=== PATIENT | female | born 1935 | race African-American/Black ===

== ENCOUNTER → 2017-04-20 | Day surgery (SDC) | payer MEDICARE, BC, SELFPAY | PROVIDERS: Family Provider Family Medicine; Visit Provider Internal Medicine | DX: I25.119 Atherosclerotic heart disease of native coronary artery with unspecified angina pectoris (principal); R94.31 Abnormal electrocardiogram [ECG] [EKG]; E11.8 Type 2 diabetes mellitus with unspecified complications | CPT/HCPCS: 80048; 85025; 93458; 99152; C1725; C1769; J1644; Q9967 ==

== ENCOUNTER 2017-06-15 09:09 | Emergency (ER) | payer MEDICARE, BC, SELFPAY ==
[2017-06-15 09:12] VITALS: BP 150/78; PULSE 78; RESP 16; TEMP 36.7; O2SAT 98; BMI 29.8
--- NOTE | 2017-06-15 09:24 | CT_ITS ---
CT abdomen pelvis wo/w con CLINICAL INDICATION: Left lower quadrant pain ITS.REASON: pain in llq ORDERING PHYSICIAN: Ferdinand Amezquita MD PATIENT AGE: 81 years COMPARISON: 07/28/2015 TECHNIQUE: Axial images obtained without and with contrast with sagittal and coronal reformats. PROCEDURE: Oral Contrast: None IV Contrast: 75 mL is Isovue-370. FINDINGS: Lung bases are clear. There are postsurgical changes of the right breast. 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 No focal liver lesion evident. There is pneumobilia as before. There has been prior cholecystectomy. Spleen and adrenal glands are unremarkable. Present at the GE junction with a small hiatal hernia noted. There are nonobstructing bilateral renal calculi with bilateral renal cortical scarring more extensive on the right. No hydronephrosis. There are bilateral renal cysts the largest on the left anteriorly at 2.5 cm. There are surgical clips in the right upper quadrant in the periportal region and region of the pancreatic head. 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 Visualization of the structures is limited due to lack of oral contrast. The findings are similar when compared to 07/28/2015. Status post Whipple procedure. Postsurgical changes of the right colon. Extensive diverticulosis of the descending and sigmoid colon without evidence of diverticulitis. There has been prior hysterectomy. Gas is present in the urinary bladder and could be due to recent catheterization. No intestinal obstruction or free air. No acute inflammatory process evident. No acute bony anomalies. IMPRESSION: 1. No acute findings. 2. Pneumobilia, prior pancreatic surgery. No significant change from the previous study. 3. Extensive diverticulosis without diverticulitis. 4. There is gas present in the urinary bladder could be due to recent catheterization or gas-forming infection or fistula. 5. nonacute findings as described above.
--- NOTE | 2017-06-15 09:33 | [facility].EDGENADL ---
ED Disposition Clinical Impression: UTI (urinary tract infection) Disposition: Home, Self-Care Condition on Discharge: Good Instructions: DI for Urinary Tract Infection (UTI), DI for Abdominal Pain-Adult Additional Instructions: Additional instructions for URINARY TRACT INFECTION: See your physician as soon as possible for further evaluation. Return immediately if you have an uncontrollable fever greater than 102 degrees, severe back or abdominal pain, inability to urinate, or repetetive vomiting. Additional instructions for ABDOMINAL PAIN: See your physician as soon as possible for further evaluation. Return immediately if worsening abdominal pain, vomiting, shortness of breath, fever, vomiting of blood or abdominal distention. Prescriptions: cephALEXin [Keflex 500mg Cap] 500 mg PO QID #40 cap Referrals: Rosalind Cruz APRN [Primary Care Provider] - - Critical Care Critical Care Time: No Attestation: On 06/15/17, the high probability of a clinically significant, sudden or life threatening deterioration of the following system(s) required my full and direct attention, intervention and personal management. The time I documented below is in addition to time spent performing reported procedures but includes the following listed in this critical care notation. Medical Decision Making Vital Signs: 06/15/17 09:12 06/15/17 11:10 Temperature 98.1 F Temperature Source Oral Pulse Rate [Right Brachial] 78 Respiratory Rate 16 Blood Pressure [Right Arm] 150/78 138/75 Blood Pressure Mean [Right Arm] 102 96 Blood Pressure Source [Right Arm] Automatic Cuff Blood Pressure Position [Right Arm] Sitting Sitting 02 Sat by Pulse Oximetry 98 Oxygen Delivery Method Room Air - Lab Data Lab results reviewed: Yes: I reviewed the patient's lab results. Lab Results 06/15/17 09:25: WBC 8.5, RBC 4.06 L, Hgb 11.4 L, Hct 35.7 L, MCV 87.9, MCH 28.1, MCHC 32.0, RDW 13.9, Plt Count 215, MPV 9.1, Neut % (Auto) 59.1, Lymph % (Auto) 28.1, [place] % (Auto) 6.8, Eos % (Auto) 5.3, Baso % (Auto) 0.6, Neut # (Auto) 5.0, Lymph # (Auto) 2.4, [place] # (Auto) 0.6, Eos # (Auto) 0.5 H, Baso # (Auto) 0.1 06/15/17 09:25: Sodium 142, Potassium 4.1, Chloride 110 H, Carbon Dioxide 26, Anion Gap 10.1, BUN 17, Creatinine 1.22 H, Estimated Creat Clear 50, Estimated GFR 43 L, Est GFR ( Amer) 51 L, Glucose 108 H, Calcium 9.7, Total Bilirubin 0.5, AST 16, ALT 15, Alkaline Phosphatase 133 H, Total Protein 6.4, Albumin 3.2 L, Globulin 3.2, Albumin/Globulin Ratio 1.0 L, Amylase 46, Lipase 79 06/15/17 13:10: Urine Color Yellow, Urine Appearance Turbid, Urine pH 6.0, Ur Specific [place] 1.010, Urine Protein Negative, Urine Glucose (UA) Negative, Urine Ketones Negative, Urine Blood Negative, Urine Nitrate Negative, Urine Bilirubin Negative, Urine Urobilinogen 0.2, Ur Leukocyte Esterase 2+ A, Urine RBC None, Urine WBC 20-50, Ur Squamous Epith Cells 10-20, Urine Bacteria 4+, WBC Casts Occasional Result diagrams: 06/15/17 09:25 06/15/17 09:25 Orders (Tests/Meds): ED MEDICATIONS Generic Name Dose Route Start Last Admin Trade Name Freq PRN Reason Stop Dose Admin Ceftriaxone Sodium 1 gm/ 50 mls @ 100 mls/hr 06/15/17 13:42 Sodium Chloride IV 06/15/17 14:11 ONCE ONE Discontinued Medications Generic Name Dose Route Start Last Admin Trade Name Freq PRN Reason Stop Dose Admin Iopamidol 75 ml 06/15/17 12:24 06/15/17 12:27 [id number]; 75ml Vial IV 06/15/17 12:25 75 ml ONCE ONE Administration Ketorolac Tromethamine 15 mg 06/15/17 10:41 06/15/17 10:50 Toradol 30mg/Ml Vial IV 06/15/17 10:42 15 mg ONCE ONE Administration Sodium Chloride 10 ml 06/15/17 12:24 06/15/17 12:26 Rad-Saline Flush 10ml Syringe IV 06/15/17 12:25 10 ml ONCE ONE Administration Sodium Chloride 1,000 ml 06/15/17 12:49 06/15/17 13:31 Sod Chloride 0.9% 1000ml Bag IV 06/15/17 12:50 Not Given BOLUS ONE ORDERS Category
[2017-06-15 10:02] LABS: Basophils # 0.1 K/mm3 (0-0.2); Basophils % 0.6 % (0.1-2.0); Eosinophils # 0.5 K/mm3 (0.0-0.4); Eosinophils % 5.3 % (0.1-12.0); Hematocrit 35.7 % (37.0-47.0); Hemoglobin 11.4 g/dL (12.2-16.2); Lymphocytes # 2.4 K/mm3 (0.7-4.5); Lymphocytes % 28.1 K/mm3 (10-50); Mean Corpuscular Hemoglobin 28.1 pg (27.0-31.2); Mean Corpuscular Volume 87.9 fl (81-99); Mean Platelet Volume 9.1 fl (7.4-10.4); Monocytes # 0.6 K/mm3 (0.1-1.0); Monocytes % 6.8 % (1.7-9.3); Neutrophils % 59.1 % (37.0-80.0); Platelet Count 215 K/mm3 (142-424); Red Blood Count 4.06 M/mm3 (4.20-5.40); Red Cell Distribution Width 13.9 % (11.5-17.5); White Blood Count 8.5 K/mm3 (4.8-10.8)
[2017-06-15 10:19] LABS: Alanine Aminotransferase 15 U/L (12-78); Albumin Level 3.2 gm/dL (3.4-5.0); Alkaline Phosphatase 133 U/L (46-116); Amylase 46 U/L (25-125); Anion Gap 10.1 mEq/L (5-15); Aspartate Amino Transferase 16 U/L (15-37); Bilirubin,Total 0.5 mg/dL (0.2-1.0); Blood Urea Nitrogen 17 mg/dL (7-18); Calcium 9.7 mg/dL (8.5-10.1); Carbon Dioxide 26 mmol/L (21.0-32.0); Chloride 110 mmol/L (98-107); Creatinine Clearance Estimated 50 mL/min (0-300); Creatinine,Serum 1.22 mg/dL (0.55-1.02); Estimated Glomerular Filt Rate 43 ml/min (>60); GFR (African American) 51 ML/MIN (>60); Globulin 3.2 gm/dl (1.3-3.2); Glucose 108 mg/dL (74-106); Lipase 79 u/L (73-393); Potassium 4.1 mmoL/L (3.5-5.1); Sodium 142 mmol/L (136-145); Total Protein,Serum 6.4 gm/dL (6.4-8.2)
[2017-06-15 11:10] VITALS: BP 138/75
[2017-06-15 13:15] LABS: Microscopic, Urine URINE MICROSCOPIC (MICROSCOPIC)
[2017-06-15 13:21] LABS: Appearance,Urine TURBID (Clear); Bilirubin,Urine Negative (Negative); Blood, Urine Negative (Negative); Color,Urine YELLOW (Yellow); Glucose,Urine (UA) Negative (Negative); Ketones,Urine Negative (Negative); Leukocyte Esterase,Urine 2+ (Negative); Nitrate,Urine Negative (Negative); Protein,Urine Negative (Negative); Urobilinogen,Urine 0.2 EU/dl (0.2)
[2017-06-15 13:38] LABS: WBC,Urine 20-50 #/hpf (0-3)
[2017-06-15 13:39] LABS: Bacteria,Urine 4+ /lpf; White Blood Cell Casts,Urine Occasional #/lpf (0)
[2017-06-15 13:53] VITALS: BP 129/75; PULSE 68; RESP 16; TEMP 36.7; O2SAT 99
== END 2017-06-15 13:52 | disposition home or self-care (01) ==
PROVIDERS: Emergency Provider Emergency Medicine; PCP Nurse Practitioner Family
DX: N39.0 Urinary tract infection, site not specified (principal); Z85.3 Personal history of malignant neoplasm of breast; E11.9 Type 2 diabetes mellitus without complications
CPT/HCPCS: 74170; 74178; 80053; 81001; 82150; 83690; 85025; 87086; 87088; 87186; 96372; 99284; Q9967

== ENCOUNTER 2017-08-28 08:49 | Day surgery (SDC) | payer MEDICARE, BC, SELFPAY ==
[2017-08-24 16:18] VITALS: BMI 21.1
[2017-08-28 09:54] VITALS: BP 125/64; PULSE 73; RESP 20; TEMP 36.7; O2SAT 99
== END 2017-08-28 11:30 | disposition home or self-care (01) ==
LOC: OUTP 08:50
PROVIDERS: PCP Nurse Practitioner Family; Visit Provider Ophthalmology
PROC: (CPT 66821; principal; 2017-08-28 09:30)
DX: H26.492 Other secondary cataract, left eye (principal); Z96.1 Presence of intraocular lens; H53.8 Other visual disturbances
CPT/HCPCS: 66821

== ENCOUNTER 2018-07-11 21:03 | Observation (INO) ==
--- NOTE | 2018-07-11 21:37 | Emergency Department Note ---
ED Disposition Clinical Impression: RBBB, Bifascicular block, Renal insufficiency Chest pain Qualifiers: Chest pain type: precordial pain Qualified Code(s): R07.2 - Precordial pain Hypertensive heart disease Qualifiers: Heart failure presence: unspecified whether heart failure present Qualified Code(s): I11.9 - Hypertensive heart disease without heart failure Diabetes Qualifiers: Diabetes mellitus type: type 2 Diabetes mellitus intermediate insulin use: unspecified intermediate insulin use status Diabetes mellitus complication status: with unspecified complications Qualified Code(s): E11.8 - Type 2 diabetes mellitus with unspecified complications Disposition: Admitted as Observation Condition on Discharge: Good Referrals: Provider,Referral, MD [Primary Care Provider] - - Critical Care Critical Care Time: No Attestation: On 07/11/18, the high probability of a clinically significant, sudden or life threatening deterioration of the following system(s) required my full and direct attention, intervention and personal management. The time I documented below is in addition to time spent performing reported procedures but includes the following listed in this critical care notation. Medical Decision Making - Medical Records Medical records reviewed: Yes: I reviewed the patient's medical records. - Griffin Inquiry Pt receiving controlled substance: No Vital Signs: 07/11/18 21:03 07/11/18 22:01 07/11/18 22:23 Temperature 98.0 F Temperature Source Oral Pulse Rate [Right Brachial] 69 65 63 Respiratory Rate 16 16 15 Blood Pressure [Right Arm] 152/102 H 132/67 140/70 Blood Pressure Mean [Right Arm] 118 88 93 Blood Pressure Source [Right Arm] Automatic Cuff Automatic Cuff Automatic Cuff Blood Pressure Position [Right Arm] Sitting Sitting Sitting 02 Sat by Pulse Oximetry 100 99 100 Oxygen Delivery Method Room Air Room Air Room Air 07/11/18 23:00 Temperature Temperature Source Pulse Rate [Right Brachial] 72 Respiratory Rate 16 Blood Pressure [Right Arm] 141/72 H Blood Pressure Mean [Right Arm] 95 Blood Pressure Source [Right Arm] Automatic Cuff Blood Pressure Position [Right Arm] Sitting 02 Sat by Pulse Oximetry 100 Oxygen Delivery Method Room Air - Lab Data Lab results reviewed: Yes: I reviewed the patient's lab results. Lab Results 07/11/18 21:40: WBC 6.9, RBC 4.36, Hgb 12.2, Hct 38.8, MCV 89.1, MCH 28.0, MCHC 31.4 L, RDW 14.3, Plt Count 265, MPV 6.6 L, Neut % (Auto) 61.3, Lymph % (Auto) 29.3, [place] % (Auto) 4.8, Eos % (Auto) 3.9, Baso % (Auto) 0.7, Neut # (Auto) 4.2, Lymph # (Auto) 2.0, [place] # (Auto) 0.3, Eos # (Auto) 0.3, Baso # (Auto) 0.1 07/11/18 21:59: Sodium 143, Potassium 4.0, Chloride 109 H, Carbon Dioxide 26, Anion Gap 12.0, BUN 24 H, Creatinine 1.33 H, Estimated Creat Clear 42, Estimated GFR 38 L, Est GFR ( Amer) 46 L, Glucose 169 H, Calcium 9.7, Troponin I < 0.02 Result diagrams: 07/11/18 21:40 07/11/18 21:59 Orders (Tests/Meds): ED MEDICATIONS Generic Name Dose Route Start Last Admin Trade Name Freq PRN Reason Stop Dose Admin Sodium Chloride 10 ml 07/11/18 21:13 Saline Flush 10ml Syringe IV 08/10/18 21:12 NEEDED PRN Maintain IV Site Discontinued Medications Generic Name Dose Route Start Last Admin Trade Name Freq PRN Reason Stop Dose Admin Aspirin 243 mg 07/11/18 22:28 07/11/18 22:29 Aspirin 81mg Chewable Tablet PO 07/11/18 22:29 243 mg ONCE ONE Administration Nitroglycerin 1 gm 07/11/18 23:01 Nitroglycerin 1 Inch Oint Udp TD 07/11/18 23:02 ONCE ONE ORDERS Category Date Time Status XR chest 2V Stat Exams 07/11/18 21:13 Taken Urinalysis and Microscopic Stat Lab 07/11/18 21:13 Ordered ECG Request by /Nse Stat Y 07/11/18 21:13 Ordered - Radiology Data #1 Image(s): Chest Image Reviewed: Yes I reviewed the patient's radiology image Preliminary Findings: Normal/NAD - ECG Data Tracing #1 Normal Sinus Rhythm: Yes Conduction abnormalities present: LAFB, RBBB ECG compared to prior tracings: there are no significant changes - Physician Consults Physician Consulted: finn Reason -: Admission Chest Pain HPI - General Chief Complaint: Chest Pain Stated Complaint: CP Time Seen by Provider: 07/11/18 21:10 Mode of Arrival: Ambulatory Source of Information: Patient, Medical Record Limitations: No Limitations Description of Symptoms (Recalled from ER Triage Doc. by RN): Pt states she is having cp x 2 days, she states is a little worse today. - History of Present Illness HPI narrative: new onset of ant chest pain with rad to lt upper ext described as sharp - pt with diabetes and hx of heart disease complaint: chest pain indicative of cardiac Onset (ago): day(s) Duration: intermittent Activity at onset: during rest Pain location: left chest Severity: moderate Quality: sharp Pain radiation: LUE Relieving factors: nothing Risk Factors for CAD: Hypertension, Family Hx of CAD, Diabetes Treatments prior to or on arrival for Cardiac Chest Pain: none - ELA Score for Non-Stemi Age of Patient: 80-89 years old Heart Rate: 50-69 bpm Systolic Blood Pressure: 140-159 mmHg Serum Creatinine: 1.60-1.99 mg/dl CHF [place] Class: I-No CHF Other Risk Factors: None Non-Stemi Risk Score: 131 - Related Data Prior Cardiac Testing/Procedures: Cardiac Angiogram On Oral Contraceptives: No Home Medications Medication Instructions Recorded Confirmed amlodipine 5 mg tablet 5 mg PO DAILY tab 07/30/17 07/11/18 aspirin 81 mg tablet,delayed 81 mg PO DAILY tab 07/30/17 07/11/18 release atenolol 25 mg tablet 25 mg PO DAILY tab 07/30/17 07/11/18 diclofenac sodium 75 mg 75 mg PO BID 07/30/17 07/11/18 tablet,delayed release ferrous sulfate 325 mg (65 mg 325 mg PO BID tab 07/30/17 07/11/18 iron) tablet glipizide ER 5 mg tablet, extended 5 mg PO DAILY tab 07/30/17 07/11/18 release 24 hr meclizine 25 mg chewable tablet 25 mg PO TID PRN 07/30/17 07/11/18 polyethylene glycol 3350 17 17 g PO DAILY g 07/30/17 07/11/18 gram/dose oral powder Lisinopril [Prinivil 10mg Tablet] 10 mg PO ONCE 07/11/18 07/11/18 Allergies Allergy/AdvReac Type Severity Reaction Status Date / Time butorphanol [From STADOL] Allergy Mild I-HIVES Verified 08/28/17 09:24 codeine [CODEINE] Allergy Mild I-HIVES Verified 08/28/17 09:24 morphine [MORPHINE] Allergy Mild I-HIVES Verified 08/28/17 09:24 promethazine [From PHENERGAN] Allergy Mild I-HIVES Verified 08/28/17 09:24 [facility] History - Hepatitis A Screen Drug use history?: No High risk sexual behaviors?: No History of sexually transmitted infection?: No Currently employed?: No Childcare worker?: No Do you have indoor plumbing?: Yes Do you have electricity?: Yes Attestation statement:: This patient has been screened for Hepatitis A risk factors. I have reviewed the patient's past medical history: Yes Medical History: Reports:: Cancer, Diabetes Mellitus Type 2, Hyperlipidemia, Hypertension Denies:: Diabetes Mellitus Type 1, Internal Pacemaker, Lung Disease, Seizures Other Surgeries: Yes: Cardiac Catheterization. No: Pacemaker - Social History Smoking Status: Unknown if ever smoked Alcohol Intake: never Alcohol Intake Frequency:: other Occupational Status: disabled - Psychiatric History Expresses thoughts of harming self/others: None Suicide Plan Description: No Plan ROS Obtained: Yes All systems reviewed & no additional complaints - Constitutional Constitutional: Denies fever(s) - Eyes Eyes: Denies change in vision - ENT Ears, Nose, Mouth, and Throat: Denies headache(s), Denies sore throat - Cardiovascular Cardiovascular: Reports chest pain, Denies dyspnea - Respiratory Respiratory: No cough - Gastrointestinal Gastrointestingal: Denies: abdominal pain - Genitourinary Female Genitourinary: Denies dysuria, Denies hematuria - Musculoskeletal Musculoskeletal: Denies joint pain, Denies joint swelling - Integumentary/Breasts Skin/Breast: Denies rash - Neurologic Neurologic: Denies seizure-like activity Physical Exam - General General appearance: alert - Head Head exam: normocephalic - Eye Eye exam: Present: PERRL, EOMI. Absent: scleral icterus - ENT ENT exam: Present: mucous membranes dry - Neck Neck exam: Present: trachea midline - Respiratory Respiratory exam: Present: normal lung sounds bilaterally. Absent: respiratory distress - Cardiovascular Cardiovascular exam: Present: regular rate, systolic murmur, +S4 - Abdominal Exam Abdominal exam: Present: soft - Extremities Exam Extremities exam: Absent: calf tenderness - Neurological Exam Neurological exam: Present: alert, oriented X3, CN II-XII intact - Psychiatric Psychiatric exam: Present: normal affect - Skin Skin exam: Absent: rash
[2018-07-11 21:56] LABS: Basophils # 0.1 K/mm3 (0-0.2); Basophils % 0.7 % (0.1-2.0); Eosinophils # 0.3 K/mm3 (0.0-0.4); Eosinophils % 3.9 % (0.1-12.0); Hematocrit 38.8 % (37.0-47.0); Hemoglobin 12.2 g/dL (12.2-16.2); Lymphocytes % 29.3 % (10-50); Mean Corpuscular HGB Conc 31.4 g/dL (31.8-35.4); Mean Corpuscular Volume 89.1 fl (81-99); Mean Platelet Volume 6.6 fl (7.4-10.4); Monocytes # 0.3 K/mm3 (0.1-1.0); Monocytes % 4.8 % (1.7-9.3); Neutrophils # 4.2 K/mm3 (1.8-7.8); Neutrophils % 61.3 % (37.0-80.0); Platelet Count 265 K/mm3 (142-424); Red Blood Count 4.36 M/mm3 (4.20-5.40); Red Cell Distribution Width 14.3 % (11.5-17.5); White Blood Count 6.9 K/mm3 (4.8-10.8)
[2018-07-11 22:27] LABS: Blood Urea Nitrogen 24 mg/dL (7-18); Calcium 9.7 mg/dL (8.5-10.1); Carbon Dioxide 26 mmol/L (21.0-32.0); Chloride 109 mmol/L (98-107); Glucose 169 mg/dL (74-106); Sodium 143 mmol/L (136-145)
[2018-07-12 05:43] LABS: Basophils % 0.5 % (0.1-2.0); Eosinophils # 0.3 K/mm3 (0.0-0.4); Eosinophils % 4.2 % (0.1-12.0); Hematocrit 34.6 % (37.0-47.0); Lymphocytes # 2.1 K/mm3 (0.7-4.5); Lymphocytes % 34.4 % (10-50); Mean Corpuscular HGB Conc 31.3 g/dL (31.8-35.4); Mean Corpuscular Hemoglobin 27.5 pg (27.0-31.2); Mean Corpuscular Volume 87.9 fl (81-99); Mean Platelet Volume 6.6 fl (7.4-10.4); Monocytes # 0.4 K/mm3 (0.1-1.0); Monocytes % 5.7 % (1.7-9.3); Neutrophils # 3.3 K/mm3 (1.8-7.8); Neutrophils % 55.2 % (37.0-80.0); Platelet Count 255 K/mm3 (142-424); Red Blood Count 3.93 M/mm3 (4.20-5.40); Red Cell Distribution Width 14.4 % (11.5-17.5); White Blood Count 6.1 K/mm3 (4.8-10.8)
[2018-07-12 05:51] LABS: Hemoglobin 10.9 g/dL (12.2-16.2)
[2018-07-12 05:56] LABS: Anion Gap 10.5 mEq/L (5-15); Calcium 9.8 mg/dL (8.5-10.1); Chol/HDL Ratio 3.6 (1-3.5); Potassium 3.5 mmoL/L (3.5-5.1)
--- NOTE | 2018-07-12 07:16 | History & Physical Report ---
*Admission Date: 07/11/18 *Chief complaint: chest pain *History of present illness: 82 year old female presents to ER with chest pain that began on Sunday. When this first occurred patient was seating watching TV and reports it felt like stabbing to left upper chest, accompanied with tightness and lightheadedness. Denies nausea, diaphoresis. Symptoms worsened and that's what ultimately brought her in. She experienced similar episodes back in 2017 and had a heart catheterization performed by Dr Griffin, no stents were placed and he told the patient her heart looked great. She is being treated for hypertension, reports good compliance to medications, regularly checks blood pressure, typically runs 110s/60s, unrestricted diet, no regular physical activity, no recently added stressors. 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 Pain gets better with nitroglycerin. She did have an episode of blood glucose dropping to 53 overnight, this was successfully treated with an amp of D50, she did take glipizide 5 mg yesterday. Echocardiogram has already been performed this morning. [facility] History Medical History: Reports:: Cancer, Diabetes Mellitus Type 2, Hyperlipidemia, Hypertension Denies:: Diabetes Mellitus Type 1, Internal Pacemaker, Lung Disease, MRSA, Seizures Have you ever received a pneumonia vaccine?: No Have you received a flu vaccine this season?: No Other Surgeries: Yes: Cardiac Catheterization, Other (pancreas, left mascetomy.). No: Pacemaker Amputation: No Fractures: No - *Social History Educational Level: Attended High School Smoking Status: Former smoker Alcohol Intake: never Alcohol Intake Frequency:: other Occupational Status: disabled Travel in the last 8 weeks: None - Psychiatric History Expresses thoughts of harming self/others: None Suicide Plan Description: No Plan Family Hx:: Cancer, Diabetes, Hyperlipidemia, Hypertension Review of Systems - Constitutional Denies weight gain - *Cardiovascular Reports chest pain, Reports chest pain at rest, Reports chest pain with activity, Reports leg swelling, Denies irregular heart rhythm, Denies fast heart rate - *Respiratory Reports shortness of breath - *Gastrointestinal Denies nausea - *Neurologic Denies headache(s), Denies seizure-like activity Meds Home Medications Medication Instructions Recorded Confirmed Type amlodipine 5 mg tablet 5 mg PO DAILY tab 07/30/17 07/12/18 History aspirin 81 mg tablet,delayed 81 mg PO DAILY tab 07/30/17 07/12/18 History release atenolol 25 mg tablet 25 mg PO DAILY tab 07/30/17 07/12/18 History diclofenac sodium 75 mg 75 mg PO BID 07/30/17 07/12/18 History tablet,delayed release ferrous sulfate 325 mg (65 mg 325 mg PO BID tab 07/30/17 07/12/18 History iron) tablet glipizide ER 5 mg tablet, extended 5 mg PO DAILY tab 07/30/17 07/12/18 History release 24 hr meclizine 25 mg chewable tablet 25 mg PO TID PRN 07/30/17 07/12/18 History polyethylene glycol 3350 17 17 g PO DAILY g 07/30/17 07/12/18 History gram/dose oral powder Lisinopril [Prinivil 10mg Tablet] 10 mg PO ONCE 07/11/18 07/12/18 History Allergies Allergy/AdvReac Type Severity Reaction Status Date / Time butorphanol [From STADOL] Allergy Mild I-HIVES Verified 07/12/18 00:31 codeine [CODEINE] Allergy Mild I-HIVES Verified 07/12/18 00:31 morphine [MORPHINE] Allergy Mild I-HIVES Verified 07/12/18 00:31 promethazine [From PHENERGAN] Allergy Mild I-HIVES Verified 07/12/18 00:31 Exam Vital signs and Labs for Last 24 Hours: Temp Pulse Resp BP Pulse Ox 98.3 F 59 L 16 120/63 93 L 07/12/18 04:00 07/12/18 04:00 07/12/18 04:00 07/12/18 04:00 07/12/18 04:00 Laboratory Results - last 24 hr 07/11/18 21:40: WBC 6.9, RBC 4.36, Hgb 12.2, Hct 38.8, MCV 89.1, MCH 28.0, MCHC 31.4 L, RDW 14.3, Plt Count 265, MPV 6.6 L, Neut % (Auto) 61.3, Lymph % (Auto) 29.3, [place] % (Auto) 4.8, Eos % (Auto) 3.9, Baso % (Auto) 0.7, Neut # (Auto) 4.2, Lymph # (Auto) 2.0, [place] # (Auto) 0.3, Eos # (Auto) 0.3, Baso # (Auto) 0.1 07/11/18 21:59: Sodium 143, Potassium 4.0, Chloride 109 H, Carbon Dioxide 26, Anion Gap 12.0, BUN 24 H, Creatinine 1.33 H, Estimated Creat Clear 42, Estimated GFR 38 L, Est GFR ( Amer) 46 L, Glucose 169 H, Calcium 9.7, Troponin I < 0.02 07/12/18 03:15: Troponin I < 0.02 07/12/18 05:24: Troponin I < 0.02 07/12/18 05:24: WBC 6.1, RBC 3.93 L, Hgb 10.9 L D, Hct 34.6 L, MCV 87.9, MCH 27.5, MCHC 31.3 L, RDW 14.4, Plt Count 255, MPV 6.6 L, Neut % (Auto) 55.2, Lymph % (Auto) 34.4, [place] % (Auto) 5.7, Eos % (Auto) 4.2, Baso % (Auto) 0.5, Neut # (Auto) 3.3, Lymph # (Auto) 2.1, [place] # (Auto) 0.4, Eos # (Auto) 0.3, Baso # (Auto) 0.0 07/12/18 05:24: Sodium 143, Potassium 3.5, Chloride 111 H, Carbon Dioxide 25, Anion Gap 10.5, BUN 20 H, Creatinine 1.10 H, Estimated Creat Clear 56, Estimated GFR 48 L, Est GFR ( Amer) 58 L D, Glucose 60 L D, Calcium 9.8, Magnesium 1.8, Triglycerides 96, Cholesterol 177, LDL Cholesterol 109, VLDL Cholesterol 19, HDL Cholesterol 49, Cholesterol/HDL Ratio 3.6 H I & O for Last 24 hours: Intake & Output 07/09/18 07/10/18 07/11/18 07/12/18 23:59 23:59 23:59 23:59 Weight 190 lb 7 oz - Constitutional no acute distress, average body habitus - *Routine HEENT Exam Head: Present: normocephalic ENT: Present: mucous membranes moist - *Routine Neck Exam Present: supple - *Routine Respiratory Exam Present: CTA bilaterally. Absent: accessory muscle use - *Routine Cardiovascular Exam Present: RRR, Normal S1, Normal S2. Absent: murmur, bradycardia, tachycardia - *Routine Abdominal Exam Present: soft, normoactive bowel sounds. Absent: tenderness, distended - *Routine Extremities Exam Present: edema, pulses intact. Absent: cyanosis Comments: 1+ pedal edema left LE, 1-2+ right LE - *Routine Skin Exam Present: intact. Absent: cyanosis, pallor - *Routine Neurological Exam Present: alert, oriented X3 - Routine Psychiatric Exam Present: normal affect Assessment and Plan - Assessment and plan all Dx Assessment and Plan for all problems:: Will review results of echocardiogram, continue to treat chest pain with nitroglycerin, remain NPO until cardiology team sees patient. Will follow up with this afternoon.
--- NOTE | 2018-07-12 09:03 | Consult Report ---
History of Present Illness Consult date: 07/12/18 Requesting physician: Gucci Story Consult reason: chest pain Chief complaint: chest pain Additional Medical History:: 1. Diabetes mellitus, treated for many years 2. Arthritis, taking diclofenac daily 3. Hypertension 4. Hyperlipidemia, on zetia 5. Mild to moderate coronary artery disease by cardiac catheterization 2016 A. [facility], 04/20/17, ANGIOGRAPHIC RESULTS: 1. The left main artery normal 2. The left anterior descending artery rocks smooth 30% stenosis with mid vessel 20% stenoses 3. The circumflex artery has mild 20% stenoses 4. The right coronary artery is dominant and has proximal and mid vessel and distal long 30% stenoses 5. The CRAEY ventriculogram reveals normal 65% 6. The left ventricular end-diastolic pressure 10 mmHg IMPRESSION: 1. Mild to moderate nonflow limiting coronary artery disease 2. Normal ejection fraction 3. Normal left ventricular end-diastolic pressure History of present illness: 82 year old female presents to ER with chest pain that began on Sunday. When this first occurred patient was seating watching TV and reports it felt like stabbing to left upper chest, accompanied with tightness and lightheadedness. Denies nausea, diaphoresis. Symptoms worsened and that's what ultimately brought her in. She experienced similar episodes back in 2017 and had a heart catheterization performed by Dr Griffin, no stents were placed and he told the patient her heart looked great. She is being treated for hypertension, reports good compliance to medications, regularly checks blood pressure, typically runs 110s/60s, unrestricted diet, no regular physical activity, no recently added stressors. 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 Pain gets better with nitroglycerin. She did have an episode of blood glucose dropping to 53 overnight, this was successfully treated with an amp of D50, she did take glipizide 5 mg yesterday. Echocardiogram has already been performed this morning The above per Mirella Keita APRN for Dr. Story. Cardiology consulted for evaluation recommendations. Patient relates chest pain mentioned above last for just a seconds and occurs both at rest and with activity without worsening during activity. Preliminary echocardiogram shows normal left ventricular size and function with no significant valvular heart disease. Troponins have returned normal. EKG shows sinus rhythm with right bundle branch block and left anterior fascicular block which is not new. [facility] History Medical History: Reports:: Cancer, Diabetes Mellitus Type 2, Hyperlipidemia, Hypertension Denies:: Diabetes Mellitus Type 1, Internal Pacemaker, Lung Disease, MRSA, Seizures Have you ever received a pneumonia vaccine?: No Have you received a flu vaccine this season?: No Other Surgeries: Yes: Cardiac Catheterization, Other (pancreas, left mascetomy.). No: Pacemaker Amputation: No Fractures: No - *Social History Educational Level: Attended High School Smoking Status: Former smoker Alcohol Intake: never Alcohol Intake Frequency:: other Occupational Status: disabled Travel in the last 8 weeks: None - Psychiatric History Expresses thoughts of harming self/others: None Suicide Plan Description: No Plan Family Hx:: Cancer, Diabetes, Hyperlipidemia, Hypertension Meds Home Medications Medication Instructions Recorded Confirmed Type amlodipine 5 mg tablet 5 mg PO DAILY tab 07/30/17 07/12/18 History aspirin 81 mg tablet,delayed 81 mg PO DAILY tab 07/30/17 07/12/18 History release atenolol 25 mg tablet 25 mg PO DAILY tab 07/30/17 07/12/18 History diclofenac sodium 75 mg 75 mg PO BID 07/30/17 07/12/18 History tablet,delayed release ferrous sulfate 325 mg (65 mg 325 mg PO BID tab 07/30/17 07/12/18 History iron) tablet glipizide ER 5 mg tablet, extended 5 mg PO DAILY tab 07/30/17 07/12/18 History release 24 hr meclizine 25 mg chewable tablet 25 mg PO TID PRN 07/30/17 07/12/18 History polyethylene glycol 3350 17 17 g PO DAILY g 07/30/17 07/12/18 History gram/dose oral powder Lisinopril [Prinivil 10mg Tablet] 10 mg PO ONCE 07/11/18 07/12/18 History Allergies Allergy/AdvReac Type Severity Reaction Status Date / Time butorphanol [From STADOL] Allergy Mild I-HIVES Verified 07/12/18 00:31 codeine [CODEINE] Allergy Mild I-HIVES Verified 07/12/18 00:31 morphine [MORPHINE] Allergy Mild I-HIVES Verified 07/12/18 00:31 promethazine [From PHENERGAN] Allergy Mild I-HIVES Verified 07/12/18 00:31 Review of Systems - *Cardiovascular Reports chest pain, Denies shortness of breath with activity - *Respiratory Denies shortness of breath with activity - *Gastrointestinal Denies abdominal pain, Denies loose stools - *Genitourinary Denies blood in urine - *Musculoskeletal Reports joint pain - *Neurologic Denies headache(s), Denies seizure-like activity Exam Vital signs and Labs for Last 24 Hours: Temp Pulse Resp BP Pulse Ox 97.4 F L 62 18 135/68 100 07/12/18 08:00 07/12/18 08:00 07/12/18 08:00 07/12/18 08:00 07/12/18 08:00 Laboratory Results - last 24 hr 07/11/18 21:40: WBC 6.9, RBC 4.36, Hgb 12.2, Hct 38.8, MCV 89.1, MCH 28.0, MCHC 31.4 L, RDW 14.3, Plt Count 265, MPV 6.6 L, Neut % (Auto) 61.3, Lymph % (Auto) 29.3, Rowan % (Auto) 4.8, Eos % (Auto) 3.9, Baso % (Auto) 0.7, Neut # (Auto) 4.2, Lymph # (Auto) 2.0, Rowan # (Auto) 0.3, Eos # (Auto) 0.3, Baso # (Auto) 0.1 07/11/18 21:59: Sodium 143, Potassium 4.0, Chloride 109 H, Carbon Dioxide 26, Anion Gap 12.0, BUN 24 H, Creatinine 1.33 H, Estimated Creat Clear 42, Estimated GFR 38 L, Est GFR ( Amer) 46 L, Glucose 169 H, Calcium 9.7, Troponin I < 0.02 07/12/18 03:15: Troponin I < 0.02 07/12/18 05:24: Troponin I < 0.02 07/12/18 05:24: WBC 6.1, RBC 3.93 L, Hgb 10.9 L D, Hct 34.6 L, MCV 87.9, MCH 27.5, MCHC 31.3 L, RDW 14.4, Plt Count 255, MPV 6.6 L, Neut % (Auto) 55.2, Lymph % (Auto) 34.4, Rowan % (Auto) 5.7, Eos % (Auto) 4.2, Baso % (Auto) 0.5, Neut # (Auto) 3.3, Lymph # (Auto) 2.1, Rowan # (Auto) 0.4, Eos # (Auto) 0.3, Baso # (Auto) 0.0 07/12/18 05:24: Sodium 143, Potassium 3.5, Chloride 111 H, Carbon Dioxide 25, Anion Gap 10.5, BUN 20 H, Creatinine 1.10 H, Estimated Creat Clear 56, Estimated GFR 48 L, Est GFR ( Amer) 58 L D, Glucose 60 L D, Calcium 9.8, Magnesium 1.8, Triglycerides 96, Cholesterol 177, LDL Cholesterol 109, VLDL Cholesterol 19, HDL Cholesterol 49, Cholesterol/HDL Ratio 3.6 H 07/12/18 05:27: POC Glucose 53 L 07/12/18 05:33: POC Glucose 55 L 07/12/18 06:57: POC Glucose 139 H I & O for Last 24 hours: Intake & Output 07/09/18 07/10/18 07/11/18 07/12/18 11:59 11:59 11:59 11:59 Intake Total 0 / 0 Balance 0 / 0 Weight 190 lb 7 oz - *Routine HEENT Exam Head: Present: normocephalic Eye: Present: EOMI, PERRL ENT: Present: mucous membranes moist - *Routine Neck Exam Present: supple. Absent: JVD, carotid bruit - *Routine Respiratory Exam Present: CTA bilaterally. Absent: accessory muscle use, rales, rhonchi, wheezes - *Routine Cardiovascular Exam Present: RRR. Absent: murmur, gallop, rubs - *Routine Abdominal Exam Present: soft. Absent: tenderness, distended, guarding - *Routine Extremities Exam Absent: edema, calf tenderness - *Routine Neurological Exam Present: alert, oriented X3, moving all extremities Assessment and Plan (1) Chest pain Current visit: Yes Status: Acute Qualifiers: Chest pain type: precordial pain Qualified Code(s): R07.2 - Precordial pain Category: Medical Code(s): R07.9 - Chest pain, unspecified (2) Hyperlipidemia associated with type 2 diabetes mellitus Current visit: Yes Status: Acute Category: Medical Code(s): E11.69 - Type 2 diabetes mellitus with other specified complication; E78.5 - Hyperlipidemia, unspecified (3) Coronary artery disease Current visit: Yes Status: Acute Category: Medical Code(s): I25.10 - Atherosclerotic heart disease of [place] coronary artery without angina pectoris (4) Bifascicular block Current visit: Yes Status: Acute Category: Medical Code(s): I45.2 - Bifascicular block (5) Hypertensive heart disease Current visit: Yes Status: Acute Qualifiers: Heart failure presence: unspecified whether heart failure present Qualified Code(s): I11.9 - Hypertensive heart disease without heart failure Category: Medical Code(s): I11.9 - Hypertensive heart disease without heart failure (6) Renal insufficiency Current visit: Yes Status: Acute Category: Medical Code(s): N28.9 - Disorder of kidney and ureter, unspecified - Assessment and plan all Dx Assessment and Plan for all problems:: 1. Patient with atypical chest pain symptoms with normal troponins, mild to mod erate coronary artery disease by cardiac catheterization in April 2017 and normal echocardiogram this a.m. Would not recommend any further evaluation at this time. Continue current medical therapy as noted on her home medications. One recommendation would be to add pantoprazole 40 mg daily for possible GERD/esophageal spasm symptoms. 2. Okay for discharge from cardiology standpoint. 3. Would like to see patient back in 1-2 weeks for follow-up.
--- NOTE | 2018-07-12 10:02 | Pharmacy Consult Notes ---
[facility] Pharmacy VTE Monitoring - Patient Demographics Admission date: 07/11/18 Report Date: 07/12/18 Time: 10:02 Allergies/Adverse Reactions: Patient Allergies butorphanol [From STADOL] Allergy (Mild, Verified 07/12/18 00:31) I-HIVES codeine [CODEINE] Allergy (Mild, Verified 07/12/18 00:31) I-HIVES morphine [MORPHINE] Allergy (Mild, Verified 07/12/18 00:31) I-HIVES promethazine [From PHENERGAN] Allergy (Mild, Verified 07/12/18 00:31) I-HIVES Height: 1.85 m Weight: 86.381 kg Patient Problems: Current Active Problems Chest pain (Acute) Diabetes (Acute) Renal insufficiency (Acute) Hyperlipidemia associated with type 2 diabetes mellitus (Acute) Coronary artery disease (Acute) RBBB (Chronic) Bifascicular block (Acute) Hypertensive heart disease (Acute) - VTE Risk Labs: VTE Related Lab Results Hgb 10.9 g/dL (12.2-16.2) L D 07/12/18 05:24 Hct 34.6 % (37.0-47.0) L 07/12/18 05:24 Plt Count 255 K/mm3 (142-424) 07/12/18 05:24 BUN 20 mg/dL (7-18) H 07/12/18 05:24 Creatinine 1.10 mg/dL (0.55-1.02) H 07/12/18 05:24 Estimated Creat Clear 56 mL/min (50-200) 07/12/18 05:24 Was VTE Risk Assessment Performed: Yes VTE Score: 3 VTE Risk Level: Low Risk - Prophylaxis VTE Prophylaxis Ordered?: Yes Types of VTE Prophylaxis: TEDS Knee High Location of Applied Device: Bilateral Lower Extremeties
--- NOTE | 2018-07-12 11:42 | Discharge Summary ---
General - General Admission date:: 07/11/18 Discharge date: 07/12/18 HPI HPI: 82 year old female presents to ER with chest pain that began on Sunday. When this first occurred patient was seating watching TV and reports it felt like stabbing to left upper chest, accompanied with tightness and lightheadedness. Denies nausea, diaphoresis. Symptoms worsened and that's what ultimately brought her in. She experienced similar episodes back in 2017 and had a heart catheterization performed by Dr Griffin, no stents were placed and he told the patient her heart looked great. She is being treated for hypertension, reports good compliance to medications, regularly checks blood pressure, typically runs 110s/60s, unrestricted diet, no regular physical activity, no recently added stressors. 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 Pain gets better with nitroglycerin. She did have an episode of blood glucose dropping to 53 overnight, this was successfully treated with an amp of D50, she did take glipizide 5 mg yesterday. Echocardiogram has already been performed this morning. Hospital Course Hospital Course: Patient was evaluated by cardiology and no intervention or additional testing is needed at this time, she will follow up with them in 1-2 weeks, they have recommended the start of pantaprazole for possible GI symptoms. Will send p rescription into pharmacy for this medication. She has been instructed to seek treatment for chest pain, pressure, numbness/tingling in left arm, diaphoresis that does not go away within ten minutes. OK to resume normal activities and diet. Objective Vital signs: Temp Pulse Resp BP Pulse Ox 97.4 F L 62 18 135/68 100 07/12/18 08:00 07/12/18 08:00 07/12/18 08:00 07/12/18 08:00 07/12/18 08:00 no acute distress, average body habitus - *Routine Respiratory Exam Present: CTA bilaterally. Absent: accessory muscle use - *Routine Cardiovascular Exam Present: RRR, Normal S1, Normal S2. Absent: murmur - *Routine Abdominal Exam Present: soft, normoactive bowel sounds. Absent: tenderness, distended - *Routine Skin Exam Present: intact. Absent: pallor - *Routine Neurological Exam Present: alert, oriented X3 - Routine Psychiatric Exam Present: normal affect Results Labs on day of discharge: Labs from last 24 hours 07/12/18 07/12/18 07/12/18 11:08 06:57 05:33 WBC RBC Hgb Hct MCV MCH MCHC RDW Plt Count MPV Neut % (Auto) Lymph % (Auto) Carroll % (Auto) Eos % (Auto) Baso % (Auto) Neut # (Auto) Lymph # (Auto) [place] # (Auto) Eos # (Auto) Baso # (Auto) Sodium Potassium Chloride Carbon Dioxide Anion Gap BUN Creatinine Estimated Creat Clear Estimated GFR Est GFR ( Amer) Glucose POC Glucose 94 139 H 55 L Calcium Magnesium Troponin I Triglycerides Cholesterol LDL Cholesterol VLDL Cholesterol HDL Cholesterol Cholesterol/HDL Ratio 07/12/18 07/12/18 07/12/18 05:27 05:24 05:24 WBC 6.1 RBC 3.93 L Hgb 10.9 L D Hct 34.6 L MCV 87.9 MCH 27.5 MCHC 31.3 L RDW 14.4 Plt Count 255 MPV 6.6 L Neut % (Auto) 55.2 Lymph % (Auto) 34.4 Carroll % (Auto) 5.7 Eos % (Auto) 4.2 Baso % (Auto) 0.5 Neut # (Auto) 3.3 Lymph # (Auto) 2.1 Carroll # (Auto) 0.4 Eos # (Auto) 0.3 Baso # (Auto) 0.0 Sodium 143 Potassium 3.5 Chloride 111 H Carbon Dioxide 25 Anion Gap 10.5 BUN 20 H Creatinine 1.10 H Estimated Creat Clear 56 Estimated GFR 48 L Est GFR ( Amer) 58 L D Glucose 60 L D POC Glucose 53 L Calcium 9.8 Magnesium 1.8 Troponin I Triglycerides 96 Cholesterol 177 LDL Cholesterol 109 VLDL Cholesterol 19 HDL Cholesterol 49 Cholesterol/HDL Ratio 3.6 H 07/12/18 07/12/18 07/11/18 05:24 03:15 21:59 WBC RBC Hgb Hct MCV MCH MCHC RDW Plt Count MPV Neut % (Auto) Lymph % (Auto) Carroll % (Auto) Eos % (Auto) Baso % (Auto) Neut # (Auto) Lymph # (Auto) [place] # (Auto) Eos # (Auto) Baso # (Auto) Sodium 143 Potassium 4.0 Chloride 109 H Carbon Dioxide 26 Anion Gap 12.0 BUN 24 H Creatinine 1.33 H Estimated Creat Clear 42 Estimated GFR 38 L Est GFR ( Amer) 46 L Glucose 169 H POC Glucose Calcium 9.7 Magnesium Troponin I < 0.02 < 0.02 < 0.02 Triglycerides Cholesterol LDL Cholesterol VLDL Cholesterol HDL Cholesterol Cholesterol/HDL Ratio 07/11/18 21:40 WBC 6.9 RBC 4.36 Hgb 12.2 Hct 38.8 MCV 89.1 MCH 28.0 MCHC 31.4 L RDW 14.3 Plt Count 265 MPV 6.6 L Neut % (Auto) 61.3 Lymph % (Auto) 29.3 Carroll % (Auto) 4.8 Eos % (Auto) 3.9 Baso % (Auto) 0.7 Neut # (Auto) 4.2 Lymph # (Auto) 2.0 Carroll # (Auto) 0.3 Eos # (Auto) 0.3 Baso # (Auto) 0.1 Sodium Potassium Chloride Carbon Dioxide Anion Gap BUN Creatinine Estimated Creat Clear Estimated GFR Est GFR ( Amer) Glucose POC Glucose Calcium Magnesium Troponin I Triglycerides Cholesterol LDL Cholesterol VLDL Cholesterol HDL Cholesterol Cholesterol/HDL Ratio DS: Diagnosis - Discharge Diagnosis (1) Chest pain Status: Acute (2) Hyperlipidemia associated with type 2 diabetes mellitus Status: Acute (3) Coronary artery disease Status: Acute (4) Bifascicular block Status: Acute (5) Hypertensive heart disease Status: Acute (6) Renal insufficiency Status: Acute Discharge Plan - Patient Discharge Instructions ACTIVITY: Continue current activity DIET: low salt diet, cardiac - Follow up Plan Follow up with: Rene Griffin MD [Staff Physician] - (1-2 weeks) Disposition: Home, Self-Jail Medications: Home Medications Medication Instructions Recorded Confirmed Type amlodipine 5 mg tablet 5 mg PO DAILY tab 07/30/17 07/12/18 History aspirin 81 mg tablet,delayed 81 mg PO DAILY tab 07/30/17 07/12/18 History release atenolol 25 mg tablet 25 mg PO DAILY tab 07/30/17 07/12/18 History diclofenac sodium 75 mg 75 mg PO BID 07/30/17 07/12/18 History tablet,delayed release ferrous sulfate 325 mg (65 mg 325 mg PO BID tab 07/30/17 07/12/18 History iron) tablet glipizide ER 5 mg tablet, extended 5 mg PO DAILY tab 07/30/17 07/12/18 History release 24 hr meclizine 25 mg chewable tablet 25 mg PO TID PRN 07/30/17 07/12/18 History polyethylene glycol 3350 17 17 g PO DAILY g 07/30/17 07/12/18 History gram/dose oral powder Lisinopril [Prinivil 10mg Tablet] 10 mg PO ONCE 07/11/18 07/12/18 History Nitroglycerin 0.4 mg SL DIRECTED PRN #30 07/12/18 Rx tab.subl Pantoprazole Sodium [Protonix 40mg 40 mg PO HS 30 Days #30 tab 07/12/18 Rx tablet] Prescriptions/Medication Reconciliation: Continue aspirin 81 mg tablet,delayed release 81 mg PO DAILY tab atenolol 25 mg tablet 25 mg PO DAILY tab diclofenac sodium 75 mg tablet,delayed release 75 mg PO BID ferrous sulfate 325 mg (65 mg iron) tablet 325 mg PO BID tab glipizide ER 5 mg tablet, extended release 24 hr 5 mg PO DAILY tab polyethylene glycol 3350 17 gram/dose oral powder 17 g PO DAILY g amlodipine 5 mg tablet 5 mg PO DAILY tab meclizine 25 mg chewable tablet 25 mg PO TID PRN PRN Reason: Dizziness Lisinopril [Prinivil 10mg Tablet] 10 mg PO ONCE
--- NOTE | 2018-07-12 13:12 | Cardiology Report ---
PROCEDURE: 2-D M-mode and color Doppler study INDICATIONS FOR THE TEST: Chest pain X COPD Heart Murmur Tobacco SmokingEX Palpitations Fatigue Syncope Edema HypertensionXDiabetes MellitusX Rheumatic Fever SOB CASTANEDA Obesity HyperlipidemiaX Family History HD Additional History PATIENT INFORMATION HEIGHT:73 WEIGHT:175 GENDER: Female B/P:120/63 2-D/M-MODE INTERPRETATION: 2-D MEASUREMENTS OBSERVED VALUES IN CMS Right Ventricular Dimension (RVDd) 2.5 Interventricular Septum (Thickness)(IVsd) 1.0 Left Ventricular Internal Dimensions(LVIDd) 5.5 Left Ventricular Posterior Wall (Thickness)(LVPWd) .9 Aortic Root 3.2 Aortic Cusp Separation 1.6 Left Atrial Dimensions (LAD) 2.9 2D 1. Left atrium is mildly enlarged, mild concentric left ventricular hypertrophy, visually estimated ejection fraction 55% with no regional wall motion abnormality. 2. The right atrium and right ventricle are mildly enlarged with normal contractility. 3. The aortic valve is minimally thickened and fibrosed. 4. The mitral and tricuspid valve leaflets are minimally thickened. 5. The pulmonic valve is poorly visualized. 6. No significant pericardial effusion noted. DOPPLER INTERROGATION: Doppler interrogation of the aortic, mitral and tricuspid valve reveals presence of mild aortic, mild mitral and tricuspid regurgitation, tricuspid regurgitation jet velocity is inadequate for calculation of the right ventricular systolic pressure, grade 1 diastolic dysfunction seen without tissue Doppler evidence of raised left atrial pressure. CONCLUSION: 1. Mildly left atrium, normal left ventricular size, mild concentric left ventricular hypertrophy, visually estimated ejection fraction 55% with no regional wall motion abnormality, grade 1 diastolic dysfunction seen without tissue Doppler evidence of raised left atrial pressure. 2. Mildly enlarged right ventricle normal contractility. 3. Mild aortic, mild mitral and tricuspid regurgitation 4. No significant pericardial effusion noted.
== END 2018-07-12 12:20 | disposition home or self-care (01) ==
LOC: 2ND 21:03 → ER 21:03 → 2ND 23:47
PROVIDERS: ADMIT Family Medicine; ATTEND Family Medicine
CPT/HCPCS: 36415; 71020; 71046; 80048; 80061; 82962; 83735; 84484; 85025; 93005; 93306; 99285; G0378

== ENCOUNTER → 2019-08-04 06:53 | Outpatient (CLI) | payer MEDICARE, BC, SELFPAY ==
--- NOTE | 2019-08-04 06:55 | CA_ITS ---
APPROVED REPORT Exam: Pharmacologic Technologist: gabriela nur, Ht: 6 ft 1 in Wt: 170 lbs BSA: 2.01 m2 HR: 62 bpm BP: 154/71 mmHg Indications: CP, SOB Medical History Medications: Amlodipine,,,,, Lisinopril,,,,, Atenolol,,,,, Asa,,,,, Ferrous sulfate,,,,, Meclazine,,,,, Diclofenac,,,,, Magnesium,,,,, BiOTIN,,,,, Ezetimbe,,,,, Nitro,,,,, PolyethYLENE,,,,, Allergies: butorphanol, codiene, morphine, promethazine Cardiac Risk Factors: HTN, Hyperlipidemia, Diabetes (non-insulin), FHX of CAD, Smoking Stress Test Details Test: LEXISCAN HR Resting HR: 63 bpm Max Heart Rate (APMHR): 139 bpm Max HR Achieved: 91 bpm Target HR (85% APMHR): 118 bpm % of APMHR: 65 Recovery HR: 85 bpm BP Resting BP: 154/71 mmHg Max BP: 154/71 mmHg Recovery BP: 132.0/59.0 mmHg ECG Resting ECG: Sinus Rhythm Clinical Exercise duration: 04:01 min Highest Stage Achieved: Exercise capacity: 1.0 METs Stress ECG Conclusion Lexiscan portion completed. C/O SOB at peak infusion which resolved in recovery. No chest pain. Less than 1.5mm ST Depression. Occ PVC. Images to follow. Test Summary REST 00:40 . . 63 . 154/ 71 . . Stage 1 01:00 . . 81 . . . . Stage 2 01:00 . . 86 . 138/ 60 . . Stage 3 01:00 . . 89 . 133/ 61 . . Stage 4 01:00 . . 84 . 131/ 58 . . Stage 4 01:01 . . 85 . 131/ 58 . Stop exercise at 04:01 RECOVERY 01:00 . . 87 . 132/ 59 . . RECOVERY 02:00 . . 82 . 135/ 57 . . RECOVERY 03:00 . . 82 . 137/ 59 . . RECOVERY 04:00 . . 79 . 134/ 60 . . RECOVERY 04:10 . . 81 . 134/ 60 . . Electronically signed by : Casey Hunt, 08/04/2019 21:46:27
--- NOTE | 2019-08-04 06:55 | NM_ITS ---
APPROVED REPORT Exam: Nuclear Stress Test Indication: Chest pain, SOB, HTN, DM, High cholesterol, Former tobacco use, Family History Patient Location: Outpatient Stress Tech: Kay Irizarry DE Tech:Inna Warren, YENIT, RT (R)(N) Ht: 6 ft 1 in Wt: 170 lbs Bra Size: 42B HR: 62 bpm BP: 154/71 mmHg BSA: 2.01 m2 BMI: 22.4 History: Chest pain, SOB, HTN, DM, High cholesterol, Former tobacco use, Family History Procedure: Patient received a 0.4 mg of intravenous Lexiscan, resting heart rate 62 bpm, resting blood pressure 154/71 mmHg, with Lexiscan maximum heart rate achived was 89 bpm which is Less than 85 % of the maximum predicted heart rate and blood pressure was 138/60 mmHg. With Lexiscan, patient denied any complaint of chest pain. Electrocardiogram Resting electrocardiogram showed sinus rhythm right ventricular conduction delay, left axis deviation left anterior hemiblock, with Lexiscan there is less than 1.[address] segment depression noted from the baseline EKG. The EKG portion of the Lexiscan Myoview is nondiagnostic. Cardiac Stress and Resting SPECT Images: Cardiac Stress and Resting SPECT images were obtained using technetium 99m Myoview 31.0 mCi stress and 9.98 mCi at rest. Gated SPECT with analysis of segmental wall motion and calculation of the ejection fraction also done. Cardiac stress and rest SPECT images show a fixed defect involving the inferior wall is likely secondary to nontransmural myocardial scarring, no significant reversible ischemia seen, computer derived ejection fraction 58% with moderate inferior wall hypokinesis, right ventricle moderately enlarged with normal contractility. Conclusion: 1. The EKG portion of the Lexiscan Myoview is nondiagnostic. 2. Scintigraphic evidence of nontransmural myocardial scarring involving the inferior wall without significant marleni-infarct ischemia, computer derived ejection fraction 58% with segmental wall motion abnormality described above, right ventricle is moderately enlarged with normal contractility. 3. Abnormal Lexiscan Myoview study. Electronically signed by : Casey Hunt, 08/04/2019 21:49:37
--- NOTE | 2019-08-04 06:55 | CA_ITS ---
APPROVED REPORT EXAM: Comprehensive 2D, Doppler, and color-flow Echocardiogram Agricultural Education Instructor: Ranajna Gastelum RDCS Ht: 6 ft 1 in Wt: 190lbs BSA: 2.11 BP: 146/78 mmHg Indications: Abnormal ECG, Chest Pain, Shortness of Breath, Hyperlipidemia, Hypertension/HDD 2D Dimensions LVOT 1.95 cm (M/F) 1.5-2.5 M-Mode Dimensions RVDd 2.55 cm (0.9-2.6) LVDd 6.04 cm (3.5-5.7) LVDs 4.52 cm (3.5-5.7) IVSd 0.68 cm (0.6-1.1) PWd 0.80 cm (0.6-1.1) EF (Teich) 48.90% FS 25.20% EDV (Teich) 182.80 mL ESV (Teich) 93.40 mL LV Diastology E/A Ratio 3.54 Mitral Valve MV A Velocity 70.00 (40-130 cm/s) Left Ventricle Left atrium is mildly enlarged, left ventricle is normal size, mild concentric left ventricular hypertrophy, visually estimated ejection fraction 55% with no regional wall motion abnormality, grade 1 diastolic dysfunction seen without tissue Doppler evidence of raise left atrial pressure. Right Ventricle Right atrium right ventricular normal size and contractility. Aortic Valve Aortic valve is minimally thickened and fibrosed, there is no aortic stenosis, there is mild aortic insufficiency. Mitral Valve Mitral valve is grossly normal, there is mild mitral regurgitation. Tricuspid Valve Tricuspid valve is grossly normal, there is mild tricuspid regurgitation, tricuspid regurgitation jet velocity is inadequate for calculation of the right ventricular systolic pressure. Pulmonic Valve Pulmonic valve is poorly visualized. Great Vessels Aortic root is normal size. Pericardium No significant pericardial effusion noted. Conclusion 1. Mildly enlarged left atrium, normal left ventricular size, mild concentric left ventricular hypertrophy, visually estimated ejection fraction 55% with no regional wall motion abnormality, grade 1 diastolic dysfunction seen without tissue Doppler evidence of raise left atrial pressure. 2. Mild mitral, mild aortic and tricuspid regurgitation. 3. No significant pericardial effusion noted. Electronically signed by : Casey Hunt, 08/05/2019 05:34:12
--- NOTE | 2019-08-04 07:19 | HMH.ITSHM ---
Current Home Medications as stated by this patient Cherelle Carrasco or market survey representative. []POLYETHYLENE NITRO MECLIZINE MAGNESIUM LISINOPRIL GLIPIZIDE FERROUS SULFATE EZETIMIBE DICLOFENAC BIOTIN ATENOLOL ASA AMLODIPINE
== END ==
PROVIDERS: PCP Family Medicine; Visit Provider Nurse Practitioner Family
DX: I20.9 Angina pectoris, unspecified; E11.69 Type 2 diabetes mellitus with other specified complication; E78.5 Hyperlipidemia, unspecified; I10 Essential (primary) hypertension; R94.31 Abnormal electrocardiogram [ECG] [EKG]
CPT/HCPCS: 78452; 93017; 93306; A9502; J2785

== ENCOUNTER 2020-09-15 15:55 | Emergency (ER) | payer MEDICARE, BC, SELFPAY ==
[2020-09-15 15:56] VITALS: BP 149/79; PULSE 78; RESP 18; TEMP 37.2; O2SAT 100; BMI 29.0
--- NOTE | 2020-09-15 16:04 | HMH.EDGENADL ---
ED Disposition Clinical Impression: UGIB (upper gastrointestinal bleed) Disposition: Home, Self-Care Condition on Discharge: Good Referrals: Rosalind Cruz APRN [Primary Care Provider] - 09/16/20 (Call in the morning for an appointment spot tomorrow.) Time of Disposition: 18:08 - Critical Care Critical Care Time: No Attestation: On , the high probability of a clinically significant, sudden or life threatening deterioration of the following system(s) required my full and direct attention, intervention and personal management. The time I documented below is in addition to time spent performing reported procedures but includes the following listed in this critical care notation. Medical Decision Making - Medical Records Medical records reviewed: Yes: I reviewed the patient's medical records. - Griffin Inquiry Pt receiving controlled substance: No Vital Signs: 09/15/20 15:56 09/15/20 16:30 09/15/20 17:00 Temperature 98.9 F Temperature Source Oral Pulse Rate 67 73 Pulse Rate [Left Radial] 78 Respiratory Rate 18 Blood Pressure 139/75 138/82 Blood Pressure [Right Arm] 149/79 H Blood Pressure Mean [Right Arm] 102 Blood Pressure Source [Right Arm] Automatic Cuff Blood Pressure Position [Right Arm] Sitting 02 Sat by Pulse Oximetry 100 98 100 Oxygen Delivery Method Room Air - Lab Data Lab results reviewed: Yes: I reviewed the patient's lab results. Lab Results 09/15/20 16:10: WBC 11.1 H, RBC 3.92 L, Hgb 10.9 L, Hct 34.7 L, MCV 88.6, MCH 27.8, MCHC 31.4 L, RDW 14.9, Plt Count 362, MPV 7.4, Neut % (Auto) 67.3, Lymph % (Auto) 25.9, Broome % (Auto) 3.8, Eos % (Auto) 2.6, Baso % (Auto) 0.5, Neut # (Auto) 7.5, Lymph # (Auto) 2.9, Broome # (Auto) 0.4, Eos # (Auto) 0.3, Baso # (Auto) 0.1 09/15/20 16:10: Sodium 138, Potassium 4.5, Chloride 108 H, Carbon Dioxide 25, Anion Gap 9.5, BUN 22 H, Creatinine 1.30 H, Estimated Creat Clear 53, Estimated GFR 39 L, Est GFR ( Amer) 47 L, Glucose 198 H, Calcium 10.0 09/15/20 16:20: Stool Occult Blood Positive A Result diagrams: 09/15/20 16:10 09/15/20 16:10 Orders (Tests/Meds): ORDERS Category Date Time Status Type and Screen Stat BBK 09/15/20 16:10 Received - ECG Data Tracing #1 73 bpm, normal sinus rhythm, right bundle branch block, LAFB, no ST elevation or depression. ECG initial impression date: 09/15/20 ECG initial impression time: 16:20 Medical Decision Narrative: 84yo F evaluated for bright red blood per rectum. Patient is in no acute distress on initial evaluation. Her vital signs are unremarkable. Hemoccult is completed and positive. Patient's H/H are reasonable at 34. Case discussed with Dr. Story who advises the patient sounds stable to go home. He request she call her nurse practitioner in the morning for close follow-up appointment. This discussed with the patient and her son at bedside. They agree with the plan and have no further questions at this time. General Adult HPI - General Stated complaint: Lot of blood in Bowels Time Seen by Provider: 09/15/20 16:05 Mode of Arrival: Ambulatory - History of Present Illness HPI narrative: 84yo F presents the emergency department secondary to one episode of bright red bleeding per rectum. She denies any abdominal pain. Denies any shortness of breath, lightheadedness, weakness. She denies previous episode similar to this. Reports she had a colonoscopy but it was several years ago. Reports she is had a history of diverticulitis but denies any fever, abdominal pain. Patient reports she had some constipation recently but denies any pain. She took some [id number] medication to have her bowels move and when she did had a large bowel movement with blood. - Related Data Home Medications Medication Instructions Recorded Confirmed amlodipine 5 mg tablet 5 mg PO DAILY tab 07/30/17 06/21/20 aspirin 81 mg tablet,delayed 81 mg PO DAILY tab 07/30/17 06/21/20 release
[2020-09-15 16:30] VITALS: BP 139/75; PULSE 67; O2SAT 98
[2020-09-15 16:30] LABS: Basophils # 0.1 K/mm3 (0-0.2); Basophils % 0.5 % (0.1-2.0); Eosinophils # 0.3 K/mm3 (0.0-0.4); Eosinophils % 2.6 % (0.1-12.0); Hematocrit 34.7 % (37.0-47.0); Hemoglobin 10.9 g/dL (12.2-16.2); Lymphocytes # 2.9 K/mm3 (0.7-4.5); Lymphocytes % 25.9 % (10-50); Mean Corpuscular HGB Conc 31.4 g/dL (31.8-35.4); Mean Corpuscular Hemoglobin 27.8 pg (27.0-31.2); Mean Corpuscular Volume 88.6 fl (81-99); Mean Platelet Volume 7.4 fl (7.4-10.4); Monocytes # 0.4 K/mm3 (0.1-1.0); Monocytes % 3.8 % (1.7-9.3); Neutrophils # 7.5 K/mm3 (1.8-7.8); Neutrophils % 67.3 % (37.0-80.0); Platelet Count 362 K/mm3 (142-424); Red Blood Count 3.92 M/mm3 (4.20-5.40); Red Cell Distribution Width 14.9 % (11.5-17.5); White Blood Count 11.1 K/mm3 (4.8-10.8)
[2020-09-15 16:45] LABS: Anion Gap 9.5 mEq/L (5-15); Blood Urea Nitrogen 22 mg/dl (7-17); Carbon Dioxide 25 mmol/L (22.0-30.0); Chloride 108 mmol/L (98-107); Creatinine Clearance Estimated 53 mL/min (50-200); Estimated Glomerular Filt Rate 39 ml/min (>60); GFR (African American) 47 ML/MIN (>60); Glucose 198 mg/dl (74-100); Potassium 4.5 mmoL/L (3.5-5.1); Sodium 138 mmol/L (136-145)
[2020-09-15 16:47] LABS: Occult Blood,Stool Positive (Negative)
[2020-09-15 17:00] VITALS: BP 138/82; PULSE 73; O2SAT 100
[2020-09-15 18:15] VITALS: BP 149/76; PULSE 67; RESP 20; TEMP 37.2; O2SAT 100
== END 2020-09-15 18:16 | disposition home or self-care (01) ==
PROVIDERS: Emergency Provider Family Medicine; PCP Nurse Practitioner Family
DX: K92.2 Gastrointestinal hemorrhage, unspecified (principal); K21.9 Gastro-esophageal reflux disease without esophagitis; I10 Essential (primary) hypertension; E78.5 Hyperlipidemia, unspecified; Z88.5 Allergy status to narcotic agent
CPT/HCPCS: 80048; 82272; 85025; 86850; 99282; G0328

== ENCOUNTER 2020-09-15 19:09 | Inpatient (IN) | payer MEDICARE, BC, SELFPAY ==
[2020-09-15] VITALS (8 sets, daily range): BP systolic 105–130; BP diastolic 54–82; PULSE 68–90; RESP 16–17; TEMP 36.7–37.1; O2SAT 96–100; BMI 29.0; BMI 24.9; BMI 24.7
--- NOTE | 2020-09-15 16:16 | ECG_ITS ---
APPROVED REPORT Exam: Resting ECG HR:73 bpm ECG Measurements Heart Rate 73 AXES DE 164 P 66 QRSd 136 QRS -56 QT 408 T 40 QTc 449 Conclusion Normal sinus rhythm Right bundle branch block Left anterior fascicular block Bifascicular block Minimal voltage criteria for LVH, may be normal variant Septal infarct, age undetermined Abnormal ECG Electronically signed by : Gucci Benavidez, 09/16/2020 13:56:03
--- NOTE | 2020-09-15 19:50 | PC.NURSE ---
Dr Kitchen spoke with Dr Story for admission
--- NOTE | 2020-09-15 19:57 | PC.NURSE ---
Dr Kitchen speaking with Dr Coley
--- NOTE | 2020-09-15 20:01 | HMH.EDGENADL ---
ED Disposition Clinical Impression: UGIB (upper gastrointestinal bleed) Disposition: Admitted as Observation Condition on Discharge: Good Time of Disposition: 20:06 - Critical Care Critical Care Time: No Attestation: On 09/15/20, the high probability of a clinically significant, sudden or life threatening deterioration of the following system(s) required my full and direct attention, intervention and personal management. The time I documented below is in addition to time spent performing reported procedures but includes the following listed in this critical care notation. Medical Decision Making - Medical Records Medical records reviewed: Yes: I reviewed the patient's medical records. - Griffin Inquiry Pt receiving controlled substance: No Vital Signs: 09/15/20 19:10 Temperature 98.8 F Temperature Source Oral Pulse Rate [Right] 78 Respiratory Rate 16 Blood Pressure [Right Arm] 130/57 L Blood Pressure Mean [Right Arm] 81 02 Sat by Pulse Oximetry 100 Oxygen Delivery Method Room Air Orders (Tests/Meds): ORDERS Category Date Time Status Covid-19 Nasal PCR ([facility]) Routine Lab 09/15/20 19:52 Ordered Medical Decision Narrative: 84yo F recently admitted and discharged with her department returns. Patient has no acute change in her exam or status. Vital signs are stable. Case discussed with Dr. Story who agrees to admit her. Case discussed with Dr. Sagastume who plans to do her as an add on upper endoscopy study tomorrow. General Adult HPI - General Chief complaint: GI Bleed Stated complaint: BLEEDING Time Seen by Provider: 09/15/20 19:10 Mode of Arrival: Wheelchair Limitations: No Limitations Description of Symptoms (Recalled from ER Triage Doc. by RN): pt states was seen in er earlier today for same problem. pt c/o rectal bleeding that has gotten worse since being discharged eariler - History of Present Illness HPI narrative: 84yo F recently evaluated and discharged for GI bleed. Patient returned after having another bowel movement at home followed by 1 in the emergency department. She states her bowel movements are dark and thick. Denies any shortness of breath, chest pain, lightheadedness. - Related Data Home Medications Medication Instructions Recorded Confirmed amlodipine 5 mg tablet 5 mg PO DAILY tab 07/30/17 06/21/20 aspirin 81 mg tablet,delayed 81 mg PO DAILY tab 07/30/17 06/21/20 release ferrous sulfate 325 mg (65 mg 325 mg PO BID tab 07/30/17 06/21/20 iron) tablet meclizine 25 mg chewable tablet 25 mg PO TID PRN 07/30/17 06/21/20 polyethylene glycol 3350 17 17 g PO DAILY g 07/30/17 06/21/20 gram/dose oral powder biotin 1 mg capsule 1 mg PO DAILY 01/21/19 06/21/20 diclofenac sodium 75 mg 50 mg PO BID tab 01/21/19 06/21/20 tablet,delayed release ezetimibe 10 mg tablet 10 mg PO DAILY 01/21/19 06/21/20 glipizide 5 mg tablet, extended 5 mg PO DIRECTED tab 01/21/19 06/21/20 release 24 hr magnesium 30 mg tablet 30 mg PO DAILY 01/21/19 06/21/20 Previous Rx's Medication Instructions Recorded nitroglycerin 0.4 mg sublingual 0.4 mg SUBLINGUAL DIRECTED PRN 01/21/19 tablet #30 tab.subl atenolol 25 mg tablet 25 mg PO DAILY #30 tab 11/03/19 lisinopril 10 mg tablet 10 mg PO DAILY #90 tab 11/21/19 Allergies Allergy/AdvReac Type Severity Reaction Status Date / Time butorphanol [From STADOL] Allergy Mild I-HIVES Verified 06/21/20 10:11 codeine [CODEINE] Allergy Mild I-HIVES Verified 06/21/20 10:11 morphine [MORPHINE] Allergy Mild I-HIVES Verified 06/21/20 10:11 promethazine [From PHENERGAN] Allergy Mild I-HIVES Verified 06/21/20 10:11 [facility] History - Hepatitis A Screen Drug use history?: No High risk sexual behaviors?: No History of sexually transmitted infection?: No Currently employed?: No Childcare worker?: No Do you have indoor plumbing?: Yes Do you have electricity?: Yes Attestation statement:: This patient has been screened for Hepatitis A r
--- NOTE | 2020-09-15 21:40 | PC.NURSE ---
Pt admission COVID test still pending, 1 hour still to result
--- NOTE | 2020-09-15 23:24 | PC.NURSE ---
PT ARRIVED TO FLOOR VIA W/C FROM EDW/STAFF AT 2323.
--- NOTE | 2020-09-15 23:30 | PC.NURSE ---
patient arrived on floor at 2330
[2020-09-16] VITALS (16 sets, daily range): BP systolic 109–145; BP diastolic 50–80; PULSE 61–81; RESP 15–20; TEMP 36.4–36.9; O2SAT 95–100; BMI 24.9
--- NOTE | 2020-09-16 05:42 | PC.NURSE ---
Patient arrived to floor during this shift and voices no concerns at this time. Her VS remain stable, has a consult with GI this AM and has been NPO since midnight. Call light within reach, bed at lowest level for safety, will continue to monitor.
--- NOTE | 2020-09-16 05:54 | PC.NURSE ---
patient brought to floor with DNR on chart but no DNR paperwork signed in the chart. This advertising copywriter went to patient to sign paper; Patient answered each question with a NO and would like to be a Full Code and have all measures necessary to attempt to keep her alive. Chart has been changed to reflect patients decision.
--- NOTE | 2020-09-16 06:34 | HMH.GSCON ---
*Admission Date: 09/15/20 *Reason for consult:: Upper gastrointestinal hemorrhage *History of present illness: This is an 84-year-old female who presented to the emergency department yesterday evening with complaints of dark blood per rectum. HPI from admission department evaluation is forwarded below. Forwarded from emergency department evaluation: General Adult HPI - General Chief complaint: GI Bleed Stated complaint: BLEEDING Time Seen by Provider: 09/15/20 19:10 Mode of Arrival: Wheelchair Limitations: No Limitations Description of Symptoms (Recalled from ER Triage Doc. by RN): pt states was seen in er earlier today for same problem. pt c/o rectal bleeding that has gotten worse since being discharged eariler - History of Present Illness HPI narrative: 84yo F recently evaluated and discharged for GI bleed. Patient returned after having another bowel movement at home followed by 1 in the emergency department. She states her bowel movements are dark and thick. Denies any shortness of breath, chest pain, lightheadedness. Review of Systems - Constitutional Denies chills - Eyes Denies change in vision - ENT Denies difficulty swallowing - *Cardiovascular Reports lightheadedness - *Respiratory Denies cough - *Gastrointestinal Reports black, tarry stools, Denies vomiting blood - *Musculoskeletal Denies deformity - Integumentary/Breasts Denies new lesions - *Neurologic Denies confusion - Psychiatric Denies anxiety - Endocrine Denies rapid, pounding, or irregular heartbeat - Hematologic/Lymphatic Reports easy bruising - Allergic/Immunologic Denies wheezing [facility] History Medical History: Reports:: Cancer (left breast mastectomy approximately 25 years ago), Gastroesophageal Reflux Disease(GERD), Hyperlipidemia, Hypertension Denies:: Diabetes Mellitus Type 1, Diabetes Mellitus Type 2, Internal Pacemaker, Lung Disease, MRSA, Seizures *Have you ever received a pneumonia vaccine?: No *Have you received a flu vaccine this season?: Yes Other Medical History: Reports: Arthritis, Fibromyalgia Laterality Cases: Left: Mastectomy Other Surgeries: Yes: Cardiac Catheterization, Other (pancreas, left mascetomy.). No: Pacemaker Amputation: No Fractures: No - *Social History Last grade of school completed: 9th or 10th Smoking Status: Never smoker Alcohol Intake: never Alcohol Intake Frequency:: other Substance Use Type: denies use *Occupational Status:: retired Housing: assisted living facility Household Members: none *Travel in the last 8 weeks: None Family Hx:: Cancer, Diabetes, Hyperlipidemia, Hypertension Meds Home Medications Medication Instructions Recorded Confirmed Type amlodipine 5 mg tablet 5 mg PO DAILY tab 07/30/17 09/15/20 History aspirin 81 mg tablet,delayed 81 mg PO DAILY tab 07/30/17 09/15/20 History release ferrous sulfate 325 mg (65 mg 325 mg PO BID tab 07/30/17 09/15/20 History iron) tablet meclizine 25 mg chewable tablet 25 mg PO TID PRN 07/30/17 09/15/20 History polyethylene glycol 3350 17 17 g PO DAILY g 07/30/17 09/15/20 History gram/dose oral powder diclofenac sodium 75 mg 50 mg PO BID tab 01/21/19 09/15/20 History tablet,delayed release glipizide 5 mg tablet, extended 5 mg PO DIRECTED tab 01/21/19 09/15/20 History release 24 hr magnesium 30 mg tablet 30 mg PO DAILY 01/21/19 09/15/20 History nitroglycerin 0.4 mg sublingual 0.4 mg SUBLINGUAL DIRECTED PRN 01/21/19 09/15/20 Rx tablet #30 tab.subl atenolol 25 mg tablet 25 mg PO DAILY #30 tab 11/03/19 09/15/20 Rx lisinopril 10 mg tablet 10 mg PO DAILY #90 tab 11/21/19 09/15/20 Rx Allergies Allergy/AdvReac Type Severity Reaction Status Date / Time butorphanol [From STADOL] Allergy Mild I-HIVES Verified 06/21/20 10:11 codeine [CODEINE] Allergy Mild I-HIVES Verified 06/21/20 10:11 morphine [MORPHINE] Allergy Mild I-HIVES Verified 06/21/20 10:11 promethazine [From PHENERGAN] Allergy Mild I-HIVES Ve
--- NOTE | 2020-09-16 06:49 | PC.NURSE ---
PT OFF FLOOR W/ OR STAFF AT 0638
--- NOTE | 2020-09-16 06:49 | PC.NURSE ---
Patient has left the floor for EGD procedure
[2020-09-16 06:57] LABS: Basophils # 0.1 K/mm3 (0-0.2); Basophils % 0.5 % (0.1-2.0); Eosinophils # 0.2 K/mm3 (0.0-0.4); Eosinophils % 2.4 % (0.1-12.0); Hematocrit 27.9 % (37.0-47.0); Lymphocytes # 2.8 K/mm3 (0.7-4.5); Lymphocytes % 29.9 % (10-50); Mean Corpuscular HGB Conc 32.2 g/dL (31.8-35.4); Mean Corpuscular Hemoglobin 28.1 pg (27.0-31.2); Mean Corpuscular Volume 87.2 fl (81-99); Mean Platelet Volume 7.2 fl (7.4-10.4); Monocytes # 0.4 K/mm3 (0.1-1.0); Monocytes % 4.6 % (1.7-9.3); Neutrophils # 5.9 K/mm3 (1.8-7.8); Neutrophils % 62.5 % (37.0-80.0); Platelet Count 313 K/mm3 (142-424); Red Cell Distribution Width 14.9 % (11.5-17.5); White Blood Count 9.5 K/mm3 (4.8-10.8)
--- NOTE | 2020-09-16 07:29 | HMH.PHAVTE ---
[facility] Pharmacy VTE Monitoring - Patient Demographics Admission date: 09/15/20 Report Date: 09/16/20 Time: 07:29 Allergies/Adverse Reactions: Patient Allergies butorphanol [From STADOL] Allergy (Mild, Verified 06/21/20 10:11) I-HIVES codeine [CODEINE] Allergy (Mild, Verified 06/21/20 10:11) I-HIVES morphine [MORPHINE] Allergy (Mild, Verified 06/21/20 10:11) I-HIVES promethazine [From PHENERGAN] Allergy (Mild, Verified 06/21/20 10:11) I-HIVES Height: 1.85 m Weight: 85.304 kg Patient Problems: Current Active Problems (Last Updated 01/21/19 @ 13:33 by Enid King RN) UGIB (upper gastrointestinal bleed) (Acute) - Prophylaxis VTE Prophylaxis Ordered?: Yes Types of VTE Prophylaxis: TEDS Knee High Location of Applied Device: Bilateral Lower Extremeties
--- NOTE | 2020-09-16 07:31 | PC.NURSE ---
Received report on pt, she is still currently in surgery and was when this RN took report on her.
--- NOTE | 2020-09-16 07:32 | HMH.SCOPE ---
- Procedure: Date: 09/16/20 Patient Date of :: 1935 Procedure Performed:: Esophagogastroduodenoscopy with polypectomy and biopsy Indications:: Upper gastrointestinal hemorrhage Performing Provider:: Alcides Sagastume MD Referring Provider:: Dr. Story Sedation:: Monitored anesthesia care Procedure:: After informed consent was obtained the patient was taken to the endoscopy suite. Sedation ensued after the patient was transferred to the left lateral decubitus position. Pulse, blood pressure, and oxygen saturation were monitored throughout the procedure. The endoscope was advanced beyond the duodenal bulb. Retroflexion within the gastric lumen was accomplished. The gastroscope was carefully removed and the patient was transferred to recovery in stable condition. Please see findings and specimens below for detail. Findings:: Large amount of food particles within the stomach limiting visualization Large lobulated polypoid lesion in the distal antrum/pyloric margin Smaller satellite polypoid lesions in the antrum No active hemorrhage or sign of old/new blood within stomach or small bowel; however, the large lobulated polypoid lesion in the distal antrum/pyloric margin did have significant inflammatory response at the margin (possible site of prior bleed) Specimens:: Lobulated polypoid prepyloric lesion Biopsies of multiple satellite antral polypoid lesions Recommendations:: Follow-up pathology Complications:: No immediate Estimated blood obtained (mL): 1
--- NOTE | 2020-09-16 07:40 | HMH.ANESCL ---
[facility] Anesthesia Checklist - Structural Data Admitted From: Home Planned Operative Procedure/s: egd Consent for Planned Operative Procedure(s) Verified: Yes - Additional verifications Anesthesia Reactions: No - Airway Assessment C-Spine Mobility Assessed: Yes TMJ Mobility Assessed: Yes Dentition: Poor Dentition - Neurological Assessment Level of Consciousness: Awake, Alert, Appropriate - Anesthesia Plan Anesthesia Risk discussed: Yes Anesthesia Plan: Verified ASA Class: III Anesthesia Type: MAC [facility] History I have reviewed the patient's past medical history: Yes Medical History: Reports:: Cancer (left breast mastectomy approximately 25 years ago), Gastroesophageal Reflux Disease(GERD), Hyperlipidemia, Hypertension Denies:: Diabetes Mellitus Type 1, Diabetes Mellitus Type 2, Internal Pacemaker, Lung Disease, MRSA, Seizures *Have you ever received a pneumonia vaccine?: No *Have you received a flu vaccine this season?: Yes Other Medical History: Reports: Arthritis, Fibromyalgia Anesthesia experience/problems:: none Laterality Cases: Left: Mastectomy Other Surgeries: Yes: Cardiac Catheterization, Other (pancreas, left mascetomy.). No: Pacemaker Amputation: No Fractures: No - *Social History Last grade of school completed: 9th or 10th Smoking Status: Never smoker Alcohol Intake: never Alcohol Intake Frequency:: other Substance Use Type: denies use *Occupational Status:: retired Housing: assisted living facility Household Members: none *Travel in the last 8 weeks: None Family Hx:: Cancer, Diabetes, Hyperlipidemia, Hypertension
--- NOTE | 2020-09-16 07:42 | HMH.HP ---
*Admission Date: 09/15/20 *Chief complaint: Black stools *History of present illness: 84-year-old female presented to the emergency department yesterday evening with complaint of perceived blood in her stools. Initial story I was given was patient complained of bright red blood in the stool and was thought to have a lower GI bleed. Patient has a personal history of iron deficiency anemia for which she takes iron supplementation with last hemoglobin in the office being 11.7. Patient was hemodynamically stable and was discharged home for outpatient follow-up. She returned to the emergency department within a few hours after having additional blood in her stool. This morning the patient clarifies that the blood was black and sticky. She has no personal history of ulcer disease or GI bleeding. Her last colonoscopy was many years ago and she does not remember the exact date. Decision was made to admit the patient for monitoring of her H&H with evaluation of the GI tract. At this time patient is being prepared to undergo EGD. Patient denies abdominal pain. She does take diclofenac 75 mg twice daily for osteoarthritis [facility] History I have reviewed the patient's past medical history: Yes Medical History: Reports:: Cancer (left breast mastectomy approximately 25 years ago), Diabetes Mellitus Type 2, Gastroesophageal Reflux Disease(GERD), Hyperlipidemia, Hypertension Denies:: Diabetes Mellitus Type 1, Internal Pacemaker, Lung Disease, MRSA, Seizures *Have you ever received a pneumonia vaccine?: No *Have you received a flu vaccine this season?: Yes Other Medical History: Reports: Arthritis, Fibromyalgia Anesthesia experience/problems:: none Laterality Cases: Left: Mastectomy Other Surgeries: Yes: Cardiac Catheterization, Other (pancreas, left mascetomy.). No: Pacemaker Amputation: No Fractures: No - *Social History Last grade of school completed: 9th or 10th Smoking Status: Never smoker Alcohol Intake: never Alcohol Intake Frequency:: other Substance Use Type: denies use *Occupational Status:: retired Housing: assisted living facility Household Members: none *Travel in the last 8 weeks: None Family Hx:: Cancer, Diabetes, Hyperlipidemia, Hypertension Review of Systems - Constitutional Denies anorexia, Denies body ache(s), Denies chills - Eyes Denies blurry vision - ENT Denies abnormal hearing - *Cardiovascular Denies chest pain, Denies chest pain at rest, Denies chest pain with activity - *Respiratory Denies change in phlegm color, Denies chest congestion - *Gastrointestinal Reports change in bowel habits, Reports change in stools, Reports black, tarry stools, Denies abdominal pain, Denies coffee ground vomit, Denies excessive passing of gas, Denies vomiting blood, Denies bright, red blood in stools - *Genitourinary Denies abnormal vaginal bleeding, Denies painful urination - *Musculoskeletal Denies abnormal walking, Denies joint pain - *Neurologic Denies confusion - Psychiatric Denies lack of enjoyment, Denies anxiety Meds Home Medications Medication Instructions Recorded Confirmed Type amlodipine 5 mg tablet 5 mg PO DAILY tab 07/30/17 09/15/20 History aspirin 81 mg tablet,delayed 81 mg PO DAILY tab 07/30/17 09/15/20 History release ferrous sulfate 325 mg (65 mg 325 mg PO BID tab 07/30/17 09/15/20 History iron) tablet meclizine 25 mg chewable tablet 25 mg PO TID PRN 07/30/17 09/15/20 History polyethylene glycol 3350 17 17 g PO DAILY g 07/30/17 09/15/20 History gram/dose oral powder diclofenac sodium 75 mg 50 mg PO BID tab 01/21/19 09/15/20 History tablet,delayed release glipizide 5 mg tablet, extended 5 mg PO DIRECTED tab 01/21/19 09/15/20 History release 24 hr magnesium 30 mg tablet 30 mg PO DAILY 01/21/19 09/15/20 History nitroglycerin 0.4 mg sublingual 0.4 mg SUBLINGUAL DIRECTED PRN 01/21/19 09/15/20 Rx tablet #30 tab.subl atenolol 25 mg tablet 25 mg PO DAILY #30 tab 11/03/19
--- NOTE | 2020-09-16 07:45 | PC.NURSE ---
Pt arrived to the floor from surgery
--- NOTE | 2020-09-16 07:55 | HMH.PHAINT ---
HOME MEDICATION LIST CLARIFIED USING LIST FROM OUTPATIENT PHARMACY
[2020-09-16 08:16] LABS: Chloride 110 mmol/L (98-107); Sodium 139 mmol/L (136-145)
[2020-09-16 08:17] LABS: Potassium 4.5 mmoL/L (3.5-5.1)
[2020-09-16 08:19] LABS: Blood Urea Nitrogen 32 mg/dl (7-17); Creatinine Clearance Estimated 49 mL/min (50-200); Estimated Glomerular Filt Rate 43 ml/min (>60); GFR (African American) 52 ML/MIN (>60)
[2020-09-16 08:20] LABS: Anion Gap 8.5 mEq/L (5-15); Calcium 9.8 mg/dl (8.4-10.2); Carbon Dioxide 25 mmol/L (22.0-30.0); Glucose 110 mg/dl (74-100)
--- NOTE | 2020-09-16 11:24 | PC.NURSE ---
Spoke with pt and daughter Roxi and set up password. Pt is ok with her having info, did refer Roxi daughter to care management in which Rey Gutierrez RN. Jez did upgrade to diabetic diet. Pt did have one dark stool with blood noted.
--- NOTE | 2020-09-16 11:28 | PC.NURSE ---
MD RALEIGH wants to recheck H&H at 1600.
--- NOTE | 2020-09-16 11:29 | PC.NURSE ---
Report given to Aaron AvalosRN
--- NOTE | 2020-09-16 11:37 | SW/DCPLANNER ---
I spoke with patients daughter (Roxi Banks) whom requested that patient would like to complete a Living Will and she would like for herself to be added as Person To Notify on patients chart. I spoke with patient (alert and oriented) and she concurred with completing Living Will and adding daughter to her contact. Roxi Aranda: [phone]
--- NOTE | 2020-09-16 16:00 | PC.NURSE ---
REPORT RECEIVED FROM Bernarda LEES RN.
--- NOTE | 2020-09-16 16:30 | PC.NURSE ---
PT ARRIVED TO ROOM 279 AT THIS TIME.
[2020-09-16 16:33] LABS: Hematocrit 26.5 % (37.0-47.0); Hemoglobin 8.3 g/dL (12.2-16.2)
--- NOTE | 2020-09-16 16:35 | PC.NURSE ---
REPORT GIVEN TO PAOLO FRAUSTO AND MOVED TO 279
--- NOTE | 2020-09-16 16:45 | PC.NURSE ---
PT ASSESSED AT THIS TIME. BILATERAL LUNG SOUNDS CLEAR. BOWEL SOUNDS HYPOACTIVE X4 QUADS. LEFT UPPER AND LOWER QUAD TENDERNESS. PAIN RATED 4/10 ON VERBAL SCALE BUT TOLERABLE. BLE +1 PITTING EDEMA. PT A&o X4. CALL LIGHT WITHIN REACH. WILL CONTINUE TO OBSERVE.
--- NOTE | 2020-09-16 18:25 | PC.NURSE ---
RN CALLED TO BEDSIDE AT THIS TIME TO SPEAK TO PT DAUGHTER.
--- NOTE | 2020-09-16 19:11 | PC.NURSE ---
REPORT GIVEN TO Judson BAESLEY RN
--- NOTE | 2020-09-17 02:10 | PC.NURSE ---
PT RANG OUT AND SAID HER STOMACH WAS CRAMPING,UPON ENTERING ROOM PT WAS BACK IN BED,SHE REPORTED SHE DID NOT HAVE A BOWEL MOVEMENT,THAT SHE HAS HAD TROUBLES WITH HER BOWELS THROUGHTOUT THE YEARS,ONE TIME IT IS SOFT AND THEN CONSTIPATION.REPORTS SHE DID VOID,DENIES PASSING ANY GAS,OFFERED TYLENOL WHICH IS ALL SHE HAS ORDERED,PT REPORTS SHE USUAUALLY TAKES ADVIL,TOLD HER THAT WAS A NON-STEROIDAL MEDICINE AND THAT WAS WHAT THE DOCTOR WAS TRYING TO KEEP HER FROM TAKING RALATED TO THE BLEEDING ,SHE V/U AND AGREED TO TAKE THE TYLENOL,BUT THE LAST TIME SHE THOUGHT IT MADE HER SICK,DENIES ANY N/V,OFFERED SOME CRACKERS BEFORE TAKING TYLENOL AND SHE DID TAKE SOME,TYLENOL 650MG PO GIVEN,WILL CONTINUE TO MONITOR
[2020-09-17 03:00] VITALS: BP 116/55; PULSE 78; RESP 18; TEMP 36.6; O2SAT 95
--- NOTE | 2020-09-17 03:18 | PC.NURSE ---
THIS MORNING ABD STARTED CRAMPING AROUND 0200,AND SHE WAS UNABLE TO HAVE A BOWEL MOVEMENT,VOIDED WITHOUT DIFF.TYLENOL DID NOT HELP,ZOFRAN GIVEN TO SEE IF THIS WOULD HELP EVEN THOUGHT DENIES ANY N/V.BOWEL SOUNDS ACTIVE,ABD.TENDER IN UPPER LEFT QUAD.V/S STABLE,AFIBRILE LUNGS CLEAR,RESP.EVEN AND UNLABORED.1+ PITTING EDEMA NOTED IN FEET AND ANKLES,FEET PROPPED ON PILLOW,WILL CONTINUE TO MONITOR
--- NOTE | 2020-09-17 06:55 | HMH.GSPN ---
Subjective Patient reports: no new complaints (Some dark stool Yesterday. No additional bowel movements overnight.) Progress Note: A&P (1) UGIB (upper gastrointestinal bleed) Status: Acute Assessment and plan: Limited esophagogastroduodenoscopy yesterday did reveal gastric polyps. These polyps could be the source of her hemorrhage; however, an additional source is possible. She will require fairly short-term repeat esophagogastroduodenoscopy. A colonoscopy will also be performed at that time secondary to her being overdue . If no definitive source for her hemorrhage (in addition to the above-stated gastric polyps) is noted with repeat EGD/colonoscopy a small bowel follow-through and likely follow-up capsule endoscopy will be recommended. Follow-up a.m. labs (2) Essential hypertension Status: Acute (3) Diabetes mellitus type 2, controlled Status: Acute (4) Osteoarthritis Status: Acute (5) penitentiary (current) use of non-steroidal anti-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 (nsaid) Status: Acute (6) Hypertensive heart disease Status: Chronic (7) Gastric polyps Status: Acute Assessment and plan: Possible source of gastrointestinal hemorrhage; however, this is uncertain. Follow-up pathology from polypectomy yesterday Exam Vital signs and Labs for Last 24 Hours: Temp Pulse Resp BP Pulse Ox 97.8 F 78 18 116/55 L 95 09/17/20 03:00 09/17/20 03:00 09/17/20 03:00 09/17/20 03:00 09/17/20 03:00 Laboratory Results - last 24 hr 09/16/20 05:52: WBC 9.5, RBC 3.20 L, Hgb 9.0 L D, Hct 27.9 L, MCV 87.2, MCH 28.1, MCHC 32.2, RDW 14.9, Plt Count 313, MPV 7.2 L, Neut % (Auto) 62.5, Lymph % (Auto) 29.9, [place] % (Auto) 4.6, Eos % (Auto) 2.4, Baso % (Auto) 0.5, Neut # (Auto) 5.9, Lymph # (Auto) 2.8, [place] # (Auto) 0.4, Eos # (Auto) 0.2, Baso # (Auto) 0.1 09/16/20 05:52: Sodium 139, Potassium 4.5, Chloride 110 H, Carbon Dioxide 25, Anion Gap 8.5, BUN 32 H D, Creatinine 1.20 H, Estimated Creat Clear 49, Estimated GFR 43 L, Est GFR ( Amer) 52 L, Glucose 110 H D, Calcium 9.8 09/16/20 16:20: Hgb 8.3 L, Hct 26.5 L I & O for Last 24 hours: Intake & Output 09/14/20 09/15/20 09/16/20 09/17/20 11:59 11:59 11:59 11:59 Intake Total 240 / 240 480 / 480 Balance 240 / 240 480 / 480 Weight 188 lb 1 oz - Constitutional no acute distress - *Routine Respiratory Exam Absent: respiratory distress - *Routine Cardiovascular Exam Present: RRR - *Routine Abdominal Exam Present: soft
--- NOTE | 2020-09-17 07:49 | P.PN_ITS ---
Internal Medicine - PN: Subj *Date: 09/17/20 *Time: 07:49 Interval history: Patient has no complaints this morning. H&H did decline throughout the day yesterday and we are awaiting morning labs. She had a small bowel movement that was dark black in color like coffee grounds . She has had some crampy abdominal pain overnight. Exam Vital signs and Labs for Last 24 Hours: Temp Pulse Resp BP Pulse Ox 97.8 F 78 18 116/55 L 95 09/17/20 03:00 09/17/20 03:00 09/17/20 03:00 09/17/20 03:00 09/17/20 03:00 Laboratory Results - last 24 hr 09/16/20 05:52: Sodium 139, Potassium 4.5, Chloride 110 H, Carbon Dioxide 25, Anion Gap 8.5, BUN 32 H D, Creatinine 1.20 H, Estimated Creat Clear 49, Estimated GFR 43 L, Est GFR ( Amer) 52 L, Glucose 110 H D, Calcium 9.8 09/16/20 16:20: Hgb 8.3 L, Hct 26.5 L I & O for Last 24 hours: Intake & Output 09/14/20 09/15/20 09/16/20 09/17/20 11:59 11:59 11:59 11:59 Intake Total 240 / 240 480 / 480 Balance 240 / 240 480 / 480 Weight 188 lb 1 oz - Constitutional no acute distress - *Routine Respiratory Exam Present: CTA bilaterally - *Routine Cardiovascular Exam Present: RRR - *Routine Abdominal Exam Present: soft, normoactive bowel sounds. Absent: tenderness Assessment and Plan (1) UGIB (upper gastrointestinal bleed) Status: Acute Category: Medical Code(s): K92.2 - Gastrointestinal hemorrhage, unspecified (2) Essential hypertension Status: Acute Category: Medical Code(s): I10 - Essential (primary) hypertension (3) Diabetes mellitus type 2, controlled Status: Acute Qualifiers: Diabetes mellitus [facility] insulin use: without [facility] use Diabetes mellitus complication status: without complication Qualified Code(s): E11.9 - Type 2 diabetes mellitus without complications Category: Medical Code(s): E11.9 - Type 2 diabetes mellitus without complications (4) Osteoarthritis Status: Acute Qualifiers: Osteoarthritis location: knee Category: Medical Code(s): M19.90 - Unspecified osteoarthritis, unspecified site (5) detention (current) use of non-steroidal anti-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 (nsaid) Status: Acute Category: Medical Code(s): Z79.1 - detention (current) use of non-steroidal anti-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 (NSAID) (6) Hypertensive heart disease Status: Chronic Qualifiers: Heart failure presence: without heart failure Qualified Code(s): I11.9 - Hypertensive heart disease without heart failure Category: Medical Code(s): I11.9 - Hypertensive heart disease without heart failure (7) Gastric polyps Status: Acute Category: Medical Code(s): K31.7 - Polyp of stomach and duodenum - Assessment and plan all Dx Assessment and Plan for all problems:: 1. Await morning labs. Further drop in H&H would likely require a transfusion of 1 unit of packed red blood cells. 2. Rise in H&H may allow for discharge
[2020-09-17 08:07] LABS: Basophils # 0.1 K/mm3 (0-0.2); Basophils % 0.5 % (0.1-2.0); Eosinophils # 0.3 K/mm3 (0.0-0.4); Eosinophils % 2.6 % (0.1-12.0); Hematocrit 29.2 % (37.0-47.0); Lymphocytes # 3.4 K/mm3 (0.7-4.5); Lymphocytes % 29.4 % (10-50); Mean Corpuscular HGB Conc 31.8 g/dL (31.8-35.4); Mean Corpuscular Hemoglobin 28.3 pg (27.0-31.2); Mean Corpuscular Volume 88.9 fl (81-99); Mean Platelet Volume 7.2 fl (7.4-10.4); Monocytes # 0.4 K/mm3 (0.1-1.0); Monocytes % 3.3 % (1.7-9.3); Neutrophils # 7.4 K/mm3 (1.8-7.8); Neutrophils % 64.2 % (37.0-80.0); Platelet Count 351 K/mm3 (142-424); Red Blood Count 3.29 M/mm3 (4.20-5.40); Red Cell Distribution Width 15.2 % (11.5-17.5); White Blood Count 11.5 K/mm3 (4.8-10.8)
[2020-09-17 08:10] LABS: Chloride 108 mmol/L (98-107); Potassium 4.4 mmoL/L (3.5-5.1); Sodium 138 mmol/L (136-145)
[2020-09-17 08:13] LABS: Anion Gap 10.4 mEq/L (5-15); Blood Urea Nitrogen 26 mg/dl (7-17); Calcium 10.1 mg/dl (8.4-10.2); Carbon Dioxide 24 mmol/L (22.0-30.0); Creatinine Clearance Estimated 42 mL/min (50-200); Estimated Glomerular Filt Rate 36 ml/min (>60); GFR (African American) 44 ML/MIN (>60); Glucose 222 mg/dl (74-100)
[2020-09-17 08:15] LABS: Hemoglobin 9.3 g/dL (12.2-16.2)
[2020-09-17 08:30] VITALS: BP 113/54; PULSE 75; RESP 18; TEMP 36.6; O2SAT 99
[2020-09-17 14:29] LABS: Hematocrit 26.5 % (37.0-47.0); Hemoglobin 8.5 g/dL (12.2-16.2)
--- NOTE | 2020-09-17 15:00 | PC.NURSE ---
report received from Marcin Ferrera RN.
--- NOTE | 2020-09-17 15:02 | PC.NURSE ---
REPORT TO JETT VELA
[2020-09-17 16:00] VITALS: BP 140/62; PULSE 71; RESP 18; TEMP 36.4; O2SAT 100
--- NOTE | 2020-09-17 19:10 | PC.NURSE ---
report given to Pato Villarreal RN.
[2020-09-17 20:00] VITALS: BP 121/63; PULSE 71; RESP 18; TEMP 36.8; O2SAT 100
[2020-09-18] VITALS (25 sets, daily range): BP systolic 100–162; BP diastolic 45–83; PULSE 66–84; RESP 16–20; TEMP 36.5–37; O2SAT 95–100
--- NOTE | 2020-09-18 05:50 | PC.NURSE ---
pt has rested well throughout shift, pt a/ox 4, vss, no change from previous asessment, no bms this shift, pt denies nausea or abdominal cramping, bsx 4 quads, no acute distress noted, call light within reach will continue to monitor at this time
[2020-09-18 07:03] LABS: Basophils % 0.5 % (0.1-2.0); Eosinophils # 0.2 K/mm3 (0.0-0.4); Eosinophils % 3.5 % (0.1-12.0); Lymphocytes # 2.1 K/mm3 (0.7-4.5); Lymphocytes % 30.9 % (10-50); Mean Corpuscular HGB Conc 32.2 g/dL (31.8-35.4); Mean Corpuscular Hemoglobin 28.4 pg (27.0-31.2); Mean Corpuscular Volume 88.2 fl (81-99); Mean Platelet Volume 7.4 fl (7.4-10.4); Monocytes # 0.3 K/mm3 (0.1-1.0); Monocytes % 4.1 % (1.7-9.3); Neutrophils # 4.2 K/mm3 (1.8-7.8); Platelet Count 284 K/mm3 (142-424); Red Blood Count 2.72 M/mm3 (4.20-5.40); Red Cell Distribution Width 15.1 % (11.5-17.5); White Blood Count 6.8 K/mm3 (4.8-10.8)
--- NOTE | 2020-09-18 08:15 | PC.NURSE ---
DR. MARES IS HERE. HE IS GOING TO GIVE PATIENT 2 UNITS OF PRBC. STATES PATIENT WILL HAVE SCOPES TOMORROW
[2020-09-18 08:19] LABS: Hemoglobin 7.7 g/dL (12.2-16.2)
[2020-09-18 08:20] LABS: Hematocrit 23.9 % (37.0-47.0)
--- NOTE | 2020-09-18 08:57 | HMH.ACPN2 ---
Internal Medicine - PN: Subj *Date: 09/18/20 *Time: 08:57 Interval history: Patient has noted lightheadedness with ambulating. She also feels some left-sided abdominal fullness Exam Vital signs and Labs for Last 24 Hours: Temp Pulse Resp BP Pulse Ox 97.9 F 84 18 140/55 L 98 09/18/20 08:00 09/18/20 08:00 09/18/20 08:00 09/18/20 08:00 09/18/20 08:00 Laboratory Results - last 24 hr 09/17/20 07:43: Blood Type O Positive, Antibody Screen Negative, Crossmatch (AHG) See Detail 09/17/20 13:53: Hgb 8.5 L, Hct 26.5 L 09/18/20 06:25: WBC 6.8 D, RBC 2.72 L, Hgb 7.7 L*, Hct 23.9 L*, MCV 88.2, MCH 28.4, MCHC 32.2, RDW 15.1, Plt Count 284, MPV 7.4, Neut % (Auto) 61.0, Lymph % (Auto) 30.9, [place] % (Auto) 4.1, Eos % (Auto) 3.5, Baso % (Auto) 0.5, Neut # (Auto) 4.2, Lymph # (Auto) 2.1, [place] # (Auto) 0.3, Eos # (Auto) 0.2, Baso # (Auto) 0.0 I & O for Last 24 hours: Intake & Output 09/15/20 09/16/20 09/17/20 09/18/20 11:59 11:59 11:59 11:59 Intake Total 240 / 240 480 / 480 980 / 980 Balance 240 / 240 480 / 480 980 / 980 Weight 188 lb 1 oz - Constitutional no acute distress - *Routine Respiratory Exam Present: CTA bilaterally - *Routine Cardiovascular Exam Present: RRR - *Routine Abdominal Exam Present: soft, normoactive bowel sounds. 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 use Diabetes mellitus complication status: without complication Qualified Code(s): E11.9 - Type 2 diabetes mellitus without complications Category: Medical Code(s): E11.9 - Type 2 diabetes mellitus without complications (4) Osteoarthritis Status: Acute Qualifiers: Osteoarthritis location: knee Category: Medical Code(s): M19.90 - Unspecified osteoarthritis, unspecified site (5) senior care (current) use of non-steroidal anti-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 (nsaid) Status: Acute Category: Medical Code(s): Z79.1 - 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 non-steroidal anti-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 (NSAID) (6) Hypertensive heart disease Status: Chronic Qualifiers: Heart failure presence: without heart failure Qualified Code(s): I11.9 - Hypertensive heart disease without heart failure Category: Medical Code(s): I11.9 - Hypertensive heart disease without heart failure (7) Gastric polyps Status: Acute Category: Medical Code(s): K31.7 - Polyp of stomach and duodenum (8) Anemia due to blood loss Status: Acute Category: Medical Code(s): D50.0 - Iron deficiency anemia secondary to blood loss (chronic) - Assessment and plan all Dx Assessment and Plan for all problems:: 1. H&H has decreased. Patient will transfuse 2 units of packed red blood cells. I spoke with Dr. Coley who plans for repeat EGD and colonoscopy tomorrow. Patient will have bowel prep this evening 2. Patient will be given a fleets enema today for constipation
--- NOTE | 2020-09-18 10:58 | P.PN_ITS ---
Subjective Narrative: Some lightheadedness when getting up . Progress Note: A&P (1) UGIB (upper gastrointestinal bleed) Status: Acute Assessment and plan: Drop in hemoglobin this morning. Transfusion as per primary service. Repeat EGD tomorrow morning secondary to limited visualization on prior evaluation. (2) Essential hypertension Status: Acute (3) Diabetes mellitus type 2, controlled Status: Acute (4) Osteoarthritis Status: Acute (5) [facility] (current) use of non-steroidal anti-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 (nsaid) Status: Acute (6) Hypertensive heart disease Status: Chronic (7) Gastric polyps Status: Acute (8) Anemia due to blood loss Status: Acute Assessment and plan: Colonoscopy planned in combination with EGD tomorrow morning. Bowel prep ordered Exam Vital signs and Labs for Last 24 Hours: Temp Pulse Resp BP Pulse Ox 97.9 F 84 18 140/55 L 98 09/18/20 08:00 09/18/20 08:00 09/18/20 08:00 09/18/20 08:00 09/18/20 08:00 Laboratory Results - last 24 hr 09/17/20 07:43: Blood Type O Positive, Antibody Screen Negative, Crossmatch (AHG) See Detail 09/17/20 13:53: Hgb 8.5 L, Hct 26.5 L 09/18/20 06:25: WBC 6.8 D, RBC 2.72 L, Hgb 7.7 L*, Hct 23.9 L*, MCV 88.2, MCH 28.4, MCHC 32.2, RDW 15.1, Plt Count 284, MPV 7.4, Neut % (Auto) 61.0, Lymph % (Auto) 30.9, [place] % (Auto) 4.1, Eos % (Auto) 3.5, Baso % (Auto) 0.5, Neut # (Auto) 4.2, Lymph # (Auto) 2.1, [place] # (Auto) 0.3, Eos # (Auto) 0.2, Baso # (Auto) 0.0 I & O for Last 24 hours: Intake & Output 09/15/20 09/16/20 09/17/20 09/18/20 11:59 11:59 11:59 11:59 Intake Total 240 / 240 480 / 480 980 / 980 Balance 240 / 240 480 / 480 980 / 980 Weight 188 lb 1 oz - Constitutional no acute distress - *Routine Respiratory Exam Absent: respiratory distress - *Routine Cardiovascular Exam Present: RRR - *Routine Abdominal Exam Present: soft
--- NOTE | 2020-09-18 11:00 | PC.NURSE ---
DR. FORDE IN ROOM AT THIS TIME.
--- NOTE | 2020-09-18 13:16 | PC.NURSE ---
PT RESTING IN BED AT THIS TIME. PRBC INFUSING AT THIS TIME. NO NEEDS WERE VOICED TO NURSE.
--- NOTE | 2020-09-18 14:18 | PC.NURSE ---
PT GETTING SECOND UNIT OF BLOOD NOW. NO CURRENT NEEDS VOICED TO NURSE. IV INFUSING WITHOUT DIFFICULTY. CALL LIGHT WITHIN REACH
--- NOTE | 2020-09-18 17:00 | PC.NURSE ---
REASSESSMENT DONE AT THIS TIME. NO CHANGES NOTED. PATIENT REPORTS DIZZINESS AND WEAKNESS IS BETTER. LUNGS CTA AND BOWEL SOUNDS ACTIVE X4. NO SWELLING NOTED. PULSES 2+ AND CAP REFIL <3. REPORTS NO PAIN JUST ARTHRITIS ACHES IN LEFT SHOULDER. LOOSE WATER STOOL FROM [employer] TODAY. ONE HARD BLACK STOOL. CALL LIGHT WITHIN REACH
[2020-09-18 17:31] LABS: Hematocrit 31.5 % (37.0-47.0)
--- NOTE | 2020-09-18 17:41 | PC.NURSE ---
MOVIPREP STARTED, PATIENT EDUCATED ON THIS. NO CURRENT NEEDS VOICED.
[2020-09-18 18:05] LABS: Hemoglobin 10.3 g/dL (12.2-16.2)
[2020-09-19] VITALS (19 sets, daily range): BP systolic 119–158; BP diastolic 56–94; PULSE 69–104; RESP 12–20; TEMP 36.1–36.9; O2SAT 95–100
--- NOTE | 2020-09-19 05:00 | PC.NURSE ---
MoviPrep for colonoscopy given.
--- NOTE | 2020-09-19 08:07 | P.PN_ITS ---
Subjective Patient reports: no new complaints, feels better Progress Note: A&P (1) UGIB (upper gastrointestinal bleed) Status: Acute Assessment and plan: Repeat EGD this morning. 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 (8) Anemia due to blood loss Status: Acute Assessment and plan: Colonoscopy this morning at time of repeat EGD. (9) Adenomatous polyp of stomach Status: Acute Assessment and plan: Close ongoing evaluation. Margin of polypectomy site to be reevaluated today on repeat EGD. If polypoid changes project into the small bowel the gastroenterology service will be consulted for further evaluation and management. Currently, there is no requirement for surgical resection. Exam Vital signs and Labs for Last 24 Hours: Temp Pulse Resp BP Pulse Ox 98.3 F 70 18 145/54 H 96 09/18/20 20:20 09/18/20 20:20 09/18/20 20:20 09/18/20 20:20 09/18/20 20:20 Laboratory Results - last 24 hr 09/17/20 07:43: Blood Type O Positive, Antibody Screen Negative, Crossmatch (AHG) See Detail 09/18/20 06:25: WBC 6.8 D, RBC 2.72 L, Hgb 7.7 L*, Hct 23.9 L*, MCV 88.2, MCH 28.4, MCHC 32.2, RDW 15.1, Plt Count 284, MPV 7.4, Neut % (Auto) 61.0, Lymph % (Auto) 30.9, [place] % (Auto) 4.1, Eos % (Auto) 3.5, Baso % (Auto) 0.5, Neut # (Auto) 4.2, Lymph # (Auto) 2.1, [place] # (Auto) 0.3, Eos # (Auto) 0.2, Baso # (Auto) 0.0 09/18/20 16:55: Hgb 10.3 L D, Hct 31.5 L I & O for Last 24 hours: Intake & Output 09/16/20 09/17/20 09/18/20 09/19/20 11:59 11:59 11:59 11:59 Intake Total 240 / 240 480 / 480 980 / 980 0 / 0 Output Total 350 / 350 Balance 240 / 240 480 / 480 980 / 980 -350 / -350 Weight 188 lb 1 oz Narrative: Received 2 units of packed red blood cells yesterday. Morning labs pending. Note: Pathology on prepyloric polyp reveals adenoma. No high-grade dysplasia or carcinoma noted. - Constitutional no acute distress - *Routine Respiratory Exam Absent: respiratory distress - *Routine Cardiovascular Exam Present: RRR - *Routine Abdominal Exam Present: soft
--- NOTE | 2020-09-19 08:20 | HMH.ACPN2 ---
Internal Medicine - PN: Subj *Date: 09/19/20 *Time: 08:20 Interval history: Patient has no complaints this morning. She is feeling better than yesterday in regards to any shortness of breath. Patient received 2 units of packed red blood cells and hemoglobin is now above 10. She has completed her bowel prep and reports stools remain black in color. She is scheduled for EGD and colonoscopy this morning Exam Vital signs and Labs for Last 24 Hours: Temp Pulse Resp BP Pulse Ox 97.9 F 69 16 130/64 100 09/19/20 08:07 09/19/20 08:07 09/19/20 08:07 09/19/20 08:07 09/19/20 08:07 Laboratory Results - last 24 hr 09/17/20 07:43: Blood Type O Positive, Antibody Screen Negative, Crossmatch (AHG) See Detail 09/18/20 06:25: WBC 6.8 D, RBC 2.72 L, Hgb 7.7 L*, Hct 23.9 L*, MCV 88.2, MCH 28.4, MCHC 32.2, RDW 15.1, Plt Count 284, MPV 7.4, Neut % (Auto) 61.0, Lymph % (Auto) 30.9, [place] % (Auto) 4.1, Eos % (Auto) 3.5, Baso % (Auto) 0.5, Neut # (Auto) 4.2, Lymph # (Auto) 2.1, [place] # (Auto) 0.3, Eos # (Auto) 0.2, Baso # (Auto) 0.0 09/18/20 16:55: Hgb 10.3 L D, Hct 31.5 L I & O for Last 24 hours: Intake & Output 09/16/20 09/17/20 09/18/20 09/19/20 11:59 11:59 11:59 11:59 Intake Total 240 / 240 480 / 480 980 / 980 0 / 0 Output Total 350 / 350 Balance 240 / 240 480 / 480 980 / 980 -350 / -350 Weight 188 lb 1 oz - Constitutional no acute distress - *Routine Respiratory Exam Present: CTA bilaterally - *Routine Cardiovascular Exam Present: RRR - *Routine Abdominal Exam Present: soft, normoactive bowel sounds. 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 use: without rough carpenter use Diabetes mellitus complication status: without complication Qualified Code(s): E11.9 - Type 2 diabetes mellitus without complications Category: Medical Code(s): E11.9 - Type 2 diabetes mellitus without complications (4) Osteoarthritis Status: Acute Qualifiers: Osteoarthritis location: knee Category: Medical Code(s): M19.90 - Unspecified osteoarthritis, unspecified site (5) retirement (current) use of non-steroidal anti-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 (nsaid) Status: Acute Category: Medical Code(s): Z79.1 - retirement (current) use of non-steroidal anti-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 (NSAID) (6) Hypertensive heart disease Status: Chronic Qualifiers: Heart failure presence: without heart failure Qualified Code(s): I11.9 - Hypertensive heart disease without heart failure Category: Medical Code(s): I11.9 - Hypertensive heart disease without heart failure (7) Gastric polyps Status: Acute Category: Medical Code(s): K31.7 - Polyp of stomach and duodenum (8) Anemia due to blood loss Status: Acute Category: Medical Code(s): D50.0 - Iron deficiency anemia secondary to blood loss (chronic) (9) Adenomatous polyp of stomach Status: Acute Category: Medical Code(s): D13.1 - Benign neoplasm of stomach - Assessment and plan all Dx Assessment and Plan for all problems:: 1. Await EGD and colonoscopy 2. Continue monitoring H&H every 12 hours
[2020-09-19 08:24] LABS: Basophils # 0.1 K/mm3 (0-0.2); Basophils % 0.6 % (0.1-2.0); Eosinophils # 0.2 K/mm3 (0.0-0.4); Eosinophils % 2.3 % (0.1-12.0); Hematocrit 35.6 % (37.0-47.0); Lymphocytes # 2.3 K/mm3 (0.7-4.5); Lymphocytes % 25.3 % (10-50); Mean Corpuscular Hemoglobin 29.1 pg (27.0-31.2); Mean Corpuscular Volume 88.2 fl (81-99); Mean Platelet Volume 7.9 fl (7.4-10.4); Monocytes # 0.4 K/mm3 (0.1-1.0); Neutrophils % 66.9 % (37.0-80.0); Platelet Count 315 K/mm3 (142-424); Red Blood Count 4.04 M/mm3 (4.20-5.40); Red Cell Distribution Width 15.1 % (11.5-17.5); White Blood Count 8.9 K/mm3 (4.8-10.8)
[2020-09-19 08:33] LABS: Hemoglobin 11.8 g/dL (12.2-16.2)
[2020-09-19 08:56] LABS: Anion Gap 9.3 mEq/L (5-15); Blood Urea Nitrogen 15 mg/dl (7-17); Calcium 10.4 mg/dl (8.4-10.2); Carbon Dioxide 24 mmol/L (22.0-30.0); Chloride 113 mmol/L (98-107); Creatinine Clearance Estimated 49 mL/min (50-200); Estimated Glomerular Filt Rate 43 ml/min (>60); GFR (African American) 52 ML/MIN (>60); Glucose 129 mg/dl (74-100); Potassium 4.3 mmoL/L (3.5-5.1); Sodium 142 mmol/L (136-145)
--- NOTE | 2020-09-19 09:14 | PC.NURSE ---
PATIENT OFF UNIT TO SCOPE ROOM
--- NOTE | 2020-09-19 10:02 | HMH.SCOPE ---
- Procedure: Date: 09/19/20 Patient Date of :: 1935 Procedure Performed:: Esophagogastroduodenoscopy with biopsy Colonoscopy aborted secondary to poor bowel preparation Indications:: Gastrointestinal hemorrhage Performing Provider:: Alcides Sagastume MD Referring Provider:: Dr. Story Sedation:: Monitored anesthesia care Procedure:: After informed consent was obtained the patient was taken to the endoscopy suite. Sedation ensued after the patient was transferred to the left lateral decubitus position. Pulse, blood pressure, and oxygen saturation were monitored throughout the procedure. The endoscope was advanced beyond the duodenal bulb. Retroflexion within the gastric lumen was accomplished. The gastroscope was carefully removed. Digital rectal exam revealed no significant abnormality. The colonoscope was placed in position. Bowel preparation was exceedingly poor. The decision was made to abort the colonoscopy. The colonoscope was carefully removed and the patient was transferred to recovery in stable condition. Please see findings and specimens below for detail. Findings:: Fairly small stomach Bilious fluid and some retained food particles noted (improved versus prior evaluation) Prior polypectomy sites appeared fairly normal Lobulated friable mucosa with linear spiculated discoloration along antrum/prepyloric region No obvious ulceration or sign of recent hemorrhage Colonoscopy aborted secondary to exceedingly poor bowel preparation Specimens:: Multiple biopsies of friable mucosa with linear spiculated discoloration along antrum Recommendations:: Follow-up pathology of gastric biopsies. A prepyloric polyp removed during her recent EGD was adenomatous. Repeat bowel preparation with possible colonoscopy tomorrow by Dr. Lala Ongoing evaluation with regard to possible gastroparesis Ongoing evaluation with regard to possible small bowel etiology for GI blood loss Complications:: Colonoscopy aborted secondary to exceedingly poor bowel preparation Estimated blood obtained (mL): 1
--- NOTE | 2020-09-19 10:30 | P.PN_ITS ---
[facility] Anesthesia Checklist - Patient Identification Patient Identification: Arm Band - Structural Data Admitted From: Inpatient Planned Operative Procedure/s: EGD/Colonoscopy Consent for Planned Operative Procedure(s) Verified: Yes Verified Documents: Surgical Consent, History and Physical - NPO Status Verified Time NPO: 00:00 - Additional verifications Anesthesia Reactions: No - Airway Assessment C-Spine Mobility Assessed: Yes TMJ Mobility Assessed: Yes Dentition: Good Dentition - Neurological Assessment Level of Consciousness: Awake, Alert - Anesthesia Plan Anesthesia Risk discussed: Yes Anesthesia Plan: Verified ASA Class: III Anesthesia Type: MAC [facility] History Medical History: Reports:: Cancer (left breast mastectomy approximately 25 years ago), Diabetes Mellitus Type 2, Gastroesophageal Reflux Disease(GERD), Hyperlipidemia, Hypertension Denies:: Diabetes Mellitus Type 1, Internal Pacemaker, Lung Disease, MRSA, Seizures *Have you ever received a pneumonia vaccine?: No *Have you received a flu vaccine this season?: Yes Other Medical History: Reports: Arthritis, Fibromyalgia Anesthesia experience/problems:: none Laterality Cases: Left: Mastectomy Other Surgeries: Yes: Cardiac Catheterization, Other (pancreas, left mascetomy.). No: Pacemaker Amputation: No Fractures: No - *Social History Last grade of school completed: 9th or 10th Smoking Status: Never smoker Alcohol Intake: never Alcohol Intake Frequency:: other Substance Use Type: denies use *Occupational Status:: retired Housing: assisted living facility Household Members: none *Travel in the last 8 weeks: None Family Hx:: Cancer, Diabetes, Hyperlipidemia, Hypertension
--- NOTE | 2020-09-19 10:35 | PC.NURSE ---
PT BACK ON FLOOR A THIS TIME. ASLEEP. RESP EQUAL AND UNLABORED. NURSE REPORTS UNABLE TO DO COLONOSCOPY- WILL REPEAT IN AM. BED IN LOCKED LOWEST POSITION.
--- NOTE | 2020-09-19 16:22 | PC.NURSE ---
NO CHANGES NOTED FROM PREVIOUS ASSESSMENT. PT REPORTS ABDOMINAL TENDERNESS BUT NOT PAIN. HAS BEEN UP MULTIPLE TIMES TO BATHROOM THIS SHIFT. DENIES DIZZINESS. LUNGS CTA AND BOWEL ACTIVE X4. REPORTS A SORE THROAT FROM THE SCOPE. IV SALINE LOCKED. NO EDEMA NOTED AND PULSES 2+. PT IS GOING TO BE STARTING MOVIPREP TONIGHT AGAIN. NO NEEDS VOICED.
--- NOTE | 2020-09-19 17:10 | PC.NURSE ---
MoVi-prep dose one given to patient. education provided. no other needs voiced to nurse.
[2020-09-19 21:28] LABS: Hematocrit 32.7 % (37.0-47.0); Hemoglobin 10.7 g/dL (12.2-16.2)
[2020-09-20] VITALS (18 sets, daily range): BP systolic 135–180; BP diastolic 64–88; PULSE 62–80; RESP 16–20; TEMP 36.3–37; O2SAT 96–100; BMI 26.2; BMI 26.3
--- NOTE | 2020-09-20 04:29 | PC.NURSE ---
PT HAS RESTED INTERMITTENTLY THIS SHIFT, HAS BEEN TO BATHROOM SEVERAL TIMES WITHOUT DIFFICULTY. NO CHANGES FROM PREVIOUS ASSESSMENT. VITAL SIGNS STABLE. LUNGS CTAB. REPORTS MILD ABDOMINAL TENDERNESS, NO PAIN. BOWEL SOUNDS ACTIVE X 4 QUADS. HAS BEEN NPO SINCE MIDNIGHT. IV PATENT. PT WITHOUT NEEDS, CALL LIGHT WITHIN REACH.
--- NOTE | 2020-09-20 05:07 | PC.NURSE ---
PT PROVIDED SECOND DOSE OF MOVIPREP. PT V/U
--- NOTE | 2020-09-20 06:42 | PC.NURSE ---
DR. MARES AT BEDSIDE
[2020-09-20 07:10] LABS: Basophils % 0.5 % (0.1-2.0); Eosinophils # 0.2 K/mm3 (0.0-0.4); Eosinophils % 1.8 % (0.1-12.0); Hematocrit 33.9 % (37.0-47.0); Hemoglobin 11.2 g/dL (12.2-16.2); Lymphocytes # 1.9 K/mm3 (0.7-4.5); Lymphocytes % 20.8 % (10-50); Mean Corpuscular HGB Conc 33.1 g/dL (31.8-35.4); Mean Corpuscular Hemoglobin 28.8 pg (27.0-31.2); Mean Platelet Volume 7.2 fl (7.4-10.4); Monocytes # 0.5 K/mm3 (0.1-1.0); Monocytes % 5.9 % (1.7-9.3); Neutrophils # 6.3 K/mm3 (1.8-7.8); Platelet Count 315 K/mm3 (142-424); Red Blood Count 3.89 M/mm3 (4.20-5.40); Red Cell Distribution Width 14.9 % (11.5-17.5); White Blood Count 8.9 K/mm3 (4.8-10.8)
[2020-09-20 07:15] LABS: Chloride 112 mmol/L (98-107); Potassium 3.9 mmoL/L (3.5-5.1); Sodium 141 mmol/L (136-145)
[2020-09-20 07:18] LABS: Anion Gap 8.9 mEq/L (5-15); Blood Urea Nitrogen 8 mg/dl (7-17); Carbon Dioxide 24 mmol/L (22.0-30.0); Creatinine Clearance Estimated 62 mL/min (50-200); Estimated Glomerular Filt Rate 53 ml/min (>60); GFR (African American) 64 ML/MIN (>60); Glucose 104 mg/dl (74-100)
--- NOTE | 2020-09-20 07:21 | HMH.ACPN2 ---
Internal Medicine - PN: Subj *Date: 09/20/20 *Time: 07:21 Interval history: Patient's EGD yesterday did not reveal any active bleeding. Attempted colonoscopy was unsuccessful due to stool burden. Patient is repeated bowel prep overnight and Dr. Lala has agreed to do a colonoscopy on the patient. Patient reports no change in health. She states her stools seem to be lightening although remain dark Exam Vital signs and Labs for Last 24 Hours: Temp Pulse Resp BP Pulse Ox 98.2 F 76 17 141/79 H 97 09/20/20 04:00 09/20/20 04:00 09/20/20 04:00 09/20/20 04:00 09/20/20 04:00 Laboratory Results - last 24 hr 09/19/20 07:15: WBC 8.9 D, RBC 4.04 L D, Hgb 11.8 L D, Hct 35.6 L, MCV 88.2, MCH 29.1, MCHC 33.0, RDW 15.1, Plt Count 315, MPV 7.9, Neut % (Auto) 66.9, Lymph % (Auto) 25.3, [place] % (Auto) 5.0, Eos % (Auto) 2.3, Baso % (Auto) 0.6, Neut # (Auto) 6.0, Lymph # (Auto) 2.3, [place] # (Auto) 0.4, Eos # (Auto) 0.2, Baso # (Auto) 0.1 09/19/20 07:15: Sodium 142, Potassium 4.3, Chloride 113 H, Carbon Dioxide 24, Anion Gap 9.3, BUN 15 D, Creatinine 1.20 H, Estimated Creat Clear 49, Estimated GFR 43 L, Est GFR ( Amer) 52 L, Glucose 129 H, Calcium 10.4 H 09/19/20 21:10: Hgb 10.7 L, Hct 32.7 L 09/20/20 06:50: WBC 8.9, RBC 3.89 L, Hgb 11.2 L, Hct 33.9 L, MCV 87.0, MCH 28.8, MCHC 33.1, RDW 14.9, Plt Count 315, MPV 7.2 L, Neut % (Auto) 71.0, Lymph % (Auto) 20.8, [place] % (Auto) 5.9, Eos % (Auto) 1.8, Baso % (Auto) 0.5, Neut # (Auto) 6.3, Lymph # (Auto) 1.9, [place] # (Auto) 0.5, Eos # (Auto) 0.2, Baso # (Auto) 0.0 09/20/20 06:50: Sodium 141, Potassium 3.9, Chloride 112 H, Carbon Dioxide 24, Anion Gap 8.9, BUN 8 D, Creatinine 1.00, Estimated Creat Clear 62, Estimated GFR 53 L, Est GFR ( Amer) 64 D, Glucose 104 H, Calcium 10.0 I & O for Last 24 hours: Intake & Output 09/17/20 09/18/20 09/19/20 09/20/20 11:59 11:59 11:59 11:59 Intake Total 480 / 480 980 / 980 0 / 0 1320 / 1320 Output Total 350 / 350 Balance 480 / 480 980 / 980 -350 / -350 1320 / 1320 Weight 198 lb 1 oz - Constitutional no acute distress - *Routine Respiratory Exam Present: CTA bilaterally - *Routine Cardiovascular Exam Present: RRR - *Routine Abdominal Exam Present: soft, normoactive bowel sounds. Absent: tenderness Assessment and Plan (1) UGIB (upper gastrointestinal bleed) Status: Acute Category: Medical Code(s): K92.2 - Gastrointestinal hemorrhage, unspecified (2) Essential hypertension Status: Acute Category: Medical Code(s): I10 - Essential (primary) hypertension (3) Diabetes mellitus type 2, controlled Status: Acute Qualifiers: Diabetes mellitus intermediate insulin use: without heater furnace use Diabetes mellitus complication status: without complication Qualified Code(s): E11.9 - Type 2 diabetes mellitus without complications Category: Medical Code(s): E11.9 - Type 2 diabetes mellitus without complications (4) Osteoarthritis Status: Acute Qualifiers: Osteoarthritis location: knee Category: Medical Code(s): M19.90 - Unspecified osteoarthritis, unspecified site (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 (nsaid) Status: Acute Category: Medical Code(s): Z79.1 - USP (current) use of non-steroidal anti-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 (NSAID) (6) Hypertensive heart disease Status: Chronic Qualifiers: Heart failure presence: without heart failure Qualified Code(s): I11.9 - Hypertensive heart disease without heart failure Category: Medical Code(s): I11.9 - Hypertensive heart disease without heart failure (7) Gastric polyps Status: Acute Category: Medical Code(s): K31.7 - Polyp of stomach and duodenum (8) Anemia due to blood loss Status: Acute Category: Medical Code(s): D50.0 - Iron deficiency anemia secondary to blood loss (chronic) (9) Adenomatous polyp of stomach Status: Acute Category: Medical Code(s): D13.1 - Benign neoplasm of stomac
--- NOTE | 2020-09-20 07:33 | PC.NURSE ---
SPOKE WITH EFRAÍN IN PREOP ON PATIENTS COLONOSCOPY. HE STATED HE WILL TALK TO DR. JAUREGUI WHEN HE GETS THERE AND CALL US BACK WITH TIME. NOTIFIED HIM OF DR. JAUREGUI CONSULT.
--- NOTE | 2020-09-20 07:50 | PC.NURSE ---
dr. trevino at bedside at this time.
--- NOTE | 2020-09-20 08:11 | P.PN_ITS ---
Subjective Patient reports: feels better Progress Note: A&P (1) UGIB (upper gastrointestinal bleed) Status: Acute Assessment and plan: Possibly from adenomatous polyp. Possibly from friable distal gastric tissue. Follow-up pathology from repeat EGD yesterday. Continue PPI. 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 Lala) scheduled for today. (9) Adenomatous polyp of stomach Status: Acute Exam Vital signs and Labs for Last 24 Hours: Temp Pulse Resp BP Pulse Ox 98.1 F 74 18 137/70 97 09/20/20 08:00 09/20/20 08:00 09/20/20 08:00 09/20/20 08:00 09/20/20 08:00 Laboratory Results - last 24 hr 09/19/20 07:15: WBC 8.9 D, RBC 4.04 L D, Hgb 11.8 L D, Hct 35.6 L, MCV 88.2, MCH 29.1, MCHC 33.0, RDW 15.1, Plt Count 315, MPV 7.9, Neut % (Auto) 66.9, Lymph % (Auto) 25.3, [place] % (Auto) 5.0, Eos % (Auto) 2.3, Baso % (Auto) 0.6, Neut # (Auto) 6.0, Lymph # (Auto) 2.3, [place] # (Auto) 0.4, Eos # (Auto) 0.2, Baso # (Auto) 0.1 09/19/20 07:15: Sodium 142, Potassium 4.3, Chloride 113 H, Carbon Dioxide 24, Anion Gap 9.3, BUN 15 D, Creatinine 1.20 H, Estimated Creat Clear 49, Estimated GFR 43 L, Est GFR ( Amer) 52 L, Glucose 129 H, Calcium 10.4 H 09/19/20 21:10: Hgb 10.7 L, Hct 32.7 L 09/20/20 06:50: WBC 8.9, RBC 3.89 L, Hgb 11.2 L, Hct 33.9 L, MCV 87.0, MCH 28.8, MCHC 33.1, RDW 14.9, Plt Count 315, MPV 7.2 L, Neut % (Auto) 71.0, Lymph % (Auto) 20.8, [place] % (Auto) 5.9, Eos % (Auto) 1.8, Baso % (Auto) 0.5, Neut # (Auto) 6.3, Lymph # (Auto) 1.9, [place] # (Auto) 0.5, Eos # (Auto) 0.2, Baso # (Auto) 0.0 09/20/20 06:50: Sodium 141, Potassium 3.9, Chloride 112 H, Carbon Dioxide 24, Anion Gap 8.9, BUN 8 D, Creatinine 1.00, Estimated Creat Clear 62, Estimated GFR 53 L, Est GFR ( Amer) 64 D, Glucose 104 H, Calcium 10.0 I & O for Last 24 hours: Intake & Output 09/17/20 09/18/20 09/19/20 09/20/20 11:59 11:59 11:59 11:59 Intake Total 480 / 480 980 / 980 0 / 0 1320 / 1320 Output Total 350 / 350 Balance 480 / 480 980 / 980 -350 / -350 1320 / 1320 Weight 198 lb 1 oz - Constitutional no acute distress - *Routine Respiratory Exam Absent: respiratory distress - *Routine Cardiovascular Exam Comments: Regular rate
--- NOTE | 2020-09-20 14:00 | PC.NURSE ---
pt off unit with surgery at this time
--- NOTE | 2020-09-20 15:19 | HMH.PROC ---
[facility] Procedure Note Procedure Note:: Colonoscopy Procedure Report: Colonoscopy with APC coagulation/ablation Endoscopist: Kian Lala II, MD Referring physician: Alcides Sagastume M.D./MELLO Fajardo Date of Procedure: 09/20/2020 Equipment: Olympus 190 variable stiffness pediatric colonoscope Sedation: MAC sedation Indication: Mrs. Carrasco is an 84-year-old female with some chronic constipation and anemia who was admitted. She presented with some fatigue with hemoglobin 8.5 and hematocrit 26.5. She did have an upper endoscopy with Dr. Alcides Sagastume M.D. and had some findings including a possible adenomatous lesion. It is not clear that there was any source of bleeding from the upper digestive tract. She did have melanotic stools. She reports no abdominal pain or weight loss. She reports no family history of colon cancer. Her last colonoscopy was many years ago. The colonoscopy is performed for diagnostic purposes. Procedure: Prior to the procedure, a history and physical exam was performed, and patient's medications and allergies were reviewed. The risks, benefits and alternatives of the sedation and procedure were discussed with the patient. All questions were answered and informed consent was obtained. The patient was brought to the procedure room. Patient identification and proposed procedure were verified by the physician and the nurse. The patient was placed in a left lateral decubitus position and the scope was passed under direct vision. Throughout the procedure, the patient's blood pressure, pulse, and oxygen saturations were monitored continuously. The colonoscopy was accomplished without difficulty. The patient tolerated the procedure well. Findings: On digital rectal examination there was normal rectal tone. There were no external hemorrhoids. The colonoscope was introduced through the anal canal to the rectum and advanced to the ileocolonic anastomosis. The scope was advanced a short distance into the ileum which appeared grossly normal. The scope was then withdrawn into the colon. There was old blood/heme noted throughout the remaining ascending and transverse colon. There were several AVMs that were identified with 1 angiodysplasia that was actively bleeding. This was ablated/coagulated using the argon plasma grounds restoration specialist (APC). There were a couple of additional AVMs that were coagulated in the right colon. There were scattered extensive diverticuli throughout the colon. There were no other mucosal abnormalities identified. Upon retroflexion within the rectum there were grade 1-2 internal hemorrhoids. The preparation was fair throughout with [place] Preparation Score of 7 out of 9. The cecal time was 12 minutes. Impression: 1. Right colonic angiodysplasias with some active oozing (active bleeding) status post APC ablation 2. Extensive pandiverticulosis 3. Prior right colon surgery with ileocolonic anastomosis 4. Grade 1-2 internal hemorrhoids Plan: I do feel that the patient's dark stools and anemia are related to these bleeding angiodysplasias. Her preparation was fair which made it difficult to fully evaluate the right colonic mucosa and identify possibly some angiodysplasias. I would encourage a fiber bowel regimen (MiraLAX plus Metamucil) daily. I would recommend parenteral iron infusion while she is hospitalized. I did speak with Dr. Alcides Sagastume yesterday and I will leave it up to him as to the extent of my involvement since he is still gathering information in regard to upper digestive tract and adenomatous findings.
--- NOTE | 2020-09-20 15:29 | SUR.OPER ---
IV IN RT WRIST LEAKING IV REMOVED BY Michaela HUGHES RN. NEW IV STARTED BY Michaela HUGHES RN #20 RIGHT F/A. IV INFUSING WELL.
--- NOTE | 2020-09-20 16:15 | PC.NURSE ---
Reassessment done at this time. no changes. pt just got back to floor from colonoscopy. pt a/ox4. iv saline locked to right forearm. no edema noted. pulses 2+ and cap refill <3 seconds. reports tender abd, but no pain. lungs cta and bowel sounds active x4. no needs voiced. bed locked in lowest position and call light within reach.
--- NOTE | 2020-09-20 16:47 | PC.NURSE ---
SPOKE WITH DR. MARES. STATES HE IS GOING TO KEEP PATIENT UNTIL TOMORROW AND THAT PATIENT CAN HAVE DIABETIC DIET. R/V
[2020-09-21 04:00] VITALS: BP 123/61; PULSE 72; RESP 16; TEMP 36.8; O2SAT 100
--- NOTE | 2020-09-21 04:29 | PC.NURSE ---
No acute changes this shift, Pt A&O x4, BLT lungs CTA, bowel sounds present in all 4 quadrants, Pt IV S/L. Pt denies SOA. pain, headache, or N/V. Pt ambulates with no assistance to the restroom. No needs at this time
[2020-09-21 07:09] LABS: Hemoglobin 10.6 g/dL (12.2-16.2)
--- NOTE | 2020-09-21 07:17 | HMH.ACPN2 ---
Internal Medicine - PN: Subj *Date: 09/21/20 *Time: 07:17 Interval history: Patient has no complaints this morning. She underwent second colonoscopy yesterday which revealed a bleeding angiodysplasia in the right colon. This was successfully treated with argon laser by Dr. Lala. He is recommended a fiber bowel regimen Exam Vital signs and Labs for Last 24 Hours: Temp Pulse Resp BP Pulse Ox 98.2 F 72 16 123/61 100 09/21/20 04:00 09/21/20 04:00 09/21/20 04:00 09/21/20 04:00 09/21/20 04:00 Laboratory Results - last 24 hr 09/20/20 06:50: Carbon Dioxide 24, Anion Gap 8.9, BUN 8 D, Creatinine 1.00, Estimated Creat Clear 62, Estimated GFR 53 L, Est GFR ( Amer) 64 D, Glucose 104 H, Calcium 10.0 09/21/20 06:25: Hgb 10.6 L, Hct 33.0 L I & O for Last 24 hours: Intake & Output 09/18/20 09/19/20 09/20/20 09/21/20 11:59 11:59 11:59 11:59 Intake Total 980 / 980 0 / 0 1320 / 1320 Output Total 350 / 350 Balance 980 / 980 -350 / -350 1320 / 1320 Weight 198 lb 1 oz 198 lb 6.656 oz - Constitutional no acute distress - *Routine HEENT Exam Head: Present: normocephalic Eye: Present: EOMI, PERRL ENT: Present: mucous membranes moist - *Routine Respiratory Exam Present: CTA bilaterally - *Routine Cardiovascular Exam Present: RRR - *Routine Abdominal Exam Present: soft, normoactive bowel sounds. Absent: tenderness Assessment and Plan (1) Angiodysplasia of colon with hemorrhage Status: Acute Category: Medical Code(s): K55.21 - Angiodysplasia of colon with hemorrhage (2) UGIB (upper gastrointestinal bleed) Status: Acute Category: Medical Code(s): K92.2 - Gastrointestinal hemorrhage, unspecified (3) Essential hypertension Status: Acute Category: Medical Code(s): I10 - Essential (primary) hypertension (4) Diabetes mellitus type 2, controlled Status: Acute Qualifiers: Diabetes mellitus bilingual hr generalist insulin use: without group home use Diabetes mellitus complication status: without complication Qualified Code(s): E11.9 - Type 2 diabetes mellitus without complications Category: Medical Code(s): E11.9 - Type 2 diabetes mellitus without complications (5) Osteoarthritis Status: Acute Qualifiers: Osteoarthritis location: knee Category: Medical Code(s): M19.90 - Unspecified osteoarthritis, unspecified site (6) 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-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 (nsaid) Status: Acute Category: Medical Code(s): 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 anti-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 (NSAID) (7) Hypertensive heart disease Status: Chronic Qualifiers: Heart failure presence: without heart failure Qualified Code(s): I11.9 - Hypertensive heart disease without heart failure Category: Medical Code(s): I11.9 - Hypertensive heart disease without heart failure (8) Gastric polyps Status: Acute Category: Medical Code(s): K31.7 - Polyp of stomach and duodenum (9) Anemia due to blood loss Status: Acute Category: Medical Code(s): D50.0 - Iron deficiency anemia secondary to blood loss (chronic) (10) Adenomatous polyp of stomach Status: Acute Category: Medical Code(s): D13.1 - Benign neoplasm of stomach - Assessment and plan all Dx Assessment and Plan for all problems:: Patient's H&H is stabilized and she will be discharged home. She will follow up with Dr. Coley as an outpatient. Follow-up with myself as an outpatient. Start a fiber bowel regimen.
--- NOTE | 2020-09-21 07:19 | HMH.DCSUM ---
General - General Admission date:: 09/15/20 Discharge date: 09/21/20 HPI HPI: 84-year-old female presented to the emergency department yesterday evening with complaint of perceived blood in her stools. Initial story I was given was patient complained of bright red blood in the stool and was thought to have a lower GI bleed. Patient has a personal history of iron deficiency anemia for which she takes iron supplementation with last hemoglobin in the office being 11.7. Patient was hemodynamically stable and was discharged home for outpatient follow-up. She returned to the emergency department within a few hours after having additional blood in her stool. This morning the patient clarifies that the blood was black and sticky. She has no personal history of ulcer disease or GI bleeding. Her last colonoscopy was many years ago and she does not remember the exact date. Decision was made to admit the patient for monitoring of her H&H with evaluation of the GI tract. At this time patient is being prepared to undergo EGD. Patient denies abdominal pain. She does take diclofenac 75 mg twice daily for osteoarthritis Hospital Course Hospital Course: Patient was admitted with suspected upper GI bleed. The morning following admission Dr. Coley of the surgical service was consulted and he took the patient to the endoscopy suite for EGD. Patient had some retained food but a gastric polyp was identified and removed. There was no active bleeding coming from the stomach. Initial plan had been for monitoring of H&H and once H&H stabilized patient would be discharged and evaluation would continue as an outpatient. However H&H declined and patient required transfusion of 2 units of packed red blood cells on September 18. Patient tolerated her blood transfusion well. She was symptomatic from the blood loss with noted shortness of breath and lightheadedness. This resolved after transfusion. Decision was made to proceed with repeat EGD after a more lengthy period of patient being n.p.o. as well as proceeding with colonoscopy due to believes active bleeding. During the entire hospitalization patient reported dark black coffee-ground stools. On September 19 patient underwent repeat EGD and attempt at colonoscopy done by Dr. Coley. EGD did not reveal any actively bleeding lesions. Colonoscopy was unsuccessful due to incomplete bowel prep and significant stool burden. Patient was rescheduled for repeat colonoscopy after additional bowel prep to be performed by Dr. Lala. This was performed on September 20. Patient was found to have a bleeding angiodysplasia in the right colon which was successfully treated with argon laser. Post procedurally patient's H&H remained stable and patient was discharged home. Patient will begin a fiber bowel regimen per Dr. Lala recommendations. Patient will discontinue her diclofenac and use Tylenol arthritis instead. Patient will follow up with Dr. Coley regarding the adenomatous polyp of the stomach. Patient will follow up with my office within the week for her discharge checkup. Objective Vital signs: Temp Pulse Resp BP Pulse Ox 98.2 F 72 16 123/61 100 09/21/20 04:00 09/21/20 04:00 09/21/20 04:00 09/21/20 04:00 09/21/20 04:00 no acute distress - *Routine Respiratory Exam Present: CTA bilaterally - *Routine Cardiovascular Exam Present: RRR - *Routine Abdominal Exam Present: soft, normoactive bowel sounds. Absent: tenderness Results Labs on day of discharge: Labs from last 24 hours 09/21/20 09/20/20 06:25 06:50 Hgb 10.6 L Hct 33.0 L Carbon Dioxide 24 Anion Gap 8.9 BUN 8 D Creatinine 1.00 Estimated Creat Clear 62 Estimated GFR 53 L Est GFR ( Amer) 64 D Glucose 104 H Calcium 10.0 DS: Diagnosis - Discharge Diagnosis (1) Angiodysplasia of colon with hemorrhage Status: Acute (2) UGIB (upper gastrointestinal bleed) Status: Acute
[2020-09-21 08:00] VITALS: BP 134/61; PULSE 81; RESP 20; TEMP 36.7; O2SAT 96
--- NOTE | 2020-09-21 08:00 | PC.NURSE ---
Pt assessment completed at this time. Reports occasional abd tenderness. reports no pain. pt ready to go home today. no needs
== END 2020-09-21 11:05 | disposition home or self-care (01) | DRG 379 ==
LOC: ER 19:16 → 2ND 20:06 → OB 09-20 14:20
PROVIDERS: Internal Medicine Gastroenterology; Surgery; Admitting Provider Family Medicine; Emergency Provider Family Medicine; PCP Nurse Practitioner Family; Visit Provider Family Medicine
PROC: 0DJ08ZZ Inspection of Upper Intestinal Tract, Via Natural or Artificial Opening Endoscopic (ICD-10-PCS; CPT 43235; principal; 2020-09-16 06:50)
PROC: 0DJD8ZZ Inspection of Lower Intestinal Tract, Via Natural or Artificial Opening Endoscopic (ICD-10-PCS; CPT 45378; principal; 2020-09-20 14:30)
DX: D13.1 Benign neoplasm of stomach (principal); K92.2 Gastrointestinal hemorrhage, unspecified; I10 Essential (primary) hypertension; Z79.1 Long term (current) use of non-steroidal anti-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 (NSAID); E11.9 Type 2 diabetes mellitus without complications; M19.90 Unspecified osteoarthritis, unspecified site; K55.21 Angiodysplasia of colon with hemorrhage; Z79.84 Long term (current) use of oral hypoglycemic drugs
CPT/HCPCS: 43239 ×2; 43270; 45382; 36415; 80048; 82272; 85014; 85018; 85025; 86850; 88305; 88313; 93005; 96374; 99282; 99283; C2618; G0328; G0378; J2405; P9016; U0003

== ENCOUNTER → 2020-09-29 11:12 | Outpatient (CLI) | payer MEDICARE, BC, SELFPAY ==
[2020-09-29 11:37] LABS: Hemoglobin 11.3 g/dL (12.2-16.2)
== END ==
PROVIDERS: Visit Provider Surgery
DX: D64.9 Anemia, unspecified (principal)
CPT/HCPCS: 36415; 85014; 85018

== ENCOUNTER 2020-09-30 19:58 | Emergency (ER) | payer MEDICARE, BC, SELFPAY ==
[2020-09-30 20:10] VITALS: BP 136/78; PULSE 72; RESP 16; TEMP 36.8; O2SAT 100; BMI 24.7
--- NOTE | 2020-09-30 20:21 | CT_ITS ---
PROCEDURE INFORMATION: Exam: CT Abdomen And Pelvis With Contrast Exam date and time: 09/30/2020 8:21 PM Age: 84 years old Clinical indication: Nausea and other: Dark stool; Abdominal pain; Localized; Left lower quadrant (llq); Prior surgery; Surgery date: 6+ months; Surgery type: Tubal ligation, pancreas, spleen, recent colonoscopy; Additional info: Llq pain w/ nausea and dark stools TECHNIQUE: Imaging protocol: Computed tomography of the abdomen and pelvis with contrast. Radiation optimization: All CT scans at this facility use at least one of these dose optimization techniques: automated exposure control; mA and/or kV adjustment per patient size (includes targeted exams where dose is matched to clinical indication); or iterative reconstruction. Contrast material: ISOVUE 370; Contrast volume: 75 ml; Contrast route: INTRAVENOUS (IV); COMPARISON: [id number] CT abdomen pelvis wo/w con 06/15/2017 11:35 AM FINDINGS: Mediastinal space: Small hiatal hernia. Liver: Normal. No mass. Gallbladder and bile ducts: Extensive left pneumobilia. The gallbladder has been removed. Pancreas: There are multiple surgical clips at the head of the pancreas. Spleen: Normal. No splenomegaly. Adrenal glands: Normal. No mass. Kidneys and ureters: The right kidney is atrophic. The kidneys are of lobular contours. Stomach and bowel: Pancolonic diverticulosis. Anastomotic sutures are seen in the wall of the colon in the right quadrant abdomen. Appendix: No evidence of appendicitis. Intraperitoneal space: Unremarkable. No free air. No significant fluid collection. Vasculature: Abdominal aorta and iliac arteries contain scattered calcified plaque. Lymph nodes: Left hilar calcified node. Urinary bladder: Unremarkable as visualized. Reproductive: The uterus has been removed. Bones/joints: [id number] multilevel degenerative changes of the spine most pronounced at L3-L4, L4-L5 and L5-S1. Diffuse osteopenia.. No acute fracture. Soft tissues: Unremarkable. IMPRESSION: 1. Small hiatal hernia. 2. Pancolonic diverticulosis. No evidence of diverticulitis. 3. Other stable chronic findings as above.
[2020-09-30 20:41] LABS: Basophils % 0.6 % (0.1-2.0); Eosinophils # 0.2 K/mm3 (0.0-0.4); Eosinophils % 2.1 % (0.1-12.0); Hematocrit 36.2 % (37.0-47.0); Hemoglobin 11.8 g/dL (12.2-16.2); Lymphocytes % 24.3 % (10-50); Mean Corpuscular HGB Conc 32.6 g/dL (31.8-35.4); Mean Corpuscular Hemoglobin 28.5 pg (27.0-31.2); Mean Corpuscular Volume 87.3 fl (81-99); Mean Platelet Volume 7.1 fl (7.4-10.4); Monocytes # 0.5 K/mm3 (0.1-1.0); Monocytes % 6.4 % (1.7-9.3); Neutrophils # 5.3 K/mm3 (1.8-7.8); Neutrophils % 66.6 % (37.0-80.0); Platelet Count 256 K/mm3 (142-424); Red Blood Count 4.14 M/mm3 (4.20-5.40); Red Cell Distribution Width 14.8 % (11.5-17.5)
--- NOTE | 2020-09-30 20:43 | HMH.EDNVD ---
ED Disposition Clinical Impression: UTI (urinary tract infection) Qualifiers: Urinary tract infection type: site unspecified Hematuria presence: without hematuria Qualified Code(s): N39.0 - Urinary tract infection, site not specified Disposition: Home, Self-Care Condition on Discharge: Good Instructions: DI for Urinary Tract Infection (UTI) Additional Instructions: fluids and use meds and call dr briseno for urine culture results Prescriptions: cephALEXin [cephALEXin 500mg capsule*] 500 mg PO TID #30 cap Transmission Status: Pending to [facility] Referrals: Gucci Briseno MD [Primary Care Provider] - - Critical Care Critical Care Time: No Attestation: On 09/30/20, the high probability of a clinically significant, sudden or life threatening deterioration of the following system(s) required my full and direct attention, intervention and personal management. The time I documented below is in addition to time spent performing reported procedures but includes the following listed in this critical care notation. Medical Decision Making - Medical Records Medical records reviewed: Yes: I reviewed the patient's medical records. - Griffin Inquiry Pt receiving controlled substance: No Vital Signs: 09/30/20 20:10 09/30/20 21:37 09/30/20 21:38 Temperature 98.3 F Temperature Source Oral Pulse Rate 75 86 Pulse Rate [Right] 72 Respiratory Rate 16 16 Blood Pressure 125/60 125/60 Blood Pressure [Right Arm] 136/78 Blood Pressure Mean 81 Blood Pressure Mean [Right Arm] 97 Blood Pressure Position [Right Arm] Supine 02 Sat by Pulse Oximetry 100 100 99 Oxygen Delivery Method Room Air Room Air Room Air 09/30/20 22:00 Temperature Temperature Source Pulse Rate 70 Pulse Rate [Right] Respiratory Rate Blood Pressure 138/69 Blood Pressure [Right Arm] Blood Pressure Mean 83 Blood Pressure Mean [Right Arm] Blood Pressure Position [Right Arm] 02 Sat by Pulse Oximetry 100 Oxygen Delivery Method Room Air - Lab Data Lab results reviewed: Yes: I reviewed the patient's lab results. Lab Results 09/30/20 20:34: WBC 8.0, RBC 4.14 L, Hgb 11.8 L, Hct 36.2 L, MCV 87.3, MCH 28.5, MCHC 32.6, RDW 14.8, Plt Count 256, MPV 7.1 L, Neut % (Auto) 66.6, Lymph % (Auto) 24.3, [place] % (Auto) 6.4, Eos % (Auto) 2.1, Baso % (Auto) 0.6, Neut # (Auto) 5.3, Lymph # (Auto) 2.0, [place] # (Auto) 0.5, Eos # (Auto) 0.2, Baso # (Auto) 0.0, ESR 36 H 09/30/20 20:34: Sodium 137, Potassium 4.6, Chloride 103, Carbon Dioxide 30, Anion Gap 8.6, BUN 17, Creatinine 1.20 H, Estimated Creat Clear 49, Estimated GFR 43 L, Est GFR ( Amer) 52 L, Glucose 77, Calcium 10.6 H, Total Bilirubin 1.1, AST 28, ALT 13, Alkaline Phosphatase 102, C-Reactive Protein 4.3 H, Total Protein 6.5, Albumin 3.8, Globulin 2.7, Albumin/Globulin Ratio 1.4, Amylase 56, Lipase 32, Procalcitonin 0.201 09/30/20 22:05: Urine Color Yellow, Urine Appearance Sl cloudy, Urine pH 7.0, Ur Specific Wells 1.015, Urine Protein Negative, Urine Glucose (UA) Negative, Urine Ketones Negative, Urine Blood Trace-i, Urine Nitrate Negative, Urine Bilirubin Negative, Urine Urobilinogen 0.2, Ur Leukocyte Esterase 1+ A, Urine RBC 3-5, Urine WBC 10-20, Ur Squamous Epith Cells 3-5, Urine Bacteria 4+ Result diagrams: 09/30/20 20:34 09/30/20 20:34 Orders (Tests/Meds): ED MEDICATIONS Generic Name Dose Route Start Last Admin Trade Name Freq PRN Reason Stop Dose Admin Sodium Chloride 1,000 mls @ 999 mls/hr 09/30/20 20:30 09/30/20 20:52 Sod Chlor 0.9% 1000ml Bag IV 09/30/20 21:30 999 mls/hr .Q1H1M LOW Administration Sodium Chloride 8 ml 09/30/20 20:21 Sodium Chloride 0.9% 10ml Vial IV 10/30/20 20:20 NEEDED PRN dilute pepcid Discontinued Medications Generic Name Dose Route Start Last Admin Trade Name Freq PRN Reason Stop Dose Admin Famotidine 20 mg 09/30/20 20:21 09/30/20 20:30 Famotidine 20mg/2ml Vial IV 09/30/20 20:22 20 mg ONCE ONE
[2020-09-30 20:48] LABS: Chloride 103 mmol/L (98-107); Potassium 4.6 mmoL/L (3.5-5.1); Sodium 137 mmol/L (136-145)
[2020-09-30 20:51] LABS: Alanine Aminotransferase 13 U/L (12-78); Alkaline Phosphatase 102 U/L (38-126); Amylase 56 U/L (30-110); Anion Gap 8.6 mEq/L (5-15); Aspartate Amino Transferase 28 U/L (14-36); Bilirubin,Total 1.1 mg/dl (0.2-1.3); Blood Urea Nitrogen 17 mg/dl (7-17); Calcium 10.6 mg/dl (8.4-10.2); Carbon Dioxide 30 mmol/L (22.0-30.0); Creatinine Clearance Estimated 49 mL/min (50-200); Estimated Glomerular Filt Rate 43 ml/min (>60); GFR (African American) 52 ML/MIN (>60); Glucose 77 mg/dl (74-100)
[2020-09-30 20:52] LABS: Albumin Level 3.8 g/dl (3.5-5.0); Albumin/Globulin Ratio 1.4 (1.1-1.8); Globulin 2.7 g/dL (1.3-3.2); Lipase 32 U/L (23-300); Total Protein,Serum 6.5 g/dl (6.3-8.2)
[2020-09-30 20:57] LABS: C-Reactive Protein 4.3 mg/L (0-4)
--- NOTE | 2020-09-30 21:08 | PC.NURSE ---
Pt requested staff to remove IV
[2020-09-30 21:26] LABS: Erythrocyte Sedimentation Rate 36 mm/hr (0-30)
[2020-09-30 21:37] VITALS: BP 125/60; PULSE 75; O2SAT 100
[2020-09-30 21:38] VITALS: BP 125/60; PULSE 86; RESP 16; O2SAT 99
[2020-09-30 21:58] LABS: Procalcitonin 0.201 ng/mL (0.0-2.0)
[2020-09-30 22:00] VITALS: BP 138/69; PULSE 70; O2SAT 100
--- NOTE | 2020-09-30 22:01 | PC.NURSE ---
assisted pt to the BR
[2020-09-30 22:10] LABS: Microscopic, Urine URINE MICROSCOPIC (MICROSCOPIC)
[2020-09-30 22:14] LABS: Appearance,Urine SL CLOUDY (Clear); Bilirubin,Urine Negative (Negative); Blood, Urine TRACE-I (Negative); Color,Urine YELLOW (Yellow); Glucose,Urine (UA) Negative (Negative); Ketones,Urine Negative (Negative); Leukocyte Esterase,Urine 1+ (Negative); Nitrate,Urine Negative (Negative); Protein,Urine Negative (Negative); Specific Gravity, Urine 1.015 (1.005-1.030); Urobilinogen,Urine 0.2 EU/dl (0.2)
[2020-09-30 22:22] LABS: Bacteria,Urine 4+ /lpf
[2020-09-30 22:27] VITALS: BP 138/69; PULSE 70; RESP 16; TEMP 36.8
== END 2020-09-30 22:28 | disposition home or self-care (01) ==
PROVIDERS: Emergency Provider Emergency Medicine; PCP Family Medicine
DX: N30.00 Acute cystitis without hematuria (principal); B96.20 Unspecified Escherichia coli [E. coli] as the cause of diseases classified elsewhere; E11.9 Type 2 diabetes mellitus without complications; K21.9 Gastro-esophageal reflux disease without esophagitis; M79.7 Fibromyalgia; E78.5 Hyperlipidemia, unspecified; I10 Essential (primary) hypertension; Z79.899 Other long term (current) drug therapy
CPT/HCPCS: 96374; 74177; 80053; 81001; 82150; 83690; 84145; 85025; 85651; 86140; 87086; 87088; 87186; 96375; 99283; J2405; Q9967

== ENCOUNTER → 2020-10-22 11:10 | Outpatient (CLI) | payer MEDICARE, BC, SELFPAY ==
[2020-10-22 14:29] LABS: Hematocrit 36.5 % (37.0-47.0); Hemoglobin 11.6 g/dL (12.2-16.2)
== END ==
PROVIDERS: Visit Provider Surgery
DX: D64.9 Anemia, unspecified (principal)
CPT/HCPCS: 36415; 85014; 85018

== ENCOUNTER → 2021-04-13 13:20 | Outpatient (CLI) | payer MEDICARE, BC, SELFPAY ==
[2021-04-13 13:57] LABS: Hematocrit 39.5 % (37.0-47.0); Hemoglobin 12.6 g/dL (12.2-16.2)
== END ==
PROVIDERS: Visit Provider Surgery
DX: D13.1 Benign neoplasm of stomach (principal); Z01.812 Encounter for preprocedural laboratory examination; Z11.52 Encounter for screening for COVID-19
CPT/HCPCS: 85014; 85018; C9803; U0003; U0005

== ENCOUNTER → 2021-05-10 09:54 | Outpatient (CLI) | payer MEDICARE, BC, SELFPAY | PROVIDERS: Visit Provider Surgery | DX: Z01.812 Encounter for preprocedural laboratory examination (principal); Z11.52 Encounter for screening for COVID-19; Z13.810 Encounter for screening for upper gastrointestinal disorder | CPT/HCPCS: C9803; U0003; U0005 ==

== ENCOUNTER 2021-05-12 08:24 | Day surgery (SDC) | payer MEDICARE, BC, SELFPAY ==
[2021-05-09 10:04] VITALS: BMI 22.4
[2021-05-12] VITALS (7 sets, daily range): BP systolic 104–147; BP diastolic 50–85; PULSE 72–87; RESP 16–18; TEMP 36.6–36.7; O2SAT 97–100
--- NOTE | 2021-05-12 09:12 | P.PN_ITS ---
[facility] Anesthesia Checklist - Patient Identification Patient Identification: Arm Band - Structural Data Admitted From: Home Planned Operative Procedure/s: egd Consent for Planned Operative Procedure(s) Verified: Yes Verified Documents: Surgical Consent, History and Physical - NPO Status Verified Time NPO: 00:00 - Additional verifications Anesthesia Reactions: No - Airway Assessment C-Spine Mobility Assessed: Yes (mp2) TMJ Mobility Assessed: Yes Dentition: Good Dentition - Neurological Assessment Level of Consciousness: Awake, Alert - Anesthesia Plan Anesthesia Risk discussed: Yes Anesthesia Plan: Verified ASA Class: III Anesthesia Type: MAC [facility] History I have reviewed the patient's past medical history: Yes Medical History: Reports:: Cancer (BREAST CANCER), Diabetes Mellitus Type 2, Gastroesophageal Reflux Disease(GERD), Hyperlipidemia, Hypertension, MRSA Denies:: Diabetes Mellitus Type 1, Internal Pacemaker, Lung Disease, Seizures *Have you ever received a pneumonia vaccine?: No *Have you received a flu vaccine this season?: No Other Medical History: Reports: Arthritis, Fibromyalgia Anesthesia experience/problems:: nac Laterality Cases: Left: Mastectomy, Bilateral: Lumpectomy Other Surgeries: Yes: Cardiac Catheterization, Colonoscopy, EGD, Other (pancre as, left mascetomy.). No: Pacemaker Amputation: No Fractures: No - *Social History Last grade of school completed: 9th or 10th Smoking Status: Never smoker Alcohol Intake: never Alcohol Intake Frequency:: other Substance Use Type: denies use *Occupational Status:: disabled Housing: apartment Household Members: none *Travel in the last 8 weeks: None Family Hx:: Diabetes
--- NOTE | 2021-05-12 10:07 | HMH.SCOPE ---
- Procedure: Date: 05/12/21 Patient Date of :: 1935 Procedure Performed:: Esophagogastroduodenoscopy with biopsy Indications:: History gastric adenoma (pyloric margin versus anastomosis) Performing Provider:: Alcides Sagastume MD Referring Provider:: . Sedation:: Monitored anesthesia care Procedure:: After informed consent was obtained the patient was taken to the endoscopy suite. Sedation ensued after the patient was transferred to the left lateral decubitus position. Pulse, blood pressure, and oxygen saturation were monitored throughout the procedure. The endoscope was advanced beyond the duodenal bulb. Retroflexion within the gastric lumen was accomplished. The gastroscope was carefully removed and the patient was transferred to recovery in stable condition. Please see findings and specimens below for detail. Findings:: Patchy inflammatory changes throughout gastric lumen Lobulated growth and prepyloric region versus anastomosis (prior surgery for pancreatic mass noted) Specimens:: Multiple biopsies of prepyloric versus anastomotic lesion/lobulation Recommendations:: Follow-up pathology Complications:: No immediate Estimated blood obtained (mL): 5
[2022-03-02 10:55] LABS: POC Glucose,Bedside 97 (70-110)
== END 2021-05-12 10:51 | disposition home or self-care (01) ==
LOC: OUTP 08:27
PROVIDERS: PCP Family Medicine; Visit Provider Surgery
PROC: 0DJ08ZZ Inspection of Upper Intestinal Tract, Via Natural or Artificial Opening Endoscopic (ICD-10-PCS; CPT 43235; principal; 2021-05-12 09:30)
DX: K31.9 Disease of stomach and duodenum, unspecified (principal); Z87.19 Personal history of other diseases of the digestive system; Z85.3 Personal history of malignant neoplasm of breast; E11.9 Type 2 diabetes mellitus without complications; E78.5 Hyperlipidemia, unspecified; I10 Essential (primary) hypertension; K21.9 Gastro-esophageal reflux disease without esophagitis; Z86.14 Personal history of Methicillin resistant Staphylococcus aureus infection; Z90.10 Acquired absence of unspecified breast and nipple; Z83.3 Family history of diabetes mellitus; Z88.6 Allergy status to analgesic agent; Z88.8 Allergy status to other drugs, medicaments and biological substances; Z79.899 Other long term (current) drug therapy; Z79.82 Long term (current) use of aspirin
CPT/HCPCS: 43239; 82962; 88305; 88342

== ENCOUNTER → 2021-06-22 10:26 | Outpatient (CLI) | payer MEDICARE, BC, SELFPAY ==
--- NOTE | 2021-06-22 | US_ITS ---
FINAL REPORT CLINICAL HISTORY: DM, HLD, HTN, RLE PAIN AND CLAUDICATION L MASTECTOMY NO BP IN RIGHT ARM. FINDINGS: ANKLE-BRACHIAL PRESSURE INDICES Pressure indices are as follows: RIGHT LOWER EXTREMITY: Ankle-brachial pressure index: 1.3 Comments: Normal LEFT LOWER EXTREMITY: Ankle-brachial pressure index: 1.2 Comments: Normal CONCLUSION: No evidence of significant obstructive peripheral vascular disease of the lower extremities Reviewed, Interpreted and Dictated by Toby Bennett III, MD Transcribed by Avis Hamm Authenticated by Toby Bennett III, MD on 06/22/2021 12:02:21 PM [facility]
--- NOTE | 2021-06-22 11:10 | XR_ITS ---
FINAL REPORT CLINICAL HISTORY: DEGENERATIVE LUMBAR SPINAL STENOSIS, LUMBAR RADICULOPATHY,RT FINDINGS: 5 views of the lumbar spine were obtained. There is no evidence of fracture or dislocation. There is mild anterolisthesis of L3 on L4. There are mild and moderate degenerative changes. There is disc space narrowing with vacuum disc phenomenon at L5-S1. Vascular calcifications are present. There is postoperative change in the right abdomen. IMPRESSION: Mild and moderate degenerative change. Reviewed, Interpreted and Dictated by Toby Bennett III, MD Transcribed by Hector Vaughn Authenticated by Toby Bennett III, MD on 06/22/2021 11:53:10 AM [facility]
== END ==
PROVIDERS: PCP Family Medicine; Visit Provider Family Medicine
DX: I70.213 Atherosclerosis of native arteries of extremities with intermittent claudication, bilateral legs (principal); I10 Essential (primary) hypertension; E11.9 Type 2 diabetes mellitus without complications; M48.061 Spinal stenosis, lumbar region without neurogenic claudication; M54.16 Radiculopathy, lumbar region; Z79.84 Long term (current) use of oral hypoglycemic drugs
CPT/HCPCS: 72110; 93923

== ENCOUNTER 2022-06-12 01:32 | Emergency (ER) | payer MEDICARE, BC, SELFPAY ==
[2022-06-12] VITALS (7 sets, daily range): BP systolic 129–167; BP diastolic 66–74; PULSE 67–90; RESP 16–18; TEMP 36.5–36.8; O2SAT 93–100; BMI 24.0
--- NOTE | 2022-06-12 02:01 | CT_ITS ---
PROCEDURE INFORMATION: Exam: CT Abdomen And Pelvis Without Contrast Exam date and time: 06/12/2022 2:58 AM Age: 86 years old Clinical indication: Abdominal pain; Acute; Additional info: Abd pain TECHNIQUE: Imaging protocol: Computed tomography of the abdomen and pelvis without contrast. Radiation optimization: All CT scans at this facility use at least one of these dose optimization techniques: automated exposure control; mA and/or kV adjustment per patient size (includes targeted exams where dose is matched to clinical indication); or iterative reconstruction. COMPARISON: CT ABDOMEN PELVIS W CON 09/30/2020 9:20 PM FINDINGS: Lungs: Tiny calcified granuloma at the left lung base. Coronary arteries: Severe coronary artery calcifications. Liver: Normal. No mass. Gallbladder and bile ducts: Status post cholecystectomy. Extensive pneumobilia again noted, similar to prior study. No new biliary dilatation. Pancreas: Multiple surgical clips again seen near the head of the pancreas. Recommend correlation with prior surgical history. Spleen: Normal. No splenomegaly. Adrenal glands: Normal. No mass. Kidneys and ureters: 3 mm nonobstructive calculus in the lower pole of the right kidney. No hydronephrosis or obstructive calculus. Bilateral renal scarring. Stomach and bowel: Extensive colonic diverticulosis, involving the entirety of the colon. Short-segment thickening noted in the sigmoid colon with mild pericolic inflammation, most consistent with acute diverticulitis. Colonic anastomosis appears widely patent and unremarkable. Appendix: No evidence of appendicitis. Intraperitoneal space: No free fluid, free air, or evidence of microperforation. Vasculature: Moderate atherosclerotic disease is evident. No abdominal aortic aneurysm. Lymph nodes: Unremarkable. No enlarged lymph nodes. Urinary bladder: Unremarkable as visualized. Reproductive: Status post hysterectomy. Bones/joints: No acute osseous abnormality. Stable chronic degenerative changes in the lumbar spine. Soft tissues: Unremarkable. IMPRESSION: 1. Extensive colonic diverticulosis, involving the entirety of the colon. Short-segment thickening noted in the sigmoid colon with mild pericolic inflammation, most consistent with acute diverticulitis. As an underlying malignancy cannot be entirely excluded, a follow-up examination after a course of treatment is recommended if clinically warranted. 2. No free fluid, free air, or evidence of microperforation. 3. Status post cholecystectomy. Extensive pneumobilia again noted, similar to prior study. No new biliary dilatation. 4. A 3 mm nonobstructive calculus in the lower pole of the right kidney. No hydronephrosis or obstructive calculus.
[2022-06-12 02:10] LABS: Basophils # 0.1 K/mm3 (0-0.2); Basophils % 0.8 % (0.1-2.0); Eosinophils # 0.2 K/mm3 (0.0-0.4); Eosinophils % 2.1 % (0.1-12.0); Hematocrit 35.6 % (37.0-47.0); Hemoglobin 11.9 g/dL (12.2-16.2); Lymphocytes # 2.3 K/mm3 (0.7-4.5); Mean Corpuscular HGB Conc 33.5 g/dL (31.8-35.4); Mean Corpuscular Hemoglobin 29.6 pg (27.0-31.2); Mean Corpuscular Volume 88.5 fl (81-99); Mean Platelet Volume 7.5 fl (7.4-10.4); Monocytes # 0.6 K/mm3 (0.1-1.0); Monocytes % 5.8 % (1.7-9.3); Neutrophils # 7.1 K/mm3 (1.8-7.8); Neutrophils % 69.4 % (37.0-80.0); Platelet Count 294 K/mm3 (142-424); Red Blood Count 4.02 M/mm3 (4.20-5.40); Red Cell Distribution Width 14.1 % (11.5-17.5); White Blood Count 10.3 K/mm3 (4.8-10.8)
[2022-06-12 02:17] LABS: Chloride 102 mmol/L (98-107)
--- NOTE | 2022-06-12 02:17 | HMH.EDABDPAI ---
Discharge Plan Disposition Patient Disposition: Home, Self-Care Prescriptions Prescriptions: New metronidazole 500 mg Tablet 500 mg PO TID Qty: 30 0RF cefdinir [cefdinir] 300 mg capsule 300 mg PO BID Qty: 14 0RF No Action nitroglycerin 0.4 mg tablet, sublingual 0.4 mg SUBLINGUAL DIRECTED PRN (Reason: Chest Pain) Qty: 30 2RF Rx Instructions: 0.4 mg every 5 minutes up to 3 doses, if no relief seek emergency treatment magnesium 30 mg tablet 30 mg PO DAILY amlodipine 5 mg tablet 5 mg PO DAILY aspirin [Adult Low Dose Aspirin] 81 mg tablet,delayed release (DR/EC) 81 mg PO DAILY ferrous sulfate 325 mg (65 mg iron) tablet 325 mg PO BID meclizine 25 mg tablet,chewable 25 mg PO TID PRN (Reason: Dizziness) glipizide 5 mg tablet extended release 24hr 5 mg PO DAILY Label Comments: 2 tablets in the AM and 1 in the evening torsemide 10 mg tablet 10 mg PO DAILY lisinopril 10 mg tablet See Rx Instructions .ROUTE .COMPLEX Qty: 90 5RF Dose Instruction: TAKE ONE TABLET BY MOUTH EVERY DAY Rx Instructions: TAKE ONE TABLET BY MOUTH EVERY DAY ezetimibe 10 MG tablet 10 mg PO DAILY atenolol 25 MG tablet 25 mg PO DAILY Rx Instructions: TAKE ONE TABLET BY MOUTH EVERY DAY FOR BLOOD PRESSURE acetaminophen 650 MG tablet extended release 650 mg PO TIDP PRN (Reason: PAIN) polyethylene glycol 3350 119 GM powder 17 gm PO DAILY psyllium husk 660 GM powder 425 gm PO DAILY Referrals Follow up/Referrals: Rosalio Rainey MD [Primary Care Provider] - See instructions Clinical Impressions Clinical Impression: Diverticulitis, Diabetes, Coronary artery disease, Renal insufficiency Instructions Patient Instructions: DI for Diverticulitis Discharge ED Provider: Alex Alonzo Abdominal Pain HPI General Chief Complaint: Abdominal Pain Stated Complaint: Left side abdominal pain Time Seen by Provider: 06/12/22 02:17 Mode of Arrival: Ambulatory Source of Information: Patient and Medical Record Limitations: No Limitations Description of Symptoms (Recalled from ER Triage Doc. by RN): pt c/o left lower quadrant pain. pt states that the pain started about 10pm and that would not let up. the pt reports that sshe has had some bowel issues in the past but this is new and not stoping. History of Present Illness HPI narrative: pt with acute onset of lt lower abd pain with no trauma /fever or rash - pt with nausea MD complaint: abdominal pain Onset (ago): hour(s) Consistency: constant Location: LLQ Severity: moderate Quality: aching Associated symptoms: denies other symptoms Related Data Home Medications Medication Instructions Recorded Confirmed amlodipine 5 mg tablet 5 mg PO DAILY blood pressure 07/30/17 12/27/21 aspirin 81 mg tablet,delayed 81 mg PO DAILY HEART HEALTH 07/30/17 12/27/21 release (Adult Low Dose Aspirin) ferrous sulfate 325 mg (65 mg 325 mg PO BID Supplement 07/30/17 12/27/21 iron) tablet meclizine 25 mg chewable tablet 25 mg PO TID PRN Dizziness 07/30/17 12/27/21 glipizide 5 mg tablet, extended 5 mg PO DAILY Diabetes 01/21/19 12/27/21 release 24 hr magnesium 30 mg tablet 30 mg PO DAILY Supplement 01/21/19 12/27/21 ezetimibe 10 mg tablet 10 mg PO DAILY Cholesterol 09/16/20 12/27/21 acetaminophen 650 mg 650 mg PO TIDP PRN PAIN 05/09/21 12/27/21 tablet,extended release atenolol 25 mg tablet 25 mg PO DAILY bp 05/09/21 12/27/21 polyethylene glycol 3350 17 17 gm PO DAILY BOWELS 05/09/21 12/27/21 gram/dose oral powder psyllium husk 3.4 gram/5.4 gram 425 gm PO DAILY BOWELS 05/09/21 12/27/21 oral powder torsemide 10 mg tablet 10 mg PO DAILY 06/28/21 12/27/21 Previous Rx's Medication Instructions Recorded nitroglycerin 0.4 mg sublingual 0.4 mg sublingual DIRECTED PRN 01/21/19 tablet Chest Pain ##30 lisinopril 10 mg tablet See Rx Instructions .Route 12/22/21 .COMPLEX #90 tabs
[2022-06-12 02:18] LABS: Sodium 136 mmol/L (136-145)
[2022-06-12 02:20] LABS: Alanine Aminotransferase 17 U/L (12-78); Alkaline Phosphatase 114 U/L (38-126); Amylase 61 U/L (30-110); Aspartate Amino Transferase 27 U/L (14-36); Bilirubin,Total 0.4 mg/dl (0.2-1.3); Blood Urea Nitrogen 24 mg/dl (7-17); Carbon Dioxide 30 mmol/L (22.0-30.0); Creatinine Clearance Estimated 29 mL/min (50-200); Estimated Glomerular Filt Rate 25 ml/min (>60); GFR (African American) 30 ML/MIN (>60); Lipase 47 U/L (23-300)
[2022-06-12 02:21] LABS: Albumin Level 3.6 g/dl (3.5-5.0); Albumin/Globulin Ratio 1.3 (1.1-1.8); Calcium 9.9 mg/dl (8.4-10.2); Globulin 2.8 g/dL (1.3-3.2); Glucose 230 mg/dl (74-100); Total Protein,Serum 6.4 g/dl (6.3-8.2)
== END 2022-06-12 05:18 | disposition home or self-care (01) ==
PROVIDERS: Emergency Provider Emergency Medicine; PCP Family Medicine
DX: K57.92 Diverticulitis of intestine, part unspecified, without perforation or abscess without bleeding (principal); E11.9 Type 2 diabetes mellitus without complications; I25.10 Atherosclerotic heart disease of native coronary artery without angina pectoris; E78.5 Hyperlipidemia, unspecified; I11.9 Hypertensive heart disease without heart failure; Z87.891 Personal history of nicotine dependence
CPT/HCPCS: 74176; 80053; 82150; 83690; 85025; 96361; 96365; 96375; 99285

== ENCOUNTER 2022-06-14 10:21 | Emergency (ER) | payer MEDICARE, BC, SELFPAY ==
[2022-06-14] VITALS (8 sets, daily range): BP systolic 138–173; BP diastolic 76–148; PULSE 65–747; RESP 10–18; TEMP 36.7–36.8; O2SAT 91–100; BMI 34.9
--- NOTE | 2022-06-14 10:06 | ECG_ITS ---
APPROVED REPORT Exam: Resting ECG HR:95 bpm ECG Measurements Heart Rate 95 AXES MO 136 P 34 QRSd 145 QRS -54 QT 381 T 56 QTc 434 Conclusion SINUS RHYTHM WITH FREQUENT SUPRAVENTRICULAR PREMATURE COMPLEXES RIGHT BUNDLE BRANCH BLOCK [120+ ms QRS DURATION, UPRIGHT V1, 40+ ms S IN I/aVL/V4/V5/V6] LEFT ANTERIOR FASCICULAR BLOCK [QRS AXIS <= -45, QR IN I, RS IN II] MINIMAL VOLTAGE CRITERIA FOR LVH, CONSIDER NORMAL VARIANT [MEETS CRITERIA IN ONE OF: R(aVL), S(V1), R(V5), R(V5/V6)+S(V1)] Old septal changes ABNORMAL ECG UNCONFIRMED REPORT Electronically signed by : Gucci Benavidez MD 06/14/2022 21:43:44
--- NOTE | 2022-06-14 10:30 | HMH.EDGENADL ---
Discharge Plan Disposition Patient Disposition: Home, Self-Care Condition: Good Prescriptions Prescriptions: New ciprofloxacin HCl [Cipro] 500 mg tablet 500 mg PO BID Qty: 20 0RF No Action nitroglycerin 0.4 mg tablet, sublingual 0.4 mg SUBLINGUAL DIRECTED PRN (Reason: Chest Pain) Qty: 30 2RF Rx Instructions: 0.4 mg every 5 minutes up to 3 doses, if no relief seek emergency treatment magnesium 30 mg tablet 30 mg PO DAILY amlodipine 5 mg tablet 5 mg PO DAILY aspirin [Adult Low Dose Aspirin] 81 mg tablet,delayed release (DR/EC) 81 mg PO DAILY ferrous sulfate 325 mg (65 mg iron) tablet 325 mg PO BID meclizine 25 mg tablet,chewable 25 mg PO TID PRN (Reason: Dizziness) glipizide 5 mg tablet extended release 24hr 5 mg PO DAILY Label Comments: 2 tablets in the AM and 1 in the evening torsemide 10 mg tablet 10 mg PO DAILY lisinopril 10 mg tablet See Rx Instructions .ROUTE .COMPLEX Rx Instructions: TAKE ONE TABLET BY MOUTH EVERY DAY ezetimibe 10 MG tablet 10 mg PO DAILY atenolol 25 MG tablet 25 mg PO DAILY Rx Instructions: TAKE ONE TABLET BY MOUTH EVERY DAY FOR BLOOD PRESSURE acetaminophen 650 MG tablet extended release 650 mg PO TIDP PRN (Reason: PAIN) polyethylene glycol 3350 119 GM powder 17 gm PO DAILY psyllium husk 660 GM powder 425 gm PO DAILY metronidazole 500 mg Tablet 500 mg PO TID Qty: 30 0RF cefdinir [cefdinir] 300 mg capsule 300 mg PO BID Qty: 14 0RF Referrals Follow up/Referrals: Rosalio Rainey MD [Primary Care Provider] - See instructions Activity Restrictions/Add. Instructions Additional Instructions/Restrictions: Stop taking cefdinir, the antibiotic you are having difficulty swallowing. Start taking Cipro instead. Continue taking your other antibiotic, metronidazole. Follow-up with your primary care provider and your manager studio for your palpitations, call for appointment. Clinical Impressions Clinical Impression: Atrial contractions, premature, Palpitations Instructions Patient Instructions: DI for Palpitations Discharge ED Provider: Ferdinand Amezquita General Adult HPI General Chief complaint: Chest Pain Stated complaint: chest pain Time Seen by Provider: 06/14/22 10:46 History of Present Illness HPI narrative: Patient states that her heart is running off that began this morning. She describes a sensation of palpitations. Denies racing heart. Denies chest pain. Slightly short of breath. Recently here for abdominal pain, diagnosed with diverticulitis. She is on antibiotics, but has trouble taking them because she is not able to swallow them. Still has some slight abdominal pain. States that she sees Dr. Griffin for her heart, has an appointment later this month 06/29/2022.. Related Data Home Medications Medication Instructions Recorded Confirmed amlodipine 5 mg tablet 5 mg PO DAILY blood pressure 07/30/17 06/14/22 aspirin 81 mg tablet,delayed 81 mg PO DAILY HEART HEALTH 07/30/17 12/27/21 release (Adult Low Dose Aspirin) ferrous sulfate 325 mg (65 mg 325 mg PO BID Supplement 07/30/17 06/14/22 iron) tablet meclizine 25 mg chewable tablet 25 mg PO TID PRN Dizziness 07/30/17 12/27/21 glipizide 5 mg tablet, extended 5 mg PO DAILY Diabetes 01/21/19 06/14/22 release 24 hr magnesium 30 mg tablet 30 mg PO DAILY Supplement 01/21/19 06/14/22 ezetimibe 10 mg tablet 10 mg PO DAILY Cholesterol 09/16/20 06/14/22 acetaminophen 650 mg 650 mg PO TIDP PRN PAIN 05/09/21 12/27/21 tablet,extended release atenolol 25 mg tablet 25 mg PO DAILY bp 05/09/21 06/14/22 polyethylene glycol 3350 17 17 gm PO DAILY BOWELS 05/09/21 06/14/22 gram/dose oral powder psyllium husk 3.4 gram/5.4 gram 425 gm PO DAILY BOWELS 05/09/21 06/14/22 oral powder torsemide 10 mg tablet 10 mg PO DAILY . 06/28/21 06/14/22 lisinopril 10 mg tablet See Rx Instructions .Route
--- NOTE | 2022-06-14 10:52 | XR_ITS ---
FINAL REPORT CLINICAL HISTORY: Shortness of air COMPARISON: 07/11/2018 FINDINGS: A single portable view of the chest was obtained. The heart size and pulmonary vascularity are within normal limits. The mediastinum is within normal limits. No acute pulmonary abnormality is identified. The bony thorax is intact. IMPRESSION: No active cardiopulmonary disease. Reviewed, Interpreted and Dictated by Toby Bennett III, MD Transcribed by Sweta Joiner Authenticated and [facility]
[2022-06-14 11:03] LABS: Chloride 105 mmol/L (98-107); Potassium 4.4 mmoL/L (3.5-5.1); Sodium 139 mmol/L (136-145)
[2022-06-14 11:05] LABS: Basophils # 0.1 K/mm3 (0-0.2); Basophils % 0.8 % (0.1-2.0); Eosinophils # 0.1 K/mm3 (0.0-0.4); Hematocrit 36.8 % (37.0-47.0); Hemoglobin 12.1 g/dL (12.2-16.2); Lymphocytes # 1.2 K/mm3 (0.7-4.5); Lymphocytes % 16.7 % (10-50); Mean Corpuscular HGB Conc 32.8 g/dL (31.8-35.4); Mean Corpuscular Hemoglobin 29.5 pg (27.0-31.2); Mean Corpuscular Volume 89.8 fl (81-99); Mean Platelet Volume 8.7 fl (7.4-10.4); Monocytes # 0.4 K/mm3 (0.1-1.0); Neutrophils # 5.6 K/mm3 (1.8-7.8); Neutrophils % 76.4 % (37.0-80.0); Platelet Count 331 K/mm3 (142-424); Red Cell Distribution Width 14.3 % (11.5-17.5); White Blood Count 7.3 K/mm3 (4.8-10.8)
[2022-06-14 11:06] LABS: Alanine Aminotransferase 16 U/L (12-78); Albumin Level 3.7 g/dl (3.5-5.0); Albumin/Globulin Ratio 1.2 (1.1-1.8); Alkaline Phosphatase 97 U/L (38-126); Anion Gap 11.4 mEq/L (5-15); Aspartate Amino Transferase 29 U/L (14-36); Bilirubin,Total 0.8 mg/dl (0.2-1.3); Blood Urea Nitrogen 18 mg/dl (7-17); Calcium 10.4 mg/dl (8.4-10.2); Carbon Dioxide 27 mmol/L (22.0-30.0); Creatinine Clearance Estimated 49 mL/min (50-200); Estimated Glomerular Filt Rate 36 ml/min (>60); GFR (African American) 43 ML/MIN (>60); Total Protein,Serum 6.7 g/dl (6.3-8.2)
[2022-06-14 11:14] LABS: Glucose 43 mg/dl (74-100)
[2022-06-14 11:20] LABS: Troponin I < 0.01 ng/ml (0.00-0.034)
--- NOTE | 2022-06-14 11:29 | PC.NURSE ---
radiology at bedside
--- NOTE | 2022-06-14 11:41 | PC.NURSE ---
rounded on pt to see if they had any needs and pt had no needs at this time
--- NOTE | 2022-06-14 12:21 | PC.NURSE ---
DIETARY NOTIFIED FOR LUNCH TRAY
[2022-06-14 12:28] LABS: POC Glucose,Bedside 105 (70-110)
--- NOTE | 2022-06-14 13:51 | PC.NURSE ---
second troponin being drawn at this time
[2022-06-14 14:43] LABS: Troponin I < 0.01 ng/ml (0.00-0.034)
--- NOTE | 2022-06-14 15:02 | PC.NURSE ---
pt's son called to come get pt
== END 2022-06-14 15:30 | disposition home or self-care (01) ==
PROVIDERS: Emergency Provider Emergency Medicine; PCP Family Medicine
DX: I49.1 Atrial premature depolarization (principal); R00.2 Palpitations; I25.10 Atherosclerotic heart disease of native coronary artery without angina pectoris; E11.9 Type 2 diabetes mellitus without complications; E78.5 Hyperlipidemia, unspecified; I11.9 Hypertensive heart disease without heart failure; N19 Unspecified kidney failure
CPT/HCPCS: 71045; 80053; 82962; 84484; 85025; 93005; 96374; 99285

== ENCOUNTER 2022-06-23 22:54 | Emergency (ER) | payer MEDICARE, BC, SELFPAY ==
[2022-06-23 22:55] VITALS: BP 186/93; PULSE 74; RESP 16; TEMP 36.8; O2SAT 100; BMI 24.0
--- NOTE | 2022-06-23 23:04 | CT_ITS ---
PROCEDURE INFORMATION: Exam: CT Abdomen And Pelvis With Contrast Exam date and time: 06/23/2022 11:48 PM Age: 86 years old Clinical indication: Abdominal pain; Additional info: Abd pain TECHNIQUE: Imaging protocol: Computed tomography of the abdomen and pelvis with contrast. Radiation optimization: All CT scans at this facility use at least one of these dose optimization techniques: automated exposure control; mA and/or kV adjustment per patient size (includes targeted exams where dose is matched to clinical indication); or iterative reconstruction. Contrast material: ISOVUE; Contrast volume: 75 ml; Contrast route: IV; COMPARISON: CT ABDOMEN PELVIS WO CON 06/12/2022 2:58 AM FINDINGS: Lungs: No acute finding. Diaphragm: A small hiatal hernia is present. Liver: Normal. No mass. Gallbladder and bile ducts: The gallbladder is surgically absent. There is pneumobilia noted. Pancreas: Findings consistent with resection of the proximal pancreas with the mid body and tail unremarkable in appearance. Spleen: Normal. No splenomegaly. Adrenal glands: There is left adrenal hyperplasia. Kidneys and ureters: There is bilateral renal cortical scarring [id number]-left. There are 2 small intrarenal calculi within the lower collecting system of the right kidney. There is no hydronephrosis. Stomach and bowel: There is diffuse significant colonic diverticulosis. Multiple bowel anastomoses are identified. Findings are present consistent with prior Whipple procedure. The focal thickening and inflammation of the mid sigmoid colon has improved. Appendix: Appendix is absent. Intraperitoneal space: Unremarkable. No free air. No significant fluid collection. Vasculature: There is [id number] calcific atherosclerotic disease. There is no aneurysmal dilation of the aorta. Lymph nodes: Unremarkable. No enlarged lymph nodes. Urinary bladder: Unremarkable as visualized. Reproductive: The uterus is absent. Bones/joints: Unremarkable. No acute fracture. Soft tissues: Unremarkable. IMPRESSION: 1. The wall thickening and inflammation of the mid sigmoid colon has resolved. 2. Findings consistent with prior Whipple procedure. 3. Bilateral renal cortical scarring [id number]-left. Right intrarenal calculi are noted. 4. Other findings as detailed.
[2022-06-23 23:19] LABS: Basophils # 0.1 K/mm3 (0-0.2); Basophils % 1.1 % (0.1-2.0); Eosinophils # 0.2 K/mm3 (0.0-0.4); Eosinophils % 1.7 % (0.1-12.0); Hematocrit 39.4 % (37.0-47.0); Hemoglobin 12.9 g/dL (12.2-16.2); Lymphocytes % 28.9 % (10-50); Mean Corpuscular HGB Conc 32.8 g/dL (31.8-35.4); Mean Corpuscular Hemoglobin 28.9 pg (27.0-31.2); Mean Corpuscular Volume 88.1 fl (81-99); Mean Platelet Volume 7.7 fl (7.4-10.4); Monocytes # 0.4 K/mm3 (0.1-1.0); Monocytes % 3.8 % (1.7-9.3); Neutrophils # 6.7 K/mm3 (1.8-7.8); Neutrophils % 64.5 % (37.0-80.0); Platelet Count 378 K/mm3 (142-424); Red Blood Count 4.47 M/mm3 (4.20-5.40); Red Cell Distribution Width 14.3 % (11.5-17.5); White Blood Count 10.4 K/mm3 (4.8-10.8)
[2022-06-23 23:27] LABS: Alanine Aminotransferase 16 U/L (12-78); Albumin Level 4.1 g/dl (3.5-5.0); Albumin/Globulin Ratio 1.4 (1.1-1.8); Alkaline Phosphatase 99 U/L (38-126); Amylase 74 U/L (30-110); Anion Gap 9.9 mEq/L (5-15); Aspartate Amino Transferase 25 U/L (14-36); Bilirubin,Total 0.5 mg/dl (0.2-1.3); Blood Urea Nitrogen 24 mg/dl (7-17); Calcium 10.4 mg/dl (8.4-10.2); Carbon Dioxide 30 mmol/L (22.0-30.0); Chloride 103 mmol/L (98-107); Creatinine Clearance Estimated 36 mL/min (50-200); Estimated Glomerular Filt Rate 33 ml/min (>60); GFR (African American) 40 ML/MIN (>60); Globulin 2.9 g/dL (1.3-3.2); Glucose 84 mg/dl (74-100); Lipase 49 U/L (23-300); Potassium 3.9 mmoL/L (3.5-5.1); Sodium 139 mmol/L (136-145)
[2022-06-23 23:33] LABS: C-Reactive Protein 0.6 mg/L (0-4)
[2022-06-23 23:46] LABS: Procalcitonin 0.079 ng/mL (0.0-2.0)
[2022-06-23 23:54] LABS: Erythrocyte Sedimentation Rate 26 mm/hr (0-30)
--- NOTE | 2022-06-24 00:14 | HMH.EDABDPAI ---
Discharge Plan Disposition Patient Disposition: Home, Self-Care Chief Complaint: Abdominal Pain Prescriptions Prescriptions: No Action nitroglycerin 0.4 mg tablet, sublingual 0.4 mg SUBLINGUAL DIRECTED PRN (Reason: Chest Pain) Qty: 30 2RF Rx Instructions: 0.4 mg every 5 minutes up to 3 doses, if no relief seek emergency treatment magnesium 30 mg tablet 30 mg PO DAILY amlodipine 5 mg tablet 5 mg PO DAILY aspirin [Adult Low Dose Aspirin] 81 mg tablet,delayed release (DR/EC) 81 mg PO DAILY ferrous sulfate 325 mg (65 mg iron) tablet 325 mg PO BID meclizine 25 mg tablet,chewable 25 mg PO TID PRN (Reason: Dizziness) glipizide 5 mg tablet extended release 24hr 5 mg PO DAILY Label Comments: 2 tablets in the AM and 1 in the evening torsemide 10 mg tablet 10 mg PO DAILY lisinopril 10 mg tablet See Rx Instructions .ROUTE .COMPLEX Rx Instructions: TAKE ONE TABLET BY MOUTH EVERY DAY ciprofloxacin HCl [Cipro] 500 mg tablet 500 mg PO BID Qty: 20 0RF ezetimibe 10 MG tablet 10 mg PO DAILY atenolol 25 MG tablet 25 mg PO DAILY Rx Instructions: TAKE ONE TABLET BY MOUTH EVERY DAY FOR BLOOD PRESSURE acetaminophen 650 MG tablet extended release 650 mg PO TIDP PRN (Reason: PAIN) polyethylene glycol 3350 119 GM powder 17 gm PO DAILY psyllium husk 660 GM powder 425 gm PO DAILY metronidazole 500 mg Tablet 500 mg PO TID Qty: 30 0RF cefdinir [cefdinir] 300 mg capsule 300 mg PO BID Qty: 14 0RF Referrals Follow up/Referrals: Rosalio Rainey MD [Primary Care Provider] - See instructions Clinical Impressions Clinical Impression: Abdominal pain Instructions Patient Instructions: DI for Acute Abdominal Pain Discharge ED Provider: Alex Alonzo Abdominal Pain HPI General Chief Complaint: Abdominal Pain Stated Complaint: abd pain Time Seen by Provider: 06/23/22 23:00 Mode of Arrival: Ambulatory Source of Information: Patient and Medical Record Limitations: No Limitations Description of Symptoms (Recalled from ER Triage Doc. by RN): pt c/o lower abd pain that started 8pm tonight History of Present Illness HPI narrative: lower rt sided abd pain tonight with hx of diverticulitis - finished abx -no fever or vomiting complaint: abdominal pain Onset (ago): hour(s) Consistency: intermittent Severity: moderate Associated symptoms: denies other symptoms Related Data Home Medications Medication Instructions Recorded Confirmed amlodipine 5 mg tablet 5 mg PO DAILY blood pressure 07/30/17 06/14/22 aspirin 81 mg tablet,delayed 81 mg PO DAILY HEART HEALTH 07/30/17 12/27/21 release (Adult Low Dose Aspirin) ferrous sulfate 325 mg (65 mg 325 mg PO BID Supplement 07/30/17 06/14/22 iron) tablet meclizine 25 mg chewable tablet 25 mg PO TID PRN Dizziness 07/30/17 12/27/21 glipizide 5 mg tablet, extended 5 mg PO DAILY Diabetes 01/21/19 06/14/22 release 24 hr magnesium 30 mg tablet 30 mg PO DAILY Supplement 01/21/19 06/14/22 ezetimibe 10 mg tablet 10 mg PO DAILY Cholesterol 09/16/20 06/14/22 acetaminophen 650 mg 650 mg PO TIDP PRN PAIN 05/09/21 12/27/21 tablet,extended release atenolol 25 mg tablet 25 mg PO DAILY bp 05/09/21 06/14/22 polyethylene glycol 3350 17 17 gm PO DAILY BOWELS 05/09/21 06/14/22 gram/dose oral powder psyllium husk 3.4 gram/5.4 gram 425 gm PO DAILY BOWELS 05/09/21 06/14/22 oral powder torsemide 10 mg tablet 10 mg PO DAILY . 06/28/21 06/14/22 lisinopril 10 mg tablet See Rx Instructions .Route 06/14/22 06/14/22 .COMPLEX High blood pressure Previous Rx's Medication Instructions Recorded nitroglycerin 0.4 mg sublingual 0.4 mg sublingual DIRECTED PRN 01/21/19 tablet Chest Pain ##30 cefdinir 300 mg capsule 300 mg PO BID #14 caps 06/12/22 metronidazole 500 mg tablet 500 mg PO TID #30 tabs 06/12/22 ciprofloxacin HCl 500 mg tablet 500 mg PO BID #20 tabs 06/14/22 (Cipro
[2022-06-24 00:36] LABS: Microscopic, Urine URINE MICROSCOPIC (MICROSCOPIC)
[2022-06-24 00:37] LABS: Appearance,Urine CLEAR (Clear); Bilirubin,Urine Negative (Negative); Blood, Urine Negative (Negative); Color,Urine YELLOW (Yellow); Glucose,Urine (UA) Negative (Negative); Ketones,Urine Negative (Negative); Leukocyte Esterase,Urine Negative (Negative); Nitrate,Urine Negative (Negative); Protein,Urine Negative (Negative); Urobilinogen,Urine 0.2 EU/dl (0.2)
[2022-06-24 00:43] LABS: WBC,Urine Occasional #/hpf (0-3)
[2022-06-24 01:19] VITALS: BP 154/78; PULSE 71; RESP 16; TEMP 36.8; O2SAT 100
== END 2022-06-24 01:46 | disposition home or self-care (01) ==
PROVIDERS: Emergency Provider Emergency Medicine; PCP Family Medicine
DX: R10.30 Lower abdominal pain, unspecified (principal); I25.10 Atherosclerotic heart disease of native coronary artery without angina pectoris; I11.9 Hypertensive heart disease without heart failure; E78.5 Hyperlipidemia, unspecified; N19 Unspecified kidney failure
CPT/HCPCS: 74177; 80053; 81001; 82150; 83690; 84145; 85025; 85651; 86140; 96360; 99285; Q9967

== ENCOUNTER 2022-06-25 13:21 | Observation (INO) | payer MEDICARE, BC, SELFPAY ==
[2022-06-25] VITALS (11 sets, daily range): BP systolic 122–182; BP diastolic 56–88; PULSE 62–95; RESP 16–20; TEMP 36.3–36.8; O2SAT 96–100; BMI 26.4; BMI 23.6
--- NOTE | 2022-06-25 13:21 | ECG_ITS ---
APPROVED REPORT Exam: Resting ECG HR:90 bpm ECG Measurements Heart Rate 90 AXES IA 139 P 69 QRSd 145 QRS -58 QT 397 T 91 QTc 445 Conclusion SINUS RHYTHM RIGHT BUNDLE BRANCH BLOCK [120+ ms QRS DURATION, UPRIGHT V1, 40+ ms S IN I/aVL/V4/V5/V6] LEFT ANTERIOR FASCICULAR BLOCK [QRS AXIS <= -45, QR IN I, RS IN II] LEFT VENTRICULAR HYPERTROPHY AND ST-T CHANGE [VOLTAGE CRITERIA PLUS ST/T ABNORMALITY] Old SEPTAL Changes ABNORMAL ECG UNCONFIRMED REPORT Electronically signed by : Gucci Benavidez MD 06/26/2022 20:15:11
--- NOTE | 2022-06-25 13:28 | HMH.EDGENADL ---
Discharge Plan Disposition Patient Disposition: Home, Self-Care Condition: Good Chief Complaint: PAIN Prescriptions Prescriptions: No Action nitroglycerin 0.4 mg tablet, sublingual 0.4 mg SUBLINGUAL DIRECTED PRN (Reason: Chest Pain) Qty: 30 2RF Rx Instructions: 0.4 mg every 5 minutes up to 3 doses, if no relief seek emergency treatment magnesium 30 mg tablet 30 mg PO DAILY amlodipine 5 mg tablet 5 mg PO DAILY aspirin [Adult Low Dose Aspirin] 81 mg tablet,delayed release (DR/EC) 81 mg PO DAILY ferrous sulfate 325 mg (65 mg iron) tablet 325 mg PO BID meclizine 25 mg tablet,chewable 25 mg PO TID PRN (Reason: Dizziness) glipizide 5 mg tablet extended release 24hr 5 mg PO DAILY Label Comments: 2 tablets in the AM and 1 in the evening torsemide 10 mg tablet 10 mg PO DAILY lisinopril 10 mg tablet See Rx Instructions .ROUTE .COMPLEX Rx Instructions: TAKE ONE TABLET BY MOUTH EVERY DAY ciprofloxacin HCl [Cipro] 500 mg tablet 500 mg PO BID Qty: 20 0RF ezetimibe 10 MG tablet 10 mg PO DAILY atenolol 25 MG tablet 25 mg PO DAILY Rx Instructions: TAKE ONE TABLET BY MOUTH EVERY DAY FOR BLOOD PRESSURE acetaminophen 650 MG tablet extended release 650 mg PO TIDP PRN (Reason: PAIN) polyethylene glycol 3350 119 GM powder 17 gm PO DAILY psyllium husk 660 GM powder 425 gm PO DAILY metronidazole 500 mg Tablet 500 mg PO TID Qty: 30 0RF cefdinir [cefdinir] 300 mg capsule 300 mg PO BID Qty: 14 0RF Referrals Follow up/Referrals: Provider,Referral, MD [Primary Care Provider] - See instructions Clinical Impressions Clinical Impression: Chest pain Discharge ED Provider: Ferdinand Amezquita General Adult HPI General Chief complaint: PAIN Stated complaint: chest pain Time Seen by Provider: 06/25/22 13:54 History of Present Illness HPI narrative: Patient complains of chest pain. States that about 1230 after eating she had an episode of chest pain which felt tight in her anterior chest. She says it is now gone. It lasted approximately 20 minutes. She was just recently seen by me in this emergency department for palpitations and PACs 06/14/22. She says this is the first episode of anything heart related that she has had since then, but was seen in this emergency department 2 days ago 06/23/22 for abdominal pain after recent diagnosis of diverticulitis 06/12/22. CT scan of her abdomen pelvis 2 days ago showed resolution of the findings of diverticulitis. Related Data Home Medications Medication Instructions Recorded Confirmed amlodipine 5 mg tablet 5 mg PO DAILY blood pressure 07/30/17 06/14/22 aspirin 81 mg tablet,delayed 81 mg PO DAILY HEART HEALTH 07/30/17 12/27/21 release (Adult Low Dose Aspirin) ferrous sulfate 325 mg (65 mg 325 mg PO BID Supplement 07/30/17 06/14/22 iron) tablet meclizine 25 mg chewable tablet 25 mg PO TID PRN Dizziness 07/30/17 12/27/21 glipizide 5 mg tablet, extended 5 mg PO DAILY Diabetes 01/21/19 06/14/22 release 24 hr magnesium 30 mg tablet 30 mg PO DAILY Supplement 01/21/19 06/14/22 ezetimibe 10 mg tablet 10 mg PO DAILY Cholesterol 09/16/20 06/14/22 acetaminophen 650 mg 650 mg PO TIDP PRN PAIN 05/09/21 12/27/21 tablet,extended release atenolol 25 mg tablet 25 mg PO DAILY bp 05/09/21 06/14/22 polyethylene glycol 3350 17 17 gm PO DAILY BOWELS 05/09/21 06/14/22 gram/dose oral powder psyllium husk 3.4 gram/5.4 gram 425 gm PO DAILY BOWELS 05/09/21 06/14/22 oral powder torsemide 10 mg tablet 10 mg PO DAILY . 06/28/21 06/14/22 lisinopril 10 mg tablet See Rx Instructions .Route 06/14/22 06/14/22 .COMPLEX High blood pressure Previous Rx's Medication Instructions Recorded nitroglycerin 0.4 mg sublingual 0.4 mg sublingual DIRECTED PRN 01/21/19 tablet Chest Pain ##30 cefdinir 300 mg capsule 300 mg PO BID #14 caps 06/12/22 metronidazole 500 mg tablet 500 mg
--- NOTE | 2022-06-25 13:41 | XR_ITS ---
PROCEDURE INFORMATION: Exam: XR Chest Exam date and time: 06/25/2022 2:47 PM Age: 86 years old Clinical indication: Patient HX: Patient states this is the 5th visit to er in a week for shortness of breath. Symptoms arent resolving. ; Additional info: Epigastric pain TECHNIQUE: Imaging protocol: Radiologic exam of the chest. Views: 1 view. Total images: 1 COMPARISON: CR XR CHEST PORTABLE 06/14/2022 11:42 AM FINDINGS: Lungs: Atelectatic changes noted within both lung bases. No focal pneumonia or pneumothorax. Pleural spaces: No pleural effusions. Heart/Mediastinum: Unremarkable. No cardiomegaly. Vasculature: Mild atherosclerotic disease is evident. Diaphragm: There is nonspecific elevation of the right hemidiaphragm. Bones/joints: The thoracic spine demonstrates mild degenerative changes at multiple levels. Degenerative changes of the glenohumeral and acromioclavicular joints. IMPRESSION: 1. Atelectatic changes noted within both lung bases. 2. No focal pneumonia or pneumothorax. Follow-up CT scan of the chest is recommended if symptoms persist. 3. No pleural effusions. 4. Degenerative changes of the glenohumeral and acromioclavicular joints.
[2022-06-25 13:48] LABS: Chloride 104 mmol/L (98-107)
[2022-06-25 13:49] LABS: Potassium 4.4 mmoL/L (3.5-5.1); Sodium 137 mmol/L (136-145)
[2022-06-25 13:51] LABS: Blood Urea Nitrogen 18 mg/dl (7-17); Creatinine Clearance Estimated 43 mL/min (50-200); Estimated Glomerular Filt Rate 36 ml/min (>60); GFR (African American) 43 ML/MIN (>60)
[2022-06-25 13:52] LABS: Calcium 9.8 mg/dl (8.4-10.2); Glucose 246 mg/dl (74-100)
[2022-06-25 14:29] LABS: Troponin I < 0.01 ng/ml (0.00-0.034)
[2022-06-25 14:33] LABS: Basophils # 0.2 K/mm3 (0-0.2); Basophils % 2.1 % (0.1-2.0); Eosinophils # 0.1 K/mm3 (0.0-0.4); Eosinophils % 0.9 % (0.1-12.0); Hematocrit 37.9 % (37.0-47.0); Hemoglobin 12.1 g/dL (12.2-16.2); Lymphocytes # 1.4 K/mm3 (0.7-4.5); Lymphocytes % 16.2 % (10-50); Mean Corpuscular HGB Conc 32.1 g/dL (31.8-35.4); Mean Corpuscular Hemoglobin 28.7 pg (27.0-31.2); Mean Corpuscular Volume 89.4 fl (81-99); Mean Platelet Volume 8.2 fl (7.4-10.4); Monocytes # 0.4 K/mm3 (0.1-1.0); Monocytes % 5.3 % (1.7-9.3); Neutrophils # 6.3 K/mm3 (1.8-7.8); Neutrophils % 75.6 % (37.0-80.0); Platelet Count 328 K/mm3 (142-424); Red Blood Count 4.24 M/mm3 (4.20-5.40); Red Cell Distribution Width 14.2 % (11.5-17.5); White Blood Count 8.4 K/mm3 (4.8-10.8)
--- NOTE | 2022-06-25 14:33 | PC.NURSE ---
rad at BS for portable xray
[2022-06-25 14:49] LABS: Anion Gap 7.4 mEq/L (5-15); Carbon Dioxide 30 mmol/L (22.0-30.0)
--- NOTE | 2022-06-25 16:01 | PC.NURSE ---
Dr Amezquita at bedside
--- NOTE | 2022-06-25 16:06 | PC.NURSE ---
DOMINIQUE SAMANIEGO speaking with hospitalist
[2022-06-25 16:38] LABS: Coronavirus 19, PCR Not Detected (NotDetected); Influenza A, PCR Not Detected (NotDetected); Influenza B, PCR Not Detected (NotDetected)
--- NOTE | 2022-06-25 17:39 | PC.NURSE ---
arrived by wheelchair from ED at 17:35
[2022-06-25 17:54] LABS: Troponin I < 0.01 ng/ml (0.00-0.034)
--- NOTE | 2022-06-25 18:48 | EXP.HP ---
History of Present Illness *Admission Date: 06/25/22 *Reason for visit:: Chief complaint: Chest pain *History of present illness: This is an 86-year-old female who presents to [facility] emergency department with concerns of chest pain that started today. Her past medical history is significant for coronary artery disease, diabetes, hypertension, kidney stones, chronic kidney disease stage IIIb, colon angiodysplasia, right bundle branch block and diverticulosis. She reports experiencing chest pressure today lasting several minutes and spontaneously resolving. She reports several episodes today that would come and go and rated as a 5 on a 1-10 pain scale. She reported some nausea but no emesis or diaphoresis. She reports occasional shortness of air. She denies syncope or falls. Her vitals in the ED identify heart rate of 71 with blood pressure 154/78. She is saturating appropriately on room air. Her troponins x2 are negative and her creatinine is stable to previous evaluations. Her chest x-ray identified no acute disease. [facility] Disclaimer: The information contained in this section may have been updated after the patient was seen, as this information can be updated by other users. Medical History (Updated 06/25/22 @ 19:06 by Elijah Mancilla MD) Chronic kidney disease, stage 3b Coronary artery disease Electrocardiogram abnormal History of GI bleed Hyperlipidemia associated with type 2 diabetes mellitus Hypertensive heart disease Renal insufficiency Social History Smoking Status: Never smoker second hand exposure: No alcohol intake: never substance use type: denies use current occupational status: disabled Travel in the last 8 weeks: Inside the [place] household members: none housing: apartment current occupational exposures/hazards: No caffeine: Yes Review of Systems Review of Systems Review of systems:: pertinent systems reviewed and negative unless documented below *Cardiovascular Cardiovascular: Reports chest pain and Reports chest pain at rest Meds Home Medications and Allergies Home Medications Medication Instructions Recorded Confirmed Type amlodipine 5 mg tablet 5 mg PO DAILY blood pressure 07/30/17 06/25/22 History aspirin 81 mg tablet,delayed 81 mg PO DAILY HEART HEALTH 07/30/17 06/25/22 History release (Adult Low Dose Aspirin) ferrous sulfate 325 mg (65 mg 325 mg PO BID Supplement 07/30/17 06/25/22 History iron) tablet meclizine 25 mg chewable tablet 25 mg PO TID PRN Dizziness 07/30/17 06/25/22 History glipizide 5 mg tablet, extended 5 mg PO DAILY Diabetes 01/21/19 06/25/22 History release 24 hr magnesium 30 mg tablet 30 mg PO DAILY Supplement 01/21/19 06/25/22 History nitroglycerin 0.4 mg sublingual 0.4 mg sublingual DIRECTED PRN 01/21/19 06/25/22 Rx tablet Chest Pain ##30 ezetimibe 10 mg tablet 10 mg PO DAILY Cholesterol 09/16/20 06/25/22 History acetaminophen 650 mg 650 mg PO TIDP PRN PAIN 05/09/21 06/25/22 History tablet,extended release atenolol 25 mg tablet 25 mg PO DAILY bp 05/09/21 06/25/22 History polyethylene glycol 3350 17 17 gm PO DAILY BOWELS 05/09/21 06/25/22 History gram/dose oral powder psyllium husk 3.4 gram/5.4 gram 425 gm PO DAILY BOWELS 05/09/21 06/25/22 History oral powder torsemide 10 mg tablet 10 mg PO DAILY per md 06/28/21 06/25/22 History lisinopril 10 mg tablet See Rx Instructions .Route 06/14/22 06/25/22 History .COMPLEX High blood pressure metronidazole 500 mg tablet 500 mg PO TID per md 06/25/22 06/25/22 History New Prescriptions to Start Prescriptions: Allergies Allergy/AdvReac Type Severity Reaction Status Date / Time butorphanol [From STADOL] Allergy Mild I-HIVES Verified 06/14/22 10:36 codeine [CODEINE] Allergy Mild I-HIVES Verified 06/14/22 10:36 morphine [MORPHINE] Allergy Mild I-HIVES Verified 06/14/22 10:36 promethazine [From PHENER
--- NOTE | 2022-06-25 21:15 | PC.NURSE ---
Pt states she has already taken Amlodipine, Lisinopril, and Atenolol today. She states she only takes it once a day. These meds scheduled for [facility]. BP 122/56. Spoke with Tom Santana NP. Meds held for [facility], to be given in AM
[2022-06-25 21:33] LABS: POC Glucose,Bedside 248 (70-110)
[2022-06-26] VITALS (18 sets, daily range): BP systolic 127–178; BP diastolic 68–119; PULSE 60–90; RESP 16–20; TEMP 36.8–37.1; O2SAT 95–100; BMI 23.7
[2022-06-26 03:06] LABS: POC Glucose,Bedside 122 (70-110)
--- NOTE | 2022-06-26 04:36 | PC.NURSE ---
Pt has had no complaints of chest pain this shift. Pt A&O4 .Pt has been sinus arrhythmia on tele. Pt has ambulated to bathroom with standby assist and tolerated well. +2 pitting edema noted to bilat feet.
[2022-06-26 06:16] LABS: POC Glucose,Bedside 74 (70-110)
--- NOTE | 2022-06-26 06:17 | PC.NURSE ---
Pt fsbs 74. [place] juice and snack given
[2022-06-26 06:42] LABS: Anion Gap 7.7 mEq/L (5-15); Blood Urea Nitrogen 17 mg/dl (7-17); Calcium 9.8 mg/dl (8.4-10.2); Carbon Dioxide 24 mmol/L (22.0-30.0); Chloride 111 mmol/L (98-107); Creatinine Clearance Estimated 41 mL/min (50-200); Estimated Glomerular Filt Rate 39 ml/min (>60); GFR (African American) 47 ML/MIN (>60); Glucose 69 mg/dl (74-100); Magnesium 1.9 mg/dl (1.6-2.3); Potassium 4.7 mmoL/L (3.5-5.1); Sodium 138 mmol/L (136-145)
[2022-06-26 07:51] LABS: Hemoglobin A1C 6.2 % (4.0-6.0)
--- NOTE | 2022-06-26 08:58 | HMH.PHAINT1 ---
Pharmacy Intervention Comments: Home medication reconciliation completed on patient via patient interview and external fill history from outside pharmacy. -Kavitha Fenton, PharmD Candidate 2022
--- NOTE | 2022-06-26 08:59 | IR_ITS ---
APPROVED REPORT Patient Location: Inpatient PROCEDURES Left heart catheterization Left ventriculogram Selective coronary angiogram INDICATION Unstable angina Informed consent was obtained prior to the procedure. COMPLICATIONS None Estimated Blood Loss: Less than 10 mls TECHNIQUE One percent lidocaine used to anesthetize the right anterior aspect of the wrist. The right radial artery was accessed via the Seldinger technique. A 6 [place] sheath was placed in the right radial artery. 2.5 mg of verapamil, 800 mcg of nitroglycerin, 1mg Lidocaine and 5000 U Heparin were given through the arterial sheath. The papa catheter was also used to perform left heart catheterization, left ventriculogram and selective coronary angiogram. At the end of the procedure the sheath was removed good hemostasis was achieved using Traclet band, patient was transferred to the postop holding area in stable condition. ANGIOGRAPHIC RESULTS The left main artery Normal The left anterior descending artery Has proximal 30% stenosis with mid vessel 20 and 30% stenoses throughout most along tortuous bends The circumflex artery Is nondominant with the second obtuse marginal artery having a 40 to 50% stenosis in a 1.75 mm vessel The right coronary artery Large dominant with diffuse 20 to 30% luminal irregularities The CAREY ventriculogram reveals Hyperdynamic 70% The left ventricular end-diastolic pressure 20 to 25 mmHg IMPRESSION Moderate stenosis in the small obtuse marginal artery which is not the etiology for the angina Hyperdynamic ventricle with elevated LVEDP which is the likely etiology for patient's angina pectoris; diastolic dysfunction PLAN 1. Medical management for diastolic dysfunction 2. Maximize antianginal medications 3. Risk factor modification Electronically signed by : Rene Griffin MD 06/26/2022 12:13:27
--- NOTE | 2022-06-26 09:00 | EXP.PN ---
Subjective *Date: 06/26/22 *Time: 09:00 Interval history: Date of service 06/26/2022 The patient reports no acute events since admission. She denies further chest pain. I am accompanied by several members of the MDR team. Nursing staff report that she remains afebrile with stable vital signs and saturating appropriately on room air. We have reviewed and discussed her morning labs including normal white blood cell count, hemoglobin and platelet count. Her electrolytes are normal. Her creatinine is 1.30. Her magnesium is 1.9. Exam Data for Last 24 hours Vital signs and Labs for Last 24 Hours: Temp Pulse Resp BP Pulse Ox 98.8 F 86 20 146/70 H 99 06/26/22 08:00 06/26/22 08:00 06/26/22 08:00 06/26/22 08:00 06/26/22 08:00 Laboratory Results - last 24 hr 06/25/22 13:30: WBC 8.4, RBC 4.24, Hgb 12.1 L, Hct 37.9, MCV 89.4, MCH 28.7, MCHC 32.1, RDW 14.2, Plt Count 328, MPV 8.2, Neut % (Auto) 75.6, Lymph % (Auto) 16.2, [place] % (Auto) 5.3, Eos % (Auto) 0.9, Baso % (Auto) 2.1 H, Neut # (Auto) 6.3, Lymph # (Auto) 1.4, [place] # (Auto) 0.4, Eos # (Auto) 0.1, Baso # (Auto) 0.2 06/25/22 13:30: Sodium 137, Potassium 4.4, Chloride 104, Carbon Dioxide 30, Anion Gap 7.4, BUN 18 H, Creatinine 1.40 H, Estimated Creat Clear 43, Estimated GFR 36 L, Est GFR ( Amer) 43 L, Glucose 246 H, Calcium 9.8, Troponin I < 0.01 06/25/22 16:32: SARS-CoV-2 (PCR) Not detected, Influenza A Untype (PCR) Not detected, Influenza Type B (PCR) Not detected 06/25/22 17:18: Troponin I < 0.01 06/25/22 20:38: POC Glucose 248 H 06/26/22 02:58: POC Glucose 122 H 06/26/22 05:55: POC Glucose 74 06/26/22 06:08: Sodium 138, Potassium 4.7, Chloride 111 H, Carbon Dioxide 24, Anion Gap 7.7, BUN 17, Creatinine 1.30 H, Estimated Creat Clear 41, Estimated GFR 39 L, Est GFR ( Amer) 47 L, Glucose 69 L D, Calcium 9.8, Magnesium 1.9 06/26/22 07:30: Hemoglobin A1c 6.2 H I & O for Last 24 hours: Intake & Output 06/23/22 06/24/22 06/25/22 06/26/22 23:59 23:59 23:59 23:59 Intake Total 120 / 120 600 / 600 Output Total 300 / 300 850 / 850 Balance -180 / -180 -250 / -250 Weight 81.25 kg 81.2 kg Constitutional Constitutional: no acute distress *Routine HEENT Exam Head: Present normocephalic Eye: Present EOMI and PERRL ENT: Present mucous membranes moist *Routine Neck Exam Neck: Present supple; Absent lymphadenopathy *Routine Respiratory Exam Respiratory: Present CTA bilaterally *Routine Cardiovascular Exam Cardiovascular: Present RRR *Routine Abdominal Exam Abdominal: Present soft and normoactive bowel sounds; Absent tenderness *Routine Extremities Exam Extremities: Absent cyanosis, clubbing or edema *Routine Skin Exam Skin: Present warm; Absent rash *Routine Neurological Exam Neurological: Present alert and oriented X3 Assessment and Plan *Assessment and plan (1) Unstable angina: Status: Acute Category: Medical Code(s): I20.0 - Unstable angina (2) Coronary artery disease: Status: Chronic Category: Medical Code(s): I25.10 - Atherosclerotic heart disease of [place] coronary artery without angina pectoris (3) Diabetes: Status: Chronic Category: Medical Code(s): E11.9 - Type 2 diabetes mellitus without complications (4) Essential hypertension: Status: Acute Category: Medical Code(s): I10 - Essential (primary) hypertension (5) Chronic kidney disease, stage 3b: Status: Acute Category: Medical Code(s): N18.32 - Chronic kidney disease, stage 3b Plan This is an 86-year-old female that presents to [facility] emergency department with concerns of chest pain. Her ECG and troponins are unrevealing. Her past medical history significant for left heart catheterization August 21, 2019 with no occlusive disease noted. She will be admitted and cardiology will be consulted. Problems managed are as follows: Unstable angina Telemetry monitoring ED ECG
--- NOTE | 2022-06-26 09:16 | EXP.CARD.CON ---
History of Present Illness History of Present Illness Consult date: 06/26/22 Requesting physician: Elijah Mancilla Consult reason: chest pain Chief complaint: chest pain Additional Medical History:: Significant Past Medical Hx Coronary artery disease Diabetes mellitus Right bundle branch block Mixed hyperlipidemia Bifascicular block History of GI bleed Hypertensive heart disease without heart failure Kidney disease stage III Recent diverticulitis with resolution Diastolic dysfunction Cath 08/2021 ANGIOGRAPHIC RESULTS The left main artery Normal The left anterior descending artery Normal The circumflex artery Normal The right coronary artery Dominant and has mid vessel 30% concentric smooth stenoses The CAREY ventriculogram reveals Ejection fraction 50% with apical dyskinesis The left ventricular end-diastolic pressure 20 mmHg IMPRESSION [id number] coronary artery disease Left ventricular dyskinesis with ejection fraction of 50% as described above Mildly elevated LVEDP PLAN 1. Medical management History of present illness: 86-year-old female with above past medical history presented to emergency department on 06/25/2021 with complaints of midsternal chest pressure 5/10 that started after eating, lasting about 20 minutes and resolving spontaneously. Patient reports intermittent episodes of chest pain and shortness of air for the last 6 months. Patient has had multiple ER visits in the last few months for various complaints including palpitations and chest pain. Patient also endorses bilateral LE edema. On a recent ER visit patient was found to have diverticulitis that was noted to have resolved on last ct abdomen/pelvis. Upon presentation to ER, EKG was negative for acute ischemic changes and showed sr with RBBB rate of 90. Serial trops were negative. Chest xray was negative for any acute cardiopulmonary process. Labs as follow: Hemoglobin 12.1, creatinine was 1.40 trending down to 1.3, and glucose was 246. Patient was admitted for cardiology evaluation. [facility] Disclaimer: The information contained in this section may have been updated after the patient was seen, as this information can be updated by other users. Medical History (Updated 06/25/22 @ 19:06 by Elijah Mancilla MD) Chronic kidney disease, stage 3b Coronary artery disease Electrocardiogram abnormal History of GI bleed Hyperlipidemia associated with type 2 diabetes mellitus Hypertensive heart disease Renal insufficiency Social History Smoking Status: Never smoker second hand exposure: No alcohol intake: never substance use type: denies use current occupational status: disabled Travel in the last 8 weeks: Inside the [place] household members: none housing: apartment current occupational exposures/hazards: No caffeine: Yes Review of Systems Constitutional Constitutional: Denies headache(s) and Denies weakness ENT Ears, Nose, Mouth, and Throat: Denies headache(s) *Cardiovascular Cardiovascular: Reports chest pain, Reports dyspnea and Reports leg edema *Respiratory Respiratory: Reports dyspnea *Musculoskeletal Musculoskeletal: Denies numbness *Neurologic Neurologic: Denies headache(s), Denies numbness and Denies weakness Exam Data for Last 24 hours Vital signs and Labs for Last 24 Hours: Temp Pulse Resp BP Pulse Ox 98.8 F 86 20 146/70 H 99 06/26/22 08:00 06/26/22 08:00 06/26/22 08:00 06/26/22 08:00 06/26/22 08:00 Laboratory Results - last 24 hr 06/25/22 13:30: WBC 8.4, RBC 4.24, Hgb 12.1 L, Hct 37.9, MCV 89.4, MCH 28.7, MCHC 32.1, RDW 14.2, Plt Count 328, MPV 8.2, Neut % (Auto) 75.6, Lymph % (Auto) 16.2, [place] % (Auto) 5.3, Eos % (Auto) 0.9, Baso % (Auto) 2.1 H, Neut # (Auto) 6.3, Lymph # (Auto) 1.4, [place] # (Auto) 0.4, Eos # (Auto) 0.1, Baso # (Auto) 0.2 06/25/22 13:30: Sodium 137, Potassium 4.4, Chloride 104, Carbon Dioxide 30, Ani
[2022-06-26 10:30] LABS: Cholesterol 170 mg/dl (140-200); HDL Cholesterol 56 mg/dl (40-60); Triglycerides 132 mg/dl (30-150); VLDL Cholesterol 26 mg/dL (0-40)
[2022-06-26 10:41] LABS: Direct LDL Cholesterol 64.49 mg/dL (100-129)
[2022-06-26 11:08] LABS: POC Glucose,Bedside 130 (70-110)
--- NOTE | 2022-06-26 15:06 | EXP.DC.SUM ---
General Admission date:: 06/25/22 Discharge date: 06/26/22 HPI HPI HPI: This is an 86-year-old female who presents to [facility] emergency department with concerns of chest pain that started today. Her past medical history is significant for coronary artery disease, diabetes, hypertension, kidney stones, chronic kidney disease stage IIIb, colon angiodysplasia, right bundle branch block and diverticulosis. She reports experiencing chest pressure today lasting several minutes and spontaneously resolving. She reports several episodes today that would come and go and rated as a 5 on a 1-10 pain scale. She reported some nausea but no emesis or diaphoresis. She reports occasional shortness of air. She denies syncope or falls. Her vitals in the ED identify heart rate of 71 with blood pressure 154/78. She is saturating appropriately on room air. Her troponins x2 are negative and her creatinine is stable to previous evaluations. Her chest x-ray identified no acute disease. Hospital Course Hospital Course Hospital Course: The patient was admitted to the medical floor with telemetry monitoring. Cardiology was consulted. She was maintained on her cardioprotective medications with nitroglycerin to use as needed. Cardiology recommended a left heart catheterization which she underwent on June 26, 2022 identifying coronary disease nonocclusive for no intervention provided. They recommended maximizing medical therapy with appropriate outpatient follow-up. The patient identified improvement and requested to be discharged home. She will be discharged home on ACC guided medical therapy for her coronary artery disease. 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 I spent 35 minutes in [id number] time with the patient, cardiology PA and nursing staff concerning the discharge process. We discussed the admitting diagnoses and hospital course. We discussed identified improvement and the patient's desire to be discharged. We reviewed inpatient studies and imaging. The patient voiced understanding on the importance of follow-up with her primary care provider and investment specialist(s). The patient plans to be compliant with the medication regimen prescribed and follow-up appointments. She understands that she can return to the emergency department with any sudden changes or concerns. Exam Data for Last 24 hours Vital signs and Labs for Last 24 Hours: Temp Pulse Resp BP Pulse Ox 98.8 F 84 16 137/73 96 06/26/22 08:00 06/26/22 12:36 06/26/22 12:36 06/26/22 12:36 06/26/22 12:36 Laboratory Results - last 24 hr 06/25/22 16:32: SARS-CoV-2 (PCR) Not detected, Influenza A Untype (PCR) Not detected, Influenza Type B (PCR) Not detected 06/25/22 17:18: Troponin I < 0.01 06/25/22 20:38: POC Glucose 248 H 06/26/22 02:58: POC Glucose 122 H 06/26/22 05:55: POC Glucose 74 06/26/22 06:08: Sodium 138, Potassium 4.7, Chloride 111 H, Carbon Dioxide 24, Anion Gap 7.7, BUN 17, Creatinine 1.30 H, Estimated Creat Clear 41, Estimated GFR 39 L, Est GFR ( Amer) 47 L, Glucose 69 L D, Calcium 9.8, Magnesium 1.9 06/26/22 07:30: Hemoglobin A1c 6.2 H 06/26/22 07:30: Triglycerides 132, Cholesterol 170, LDL Cholesterol Direct 64.49 L, VLDL Cholesterol 26, HDL Cholesterol 56, Cholesterol/HDL Ratio 3.0 06/26/22 11:00: POC Glucose 130 H I & O for Last 24 hours: Intake & Output 06/23/22 06/24/22 06/25/22 06/26/22 23:59 23:59 23:59 23:59 Intake Total 120 / 120 600 / 600 Output Total 300 / 300 1450 / 1450 Balance -180 / -180 -850 / -850 Weight 81.25 kg 81.2 kg Constitutional Constitutional: no acute distress *Routine HEENT Exam Head: Present normocephalic Eye: Present EOMI and PERRL ENT: Present mucous membranes moist *Routine Neck Exam Neck: Present supple; Absent lymphadenopathy *Routine Respiratory Exam Respiratory: Present CTA bilaterally *Routine Cardiovascular Exam Cardiovascula
--- NOTE | 2022-06-26 15:38 | PC.NURSE ---
called and spoke with pt Son David. notified him that pt will be able to discharge this evening, after TR band removed. [id number]
--- NOTE | 2022-06-26 15:58 | P.CONPHA_ITS ---
Pharmacy Intervention Comments: Met with patient at bedside to ip counsel on discharge medications prior to discharge. Overviewed new, changed, and continued medications, including their indications, possible adverse effects, and mitigation strategies. Patient verbalized understanding of information provided and had no questions or concern s at this time. -Kavitha Fenton, PharmD Candidate 2022
--- NOTE | 2022-06-26 15:58 | HMH.PHAINT1 ---
Pharmacy Intervention Comments: Met with patient at bedside to counseling psychologist on discharge medications prior to discharge. Overviewed new, changed, and continued medications, including their indications, possible adverse effects, and mitigation strategies. Patient verbalized understanding of information provided and had no questions or concerns at this time. -Kavitha Fenton, PharmD Candidate 2022
[2022-06-26 17:08] LABS: POC Glucose,Bedside 97 (70-110)
--- NOTE | 2022-06-26 17:24 | PC.NURSE ---
traclet started with 13 ml of air 1430 11 ml 1515 9ml 1530 7ml 1600 5ml 1620 3ml 1640 0ml 1700 traclet removed site cleansed with chlorhexadine swab dressed with t/t
--- NOTE | 2022-06-26 18:42 | CA_ITS ---
APPROVED REPORT EXAM: Comprehensive 2D, Doppler, and color-flow Echocardiogram Radiation Technician: Mar Brown CRT Ht: 6 ft 1 in Wt: 179lbs BSA: 2.05 BP: 182/78 mmHg Indications: Chest Pain, CAD, Hypertension/HDD, CKD 2D Dimensions LVOT 1.79 cm (M/F) 1.5-2.5 M-Mode Dimensions RVDd 2.79 cm (0.9-2.6) LA Diam 3.50 cm (1.9-4.0) LVDd 4.98 cm (3.5-5.7) Ao Diam 3.80 cm (2.0-3.7) LVDs 3.48 cm (3.5-5.7) IVSd 1.28 cm (0.6-1.1) PWd 1.02 cm (0.6-1.1) EF (Teich) 57.10% FS 30.10% EDV (Teich) 117.10 mL TAPSE 2.35 (<1.7) ESV (Teich) 50.20 mL LV Diastology E Decel Time 197.00 (160-240 msec) E/A Ratio 0.35 MED E' 6.20 (< 7 cm/sec) MED A' 7.70 cm/s E'/MED E' Ratio 9.74 (>14) LAT E' 5.70 (<10 cm/sec) LAT A' 8.60 cm/s E/LAT E' Ratio 10.60 (>14) Aortic Valve AO Peak GR. 6.30 mmHg Mitral Valve MV A Velocity 172.00 (40-130 cm/s) E/A Ratio 0.35 MV Decel. Time 197.00 (160-240 ms) Tricuspid Valve TR P. Velocity 290.00 cm/s RAP Estimate 10.00 mmHg RVSP 43.70 mmHg Left Ventricle Left atrium is mildly enlarged, left ventricle is normal size mild concentric left ventricular hypertrophy, estimated ejection fraction 55% with no regional wall motion abnormality, grade 1 diastolic dysfunction seen without tissue Doppler evidence of raise left atrial pressure. Right Ventricle Right atrium and right ventricle are mildly enlarged with normal contractility. Aortic Valve Aortic valve is minimally thickened and fibrosed there is no aortic stenosis or aortic insufficiency. Mitral Valve Mitral valve leaflets are minimally thickened, there is mild mitral regurgitation. Tricuspid Valve Tricuspid valve grossly normal, there is mild tricuspid regurgitation, tricuspid regurgitation jet velocity is inadequate for calculation of the right ventricular systolic pressure. Pulmonic Valve Pulmonic valve is poorly visualized. Great Vessels Aortic root is normal size. Inferior vena cava is poorly visualized. Pericardium No significant pericardial effusion. Conclusion 1. Mild biatrial enlargement, normal left ventricular size, estimated ejection fraction 55% with no regional wall motion abnormality, grade 1 diastolic dysfunction seen without tissue Doppler evidence of raise left atrial pressure. 2. Mild mitral and tricuspid regurgitation. 3. Mildly enlarged right ventricle with normal contractility. 4. No significant pericardial effusion. 5. Inferior vena cava is poorly visualized. Electronically signed by : Casey Hunt MD 06/27/2022 05:42:58
--- NOTE | 2022-06-27 12:45 | CARE MANAGER ---
Contacted patient related to hospital discharge. She states she feels better but is having difficulty swallowing the KCL. While discussing with pharmacist best route for medication the patient realized the bottle said the capsule could be opened and the medication sprinkled on something. Denies any questions or concerns. JETT Mills
== END 2022-06-26 17:20 | disposition home or self-care (01) ==
LOC: ER 16:11 → 2ND 16:23
PROVIDERS: Internal Medicine; Nurse Practitioner; Admitting Provider Family Medicine; Emergency Provider Emergency Medicine; PCP Family Medicine; Visit Provider Family Medicine
DX: I25.110 Atherosclerotic heart disease of native coronary artery with unstable angina pectoris (principal); E11.22 Type 2 diabetes mellitus with diabetic chronic kidney disease; I12.9 Hypertensive chronic kidney disease with stage 1 through stage 4 chronic kidney disease, or unspecified chronic kidney disease; N18.32 Chronic kidney disease, stage 3b; I49.1 Atrial premature depolarization; Z79.899 Other long term (current) drug therapy; Z79.84 Long term (current) use of oral hypoglycemic drugs; I25.10 Atherosclerotic heart disease of native coronary artery without angina pectoris; Z20.822 Contact with and (suspected) exposure to COVID-19
CPT/HCPCS: G0378; 36415; 71045; 80048; 80061; 82962; 83036; 83735; 84484; 85025; 93005; 93306; 93458; 99152; 99285; C1725; C1769; C9803; J1644; Q9967; U0003; U0005

== ENCOUNTER 2022-07-10 21:18 | Observation (INO) | payer MEDICARE, BC, SELFPAY ==
[2022-07-10 21:28] VITALS: BP 127/72; PULSE 69; RESP 18; TEMP 36.8; O2SAT 98; BMI 24.1
[2022-07-10 21:41] VITALS: BP 117/61; PULSE 75; RESP 12; O2SAT 100
[2022-07-10 21:54] LABS: Basophils # 0.1 K/mm3 (0-0.2); Eosinophils # 0.1 K/mm3 (0.0-0.4); Eosinophils % 1.3 % (0.1-12.0); Hematocrit 35.8 % (37.0-47.0); Lymphocytes # 2.2 K/mm3 (0.7-4.5); Mean Corpuscular HGB Conc 33.6 g/dL (31.8-35.4); Mean Corpuscular Hemoglobin 28.7 pg (27.0-31.2); Mean Corpuscular Volume 85.6 fl (81-99); Mean Platelet Volume 7.5 fl (7.4-10.4); Monocytes # 0.5 K/mm3 (0.1-1.0); Neutrophils # 5.3 K/mm3 (1.8-7.8); Neutrophils % 64.8 % (37.0-80.0); Occult Blood,Stool Positive (Negative); Platelet Count 298 K/mm3 (142-424); Red Blood Count 4.18 M/mm3 (4.20-5.40); Red Cell Distribution Width 14.3 % (11.5-17.5); White Blood Count 8.3 K/mm3 (4.8-10.8)
--- NOTE | 2022-07-10 21:56 | PC.NURSE ---
Pt son at
[2022-07-10 21:59] LABS: Chloride 99 mmol/L (98-107); Potassium 4.8 mmoL/L (3.5-5.1); Sodium 132 mmol/L (136-145)
[2022-07-10 22:00] VITALS: BP 129/68; PULSE 66; RESP 14; O2SAT 98
[2022-07-10 22:02] LABS: Alanine Aminotransferase 17 U/L (12-78); Albumin/Globulin Ratio 1.5 (1.1-1.8); Alkaline Phosphatase 105 U/L (38-126); Anion Gap 9.8 mEq/L (5-15); Aspartate Amino Transferase 27 U/L (14-36); Bilirubin,Total 0.7 mg/dl (0.2-1.3); Blood Urea Nitrogen 38 mg/dl (7-17); Carbon Dioxide 28 mmol/L (22.0-30.0); Creatinine Clearance Estimated 26 mL/min (50-200); Estimated Glomerular Filt Rate 22 ml/min (>60); GFR (African American) 27 ML/MIN (>60); Globulin 2.7 g/dL (1.3-3.2); Total Protein,Serum 6.7 g/dl (6.3-8.2)
[2022-07-10 22:03] LABS: Calcium 9.9 mg/dl (8.4-10.2); Glucose 138 mg/dl (74-100)
--- NOTE | 2022-07-10 22:07 | PC.NURSE ---
assisted pt to bathroom with 2x SBA. Pt unable to void urine. She did have a very small amount of mucoid ylw/red stool
--- NOTE | 2022-07-10 22:10 | CT_ITS ---
PROCEDURE INFORMATION: Exam: CT Abdomen And Pelvis Without Contrast Exam date and time: 07/10/2022 10:20 PM Age: 86 years old Clinical indication: Nausea; Additional info: Nausea, 1x episode of bright red bleeding per rect TECHNIQUE: Imaging protocol: Computed tomography of the abdomen and pelvis without contrast. Radiation optimization: All CT scans at this facility use at least one of these dose optimization techniques: automated exposure control; mA and/or kV adjustment per patient size (includes targeted exams where dose is matched to clinical indication); or iterative reconstruction. Other protocol: This patient has received 2 known CTs and 0 known cardiac nuclear medicine studies in the 12 months prior to the current study. COMPARISON: CT ABDOMEN PELVIS W CON 06/23/2022 11:48 PM FINDINGS: Lungs: No acute finding. Diaphragm: A small hiatal hernia is present. Liver: Normal. No mass. Gallbladder and bile ducts: The gallbladder is absent. 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 Pancreas: The residual posterior pancreatic body and tail are unremarkable. Spleen: Normal. No splenomegaly. Adrenal glands: Left adrenal hyperplasia is again noted. Kidneys and ureters: There is mild right hydronephrosis new since the prior study. No definitive obstructing calculus is noted. There are multiple pelvic calcifications which appear to represent phleboliths. A definitive distal ureteral calculus is not noted. Calcification persists in the lower collecting system of the right kidney. The left kidney demonstrates no hydronephrosis or collecting system calcification. Stomach and bowel: There is extensive colonic diverticulosis without acute abnormality. There is evidence for right hemicolectomy with ileocolonic anastomosis in the right mid abdomen. Significant fecal content is noted throughout colon. The rectum is decompressed. Appendix: Absent. Intraperitoneal space: Unremarkable. No free air. No significant fluid collection. Vasculature: Calcific atherosclerotic disease without aneurysmal dilation of the aorta. Lymph nodes: Calcified mediastinal and hilar lymph nodes are noted. Urinary bladder: Unremarkable as visualized. Reproductive: The uterus is absent. Bones/joints: Unremarkable. No acute fracture. Soft tissues: Unremarkable. IMPRESSION: 1. New mild right hydronephrosis without definitive obstructing calculus. The findings may represent recently passed calculus. Follow-up renal ultrasound is recommended. 2. There is no acute bowel process. There is extensive colonic diverticulosis with significant fecal content throughout the colon. The rectum is decompressed. 3. Other stable findings as detailed.
[2022-07-10 22:11] LABS: NT Pro Brain Natriuretic Pep. 188 pg/mL (0-450)
--- NOTE | 2022-07-10 22:12 | PC.NURSE ---
s/w danna in radiology, pt's kidney function unable to tolerate IV contrast. Changed order to without contrast
--- NOTE | 2022-07-10 22:16 | PC.NURSE ---
Pt gone to RAD via stretcher
--- NOTE | 2022-07-10 22:23 | PC.NURSE ---
pt back from ct scan
--- NOTE | 2022-07-10 22:28 | PC.NURSE ---
Pt back from RAD
[2022-07-10 22:30] VITALS: BP 121/60; PULSE 65; RESP 11; O2SAT 99
--- NOTE | 2022-07-10 22:47 | HMH.EDGIBL ---
Discharge Plan Disposition Patient Disposition: Admitted As Inpatient Chief Complaint: GI Bleed Clinical Impressions Clinical Impression: Lower gastrointestinal hemorrhage, Acute kidney injury superimposed on CKD, Angioedema Discharge ED Provider: Clinton (ED)Alex GI Bleed HPI General Chief complaint: GI Bleed Stated complaint: Blood in Stool Time Seen by Provider: 07/10/22 22:00 Mode of Arrival: EMS Source of Information: Patient, EMS and Medical Record Limitations: No Limitations Description of Symptoms (Recalled from ER Triage Doc. by RN): Pt arrives via ems c c/o bright blood in stool approx 30 mins ago. Pt states it has only happened once, with the exception of one instance 3 weeks ago for which she saw her pcp and provided a stool sample. Pt reports that she has been constipated for the prior 3 days and unable to have a bm, has been taking miralax and metamucil for the constipation. This is the first bm she has had since the constipation has began. Does report nausea since this morning as well. Denies any blood thinner usage. History of Present Illness HPI Narrative: pt with episode of brrb no def abd pain - has hx of diverticulosis and has upper lip and tongue swelling also which started tonight complaint: gross hematochezia Onset (ago): hour(s) Consistency: intermittent Severity: moderate Context: history of GI bleed Associated symptoms: denies other symptoms Related Data Home Medications Medication Instructions Recorded Confirmed aspirin 81 mg tablet,delayed 81 mg PO DAILY HEART HEALTH 07/30/17 07/10/22 release (Adult Low Dose Aspirin) ferrous sulfate 325 mg (65 mg 325 mg PO BID Supplement 07/30/17 07/10/22 iron) tablet meclizine 25 mg chewable tablet 25 mg PO TID PRN Dizziness 07/30/17 07/10/22 glipizide 5 mg tablet, extended 10 mg PO AM Diabetes 01/21/19 07/10/22 release 24 hr ezetimibe 10 mg tablet 10 mg PO DAILY Cholesterol 09/16/20 07/10/22 acetaminophen 650 mg 650 mg PO TIDP PRN PAIN 05/09/21 07/10/22 tablet,extended release atenolol 25 mg tablet 50 mg PO DAILY bp 05/09/21 07/10/22 polyethylene glycol 3350 17 17 gm PO DAILY constipation 05/09/21 07/10/22 gram/dose oral powder psyllium husk 3.4 gram/5.4 gram 425 gm PO DAILY BOWELS 05/09/21 07/10/22 oral powder lisinopril 10 mg tablet 10 mg PO DAILY High blood pressure 06/14/22 07/10/22 atorvastatin 40 mg tablet 40 mg PO HS Cholesterol 07/10/22 07/10/22 diltiazem HCl 240 mg 240 mg PO DAILY a. fib 07/10/22 07/10/22 capsule,extended release 24 hr furosemide 20 mg tablet 20 mg PO BID Fluid 07/10/22 07/10/22 glipizide 5 mg tablet, extended 5 mg PO HS Diabetes 07/10/22 07/10/22 release 24 hr pantoprazole 40 mg tablet,delayed 40 mg PO DAILY GERD 07/10/22 07/10/22 release potassium chloride 10 mEq 10 meq PO DAILY Supplement 07/10/22 07/10/22 capsule,extended release ranolazine 1,000 mg 1,000 mg PO BID chronic angina 07/10/22 07/10/22 tablet,extended release,12 hr Previous Rx's Medication Instructions Recorded nitroglycerin 0.4 mg sublingual 0.4 mg sublingual DIRECTED PRN 01/21/19 tablet Chest Pain ##30 Allergies Allergy/AdvReac Type Severity Reaction Status Date / Time butorphanol [From STADOL] Allergy Mild I-HIVES Verified 06/14/22 10:36 codeine [CODEINE] Allergy Mild I-HIVES Verified 06/14/22 10:36 morphine [MORPHINE] Allergy Mild I-HIVES Verified 06/14/22 10:36 promethazine [From PHENERGAN] Allergy Mild I-HIVES Verified 06/14/22 10:36 [facility] Disclaimer: The information contained in this section may have been updated after the patient was seen, as this information can be updated by other users. Medical History (Updated 07/11/22 @ 00:33 by Alex Alonzo (VERÓNICA)MD) Chronic kidney disease, stage 3b Coronary artery disease History of GI bleed Surgical History (Updated 07/11/22 @ 00:16 by Norris Otto DNP) H/O esophagogastroduodenoscopy Social History (Reviewed 07/11/22 @ 00:16 by Norris
[2022-07-10 23:00] VITALS: BP 128/68; PULSE 65; RESP 15; O2SAT 98
--- NOTE | 2022-07-10 23:29 | PC.NURSE ---
Dr. Alonzo at BS speaking with pt
--- NOTE | 2022-07-10 23:45 | PC.NURSE ---
Dr. Alonzo s/w Norris Suresh hospitalist for admission, called tank house supervisor for bed assignment.
--- NOTE | 2022-07-11 | PC.NURSE ---
hospitalist at bedside
[2022-07-11 00:05] LABS: Coronavirus 19, PCR Not Detected (NotDetected); Influenza A, PCR Not Detected (NotDetected); Influenza B, PCR Not Detected (NotDetected)
[2022-07-11 00:07] LABS: Microscopic, Urine URINE MICROSCOPIC (MICROSCOPIC)
--- NOTE | 2022-07-11 00:11 | EXP.HP ---
History of Present Illness *Admission Date: 07/11/22 *Reason for visit:: Rectal Bleeding *History of present illness: Ms. Carrasco is a 86-year-old female who presented to the ER with complaints of rectal bleeding. She reports that she has been constipated and has not had a bowel movement for 3-days. She has been taking Metumucil and Miralax over the counter and was able to have a bowel movement this evening. She reports similar rectal bleeding around 3 weeks ago. In the ER the patient underwent a CT of the abdomen and pelvis that showed mild right hydroneprhosis and significant fecal content throughout the colon and diverticulosis. The patient has CKD and most recent creatinine has been in the 1.50 range. Current creatinine is 2.10. The patient will be admitted with initial impression: FREDO on CKD and Hematochezia. The patient will be given iv fluids, laxatives. Surgery will be consulted. The plan of care was discussed with the patient at bedside. She verbalized understanding and agreement with the plan of care. [facility] Disclaimer: The information contained in this section may have been updated after the patient was seen, as this information can be updated by other users. Medical History (Updated 07/11/22 @ 08:05 by Alcides Sagastume MD) Chronic kidney disease, stage 3b Congestive heart failure Coronary artery disease Diabetes mellitus, type 2 History of GI bleed Pneumonia Urinary tract infection Surgical History (Updated 07/11/22 @ 01:02 by Susy Ferrera RN) H/O esophagogastroduodenoscopy H/O mastectomy H/O: hysterectomy Family History (Updated 07/11/22 @ 01:02 by Susy Ferrera RN) Family history of hypertension Family history of diabetes mellitus type II Family history of myocardial infarction Family history of hyperlipidemia Social History (Updated 07/11/22 @ 01:02 by Susy Ferrera RN) Smoking Status: Never smoker second hand exposure: No alcohol intake: never substance use type: denies use current occupational status: disabled Travel in the last 8 weeks: Inside the [place] household members: none housing: apartment current occupational exposures/hazards: No caffeine: Yes Review of Systems Review of Systems Review of systems:: pertinent systems reviewed and negative unless documented below Constitutional Constitutional: Reports system reviewed and no additional complaints, except as documented Eyes Eyes: Reports system reviewed and no additional complaints, except as documented ENT Ears, Nose, Mouth, and Throat: Reports system reviewed and no additional complaints, except as documented *Cardiovascular Cardiovascular: Reports system reviewed and no additional complaints, except as documented *Respiratory Respiratory: Reports system reviewed and no additional complaints, except as documented *Gastrointestinal Gastrointestinal: Reports constipation and Reports hematochezia *Genitourinary Genitourinary: Reports system reviewed and no additional complaints, except as documented *Musculoskeletal Musculoskeletal: Reports system reviewed and no additional complaints, except as documented Integumentary/Breasts Skin/Breast: Reports system reviewed and no additional complaints, except as documented *Neurologic Neurologic: Reports system reviewed and no additional complaints, except as documented Psychiatric Psychiatric: Reports system reviewed and no additional complaints, except as documented Endocrine Endocrine: Reports system reviewed and no additional complaints, except as documented Hematologic/Lymphatic Hematologic/Lymphatic: Reports system reviewed and no additional complaints, except as documented Allergic/Immunologic Allergic/Immunologic: Reports system reviewed and no additional complaints, except as documented Meds Home Medications and Allergies Home Medications Medication Instructions Recorded Confirmed Type aspirin 81 mg tablet,delayed 81 mg PO DAILY HEAR
--- NOTE | 2022-07-11 00:13 | PC.NURSE ---
admission packet collected from front desk representative
[2022-07-11 00:15] VITALS: BP 128/68; PULSE 68; RESP 18; TEMP 36.6; O2SAT 99
--- NOTE | 2022-07-11 00:18 | PC.NURSE ---
Report called to Susy Santamaria RN
--- NOTE | 2022-07-11 00:23 | PC.NURSE ---
med/surg staff here to transport pt [facility] via wheelchair
[2022-07-11 00:24] LABS: Appearance,Urine CLEAR (Clear); Bilirubin,Urine Negative (Negative); Blood, Urine Negative (Negative); Color,Urine YELLOW (Yellow); Glucose,Urine (UA) Negative (Negative); Ketones,Urine Negative (Negative); Leukocyte Esterase,Urine Negative (Negative); Nitrate,Urine Negative (Negative); Protein,Urine Negative (Negative); Urobilinogen,Urine 0.2 EU/dl (0.2)
[2022-07-11 00:25] LABS: Squamous Epithelial Cell,Urine Occasional #/hpf (0-5); WBC,Urine Occasional #/hpf (0-3)
--- NOTE | 2022-07-11 00:32 | PC.NURSE ---
PT ARRIVED TO FLOOR AT THIS TIME
[2022-07-11 00:36] VITALS: BP 129/67; PULSE 67; RESP 16; TEMP 36.6; O2SAT 100
[2022-07-11 04:00] VITALS: BP 135/67; PULSE 67; RESP 16; TEMP 36.7; O2SAT 99; BMI 24.4
--- NOTE | 2022-07-11 04:47 | PC.NURSE ---
NO ACUTE CHANGES SINCE ARRIVING TO THE FLOOR. PT HAS RESTED INTERMITTENTLY. NO C/O PAIN THIS SHIFT. AMBULATING TO THE BATHROOM WITH X1 ASSIST. VSS. NO BM SINCE ARRIVING TO THE FLOOR. PT STATES IT HAS BEEN 4-5 DAYS SINCE HER LAST BM. BOWEL SOUNDS ACTIVE.
[2022-07-11 05:32] LABS: POC Glucose,Bedside 102 (70-110)
--- NOTE | 2022-07-11 06:22 | PC.NURSE ---
PT CALLED OUT TO USE THE RESTROOM. WHEN THIS RN CAME INTO THE ROOM PT STATED THAT SHE FELT FUNNY AND WANTED HER SUGAR CHECKED. FSBS WAS 92.
[2022-07-11 06:31] LABS: POC Glucose,Bedside 92 (70-110)
[2022-07-11 07:31] VITALS: BP 137/66; PULSE 61; RESP 15; TEMP 36.7; O2SAT 100
--- NOTE | 2022-07-11 07:59 | EXP.SURG.CON ---
History of Present Illness *Admission Date: 07/11/22 *Reason for visit:: Bright red blood per rectum *History of present illness: This is an 86-year-old female seen in consultation from the hospitalist service for evaluation regarding bright red blood per rectum. She presented to the emergency department with complaints of significant constipation and intermittent bright red blood per rectum. She does have a history of large gastric adenomatous polyp excised in 2020. She also underwent colonoscopy in September [address] Kian Lala. She was found to have some hemorrhoidal cushions, pandiverticulosis, and angiodysplasias of the right colon that were treated with argon plasma coagulation. Confirmation of fairly normal-appearing ileocolic anastomosis also made. Forwarded from admission H&P: Ms. Carrasco is a 86-year-old female who presented to the ER with complaints of rectal bleeding. She reports that she has been constipated and has not had a bowel movement for 3-days. She has been taking Metumucil and Miralax over the counter and was able to have a bowel movement this evening. She reports similar rectal bleeding around 3 weeks ago. In the ER the patient underwent a CT of the abdomen and pelvis that showed mild right hydroneprhosis and significant fecal content throughout the colon and diverticulosis. The patient has CKD and most recent creatinine has been in the 1.50 range. Current creatinine is 2.10. The patient will be admitted with initial impression: FREDO on CKD and Hematochezia. The patient will be given iv fluids, laxatives. Surgery will be consulted. The plan of care was discussed with the patient at bedside. She verbalized understanding and agreement with the plan of care. PFSH PFS Disclaimer: The information contained in this section may have been updated after the patient was seen, as this information can be updated by other users. Medical History (Updated 07/11/22 @ 08:05 by Alcides Sagastume MD) Chronic kidney disease, stage 3b Congestive heart failure Coronary artery disease Diabetes mellitus, type 2 History of GI bleed Pneumonia Urinary tract infection Surgical History (Updated 07/11/22 @ 01:02 by Susy Ferrera RN) H/O esophagogastroduodenoscopy H/O mastectomy H/O: hysterectomy Family History (Updated 07/11/22 @ 01:02 by Susy Ferrera RN) Family history of hypertension Family history of diabetes mellitus type II Family history of myocardial infarction Family history of hyperlipidemia Social History (Updated 07/11/22 @ 01:02 by Susy Ferrera RN) Smoking Status: Never smoker second hand exposure: No alcohol intake: never substance use type: denies use current occupational status: disabled Travel in the last 8 weeks: Inside the [place] household members: none housing: apartment current occupational exposures/hazards: No caffeine: Yes Review of Systems *Neurologic Neurologic: Reports system reviewed and no additional complaints, except as documented Meds Home Medications and Allergies Home Medications Medication Instructions Recorded Confirmed Type aspirin 81 mg tablet,delayed 81 mg PO DAILY HEART HEALTH 07/30/17 07/10/22 History release (Adult Low Dose Aspirin) ferrous sulfate 325 mg (65 mg 325 mg PO DAILY Supplement 07/30/17 07/11/22 History iron) tablet glipizide 5 mg tablet, extended 10 mg PO AM Diabetes 01/21/19 07/10/22 History release 24 hr nitroglycerin 0.4 mg sublingual 0.4 mg sublingual DIRECTED PRN 01/21/19 07/10/22 Rx tablet Chest Pain ##30 ezetimibe 10 mg tablet 10 mg PO DAILY Cholesterol 09/16/20 07/10/22 History acetaminophen 650 mg 650 mg PO TIDP PRN PAIN 05/09/21 07/10/22 History tablet,extended release polyethylene glycol 3350 17 17 gm PO DAILY constipation 05/09/21 07/10/22 History gram/dose oral powder psyllium husk 3.4
--- NOTE | 2022-07-11 08:02 | HMH.PHAINT1 ---
Pharmacy Intervention Comments: MEDICATION RECONCILIATION COMPLETED ON PATIENT USING EXTERNAL FILL HISTORY FROM PHARMACY. -ELAINE MARTINO, FRANSISCOD
[2022-07-11 09:16] LABS: POC Glucose,Bedside 99 (70-110)
--- NOTE | 2022-07-11 10:28 | US_ITS ---
FINAL REPORT TECHNIQUE: Ultrasound images of the kidneys and bladder were obtained. CLINICAL HISTORY: hydronephrosis FINDINGS: The right kidney measures 8.7 cm in length. It is normal in echogenicity. There is mild hydronephrosis. The left kidney measures 8.7 cm in length. It is normal in echogenicity. There is no hydronephrosis. There are tiny benign-appearing cysts in both kidneys. IMPRESSION: Mild right hydronephrosis. Reviewed, Interpreted and Dictated by Barrie Bustos MD Transcribed by Candis Encinas Authenticated and [facility]
--- NOTE | 2022-07-11 10:43 | HMH.PTEV ---
Physical Therapy Evaluation Rehab PT IP Evaluation Start: 07/11/22 09:41 Freq: ONCE Status: Active Protocol: Document 07/11/22 10:33 DIANELYS (Rec: 07/11/22 10:43 DIANELYS [id number]) Subjective/History History History 86 yowf adm to [facility] with FREDO and rectal bleeding. She reports she lives alone, no steps to enter the home, independent with all mobility and ADLs prior to adm. Subjective Subjective Pt with no c/o this am, agrees to mobility. Rehab PT IP Eval Objective Appearance Patient Behavior Appropriate Patient Orientation Person,Place,Time Difficulty following instructions none Speech Pattern Clear Ambulation Patient Able to Ambulate Yes Ambulation Observation IP General Gait Pattern Observation No Deviations/Normal Ambulation Distance (feet) 40 Ambulation Assistive Device None Ambulation Ability Independent Balance Ability to Arise Able, uses arms to help Sitting Balance Steady, safe Standing Balance Steady, wide stance Dynamic Sitting Balance Ability Good Dynamic Standing Balance Ability Good Transfers Bed Transfer Ability Independent Chair Transfer Ability Independent Sit to Stand Bed Transfer Ability Independent Sit to Stand Chair Transfer Ability Independent Rehab PT IP prob,goals,plan Problems Date of Evaluation: 07/11/22 Discharge Plan PT Discharge Plan Pt is currently at baseline for all mobility and is appropriate to return home once medically stable. G -code Required No Eval Complexity Eval Charge Codes 32927 - Moderate Complexity PHYSICIAN CERTIFICATION: I certify the specified therapy services for Cherelle Carrasco are required, authorized, and reviewed every 30 days.
[2022-07-11 11:47] LABS: POC Glucose,Bedside 199 (70-110)
[2022-07-11 12:08] VITALS: BMI 24.4
--- NOTE | 2022-07-11 13:29 | HMH.OTEV ---
OT Inpatient Evaluation Rehab OT IP Evaluation Start: 07/11/22 09:41 Freq: ONCE Status: Active Protocol: Document 07/11/22 13:19 SUZANNE (Rec: 07/11/22 13:[id number] Rehab OT IP Assessment Subjective History Pt is oriented x3 person, place, and . Pt was agreeable to engage in therapy evaluation. Pt was admitted to [facility] on 07/11/22 due to Rectal Bleeding. Pt reports that she was independent in all ADL and IADLs tasks. Pt reports that she lives alone and completes all cleaning and cooking tasks independently. She reports that she has a cane at home if needed for functional mobility. Pt reports that she is no longer able to drive, but has a friend drive her to the grocery store to complete grocery shopping. Pt has a past medical history of the following: Chronic kidney disease, stage 3b Coronary artery disease History of GI bleed Subjective I don't feel that good. Objective Patient Orientation Person,Place,Birthday Upper Extremity Gross ROM WFL Bed Mobility bed mobility-scooting,bed mobility - supine/sit Assist Level Independent Transfer Training Sit/Stand Transfer Assist Level Independent Lower Body Dressing Ability Independent Overall Commode/Toilet Transfer Ability Standby Assistance decrease in endurance Yes Rehab OT IP prob,goals,plan Problems Date of Evaluation: 07/11/22 Rehab Potential Rehab Potential Innapropriate for Skilled Therapy Discharge Plan OT Discharge Plan Pt is currenty at her baseline and independent in all of her ADL and IADL. Pt is safe to return home once medically stable per physician. Eval Complexity Eval Charge Codes 95778 - Moderate Complexity G Codes G -code Required No PHYSICIAN CERTIFICATION: I certify the specified
[2022-07-11 15:17] VITALS: BP 137/62; PULSE 58; RESP 16; TEMP 36.7; O2SAT 100
[2022-07-11 17:19] LABS: POC Glucose,Bedside 281 (70-110)
[2022-07-11 19:21] LABS: Anion Gap 9.2 mEq/L (5-15); Blood Urea Nitrogen 27 mg/dl (7-17); Calcium 9.6 mg/dl (8.4-10.2); Carbon Dioxide 27 mmol/L (22.0-30.0); Chloride 104 mmol/L (98-107); Creatinine Clearance Estimated 33 mL/min (50-200); Estimated Glomerular Filt Rate 29 ml/min (>60); GFR (African American) 35 ML/MIN (>60); Glucose 241 mg/dl (74-100); Potassium 4.2 mmoL/L (3.5-5.1); Sodium 136 mmol/L (136-145)
[2022-07-11 20:46] LABS: POC Glucose,Bedside 173 (70-110)
[2022-07-12] VITALS: BP 123/70; PULSE 60; RESP 16; TEMP 37; O2SAT 96
[2022-07-12 03:39] LABS: POC Glucose,Bedside 86 (70-110)
[2022-07-12 04:00] VITALS: BP 139/72; PULSE 60; RESP 18; TEMP 37.1; O2SAT 100; BMI 24.3
[2022-07-12 05:53] LABS: POC Glucose,Bedside 123 (70-110)
[2022-07-12 06:43] LABS: Basophils % 0.5 % (0.1-2.0); Eosinophils # 0.1 K/mm3 (0.0-0.4); Eosinophils % 1.1 % (0.1-12.0); Hematocrit 34.4 % (37.0-47.0); Hemoglobin 11.3 g/dL (12.2-16.2); Lymphocytes # 2.2 K/mm3 (0.7-4.5); Lymphocytes % 25.2 % (10-50); Mean Corpuscular Hemoglobin 28.9 pg (27.0-31.2); Mean Corpuscular Volume 87.7 fl (81-99); Mean Platelet Volume 7.8 fl (7.4-10.4); Monocytes # 0.6 K/mm3 (0.1-1.0); Monocytes % 6.3 % (1.7-9.3); Neutrophils # 5.8 K/mm3 (1.8-7.8); Platelet Count 280 K/mm3 (142-424); Red Blood Count 3.92 M/mm3 (4.20-5.40); Red Cell Distribution Width 14.4 % (11.5-17.5); White Blood Count 8.7 K/mm3 (4.8-10.8)
--- NOTE | 2022-07-12 06:46 | PC.NURSE ---
NO ACUTE CHANGES SINCE PREVIOUS ASSESSMENT. PT HAS RESTED WELL WAS ABLE TO HAVE 2-3 BM'S THIS SHIFT. PT STATES THE FEELS MUCH BETTER. BOWEL SOUNDS ACTIVE. VSS.
--- NOTE | 2022-07-12 06:49 | EXP.SURG.PN ---
Subjective Narrative: She says she feels a little bit better . She states that her bowels are starting to move a little bit with all the medicine . Exam Data for Last 24 hours Vital signs and Labs for Last 24 Hours: Temp Pulse Resp BP Pulse Ox 98.7 F 60 18 139/72 100 07/12/22 04:00 07/12/22 04:00 07/12/22 04:00 07/12/22 04:00 07/12/22 04:00 Laboratory Results - last 24 hr 07/11/22 08:42: POC Glucose 99 07/11/22 11:24: POC Glucose 199 H 07/11/22 17:10: POC Glucose 281 H 07/11/22 18:49: Sodium 136, Potassium 4.2, Chloride 104, Carbon Dioxide 27, Anion Gap 9.2, BUN 27 H D, Creatinine 1.70 H, Estimated Creat Clear 33, Estimated GFR 29 L, Est GFR ( Amer) 35 L D, Glucose 241 H D, Calcium 9.6 07/11/22 20:38: POC Glucose 173 H 07/12/22 03:24: POC Glucose 86 07/12/22 05:45: POC Glucose 123 H 07/12/22 06:06: WBC 8.7, RBC 3.92 L, Hgb 11.3 L, Hct 34.4 L, MCV 87.7, MCH 28.9, MCHC 33.0, RDW 14.4, Plt Count 280, MPV 7.8, Neut % (Auto) 67.0, Lymph % (Auto) 25.2, Dauphin % (Auto) 6.3, Eos % (Auto) 1.1, Baso % (Auto) 0.5, Neut # (Auto) 5.8, Lymph # (Auto) 2.2, Dauphin # (Auto) 0.6, Eos # (Auto) 0.1, Baso # (Auto) 0.0 I & O for Last 24 hours: Intake & Output 07/09/22 07/10/22 07/11/22 07/12/22 11:59 11:59 11:59 11:59 Intake Total 1220 / 1220 Output Total 350 / 350 200 / 200 Balance -350 / -350 1020 / 1020 Weight 184 lb 9 oz 184 lb Constitutional Constitutional: no acute distress *Routine Respiratory Exam Respiratory: Absent respiratory distress *Routine Cardiovascular Exam Cardiovascular: Absent tachycardia *Routine Abdominal Exam Abdominal: Present soft Progress Note: A&P Assessment and plan (1) Hematochezia: Status: Acute Assessment and plan: Seemingly improving. Morning hemoglobin 11.3 (12.0 on admission) (2) Constipation: Status: Acute Assessment and plan: Improving with current regimen (3) Angiodysplasia of colon: Status: Acute Assessment and plan: Although current bleeding is more consistent with constipation-induced hemorrhoidal bleeding or possibly diverticular bleeding, the possibility of persistent sanguinous ooze from AVMs remains. Consider outpatient colonoscopy near future to reevaluate and possibly treat with repeat argon plasma coagulation. (4) Gastric adenoma: Status: Acute Assessment and plan: No definitive evidence of persistent adenoma noted on most recent EGD. Consider repeat EGD in near future (possibly combined with colonoscopy).
[2022-07-12 06:50] LABS: Potassium 4.1 mmoL/L (3.5-5.1); Sodium 138 mmol/L (136-145)
[2022-07-12 06:52] LABS: Alanine Aminotransferase 14 U/L (12-78); Aspartate Amino Transferase 25 U/L (14-36); Blood Urea Nitrogen 23 mg/dl (7-17); Creatinine Clearance Estimated 34 mL/min (50-200); Estimated Glomerular Filt Rate 31 ml/min (>60); GFR (African American) 37 ML/MIN (>60)
[2022-07-12 06:53] LABS: Albumin Level 3.1 g/dl (3.5-5.0); Albumin/Globulin Ratio 1.3 (1.1-1.8); Alkaline Phosphatase 85 U/L (38-126); Bilirubin,Total 0.8 mg/dl (0.2-1.3); Calcium 9.6 mg/dl (8.4-10.2); Carbon Dioxide 25 mmol/L (22.0-30.0); Globulin 2.4 g/dL (1.3-3.2); Glucose 117 mg/dl (74-100); Total Protein,Serum 5.5 g/dl (6.3-8.2)
[2022-07-12 07:04] LABS: Anion Gap 9.1 mEq/L (5-15); Chloride 108 mmol/L (98-107)
[2022-07-12 07:28] VITALS: BP 112/48; PULSE 63; TEMP 36.7; O2SAT 100
--- NOTE | 2022-07-12 07:53 | EXP.DC.SUM ---
General Admission date:: 07/11/22 Discharge date: 07/12/22 HPI HPI HPI: Ms. Carrasco is a 86-year-old female who presented to the ER with complaints of rectal bleeding. She reports that she has been constipated and has not had a bowel movement for 3-days. She has been taking Metumucil and Miralax over the counter and was able to have a bowel movement this evening. She reports similar rectal bleeding around 3 weeks ago. In the ER the patient underwent a CT of the abdomen and pelvis that showed mild right hydroneprhosis and significant fecal content throughout the colon and diverticulosis. The patient has CKD and most recent creatinine has been in the 1.50 range. Current creatinine is 2.10. The patient will be admitted with initial impression: FREDO on CKD and Hematochezia. The patient will be given iv fluids, laxatives. Surgery will be consulted. The plan of care was discussed with the patient at bedside. She verbalized understanding and agreement with the plan of care. She does have a history of large gastric adenomatous polyp excised in 2020. She also underwent colonoscopy in September [address] Kian Lala. She was found to have some hemorrhoidal cushions, pandiverticulosis, and angiodysplasias of the right colon that were treated with argon plasma coagulation. Confirmation of fairly normal-appearing ileocolic anastomosis also made. Hospital Course Hospital Course Hospital Course: 86-year-old female with past medical history of Adenomatous Polyps of the stomach, CKD stage IIIb, DM, HTN presents due to rectal bleeding associated with constipation - FREDO on CKD Patient with history of CKD stage IIIb. Most recent creatinine baseline 1.5. Creatinine was 2.1 on admission. Gentle fluid rehydration provided, improved by day of discharge to 1.6. Recommend decreasing her Lasix to once daily. Continue p.o. fluids. Adequate urine output. - Hematochezia Had small hard bowel movement prior to presentation that was followed by blood in toilet. Surgery was consulted, patient recently had work-up with scope 2 years ago. Please see their notes for full details. Noted to have diverticulosis, hemorrhoids, AVMs that were addressed with argon during scope. No indication for scope at this time. Hemoglobin remained stable. Patient noted to have constipation, treated with oral and enema therapy. Had multiple bowel movements before discharge with improvement in belly pain. No further blood. Noted to have fissure and hemorrhoids on exam. This is likely her source for bleeding. Recommend follow-up with surgery as an outpatient to discuss repeat elective colonoscopy. Patient remained hemodynamically stable. Recommend Preparation H with hydrocortisone at discharge to help fissure heal. Discharged on aggressive bowel regimen with MiraLAX daily in the morning and docusate/senna every night. Goal of 1-2 soft stools daily. - Diabetes: Resumed oral medication at discharge. Treated with sliding scale during admission - Hypertension: Continued home Cardizem 240 mg po q day, atenolol 50 mg po q day, Lisinopril 10 mg po q day - CAD: Continue Statin, Beta Dalia, COSME Patient's symptoms improved. Treated as above. Stable for discharge home. Exam Data for Last 24 hours Vital signs and Labs for Last 24 Hours: Temp Pulse Resp BP Pulse Ox 98.0 F 63 18 112/48 L 100 07/12/22 07:28 07/12/22 07:28 07/12/22 04:00 07/12/22 07:28 07/12/22 07:28 Laboratory Results - last 24 hr 07/11/22 08:42: POC Glucose 99 07/11/22 11:24: POC Glucose 199 H 07/11/22 17:10: POC Glucose 281 H 07/11/22 18:49: Sodium 136, Potassium 4.2, Chloride 104, Carbon Dioxide 27, Anion Gap 9.2, BUN 27 H D, Creatinine 1.70 H, Estimated Creat Clear 33, Estimated GFR 29 L, Est GFR ( Amer) 35 L D, Glucose 241 H D, Calcium 9.6 07/11/22 20:38: POC Glucose 173 H 07/12/22 03:24: POC Glucose 86 07/12/22 05:45: POC Glucose 123 H 07/12/22 06:06: WBC 8.7, RBC 3.92 L
--- NOTE | 2022-07-12 09:52 | HMH.PHAINT1 ---
Pharmacy Intervention Comments: Discussed discharge medication list with patient. Patient verbalized understanding and had no questions at this time
== END 2022-07-12 10:20 | disposition home or self-care (01) ==
LOC: ER 22:43 → 2ND 07-11
PROVIDERS: Internal Medicine Adolescent Medicine; Admitting Provider Family Medicine; Emergency Provider Emergency Medicine; PCP Family Medicine; Visit Provider Family Medicine
DX: K92.1 Melena (principal)
CPT/HCPCS: 36415; 74176; 76770; 80048; 80053; 81001; 82272; 82962; 83735; 83880; 85025; 97162; 97166; 99285; C9803; G0328; G0378; U0003; U0005

== ENCOUNTER 2022-07-13 | Observation (INO) | payer MEDICARE, BC, SELFPAY ==
[2022-07-13] VITALS (25 sets, daily range): BP systolic 130–162; BP diastolic 58–84; PULSE 65–83; RESP 16–22; TEMP 36.4–36.9; O2SAT 94–100; BMI 23.5; BMI 23.1
--- NOTE | 2022-07-13 00:23 | ECG_ITS ---
APPROVED REPORT Exam: Resting ECG HR:64 bpm ECG Measurements Heart Rate 64 AXES AR 172 P 60 QRSd 182 QRS -59 QT 480 T 46 QTc 490 Conclusion SINUS RHYTHM RIGHT BUNDLE BRANCH BLOCK [120+ ms QRS DURATION, UPRIGHT V1, 40+ ms S IN I/aVL/V4/V5/V6] LEFT ANTERIOR FASCICULAR BLOCK [QRS AXIS <= -45, QR IN I, RS IN II] PROBABLE SEPTAL MYOCARDIAL INFARCTION , OF INDETERMINATE AGE [35 ms Q WAVE IN V1/V2] ABNORMAL ECG UNCONFIRMED REPORT Electronically signed by : Gucci Benavidez MD 07/13/2022 08:00:16
--- NOTE | 2022-07-13 00:32 | XR_ITS ---
PROCEDURE INFORMATION: Exam: XR Chest Exam date and time: 07/13/2022 1:27 AM Age: 86 years old Clinical indication: Other: Chest congestion TECHNIQUE: Imaging protocol: Radiologic exam of the chest. Views: 1 view. COMPARISON: CR XR CHEST PORTABLE 06/25/2022 2:47 PM FINDINGS: Lungs: Mild hypoinflation of the lungs. Minimal bibasilar atelectasis. Pleural spaces: Unremarkable. No pleural effusion. No pneumothorax. Heart/Mediastinum: Stable heart size. Bones/joints: Stable bones. IMPRESSION: Minimal bibasilar atelectasis. No focal pneumonia.
--- NOTE | 2022-07-13 00:32 | CT_ITS ---
PROCEDURE INFORMATION: Exam: CT Head Without Contrast Exam date and time: 07/13/2022 1:02 AM Age: 86 years old Clinical indication: Altered mental status/memory loss; Additional info: Mental status differs from baseline TECHNIQUE: Imaging protocol: Computed tomography of the head without contrast. Radiation optimization: All CT scans at this facility use at least one of these dose optimization techniques: automated exposure control; mA and/or kV adjustment per patient size (includes targeted exams where dose is matched to clinical indication); or iterative reconstruction. Other protocol: This patient has received 3 known CTs and 0 known cardiac nuclear medicine studies in the 12 months prior to the current study. COMPARISON: No relevant prior studies available. FINDINGS: Brain: No acute infarct. No hemorrhage. Involutional changes of the brain, commensurate with age. No mass effect. Cerebral ventricles: No ventriculomegaly. Paranasal sinuses: Visualized sinuses are unremarkable. No fluid levels. Mastoid air cells: Visualized mastoid air cells are well aerated. Orbital cavities: Bilateral lens replacements. Bones/joints: Unremarkable. No acute fracture. Soft tissues: Unremarkable. Other findings: Study degraded by motion. IMPRESSION: 1. No acute intracranial abnormality. 2. Motion degraded study.
[2022-07-13 00:40] LABS: Basophils # 0.1 K/mm3 (0-0.2); Basophils % 0.7 % (0.1-2.0); Eosinophils # 0.1 K/mm3 (0.0-0.4); Eosinophils % 0.9 % (0.1-12.0); Hematocrit 37.3 % (37.0-47.0); Lymphocytes # 1.6 K/mm3 (0.7-4.5); Lymphocytes % 15.2 % (10-50); Mean Corpuscular HGB Conc 33.4 g/dL (31.8-35.4); Mean Corpuscular Hemoglobin 29.8 pg (27.0-31.2); Mean Corpuscular Volume 89.3 fl (81-99); Mean Platelet Volume 7.9 fl (7.4-10.4); Monocytes # 0.5 K/mm3 (0.1-1.0); Neutrophils # 8.3 K/mm3 (1.8-7.8); Neutrophils % 78.1 % (37.0-80.0); Platelet Count 304 K/mm3 (142-424); Red Blood Count 4.17 M/mm3 (4.20-5.40); Red Cell Distribution Width 14.5 % (11.5-17.5); White Blood Count 10.7 K/mm3 (4.8-10.8)
--- NOTE | 2022-07-13 00:41 | PC.NURSE ---
RT at BS to deep suction pt
[2022-07-13 00:47] LABS: Alanine Aminotransferase 20 U/L (12-78); Albumin Level 4.1 g/dl (3.5-5.0); Albumin/Globulin Ratio 1.6 (1.1-1.8); Alkaline Phosphatase 153 U/L (38-126); Anion Gap 11.9 mEq/L (5-15); Aspartate Amino Transferase 31 U/L (14-36); Bilirubin,Total 0.6 mg/dl (0.2-1.3); Blood Urea Nitrogen 28 mg/dl (7-17); Calcium 10.2 mg/dl (8.4-10.2); Carbon Dioxide 26 mmol/L (22.0-30.0); Chloride 103 mmol/L (98-107); Creatinine Clearance Estimated 30 mL/min (50-200); Estimated Glomerular Filt Rate 27 ml/min (>60); GFR (African American) 32 ML/MIN (>60); Globulin 2.6 g/dL (1.3-3.2); Glucose 341 mg/dl (74-100); Potassium 4.9 mmoL/L (3.5-5.1); Sodium 136 mmol/L (136-145); Total Protein,Serum 6.7 g/dl (6.3-8.2)
[2022-07-13 00:48] LABS: Lactic Acid 1.5 mmol/L (0.7-2.1)
[2022-07-13 00:52] LABS: C-Reactive Protein 0.7 mg/L (0-4)
[2022-07-13 01:01] LABS: Hemoglobin 12.4 g/dL (12.2-16.2)
[2022-07-13 01:08] LABS: Procalcitonin 0.084 ng/mL (0.0-2.0)
[2022-07-13 01:10] LABS: Troponin I < 0.01 ng/ml (0.00-0.034)
[2022-07-13 01:13] LABS: Acetone, Serum (Rapid) None Detected (None Detect)
--- NOTE | 2022-07-13 01:19 | HMH.EDWEAK ---
Discharge Plan Disposition Patient Disposition: Admitted as Observation Chief Complaint: Weakness Clinical Impressions Clinical Impression: Acute alteration in mental status, Angioedema, RBBB with left anterior fascicular block, CKD (chronic kidney disease) Discharge ED Provider: Clinton (ED),Alex Jennings Weakness HPI General Chief complaint: Weakness Stated complaint: short of air Time Seen by Provider: 07/13/22 01:00 Mode of Arrival: EMS Source of Information: Patient and Medical Record Limitations: No Limitations Description of Symptoms (Recalled from ER Triage Doc. by RN): pt c/o weakness, high blood pressure and swollen tongue. pt has also started spitting up mucus. 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 Complaint: generalized weakness Onset (ago): hour(s) Location: generalized Migration: none Severity: severe Related Data Home Medications Medication Instructions Recorded Confirmed aspirin 81 mg tablet,delayed 81 mg PO DAILY HEART HEALTH 07/30/17 07/12/22 release (Adult Low Dose Aspirin) ferrous sulfate 325 mg (65 mg 325 mg PO DAILY Supplement 07/30/17 07/12/22 iron) tablet glipizide 5 mg tablet, extended 10 mg PO AM Diabetes 01/21/19 07/12/22 release 24 hr ezetimibe 10 mg tablet 10 mg PO DAILY Cholesterol 09/16/20 07/12/22 acetaminophen 650 mg 650 mg PO TIDP PRN PAIN 05/09/21 07/12/22 tablet,extended release polyethylene glycol 3350 17 17 gm PO DAILY constipation 05/09/21 07/12/22 gram/dose oral powder psyllium husk 3.4 gram/5.4 gram 425 gm PO DAILY CONSTIPATION 05/09/21 07/12/22 oral powder lisinopril 10 mg tablet 10 mg PO DAILY Hypertension 06/14/22 07/12/22 atorvastatin 40 mg tablet 40 mg PO HS Cholesterol 07/10/22 07/12/22 diltiazem HCl 240 mg 240 mg PO DAILY HEART RATE 07/10/22 07/12/22 capsule,extended release 24 hr glipizide 5 mg tablet, extended 5 mg PO HS Diabetes 07/10/22 07/12/22 release 24 hr pantoprazole 40 mg tablet,delayed 40 mg PO DAILY GERD 07/10/22 07/12/22 release potassium chloride 10 mEq 10 meq PO DAILY Supplement 07/10/22 07/12/22 capsule,extended release ranolazine 1,000 mg 1,000 mg PO BID chronic angina 07/10/22 07/12/22 tablet,extended release,12 hr atenolol 50 mg tablet 25 mg PO DAILY Hypertension 07/11/22 07/12/22 Previous Rx's Medication Instructions Recorded nitroglycerin 0.4 mg sublingual 0.4 mg sublingual DIRECTED PRN 01/21/19 tablet Chest Pain ##30 furosemide 20 mg tablet 20 mg PO DAILY Fluid 30 days #30 07/12/22 tabs hydrocortisone 1 % topical cream 1 applic topical TID PRN skin 07/12/22 (Preparation H Hydrocortisone) irritation 10 days #28.35 grams sennosides 8.6 mg-docusate sodium 1 tab PO DAILY 30 days #30 tabs 07/12/22 50 mg tablet (Stool Softener-Stimulant Laxative) Allergies Allergy/AdvReac Type Severity Reaction Status Date / Time butorphanol [From STADOL] Allergy Mild I-HIVES Verified 07/12/22 10:26 codeine [CODEINE] Allergy Mild I-HIVES Verified 07/12/22 10:26 morphine [MORPHINE] Allergy Mild I-HIVES Verified 07/12/22 10:26 promethazine [From PHENERGAN] Allergy Mild I-HIVES Verified 07/12/22 10:26 PFSH PFS Disclaimer: The information contained in this section may have been updated after the patient was seen, as this information can be updated by other users. Medical History Chronic kidney disease, stage 3b Congestive heart failure Coronary artery disease Diabetes mellitus, type 2 History of GI bleed Pneumonia RBBB with left anterior fascicular block Urinary tract infection Surgical History H/O esophagogastroduodenoscopy H/O mastectomy H/O: hysterectomy Family History (Reviewed 07/13/22 @ 04
[2022-07-13 01:23] LABS: Microscopic, Urine URINE MICROSCOPIC (MICROSCOPIC)
[2022-07-13 01:25] LABS: Appearance,Urine CLEAR (Clear); Bilirubin,Urine Negative (Negative); Blood, Urine 1+ (Negative); Color,Urine YELLOW (Yellow); Glucose,Urine (UA) 3+ (Negative); Ketones,Urine Negative (Negative); Leukocyte Esterase,Urine Negative (Negative); Nitrate,Urine Negative (Negative); PH,Urine 6.5 (5.0-8.5); Protein,Urine Negative (Negative); Specific Gravity, Urine 1.015 (1.005-1.030); Urobilinogen,Urine 0.2 EU/dl (0.2)
[2022-07-13 01:46] LABS: Erythrocyte Sedimentation Rate 18 mm/hr (0-30)
--- NOTE | 2022-07-13 01:49 | PC.NURSE ---
Pt vomited on sheet. Sheets and gown changed. Pt repositioned in bed for comfort.
--- NOTE | 2022-07-13 02:02 | PC.NURSE ---
Pt vomiting. RN notified.
--- NOTE | 2022-07-13 02:21 | PC.NURSE ---
DR. Alonzo at
--- NOTE | 2022-07-13 04:04 | PC.NURSE ---
Pt resting with eyes closed.
--- NOTE | 2022-07-13 04:22 | EXP.HP ---
History of Present Illness *Admission Date: 07/13/22 *Reason for visit:: Neurological deficits *History of present illness: Ms. Carrasco is a 86-year-old female who was brought into the facility due to change in neurologic status. She was last seen normal at approximately 7 p.m. that evening. Per son at bedside the patient was just discharged from the facility earlier in the day and went to see Cardiology and was normal. He reports that upon returning to see her at approximately 11:30 pm that she was unable to speak, walk or move her extremities. She was brought into the ER for evaluation. In the ER, the patient had a CT of the head that showed no acute intracranial abnormalities. CXray shows no acute cardiopulmonary findings. EKG showed a RBBB, Troponin was <0.01. On exam, the patient is unable to talk, she is unable to move her right upper or lower extremity. She has copious amounts of sputum coming from her mouth. She will be admitted with initial impression: Focal Neurological deficits (expressive aphasia and right sided hemiparesis). MRI of the head will be ordered for the am. Speech will be consulted to see. She will be placed on empirical antibiotics to cover for aspiration. The plan of care was discussed with the son at bedside. He verbalized understanding and agreement with the plan of care. [facility] Disclaimer: The information contained in this section may have been updated after the patient was seen, as this information can be updated by other users. Medical History Chronic kidney disease, stage 3b Congestive heart failure Coronary artery disease Diabetes mellitus, type 2 History of GI bleed Pneumonia RBBB with left anterior fascicular block Urinary tract infection Surgical History H/O esophagogastroduodenoscopy H/O mastectomy H/O: hysterectomy Family History Other Family history of diabetes mellitus type II Family history of hyperlipidemia Family history of hypertension Family history of myocardial infarction Social History (Updated 07/13/22 @ 10:49 by Danny Finch RN) Smoking Status: Never smoker second hand exposure: No alcohol intake: never substance use type: denies use current occupational status: disabled Travel in the last 8 weeks: Inside the [place] household members: none housing: apartment current occupational exposures/hazards: No caffeine: Yes Review of Systems Review of Systems Review of systems:: unable to obtain Meds Home Medications and Allergies Home Medications Medication Instructions Recorded Confirmed Type aspirin 81 mg tablet,delayed 81 mg PO DAILY heart health 07/30/17 07/13/22 History release (Adult Low Dose Aspirin) ferrous sulfate 325 mg (65 mg 325 mg PO DAILY iron supplement 07/30/17 07/13/22 History iron) tablet glipizide 5 mg tablet, extended 10 mg PO AM Diabetes 01/21/19 07/13/22 History release 24 hr nitroglycerin 0.4 mg sublingual 0.4 mg sublingual DIRECTED PRN 01/21/19 07/13/22 Rx tablet Chest Pain ##30 ezetimibe 10 mg tablet 10 mg PO DAILY Cholesterol 09/16/20 07/13/22 History acetaminophen 650 mg 650 mg PO TIDP PRN PAIN 05/09/21 07/13/22 History tablet,extended release polyethylene glycol 3350 17 17 gm PO DAILY constipation 05/09/21 07/13/22 History gram/dose oral powder psyllium husk 3.4 gram/5.4 gram 425 gm PO DAILY CONSTIPATION 05/09/21 07/13/22 History oral powder lisinopril 10 mg tablet 10 mg PO DAILY Hypertension 06/14/22 07/13/22 History atorvastatin 40 mg tablet 40 mg PO HS Cholesterol 07/10/22 07/13/22 History diltiazem HCl 240 mg 240 mg PO DAILY heart rate 07/10/22 07/13/22 History capsule,extended release 24 hr glipizide 5 mg tablet, extended 5 mg PO HS Diabetes 07/10/22 07/13/22 History release 24 hr pantoprazole
[2022-07-13 04:40] LABS: Coronavirus 19, PCR Not Detected (NotDetected); Influenza A, PCR Not Detected (NotDetected); Influenza B, PCR Not Detected (NotDetected)
[2022-07-13 04:50] LABS: POC Glucose,Bedside 314 (70-110)
[2022-07-13 05:42] LABS: Troponin I < 0.01 ng/ml (0.00-0.034)
--- NOTE | 2022-07-13 06:08 | PC.NURSE ---
Pt provided with ice water per request
--- NOTE | 2022-07-13 06:48 | PC.NURSE ---
LAB at to obtain blood
[2022-07-13 07:31] LABS: Troponin I < 0.01 ng/ml (0.00-0.034)
--- NOTE | 2022-07-13 09:18 | HMH.PHAINT1 ---
Pharmacy Intervention Comments: home medication list verified using discharge list from previous hospital stay (discharged 07/12/22)
--- NOTE | 2022-07-13 09:39 | PC.NURSE ---
pt requesting her morning medications. spoke with hospitalist who states he wanted a bedside swallow eval for pt before morning meds were ordered. pt tolerated water and applesauce with no difficulty.
--- NOTE | 2022-07-13 09:46 | EXP.PN ---
Subjective *Date: 07/13/22 *Time: 16:13 Interval history: Date of service February 10, 2023 The patient is accompanied by her son David yepez who assists with the history. She lives alone and was recently hospitalized, got discharged and started experiencing some confusion, word finding and speech difficulties so she returned to the ED for evaluation. She is a diabetic and is currently on glipizide for her advanced age. She was evaluated in the ED and a CT of the head identified no acute changes. Linnea FRAUSTO reports that she remains afebrile with stable vital signs and saturating appropriately on room air. Her initial NIH in the ED was reported at 4 and currently is 0. MRI of the brain is pending. We have reviewed and discussed her laboratory results including a CBC with normal white blood cell count and stable hemoglobin 12.4. Her electrolytes are normal with a BUN of 28 and creatinine 1.8 (baseline 1.3). Her glucose levels are uncontrolled with glucose over 300. Exam Data for Last 24 hours Vital signs and Labs for Last 24 Hours: Pulse Resp BP Pulse Ox 70 16 142/70 H 97 07/13/22 08:00 07/13/22 00:00 07/13/22 08:00 07/13/22 08:00 Laboratory Results - last 24 hr 07/13/22 00:21: WBC 10.7, RBC 4.17 L, Hgb 12.4, Hct 37.3, MCV 89.3, MCH 29.8, MCHC 33.4, RDW 14.5, Plt Count 304, MPV 7.9, Neut % (Auto) 78.1, Lymph % (Auto) 15.2, [place] % (Auto) 5.0, Eos % (Auto) 0.9, Baso % (Auto) 0.7, Neut # (Auto) 8.3 H, Lymph # (Auto) 1.6, [place] # (Auto) 0.5, Eos # (Auto) 0.1, Baso # (Auto) 0.1, ESR 18 07/13/22 00:21: Sodium 136, Potassium 4.9, Chloride 103, Carbon Dioxide 26, Anion Gap 11.9, BUN 28 H, Creatinine 1.80 H, Estimated Creat Clear 30, Estimated GFR 27 L, Est GFR ( Amer) 32 L, Glucose 341 H D, Calcium 10.2, Total Bilirubin 0.6, AST 31, ALT 20 D, Alkaline Phosphatase 153 H, Troponin I < 0.01, C-Reactive Protein 0.7, Total Protein 6.7, Albumin 4.1 D, Globulin 2.6, Albumin/Globulin Ratio 1.6, Procalcitonin 0.084 07/13/22 00:21: Lactate 1.5 07/13/22 00:21: Acetone Level None detected 07/13/22 01:16: Urine Color Yellow, Urine Appearance Clear, Urine pH 6.5, Ur Specific [place] 1.015, Urine Protein Negative, Urine Glucose (UA) 3+, Urine Ketones Negative, Urine Blood 1+, Urine Nitrate Negative, Urine Bilirubin Negative, Urine Urobilinogen 0.2, Ur Leukocyte Esterase Negative, Urine RBC 10-20 07/13/22 03:58: SARS-CoV-2 (PCR) Not detected, Influenza A Untype (PCR) Not detected, Influenza Type B (PCR) Not detected 07/13/22 04:36: Troponin I < 0.01 07/13/22 04:43: POC Glucose 314 H* 07/13/22 06:48: Troponin I < 0.01 I & O for Last 24 hours: Intake & Output 07/10/22 07/11/22 07/12/22 07/13/22 23:59 23:59 23:59 23:59 Weight 80.739 kg Constitutional Constitutional: no acute distress and cooperative *Routine HEENT Exam Head: Present normocephalic Eye: Present EOMI and PERRL ENT: Present mucous membranes moist *Routine Neck Exam Neck: Present supple and trachea midline; Absent lymphadenopathy *Routine Respiratory Exam Respiratory: Present CTA bilaterally, normal respiratory effort and symmetric chest movement *Routine Cardiovascular Exam Cardiovascular: Present RRR *Routine Abdominal Exam Abdominal: Present soft and normoactive bowel sounds; Absent tenderness *Routine Extremities Exam Extremities: Present full ROM, pulses intact and normal capillary refill; Absent cyanosis, clubbing or edema *Routine Skin Exam Skin: Present warm; Absent rash *Routine Neurological Exam Neurological: Present alert, oriented X3, moving all extremities, normal tone, vision grossly intact, hearing grossly intact and normal speech Routine Psychiatric Exam Psychiatric: Present normal affect, normal thought process, cooperative, good insight and good judgment Assessment and Plan *Assessment and plan (1) Focal neurological deficit: Status: Acute Category: Medical Code(s): R29.818 - Other symptoms and signs involving the nervous syst
--- NOTE | 2022-07-13 09:51 | PC.NURSE ---
morning meds entered per MD verbal order
--- NOTE | 2022-07-13 10:31 | PC.NURSE ---
Rounded on patient and family member at this time. Updated them that we were working on facilitating her admission to the floor as quickly as possible. Pt and son both agreeable. Pt asked if she could have anything to eat at this time. I called and spoke with Dr. Disla (hospitalist) and he advised me Meds only at this time Went back in and updated patient she was agreeable with this. No other needs at this time, and ensured call-light was within reach and patient was aware on how to use it.
--- NOTE | 2022-07-13 10:47 | MR_ITS ---
FINAL REPORT CLINICAL HISTORY: RIGHT SIDED HEMIPARESIS, EXPRESSIVE APHASIA FINDINGS: Multi planar MR imaging was obtained through the brain without contrast. There is mild abnormal signal in deep white matter bilaterally. The midline structures appear intact. There is no evidence of Chiari malformation. On T2 and flair axial images the brain parenchyma is homogeneous. On diffusion-weighted images there is no evidence of restricted diffusion. There is mild ethmoid sinusitis. The seventh and eighth nerve root complexes are intact. IMPRESSION: No acute bony abnormality. Mild chronic changes of microvascular ischemia. Reviewed, Interpreted and Dictated by Barrie Bustos MD Transcribed by Avis Hamm Authenticated and [facility]
[2022-07-13 10:59] LABS: POC Glucose,Bedside 291 (70-110)
--- NOTE | 2022-07-13 11:04 | PC.NURSE ---
called to give report on pt. receiving nurse, anjel will call back.
--- NOTE | 2022-07-13 11:05 | PC.NURSE ---
pt to MRI
--- NOTE | 2022-07-13 11:13 | PC.NURSE ---
Rounded on pt. Resting comfortably in the bed at this time. Vitals cycling. No questions or concerns at this time.
--- NOTE | 2022-07-13 11:44 | PC.NURSE ---
Pt returned to room from MRI. Family at bedside.
--- NOTE | 2022-07-13 12:23 | PC.NURSE ---
Dr. Mancilla, hospitalist at . Family at
--- NOTE | 2022-07-13 12:24 | PC.NURSE ---
called report to carolyne kelsey
--- NOTE | 2022-07-13 12:24 | HMH.SLDYSPHA ---
Speech & Language Evaluation Speech/Language Dysphagia Evaluation Start: 07/13/22 12:13 Freq: ONCE Status: Active Protocol: Document 07/13/22 12:13 ALONZOALBA (Rec: 07/13/22 12:24 [facility] [id number]) Dysphagia Assess/Goals/Plan Assessment Date of Evaluation: 07/13/22 Evaluation Type Initial Certification Assessment/Problems Pt was assessed at the bedside using a clinical swallow evaluation (CSE) following stroke protocol per MD order. Does Patient Qualify for Service No Qualify/Failure Comment Based on results of CSE, pt's mastication and swallowing are WFL and skilled speech therapy services are not warranted at this time. Recommendations PHYSICIAN CERTIFICATION: The specified therapy services are required, authorized, and reviewed every 30 days. Diet Recommendations Normal Liquid Type Recommendations Normal/Thin SL Swallow Guidelines Standard Aspiration Prec. Dysphagia Swallow Precautions/Strategies Sitting Upright (90 deg), Alternate Liquids/Solids Plan Pt/Guardian verbally ack understanding Yes of dx/prognosis/goals G -code Required No Education Instructions provided Discussed CSE results and diet recommendations with pt and family, nursing, and care management all of which expressed understanding. Pt/Caregiver able to recall information Able to recall/restate Reinforcement needed No Speech & Language HPI History Present Illness Description of Patient Problem DATA DEVELOPER pulled following report from ER, Ms. Carrasco is a 86- year-old female who was brought into the facility due to change in neurologic status . She was last seen normal at approximately 7 p.m. that evening. Per son at bedside the patient was just discharged from the facility earlier in the day and went to see Cardiology and was normal . He reports that upon returning to see her at approximately 11:30 pm that she was unable to speak, walk or move her extremities. She was brought into the ER for evaluation
[2022-07-13 17:15] LABS: POC Glucose,Bedside 284 (70-110)
--- NOTE | 2022-07-13 20:25 | PC.NURSE ---
pt alert x4. dc abdoulaye today, tolerated well. no skin issues noted. no neuro deficiets noted since i have took over care for pt. vss. admin 10 units of insulin at 1700 or increased fsbg. family at bedside. cb within [facility].
[2022-07-13 21:10] LABS: POC Glucose,Bedside 373 (70-110)
[2022-07-14 04:00] VITALS: BP 134/64; PULSE 68; RESP 16; TEMP 37.2; O2SAT 100; BMI 23.6
--- NOTE | 2022-07-14 05:21 | PC.NURSE ---
PATIENT IS A/O X 4. AMBULATES TO BR WITH SBA. VITAL SIGNS STABLE/AFEBRILE. NO C/O PAIN OR DISCOMFORT.
[2022-07-14 06:54] LABS: POC Glucose,Bedside 210 (70-110)
[2022-07-14 07:33] LABS: Basophils % 0.1 % (0.1-2.0); Hematocrit 34.4 % (37.0-47.0); Hemoglobin 11.4 g/dL (12.2-16.2); Lymphocytes # 1.7 K/mm3 (0.7-4.5); Lymphocytes % 8.6 % (10-50); Mean Corpuscular HGB Conc 33.2 g/dL (31.8-35.4); Mean Corpuscular Hemoglobin 29.1 pg (27.0-31.2); Mean Corpuscular Volume 87.9 fl (81-99); Mean Platelet Volume 8.2 fl (7.4-10.4); Monocytes # 0.8 K/mm3 (0.1-1.0); Monocytes % 3.9 % (1.7-9.3); Neutrophils # 17.4 K/mm3 (1.8-7.8); Neutrophils % 87.4 % (37.0-80.0); Platelet Count 324 K/mm3 (142-424); Red Blood Count 3.91 M/mm3 (4.20-5.40); Red Cell Distribution Width 14.5 % (11.5-17.5); White Blood Count 19.9 K/mm3 (4.8-10.8)
[2022-07-14 07:41] LABS: MANUAL DIFFERENTIAL MANUAL DIFFERENTIAL (MANUAL DIFF)
[2022-07-14 07:43] LABS: Chloride 107 mmol/L (98-107); Potassium 4.6 mmoL/L (3.5-5.1); Sodium 137 mmol/L (136-145)
[2022-07-14 07:46] LABS: Anion Gap 8.6 mEq/L (5-15); Blood Urea Nitrogen 25 mg/dl (7-17); Carbon Dioxide 26 mmol/L (22.0-30.0); Creatinine Clearance Estimated 31 mL/min (50-200); Estimated Glomerular Filt Rate 29 ml/min (>60); GFR (African American) 35 ML/MIN (>60); Glucose 200 mg/dl (74-100)
[2022-07-14 08:00] VITALS: BP 136/68; PULSE 75; RESP 20; TEMP 37.1; O2SAT 100
[2022-07-14 08:09] LABS: Lymphocytes % 14 % (10-50); Monocytes % 7 % (2-9); Neutrophils % 79 % (42-76); Total Cells Counted 100
[2022-07-14 08:10] LABS: Platelet Estimate Normal; RBC Morphology Normal
[2022-07-14 08:45] LABS: Hemoglobin A1C 6.4 % (4.0-6.0)
--- NOTE | 2022-07-14 09:17 | HMH.OTEV ---
OT Inpatient Evaluation Rehab OT IP Evaluation Start: 07/13/22 16:03 Freq: ONCE Status: Active Protocol: Document 07/14/22 09:10 REBECCABENJAMIN (Rec: 07/14/22 09:17 JOHNGEREMIAS [id number]) Rehab OT IP Assessment Subjective History Ms. Carrasco is a 86-year-old female who was brought into the facility due to change in neurologic status. She was last seen normal at approximately 7 p.m. that evening. Per son at bedside the patient was just discharged from the facility earlier in the day and went to see Cardiology and was normal . He reports that upon returning to see her at approximately 11:30 pm that she was unable to speak, walk or move her extremities. She was brought into the ER for evaluation. In the ER, the patient had a CT of the head that showed no acute intracranial abnormalities. CXray shows no acute cardiopulmonary findings . EKG showed a RBBB, Troponin was <0.01. On exam, the patient is unable to talk, she is unable to move her right upper or lower extremity. She has copious amounts of sputum coming from her mouth. She will be admitted with initial impression: Focal Neurological deficits ( expressive aphasia and right sided hemiparesis). MRI of the head will be ordered for the am. Speech will be consulted to see. She will be placed on empirical antibiotics to cover for aspiration. The plan of care was discussed with the son at bedside. He verbalized understanding and agreement with the plan of care. Chronic kidney disease, stage
--- NOTE | 2022-07-14 09:58 | HMH.PTEV ---
Physical Therapy Evaluation Rehab PT IP Evaluation Start: 07/13/22 16:03 Freq: ONCE Status: Active Protocol: Document 07/14/22 09:53 DIANELYS (Rec: 07/14/22 09:58 DIANELYS [id number]) Subjective/History History History 86 yoaaf adm to [facility] with acute onset neurologic deficits. She is now returned to baseline mentation and activity level. She is independent with all mobility at baseline. Subjective Subjective No c/o this am. Rehab PT IP Eval Objective Appearance Patient Behavior Appropriate Patient Orientation Person,Place,Time Difficulty following instructions none Speech Pattern Clear Ambulation Patient Able to Ambulate Yes Ambulation Observation IP General Gait Pattern Observation No Deviations/Normal Ambulation Distance (feet) 40 Ambulation Assistive Device None Ambulation Ability Independent Balance Ability to Arise Able, uses arms to help Sitting Balance Steady, safe Standing Balance Narrow stance w/o support Dynamic Sitting Balance Ability Good Dynamic Standing Balance Ability Good Transfers Bed Transfer Ability Independent Chair Transfer Ability Independent Sit to Stand Bed Transfer Ability Independent Sit to Stand Chair Transfer Ability Independent ROM All Extremities PT ROM Status WFL MMT All Extremities PT MMT WFL Rehab PT IP prob,goals,plan Problems Date of Evaluation: 07/14/22 Discharge Plan PT Discharge Plan Pt is appropriate to return home once medically stable for d/c. G -code Required No Eval Complexity Eval Charge Codes 74590 - Moderate Complexity PHYSICIAN CERTIFICATION: I certify the specified therapy services for Cherelle Carrasco are required, authorized, and reviewed every 30 days.
[2022-07-14 10:12] VITALS: RESP 16
[2022-07-14 11:27] LABS: POC Glucose,Bedside 201 (70-110)
--- NOTE | 2022-07-14 15:34 | EXP.DC.SUM ---
General Admission date:: 07/13/22 Discharge date: 07/14/22 HPI HPI HPI: Ms. Carrasco is a 86-year-old female who was brought into the facility due to change in neurologic status. She was last seen normal at approximately 7 p.m. that evening. Per son at bedside the patient was just discharged from the facility earlier in the day and went to see Cardiology and was normal. He reports that upon returning to see her at approximately 11:30 pm that she was unable to speak, walk or move her extremities. She was brought into the ER for evaluation. In the ER, the patient had a CT of the head that showed no acute intracranial abnormalities. CXray shows no acute cardiopulmonary findings. EKG showed a RBBB, Troponin was <0.01. On exam, the patient is unable to talk, she is unable to move her right upper or lower extremity. She has copious amounts of sputum coming from her mouth. She will be admitted with initial impression: Focal Neurological deficits (expressive aphasia and right sided hemiparesis). MRI of the head will be ordered for the am. Speech will be consulted to see. She will be placed on empirical antibiotics to cover for aspiration. The plan of care was discussed with the son at bedside. He verbalized understanding and agreement with the plan of care. Hospital Course Hospital Course Hospital Course: The patient was admitted to the medical floor with telemetry monitoring. She was maintained on antiplatelet therapy and statin therapy. An MRI of the brain identified no stroke. Her son voiced concerns with uncontrolled blood sugar. PT and OT evaluated the patient because she reported that she lives alone. She reports that her daughter will be staying with her on discharge and they are having ongoing conversations about routine care as outpatient. Her laboratory studies and inflammatory markers were trended. On her previous admission a right hydronephrosis was identified. She was maintained on IV antibiotic therapy which was transitioned to p.o. on discharge. It is recommended that she discontinue her glipizide therapy and she will be transitioned to basal insulin therapy with the addition of DPP4 inhibitor therapy. I have recommended a 1 week follow-up with her PCP to discuss improved blood sugar control. She will continue follow-up with her Cardiology team and a follow-up has been made. I spent 35 minutes in [id number] time with the patient, son at bedside and nursing staff concerning the discharge process. We discussed the admitting diagnoses and hospital course. We discussed identified improvement and the patient's desire to be discharged. We reviewed inpatient studies and imaging. The patient voiced understanding on the importance of follow-up with her primary care provider and specialist(s). The patient plans to be compliant with the medication regimen prescribed and follow-up appointments. She understands that she can return to the emergency department with any sudden changes or concerns. Exam Data for Last 24 hours Vital signs and Labs for Last 24 Hours: Temp Pulse Resp BP Pulse Ox 98.7 F 75 16 136/68 100 07/14/22 08:00 07/14/22 08:00 07/14/22 10:12 07/14/22 08:00 07/14/22 08:00 Laboratory Results - last 24 hr 07/13/22 17:05: POC Glucose 284 H 07/13/22 21:03: POC Glucose 373 H* 07/14/22 05:51: POC Glucose 210 H 07/14/22 06:15: WBC 19.9 H D, RBC 3.91 L, Hgb 11.4 L, Hct 34.4 L, MCV 87.9, MCH 29.1, MCHC 33.2, RDW 14.5, Plt Count 324, MPV 8.2, Neut % (Auto) 87.4 H, Lymph % (Auto) 8.6 L, [place] % (Auto) 3.9, Eos % (Auto) 0.0 L, Baso % (Auto) 0.1, Neut # (Auto) 17.4 H, Lymph # (Auto) 1.7, [place] # (Auto) 0.8, Eos # (Auto) 0.0, Baso # (Auto) 0.0, Total Counted 100, Neutrophils % (Manual) 79 H, Lymphocytes % (Manual) 14, Monocytes % (Manual) 7, Platelet Estimate Normal, RBC Morphology Normal 07/14/22 06:15: Sodium 137, Potassium 4.6, Chloride 107, Carbon Dioxide 26, Anion Gap 8.6, BUN 25 H, Creatinine 1.70 H, Estimated Cre
--- NOTE | 2022-07-14 15:49 | HMH.PHAINT1 ---
Pharmacy Intervention Comments: DISCHARGE MEDICATION COUNSELING PROVIDED. DISCUSSED STOPPING THE GLIPIZIDE AND STARTING THE FOLLOWING: -CEFDINIR (ANTIBIOTIC, TWICE DAILY, TAKE WITH FOOD, N/V/D POSSIBLE) -LANTUS (FOR DIABETES, 10 UNITS SQ AT BEDTIME, LOW BLOOD SUGAR, INJECTION SITE IRRITATION, INJECTION TECHNIQUE) -JANUVIA (FOR DIABETES, DAILY, WITH OR WITHOUT FOOD, LOW BLOOD SUGAR, HEADACHE, RASH, CONSTIPATION POSSIBLE) PATIENT VERBALIZED NO QUESTIONS AT THIS TIME.
--- NOTE | 2022-07-17 13:37 | CARE MANAGER ---
Spoke with patient daughter for post-discharge phone interview, no issues noted.
== END 2022-07-14 16:13 | disposition home or self-care (01) ==
LOC: ER 00:23 → 2ND 07:31
PROVIDERS: Family Medicine; Admitting Provider Internal Medicine Adolescent Medicine; Emergency Provider Emergency Medicine; PCP Family Medicine; Visit Provider Internal Medicine Adolescent Medicine
DX: I45.2 Bifascicular block (principal); N18.30 Chronic kidney disease, stage 3 unspecified; E11.65 Type 2 diabetes mellitus with hyperglycemia; E11.22 Type 2 diabetes mellitus with diabetic chronic kidney disease; I25.10 Atherosclerotic heart disease of native coronary artery without angina pectoris; Z79.899 Other long term (current) drug therapy; I50.9 Heart failure, unspecified; G81.91 Hemiplegia, unspecified affecting right dominant side; R47.01 Aphasia; T17.890A Other foreign object in other parts of respiratory tract causing asphyxiation, initial encounter; I13.0 Hypertensive heart and chronic kidney disease with heart failure and stage 1 through stage 4 chronic kidney disease, or unspecified chronic kidney disease; Z20.822 Contact with and (suspected) exposure to COVID-19
CPT/HCPCS: G0378; 36415; 51702; 70450; 70551; 71045; 74176; 76770; 80048; 80053; 81001; 82009; 82272; 82962; 83036; 83605; 83735; 83880; 84145; 84484; 85007; 85025; 85651; 86140; 87040; 87070; 87205; 92610; 93005; 97162; 97165; 97166; 99285; C9803; G0328; J2405; U0003; U0005

== ENCOUNTER 2022-07-16 19:02 | Emergency (ER) | payer MEDICARE, BC, SELFPAY ==
[2022-07-16 19:25] VITALS: BP 174/83; PULSE 76; RESP 17; TEMP 36.6; O2SAT 100; BMI 22.6
--- NOTE | 2022-07-16 19:34 | CT_ITS ---
PROCEDURE INFORMATION: Exam: CT Head Without Contrast Exam date and time: 07/16/2022 7:49 PM Age: 86 years old Clinical indication: Stroke-like symptoms; Serge lower extremity weakness TECHNIQUE: Imaging protocol: Computed tomography of the head without contrast. Radiation optimization: All CT scans at this facility use at least one of these dose optimization techniques: automated exposure control; mA and/or kV adjustment per patient size (includes targeted exams where dose is matched to clinical indication); or iterative reconstruction. Other protocol: This patient has received 4 known CTs and 0 known cardiac nuclear medicine studies in the 12 months prior to the current study. Other technique: STROKE PROTOCOL was implemented. COMPARISON: MR HEAD/BRAIN WO CON 07/13/2022 11:01 AM FINDINGS: Brain: There is no acute cortical infarction, intracranial hemorrhage or mass. There is mild diffuse heterogeneity of the white matter, most consistent with microangiopathy. Cerebral ventricles: The ventricles appear mildly enlarged, but not out of proportion to the degree of parenchymal volume loss. Paranasal sinuses: There is fluid in the right middle ethmoid air cell with the remainder of the paranasal sinuses appearing clear. Mastoid air cells: No mastoid effusions. Bones/joints: Anatomic distortion right mandibular condyle possibly due to prior fracture. Soft tissues: Unremarkable. IMPRESSION: No acute intracranial findings. ASSESSMENT: ASPECTS ([place] Stroke Program Early CT Score) is 10.
--- NOTE | 2022-07-16 19:35 | ECG_ITS ---
APPROVED REPORT Exam: Resting ECG HR:71 bpm ECG Measurements Heart Rate 71 AXES AR 160 P 87 QRSd 161 QRS -55 QT 494 T 78 QTc 516 Conclusion SINUS RHYTHM RIGHT BUNDLE BRANCH BLOCK [120+ ms QRS DURATION, UPRIGHT V1, 40+ ms S IN I/aVL/V4/V5/V6] LEFT ANTERIOR FASCICULAR BLOCK [QRS AXIS <= -45, QR IN I, RS IN II] LEFT VENTRICULAR HYPERTROPHY AND ST-T CHANGE [VOLTAGE CRITERIA PLUS ST/T ABNORMALITY] ABNORMAL ECG UNCONFIRMED REPORT Electronically signed by : Gucci Benavidez MD 07/17/2022 19:50:29
--- NOTE | 2022-07-16 19:35 | XR_ITS ---
PROCEDURE INFORMATION: Exam: XR Chest Exam date and time: 07/16/2022 7:53 PM Age: 86 years old Clinical indication: Other: Weakness TECHNIQUE: Imaging protocol: Radiologic exam of the chest. Views: 1 view. COMPARISON: CR XR CHEST PORTABLE 07/13/2022 1:27 AM FINDINGS: Lungs: No focal lung consolidation. Probable calcified hilar lymph nodes. Pleural spaces: No pleural effusion. Heart/Mediastinum: No cardiomegaly. Atherosclerosis in the thoracic aorta. Bones/joints: Skeletal degeneration. Soft tissues: Left mastectomy. IMPRESSION: No evidence of pneumonia or congestive heart failure.
--- NOTE | 2022-07-16 19:39 | PC.NURSE ---
Pt gone to RAD via stretcher
--- NOTE | 2022-07-16 19:53 | PC.NURSE ---
PT back from RAD
--- NOTE | 2022-07-16 20:07 | HMH.EDWEAK ---
Discharge Plan Disposition Patient Disposition: Home, Self-Care Chief Complaint: Weakness Prescriptions Prescriptions: No Action nitroglycerin 0.4 mg tablet, sublingual 0.4 mg SUBLINGUAL DIRECTED PRN (Reason: Chest Pain) Qty: 30 2RF Rx Instructions: 0.4 mg every 5 minutes up to 3 doses, if no relief seek emergency treatment aspirin [Adult Low Dose Aspirin] 81 mg tablet,delayed release (DR/EC) 81 mg PO DAILY ferrous sulfate 325 mg (65 mg iron) tablet 325 mg PO DAILY lisinopril 10 mg tablet 10 mg PO DAILY atorvastatin 40 mg tablet 40 mg PO HS potassium chloride 10 mEq capsule, extended release 10 meq PO DAILY diltiazem HCl 240 mg capsule,extended release 24hr 240 mg PO DAILY pantoprazole 40 mg tablet,delayed release (DR/EC) 40 mg PO DAILY ranolazine 1,000 mg tablet extended release 12 hr 1,000 mg PO BID atenolol 50 mg tablet 25 mg PO DAILY furosemide 20 mg tablet 20 mg PO DAILY 30 Days Qty: 30 0RF sennosides-docusate sodium [Stool Softener-Stimulant Laxat] 8.6-50 mg tablet 1 tab PO DAILY hydrocortisone [Preparation H Hydrocortisone] 1 % cream 1 applic topical TIDP PRN (Reason: skin irritation) cefdinir 300 mg capsule 300 mg PO BID Qty: 20 0RF insulin glargine [Lantus U-100 Insulin] 100 unit/mL solution 10 unit SQ HS Qty: 10 0RF Januvia 25 mg tablet 25 mg PO DAILY Qty: 30 0RF ezetimibe 10 MG tablet 10 mg PO DAILY acetaminophen 650 MG tablet extended release 650 mg PO TIDP PRN (Reason: PAIN) polyethylene glycol 3350 119 GM powder 17 gm PO DAILY psyllium husk 660 GM powder 425 gm PO DAILY Referrals Follow up/Referrals: Rosalio Rainey MD [Primary Care Provider] - See instructions Clinical Impressions Clinical Impression: Diabetes, RBBB with left anterior fascicular block, CKD (chronic kidney disease), Weakness Instructions Patient Instructions: DI for Muscle Weakness Discharge ED Provider: Clinton (ED)Alex HPI General Chief complaint: Weakness Stated complaint: ackes all over Feet and legs Time Seen by Provider: 07/16/22 20:00 Mode of Arrival: Wheelchair Source of Information: Patient, Relative and Medical Record Limitations: No Limitations Description of Symptoms (Recalled from ER Triage Doc. by RN): pt to ED with bilateral leg and arm weakness x 30 minutes. on assessment pt is a&o x 3 and shows no unilateral defecits. pt stated she felt this way a few days ago and thought she was having a stroke. History of Present Illness HPI Narrative: episode of arm and leg weakness at home w/o speech or visual sx and no chest pain or fever and no fall or trauma MD Complaint: generalized weakness Onset (ago): hour(s) Duration: now resolved Location: generalized Migration: none Severity: moderate Associated symptoms: denies other symptoms Related Data Home Medications Medication Instructions Recorded Confirmed aspirin 81 mg tablet,delayed 81 mg PO DAILY heart health 07/30/17 07/13/22 release (Adult Low Dose Aspirin) ferrous sulfate 325 mg (65 mg 325 mg PO DAILY iron supplement 07/30/17 07/13/22 iron) tablet ezetimibe 10 mg tablet 10 mg PO DAILY Cholesterol 09/16/20 07/13/22 acetaminophen 650 mg 650 mg PO TIDP PRN PAIN 05/09/21 07/13/22 tablet,extended release polyethylene glycol 3350 17 17 gm PO DAILY constipation 05/09/21 07/13/22 gram/dose oral powder psyllium husk 3.4 gram/5.4 gram 425 gm PO DAILY CONSTIPATION 05/09/21 07/13/22 oral powder lisinopril 10 mg tablet 10 mg PO DAILY Hypertension 06/14/22 07/13/22 atorvastatin 40 mg tablet 40 mg PO HS Cholesterol 07/10/22 07/13/22 diltiazem HCl 240 mg 240 mg PO DAILY heart rate 07/10/22 07/13/22 capsule,extended release 24 hr pantoprazole 40 mg tablet,delayed 40 mg PO DAILY acid reflux 07/10/22 07/13/22 release potassium chloride 10 mEq 10 meq PO DAILY potassium 07/10/22 07/13/22 capsule,extended
[2022-07-16 20:08] LABS: Microscopic, Urine URINE MICROSCOPIC (MICROSCOPIC)
[2022-07-16 20:09] LABS: Appearance,Urine SL CLOUDY (Clear); Bilirubin,Urine Negative (Negative); Blood, Urine Negative (Negative); Color,Urine YELLOW (Yellow); Glucose,Urine (UA) Negative (Negative); Ketones,Urine Negative (Negative); Leukocyte Esterase,Urine Negative (Negative); Nitrate,Urine Negative (Negative); Protein,Urine Negative (Negative); Specific Gravity, Urine 1.015 (1.005-1.030); Urobilinogen,Urine 0.2 EU/dl (0.2)
--- NOTE | 2022-07-16 20:17 | PC.NURSE ---
Dr. Alonzo at speaking with pt/family
[2022-07-16 20:19] LABS: Basophils # 0.1 K/mm3 (0-0.2); Basophils % 0.9 % (0.1-2.0); Eosinophils # 0.2 K/mm3 (0.0-0.4); Eosinophils % 1.7 % (0.1-12.0); Hematocrit 36.8 % (37.0-47.0); Hemoglobin 12.3 g/dL (12.2-16.2); Lymphocytes # 2.1 K/mm3 (0.7-4.5); Lymphocytes % 21.5 % (10-50); Mean Corpuscular HGB Conc 33.5 g/dL (31.8-35.4); Mean Corpuscular Hemoglobin 29.1 pg (27.0-31.2); Mean Corpuscular Volume 86.7 fl (81-99); Mean Platelet Volume 7.6 fl (7.4-10.4); Monocytes # 0.5 K/mm3 (0.1-1.0); Monocytes % 4.5 % (1.7-9.3); Neutrophils # 7.1 K/mm3 (1.8-7.8); Neutrophils % 71.4 % (37.0-80.0); Platelet Count 276 K/mm3 (142-424); Red Blood Count 4.24 M/mm3 (4.20-5.40); Red Cell Distribution Width 14.8 % (11.5-17.5)
[2022-07-16 20:22] LABS: RBC,Urine Occasional #/hpf (0-3); Squamous Epithelial Cell,Urine Occasional #/hpf (0-5)
[2022-07-16 20:30] VITALS: BP 126/66; PULSE 66; O2SAT 98
[2022-07-16 20:30] LABS: Chloride 108 mmol/L (98-107); Potassium 4.8 mmoL/L (3.5-5.1); Sodium 140 mmol/L (136-145)
[2022-07-16 20:32] LABS: Blood Urea Nitrogen 25 mg/dl (7-17); Creatinine Clearance Estimated 30 mL/min (50-200); Estimated Glomerular Filt Rate 29 ml/min (>60); GFR (African American) 35 ML/MIN (>60)
[2022-07-16 20:33] LABS: Alanine Aminotransferase 23 U/L (12-78); Albumin Level 3.8 g/dl (3.5-5.0); Albumin/Globulin Ratio 1.4 (1.1-1.8); Alkaline Phosphatase 91 U/L (38-126); Anion Gap 9.8 mEq/L (5-15); Aspartate Amino Transferase 27 U/L (14-36); Bilirubin,Total 0.5 mg/dl (0.2-1.3); Calcium 10.3 mg/dl (8.4-10.2); Carbon Dioxide 27 mmol/L (22.0-30.0); Globulin 2.7 g/dL (1.3-3.2); Glucose 134 mg/dl (74-100); Total Protein,Serum 6.5 g/dl (6.3-8.2)
[2022-07-16 20:45] LABS: Troponin I < 0.01 ng/ml (0.00-0.034)
[2022-07-16 21:00] VITALS: BP 133/65; PULSE 67; O2SAT 97
--- NOTE | 2022-07-16 21:51 | PC.NURSE ---
Pt ambulatory to wheelchair and toilet with minimal assistance
[2022-07-16 22:42] VITALS: BP 122/63; PULSE 65; RESP 18; TEMP 36.4; O2SAT 99
== END 2022-07-16 22:44 | disposition home or self-care (01) ==
PROVIDERS: Emergency Medicine; Emergency Provider Emergency Medicine; PCP Family Medicine
DX: R53.1 Weakness (principal); E11.22 Type 2 diabetes mellitus with diabetic chronic kidney disease; I44.4 Left anterior fascicular block; N18.30 Chronic kidney disease, stage 3 unspecified; I50.9 Heart failure, unspecified; I25.10 Atherosclerotic heart disease of native coronary artery without angina pectoris; Z87.19 Personal history of other diseases of the digestive system; Z87.440 Personal history of urinary (tract) infections; Z90.710 Acquired absence of both cervix and uterus; Z90.10 Acquired absence of unspecified breast and nipple; Z83.3 Family history of diabetes mellitus; Z82.49 Family history of ischemic heart disease and other diseases of the circulatory system
CPT/HCPCS: 70450; 71045; 80053; 81001; 84484; 85025; 93005; 99285

== ENCOUNTER 2022-07-19 13:34 | Observation (INO) | payer MEDICARE, BC, SELFPAY ==
[2022-07-19] VITALS (12 sets, daily range): BP systolic 113–154; BP diastolic 47–71; PULSE 73–91; RESP 17–18; TEMP 36.3–36.6; O2SAT 95–100; BMI 24.0; BMI 23.6
--- NOTE | 2022-07-19 13:41 | PC.NURSE ---
patient ambulatory to restroom with assistance from myself. no complications
--- NOTE | 2022-07-19 13:47 | PC.NURSE ---
Patient had large BM. DOMINIQUE SAMANIEGO has been notified
--- NOTE | 2022-07-19 13:52 | PC.NURSE ---
Pt hooked to monitor, call light within reach. Warm blanket and pillow given for comfort.
--- NOTE | 2022-07-19 13:59 | PC.NURSE ---
UA sent to lab; family at BS
--- NOTE | 2022-07-19 13:59 | HMH.EDGENADL ---
Discharge Plan Disposition Patient Disposition: Admitted As Inpatient Condition: Fair Prescriptions Prescriptions: No Action nitroglycerin 0.4 mg tablet, sublingual 0.4 mg SUBLINGUAL DIRECTED PRN (Reason: Chest Pain) Qty: 30 2RF Rx Instructions: 0.4 mg every 5 minutes up to 3 doses, if no relief seek emergency treatment aspirin [Adult Low Dose Aspirin] 81 mg tablet,delayed release (DR/EC) 81 mg PO DAILY ferrous sulfate 325 mg (65 mg iron) tablet 325 mg PO DAILY lisinopril 10 mg tablet 10 mg PO DAILY atorvastatin 40 mg tablet 40 mg PO HS potassium chloride 10 mEq capsule, extended release 10 meq PO DAILY diltiazem HCl 240 mg capsule,extended release 24hr 240 mg PO DAILY pantoprazole 40 mg tablet,delayed release (DR/EC) 40 mg PO DAILY ranolazine 1,000 mg tablet extended release 12 hr 1,000 mg PO BID atenolol 50 mg tablet 25 mg PO DAILY furosemide 20 mg tablet 20 mg PO DAILY 30 Days Qty: 30 0RF sennosides-docusate sodium [Stool Softener-Stimulant Laxat] 8.6-50 mg tablet 1 tab PO DAILY hydrocortisone [Preparation H Hydrocortisone] 1 % cream 1 applic topical TIDP PRN (Reason: skin irritation) ezetimibe 10 MG tablet 10 mg PO DAILY acetaminophen 650 MG tablet extended release 650 mg PO TIDP PRN (Reason: PAIN) polyethylene glycol 3350 119 GM powder 17 gm PO DAILY psyllium husk 660 GM powder 425 gm PO DAILY insulin glargine [Lantus U-100 Insulin] 100 unit/mL solution 10 unit SQ HS cefdinir 300 mg capsule 300 mg PO BID Januvia 25 mg tablet 25 mg PO DAILY Referrals Follow up/Referrals: Rosalio Rainey MD [Primary Care Provider] - See instructions Clinical Impressions Clinical Impression: Colitis Instructions Patient Instructions: DI for Acute Abdominal Pain Discharge ED Provider: Emeka Mcallister General Adult HPI General Chief complaint: Abdominal Pain Stated complaint: abd pain,no BM in 4 days,vomiting Time Seen by Provider: 07/19/22 13:47 History of Present Illness HPI narrative: Patient presents with lower abdominal discomfort for approximate 3 to 4 days. She describes the pain as moderate and without exacerbating alleviating factors. She did have a bowel movement earlier today and states he has not had a bowel movement for at least 3 to 4 days and did however get some relief with her bowel movement. She has had some vomiting but denies diarrhea. There is been no fever. Related Data Home Medications Medication Instructions Recorded Confirmed aspirin 81 mg tablet,delayed 81 mg PO DAILY heart health 07/30/17 07/19/22 release (Adult Low Dose Aspirin) ferrous sulfate 325 mg (65 mg 325 mg PO DAILY iron supplement 07/30/17 07/19/22 iron) tablet ezetimibe 10 mg tablet 10 mg PO DAILY Cholesterol 09/16/20 07/19/22 acetaminophen 650 mg 650 mg PO TIDP PRN PAIN 05/09/21 07/19/22 tablet,extended release polyethylene glycol 3350 17 17 gm PO DAILY constipation 05/09/21 07/19/22 gram/dose oral powder psyllium husk 3.4 gram/5.4 gram 425 gm PO DAILY CONSTIPATION 05/09/21 07/19/22 oral powder lisinopril 10 mg tablet 10 mg PO DAILY Hypertension 06/14/22 07/19/22 atorvastatin 40 mg tablet 40 mg PO HS Cholesterol 07/10/22 07/19/22 diltiazem HCl 240 mg 240 mg PO DAILY heart rate 07/10/22 07/19/22 capsule,extended release 24 hr pantoprazole 40 mg tablet,delayed 40 mg PO DAILY acid reflux 07/10/22 07/19/22 release potassium chloride 10 mEq 10 meq PO DAILY potassium 07/10/22 07/19/22 capsule,extended release replacment ranolazine 1,000 mg 1,000 mg PO BID chronic angina 07/10/22 07/19/22 tablet,extended release,12 hr atenolol 50 mg tablet 25 mg PO DAILY Hypertension 07/11/22 07/19/22 hydrocortisone 1 % topical cream 1 applic topical TIDP PRN skin 07/13/22 07/19/22 (Preparation H Hydrocortisone) irritation sennosides 8.6 mg-docusate sodium 1 tab PO DAILY constipation 07/13
[2022-07-19 14:04] LABS: Microscopic, Urine URINE MICROSCOPIC (MICROSCOPIC)
--- NOTE | 2022-07-19 14:05 | PC.NURSE ---
Limb alert bracelet placed on patients left wrist.
--- NOTE | 2022-07-19 14:05 | PC.NURSE ---
radiology waiting on gfr results before scan
[2022-07-19 14:12] LABS: Appearance,Urine CLEAR (Clear); Bilirubin,Urine Negative (Negative); Blood, Urine Negative (Negative); Color,Urine YELLOW (Yellow); Glucose,Urine (UA) Negative (Negative); Ketones,Urine Negative (Negative); Leukocyte Esterase,Urine Negative (Negative); Nitrate,Urine Negative (Negative); Protein,Urine Negative (Negative); Urobilinogen,Urine 0.2 EU/dl (0.2)
--- NOTE | 2022-07-19 14:13 | PC.NURSE ---
PT HAS AMBULTATED BACK UP TO BATHROOM
--- NOTE | 2022-07-19 14:18 | PC.NURSE ---
PT HAD LARGE BM AT THIS TIME
[2022-07-19 14:23] LABS: Chloride 105 mmol/L (98-107); Potassium 4.2 mmoL/L (3.5-5.1); Sodium 133 mmol/L (136-145)
[2022-07-19 14:24] LABS: Bacteria,Urine Trace /lpf
[2022-07-19 14:25] LABS: Blood Urea Nitrogen 29 mg/dl (7-17); Creatinine Clearance Estimated 27 mL/min (50-200); Estimated Glomerular Filt Rate 24 ml/min (>60); GFR (African American) 29 ML/MIN (>60)
[2022-07-19 14:26] LABS: Alanine Aminotransferase 20 U/L (12-78); Albumin Level 3.8 g/dl (3.5-5.0); Albumin/Globulin Ratio 1.4 (1.1-1.8); Alkaline Phosphatase 89 U/L (38-126); Anion Gap 10.2 mEq/L (5-15); Aspartate Amino Transferase 28 U/L (14-36); Bilirubin,Total 0.9 mg/dl (0.2-1.3); Calcium 10.2 mg/dl (8.4-10.2); Carbon Dioxide 22 mmol/L (22.0-30.0); Globulin 2.7 g/dL (1.3-3.2); Glucose 142 mg/dl (74-100); Lipase 98 U/L (23-300); Total Protein,Serum 6.5 g/dl (6.3-8.2)
--- NOTE | 2022-07-19 14:39 | CT_ITS ---
FINAL REPORT TECHNIQUE: Thin section axial images were obtained from the lung bases to the pubic symphysis without IV contrast. Coronal reconstruction images were obtained from the axial data. Exam was performed using dose reduction technique. CLINICAL HISTORY: lower abd pain, nausea COMPARISON: 07/10/2022 FINDINGS: There are a few tiny lower lung nodules, stable. There is pneumobilia which is stable. There are postoperative changes from Whipple. There is no focal liver lesion. The spleen and adrenals are unremarkable. The body and tail of the pancreas is without acute abnormality. There has been slight improvement in right hydronephrosis. Bilateral nonobstructing renal stones are unchanged. The abdominal portion of the GI tract is without acute abnormality. There is no evidence of small bowel obstruction. There has been interval development of long segment colonic wall thickening with surrounding inflammation most consistent with colitis. There is robin diverticulosis in the large amount of retained stool. The appendix is surgically absent. The uterus is surgically absent.. There is no lymphadenopathy or ascites. No acute osseous abnormality is identified. IMPRESSION: 1. Interval development of colitis, favor infectious or inflammatory. 2. Constipation. 3. Stable nonobstructing renal stones. Reviewed, Interpreted and Dictated by Olamide Bowling MD Transcribed by Avis Hamm Authenticated and [facility]
--- NOTE | 2022-07-19 14:50 | PC.NURSE ---
PT TO CT SCAN
--- NOTE | 2022-07-19 15:12 | PC.NURSE ---
PT ASSISTED TO BR FOR BM
--- NOTE | 2022-07-19 15:27 | PC.NURSE ---
patient had a large BM.
[2022-07-19 15:36] LABS: Basophils % 0.2 % (0.1-2.0); Eosinophils # 0.1 K/mm3 (0.0-0.4); Eosinophils % 0.3 % (0.1-12.0); Hematocrit 37.1 % (37.0-47.0); Hemoglobin 12.3 g/dL (12.2-16.2); Lymphocytes # 1.1 K/mm3 (0.7-4.5); Lymphocytes % 5.4 % (10-50); Mean Corpuscular HGB Conc 33.2 g/dL (31.8-35.4); Mean Corpuscular Volume 87.2 fl (81-99); Monocytes # 0.5 K/mm3 (0.1-1.0); Monocytes % 2.5 % (1.7-9.3); Neutrophils # 18.7 K/mm3 (1.8-7.8); Neutrophils % 91.6 % (37.0-80.0); Platelet Count 311 K/mm3 (142-424); Red Blood Count 4.26 M/mm3 (4.20-5.40); Red Cell Distribution Width 14.7 % (11.5-17.5); White Blood Count 20.4 K/mm3 (4.8-10.8)
[2022-07-19 15:45] LABS: MANUAL DIFFERENTIAL MANUAL DIFFERENTIAL (MANUAL DIFF)
--- NOTE | 2022-07-19 16:24 | PC.NURSE ---
DR BRYANT AT BEDSIDE
--- NOTE | 2022-07-19 16:28 | PC.NURSE ---
DR. BRYANT SPEAKING WITH HOSPITALIST FOR ADMISSION
--- NOTE | 2022-07-19 16:30 | PC.NURSE ---
CADD TECHNICIAN NOTIFIED OF ADMISSION
[2022-07-19 16:35] LABS: Coronavirus 19, PCR Not Detected (NotDetected); Influenza A, PCR Not Detected (NotDetected); Influenza B, PCR Not Detected (NotDetected)
[2022-07-19 16:56] LABS: Lymphocytes % 5 % (10-50); Monocytes % 6 % (2-9); Neutrophils % 89 % (42-76); Platelet Estimate Normal; RBC Morphology Normal; Total Cells Counted 100
--- NOTE | 2022-07-19 17:05 | PC.NURSE ---
lab at , unable to get blood cultures at this time. another laborer high density press is coming to try
--- NOTE | 2022-07-19 17:20 | EXP.HP ---
History of Present Illness *Admission Date: 07/19/22 *Reason for visit:: Chief complaint: Abdominal pain *History of present illness: This is a 86-year-old female that presents to [facility] emergency department at the request of her general surgeon who she saw earlier today. She is accompanied by her daughter Dhara who assists with the history. Her past medical history is significant for kidney stones, constipation, diverticulosis, diabetes, chronic kidney disease stage IIIb, coronary artery disease and HFpEF. She describes abdominal pain for 3 to 4 days not improving with home care so she presented to see a local general surgeon who evaluated her and recommended ED evaluation. She describes constant dull ache to her abdomen. She also describes intermittent sharp pain to the left lower quadrant that radiates across her abdomen. She reports associated nausea and emesis. She denies diarrhea. She has not felt febrile or experienced chills. She denies dysuria or gross hematuria. She has not identified any melena, hematemesis or hematochezia. In the ED her CBC identifies a leukocytoses with stable hemoglobin and normal platelets. Her chemistry panel identifies stable creatinine with a normal potassium. CT scan of the abdomen identifies long segment of colonic wall thickening with surrounding inflammation consistent with colitis and pandiverticulosis with retained stool. She will be started on IV antibiotic. [facility] Medical History Chronic kidney disease, stage 3b Congestive heart failure Diabetes mellitus, type 2 History of GI bleed Pneumonia RBBB with left anterior fascicular block Urinary tract infection Surgical History H/O esophagogastroduodenoscopy H/O mastectomy H/O: hysterectomy Family History Other Family history of diabetes mellitus type II Family history of hyperlipidemia Family history of hypertension Family history of myocardial infarction Social History Smoking Status: Never smoker second hand exposure: No alcohol intake: never substance use type: denies use current occupational status: disabled Travel in the last 8 weeks: Inside the [place] household members: none housing: apartment current occupational exposures/hazards: No caffeine: Yes Review of Systems Review of Systems Review of systems:: pertinent systems reviewed and negative unless documented below Constitutional Constitutional: Denies chills and Denies fever(s) ENT Ears, Nose, Mouth, and Throat: Denies dysphagia *Gastrointestinal Gastrointestinal: Reports bloating, Reports constipation, Denies diarrhea, Denies dysphagia, Denies hematemesis, Denies hematochezia, Denies melena, Reports nausea and Reports vomiting *Genitourinary Genitourinary: Denies difficulty voiding Meds Home Medications and Allergies Home Medications Medication Instructions Recorded Confirmed Type aspirin 81 mg tablet,delayed 81 mg PO DAILY heart health 07/30/17 07/19/22 History release (Adult Low Dose Aspirin) ferrous sulfate 325 mg (65 mg 325 mg PO DAILY iron supplement 07/30/17 07/19/22 History iron) tablet nitroglycerin 0.4 mg sublingual 0.4 mg sublingual DIRECTED PRN 01/21/19 07/19/22 Rx tablet Chest Pain ##30 ezetimibe 10 mg tablet 10 mg PO DAILY Cholesterol 09/16/20 07/19/22 History acetaminophen 650 mg 650 mg PO TIDP PRN PAIN 05/09/21 07/19/22 History tablet,extended release polyethylene glycol 3350 17 17 gm PO DAILY constipation 05/09/21 07/19/22 History gram/dose oral powder psyllium husk 3.4 gram/5.4 gram 425 gm PO DAILY CONSTIPATION 05/09/21 07/19/22 History oral powder lisinopril 10 mg tablet 10 mg PO DAILY Hypertension 06/14/22 07/19/22 History atorvastatin 40 mg tablet 40 mg PO HS Cholesterol 07/10/22
--- NOTE | 2022-07-19 17:37 | PC.NURSE ---
ATTEMPTED TO CALL REPORT AT THIS TIME, NURSE NOT AVAILABLE
--- NOTE | 2022-07-19 17:43 | PC.NURSE ---
REPORT GIVEN TO Val CARLOS RN
[2022-07-19 17:47] LABS: Lactic Acid 0.9 mmol/L (0.7-2.1)
--- NOTE | 2022-07-19 18:06 | PC.NURSE ---
pt transported to 2nd floor via wheelchair with 2 SRNA's
--- NOTE | 2022-07-19 18:09 | PC.NURSE ---
arrived by wheelchair to floor from ED
[2022-07-20 04:00] VITALS: BP 102/51; PULSE 83; RESP 18; TEMP 37.3; O2SAT 97; BMI 23.8
--- NOTE | 2022-07-20 05:25 | PC.NURSE ---
pt rested well, no acute distress, no complaints of pain, vss, family at bedside through the night, pt up with assist x1 and use of walker, pt states she uses a wheelchair at home which is new, noted unsteady gait upon ambulation, pt with active bowel sounds and +bm 2, no other issues at this time.
[2022-07-20 06:42] LABS: Basophils # 0.1 K/mm3 (0-0.2); Basophils % 0.7 % (0.1-2.0); Eosinophils # 0.1 K/mm3 (0.0-0.4); Hematocrit 29.3 % (37.0-47.0); Lymphocytes # 1.6 K/mm3 (0.7-4.5); Lymphocytes % 21.1 % (10-50); Mean Corpuscular HGB Conc 32.2 g/dL (31.8-35.4); Mean Corpuscular Hemoglobin 29.1 pg (27.0-31.2); Mean Corpuscular Volume 90.4 fl (81-99); Mean Platelet Volume 7.3 fl (7.4-10.4); Monocytes # 0.5 K/mm3 (0.1-1.0); Monocytes % 6.2 % (1.7-9.3); Neutrophils # 5.5 K/mm3 (1.8-7.8); Neutrophils % 70.9 % (37.0-80.0); Platelet Count 224 K/mm3 (142-424); Red Blood Count 3.24 M/mm3 (4.20-5.40); Red Cell Distribution Width 14.9 % (11.5-17.5); White Blood Count 7.8 K/mm3 (4.8-10.8)
[2022-07-20 06:43] LABS: Chloride 108 mmol/L (98-107); Potassium 3.8 mmoL/L (3.5-5.1); Sodium 134 mmol/L (136-145)
[2022-07-20 06:46] LABS: Anion Gap 6.8 mEq/L (5-15); Blood Urea Nitrogen 26 mg/dl (7-17); Calcium 8.9 mg/dl (8.4-10.2); Carbon Dioxide 23 mmol/L (22.0-30.0); Creatinine Clearance Estimated 28 mL/min (50-200); Estimated Glomerular Filt Rate 25 ml/min (>60); GFR (African American) 30 ML/MIN (>60); Glucose 106 mg/dl (74-100)
[2022-07-20 06:53] LABS: Hemoglobin 9.6 g/dL (12.2-16.2)
[2022-07-20 07:10] VITALS: BP 114/57; PULSE 87; RESP 18; TEMP 37; O2SAT 95
[2022-07-20 07:26] LABS: Procalcitonin 1.21 ng/mL (0.0-2.0)
--- NOTE | 2022-07-20 07:26 | HMH.PHAINT1 ---
Pharmacy Intervention Comments: Medication reconciliation completed utilizing external fill history and discharge summary from previous hospital visit (07/14/22)
--- NOTE | 2022-07-20 09:13 | EXP.PN ---
Subjective *Date: 07/20/22 *Time: 09:35 Interval history: Date of service July 20, 2022 The patient is accompanied by her daughter Dhara today. I am accompanied by her nurse Ya FRAUSTO. Nursing staff report that she remains afebrile with stable vital signs and saturating appropriately on room air. The patient reports nausea and epigastric discomfort this morning. She was unable to tolerate her breakfast and only ate a portion of her pork chop and subsequently experienced emesis. She had a bowel movement this morning characterizes melanotic. We have reviewed and discussed her morning labs. I have personally interpreted her labs as follows: CBC with an improved leukocytosis white blood cell count down to 7.8. Her hemoglobin has dropped from 12.3 on admission to 9.6 this morning. Her platelet count is stable at 224. Her left shift has resolved. Her electrolytes identify improvement and stability. Her BUN is 26 and her creatinine has identified a downward trend to 1.9 (baseline 1.4). Her glucose remains controlled with a trend of 150 or less. Her procalcitonin is normal. Exam Data for Last 24 hours Vital signs and Labs for Last 24 Hours: Temp Pulse Resp BP Pulse Ox 98.6 F 87 18 114/57 L 95 07/20/22 07:10 07/20/22 07:10 07/20/22 07:10 07/20/22 07:10 07/20/22 07:10 Laboratory Results - last 24 hr 07/19/22 13:55: Sodium 133 L, Potassium 4.2, Chloride 105, Carbon Dioxide 22, Anion Gap 10.2, BUN 29 H, Creatinine 2.00 H, Estimated Creat Clear 27, Estimated GFR 24 L, Est GFR ( Amer) 29 L, Glucose 142 H, Calcium 10.2, Total Bilirubin 0.9, AST 28, ALT 20, Alkaline Phosphatase 89, Total Protein 6.5, Albumin 3.8, Globulin 2.7, Albumin/Globulin Ratio 1.4, Lipase 98 07/19/22 13:56: Urine Color Yellow, Urine Appearance Clear, Urine pH 6.0, Ur Specific Neely 1.010, Urine Protein Negative, Urine Glucose (UA) Negative, Urine Ketones Negative, Urine Blood Negative, Urine Nitrate Negative, Urine Bilirubin Negative, Urine Urobilinogen 0.2, Ur Leukocyte Esterase Negative, Urine RBC None, Urine WBC None, Ur Squamous Epith Cells 3-5, Urine Bacteria Trace 07/19/22 14:26: WBC 20.4 H* D, RBC 4.26, Hgb 12.3, Hct 37.1, MCV 87.2, MCH 29.0, MCHC 33.2, RDW 14.7, Plt Count 311, MPV 8.0, Neut % (Auto) 91.6 H, Lymph % (Auto) 5.4 L, Scott % (Auto) 2.5, Eos % (Auto) 0.3, Baso % (Auto) 0.2, Neut # (Auto) 18.7 H, Lymph # (Auto) 1.1, Scott # (Auto) 0.5, Eos # (Auto) 0.1, Baso # (Auto) 0.0, Total Counted 100, Neutrophils % (Manual) 89 H, Lymphocytes % (Manual) 5 L, Monocytes % (Manual) 6, Platelet Estimate Normal, RBC Morphology Normal 07/19/22 16:25: SARS-CoV-2 (PCR) Not detected, Influenza A Untype (PCR) Not detected, Influenza Type B (PCR) Not detected 07/19/22 17:30: Lactate 0.9 07/20/22 06:15: WBC 7.8 D, RBC 3.24 L, Hgb 9.6 L D, Hct 29.3 L, MCV 90.4, MCH 29.1, MCHC 32.2, RDW 14.9, Plt Count 224 D, MPV 7.3 L, Neut % (Auto) 70.9, Lymph % (Auto) 21.1, Scott % (Auto) 6.2, Eos % (Auto) 1.0, Baso % (Auto) 0.7, Neut # (Auto) 5.5, Lymph # (Auto) 1.6, Scott # (Auto) 0.5, Eos # (Auto) 0.1, Baso # (Auto) 0.1 07/20/22 06:15: Sodium 134 L, Potassium 3.8, Chloride 108 H, Carbon Dioxide 23, Anion Gap 6.8, BUN 26 H, Creatinine 1.90 H, Estimated Creat Clear 28, Estimated GFR 25 L, Est GFR ( Amer) 30 L, Glucose 106 H D, Calcium 8.9, Procalcitonin 1.21 I & O for Last 24 hours: Intake & Output 02/13/23 02/14/23 02/15/23 02/16/23 23:59 23:59 23:59 23:59 Intake Total 1290 / 1290 Output Total 100 / 100 1100 / 1100 Balance -100 / -100 190 / 190 Weight 81.193 kg 81.703 kg Constitutional Constitutional: no acute distress and cooperative *Routine HEENT Exam Head: Present normocephalic Eye: Present EOMI and PERRL ENT: Present mucous membranes moist *Routine Neck Exam Neck: Present supple and trachea midline; Absent lymphadenopathy *Routine Respiratory Exam Respiratory: Present CTA bilaterally, normal respiratory effort and symmetric chest movement *Routine
[2022-07-20 11:43] VITALS: BMI 23.6
--- NOTE | 2022-07-20 11:51 | EXP.SURG.CON ---
History of Present Illness *Admission Date: 07/19/22 *Reason for visit:: Melena *History of present illness: Forwarded from H&P: This is a 86-year-old female that presents to [facility] emergency department at the request of her general surgeon who she saw earlier today. She is accompanied by her daughter Dhara who assists with the history. Her past medical history is significant for kidney stones, constipation, diverticulosis, diabetes, chronic kidney disease stage IIIb, coronary artery disease and HFpEF. She describes abdominal pain for 3 to 4 days not improving with home care so she presented to see a local general surgeon who evaluated her and recommended ED evaluation. She describes constant dull ache to her abdomen. She also describes intermittent sharp pain to the left lower quadrant that radiates across her abdomen. She reports associated nausea and emesis. She denies diarrhea. She has not felt febrile or experienced chills. She denies dysuria or gross hematuria. She has not identified any melena, hematemesis or hematochezia. In the ED her CBC identifies a leukocytoses with stable hemoglobin and normal platelets. Her chemistry panel identifies stable creatinine with a normal potassium. CT scan of the abdomen identifies long segment of colonic wall thickening with surrounding inflammation consistent with colitis and pandiverticulosis with retained stool. She will be started on IV antibiotic. [facility] Disclaimer: The information contained in this section may have been updated after the patient was seen, as this information can be updated by other users. Medical History Chronic kidney disease, stage 3b Congestive heart failure Diabetes mellitus, type 2 History of GI bleed Pneumonia RBBB with left anterior fascicular block Urinary tract infection Surgical History H/O esophagogastroduodenoscopy H/O mastectomy H/O: hysterectomy Family History Other Family history of diabetes mellitus type II Family history of hyperlipidemia Family history of hypertension Family history of myocardial infarction Social History (Updated 07/19/22 @ 17:52 by Charissa Mosher RN) Smoking Status: Never smoker second hand exposure: No alcohol intake: never substance use type: denies use current occupational status: disabled Travel in the last 8 weeks: Inside the [place] household members: none housing: apartment current occupational exposures/hazards: No caffeine: Yes Meds Home Medications and Allergies Home Medications Medication Instructions Recorded Confirmed Type aspirin 81 mg tablet,delayed 81 mg PO DAILY heart health 07/30/17 07/19/22 History release (Adult Low Dose Aspirin) ferrous sulfate 325 mg (65 mg 325 mg PO DAILY iron supplement 07/30/17 07/19/22 History iron) tablet nitroglycerin 0.4 mg sublingual 0.4 mg sublingual DIRECTED PRN 01/21/19 07/19/22 Rx tablet Chest Pain ##30 ezetimibe 10 mg tablet 10 mg PO DAILY Cholesterol 09/16/20 07/19/22 History acetaminophen 650 mg 650 mg PO TIDP PRN PAIN 05/09/21 07/19/22 History tablet,extended release polyethylene glycol 3350 17 17 gm PO DAILY constipation 05/09/21 07/19/22 History gram/dose oral powder psyllium husk 3.4 gram/5.4 gram 425 gm PO DAILY CONSTIPATION 05/09/21 07/19/22 History oral powder lisinopril 10 mg tablet 10 mg PO DAILY Hypertension 06/14/22 07/19/22 History diltiazem HCl 240 mg 240 mg PO DAILY heart rate 07/10/22 07/19/22 History capsule,extended release 24 hr pantoprazole 40 mg tablet,delayed 40 mg PO DAILY acid reflux 07/10/22 07/19/22 History release potassium chloride 10 mEq 10 meq PO DAILY potassium 07/10/22 07/19/22 History capsule,extended release replacment ranolazine 1,000 mg 1,000 mg PO BID chronic angina 07/10/22 07/19/22 History
[2022-07-20 12:50] LABS: Hematocrit 29.3 % (37.0-47.0); Hemoglobin 9.9 g/dL (12.2-16.2)
[2022-07-20 15:02] VITALS: BP 107/47; PULSE 73; RESP 18; TEMP 37.1; O2SAT 97
[2022-07-20 19:22] VITALS: BP 112/56; PULSE 70; RESP 16; TEMP 37.2; O2SAT 99
[2022-07-20 20:00] VITALS: O2SAT 99
[2022-07-20 21:10] LABS: Hematocrit 29.6 % (37.0-47.0); Hemoglobin 9.7 g/dL (12.2-16.2)
[2022-07-21] VITALS (15 sets, daily range): BP systolic 84–141; BP diastolic 34–85; PULSE 63–77; RESP 14–20; TEMP 36.4–36.9; O2SAT 93–100; BMI 24.0
--- NOTE | 2022-07-21 05:09 | PC.NURSE ---
HAS BEEN NPO SINCE PR FOR EGD THIS AM. INDEPENDENT TO BR WITH ROLLING WALKER AND SBA.. DAUGHTER AT BEDSIDE. NO NAUSEA OR VOMITING BLOOD. REPORTS STOOLS DARK.
[2022-07-21 06:01] LABS: Basophils % 0.4 % (0.1-2.0); Eosinophils # 0.1 K/mm3 (0.0-0.4); Eosinophils % 1.4 % (0.1-12.0); Hematocrit 27.2 % (37.0-47.0); Hemoglobin 9.1 g/dL (12.2-16.2); Lymphocytes # 1.8 K/mm3 (0.7-4.5); Mean Corpuscular HGB Conc 33.5 g/dL (31.8-35.4); Mean Corpuscular Hemoglobin 29.5 pg (27.0-31.2); Mean Corpuscular Volume 87.9 fl (81-99); Mean Platelet Volume 7.3 fl (7.4-10.4); Monocytes # 0.4 K/mm3 (0.1-1.0); Monocytes % 6.8 % (1.7-9.3); Neutrophils # 3.9 K/mm3 (1.8-7.8); Neutrophils % 62.3 % (37.0-80.0); Platelet Count 210 K/mm3 (142-424); Red Blood Count 3.09 M/mm3 (4.20-5.40); Red Cell Distribution Width 15.2 % (11.5-17.5); White Blood Count 6.2 K/mm3 (4.8-10.8)
[2022-07-21 06:12] LABS: Chloride 112 mmol/L (98-107); Sodium 138 mmol/L (136-145)
[2022-07-21 06:15] LABS: Blood Urea Nitrogen 18 mg/dl (7-17); Creatinine Clearance Estimated 30 mL/min (50-200); Estimated Glomerular Filt Rate 27 ml/min (>60); GFR (African American) 32 ML/MIN (>60)
[2022-07-21 06:16] LABS: Calcium 9.1 mg/dl (8.4-10.2); Carbon Dioxide 26 mmol/L (22.0-30.0); Glucose 100 mg/dl (74-100)
--- NOTE | 2022-07-21 06:37 | PC.NURSE ---
Pt down to surgery at this time.
--- NOTE | 2022-07-21 06:37 | PC.NURSE ---
TO OR VIA BED ACCOMPANIED BY DAUGHTER.
--- NOTE | 2022-07-21 06:47 | P.PN_ITS ---
Subjective Patient reports: feels better Exam Data for Last 24 hours Vital signs and Labs for Last 24 Hours: Temp Pulse Resp BP Pulse Ox 98.3 F 70 16 121/55 L 99 07/21/22 04:00 07/21/22 04:00 07/21/22 04:00 07/21/22 04:00 07/21/22 04:00 Laboratory Results - last 24 hr 07/20/22 06:15: WBC 7.8 D, RBC 3.24 L, Hgb 9.6 L D, Hct 29.3 L, MCV 90.4, MCH 29.1, MCHC 32.2, RDW 14.9, Plt Count 224 D, MPV 7.3 L, Neut % (Auto) 70.9, Lymph % (Auto) 21.1, [place] % (Auto) 6.2, Eos % (Auto) 1.0, Baso % (Auto) 0.7, Neut # (Auto) 5.5, Lymph # (Auto) 1.6, [place] # (Auto) 0.5, Eos # (Auto) 0.1, Baso # (Auto) 0.1 07/20/22 06:15: Sodium 134 L, Potassium 3.8, Chloride 108 H, Carbon Dioxide 23, Anion Gap 6.8, BUN 26 H, Creatinine 1.90 H, Estimated Creat Clear 28, Estimated GFR 25 L, Est GFR ( Amer) 30 L, Glucose 106 H D, Calcium 8.9, Procalcitonin 1.21 07/20/22 10:00: Blood Type O Positive, Antibody Screen Negative 07/20/22 12:40: Hgb 9.9 L, Hct 29.3 L 07/20/22 20:55: Hgb 9.7 L, Hct 29.6 L 07/21/22 05:34: WBC 6.2, RBC 3.09 L, Hgb 9.1 L, Hct 27.2 L, MCV 87.9, MCH 29.5, MCHC 33.5, RDW 15.2, Plt Count 210, MPV 7.3 L, Neut % (Auto) 62.3, Lymph % (Auto) 29.0, [place] % (Auto) 6.8, Eos % (Auto) 1.4, Baso % (Auto) 0.4, Neut # (Auto) 3.9, Lymph # (Auto) 1.8, [place] # (Auto) 0.4, Eos # (Auto) 0.1, Baso # (Auto) 0.0 07/21/22 05:34: Sodium 138, Potassium 4.0, Chloride 112 H, Carbon Dioxide 26, Anion Gap 4.0 L, BUN 18 H D, Creatinine 1.80 H, Estimated Creat Clear 30, Estimated GFR 27 L, Est GFR ( Amer) 32 L, Glucose 100, Calcium 9.1 I & O for Last 24 hours: Intake & Output 07/18/22 07/19/22 07/20/22 07/21/22 11:59 11:59 11:59 11:59 Intake Total 1290 / 1290 1603 / 1603 Output Total 1325 / 1325 3100 / 3100 Balance -35 / -35 -1497 / -1497 Weight 178 lb 9.191 oz 181 lb 12.8 oz Constitutional Constitutional: no acute distress *Routine Respiratory Exam Respiratory: Absent respiratory distress *Routine Cardiovascular Exam Cardiovascular: Absent tachycardia Progress Note: A&P Assessment and plan (1) Melena: Status: Acute Assessment and plan: Esophagogastroduodenoscopy this a.m. Continue proton pump inhibition (2) Acute blood loss anemia: Status: Acute Assessment and plan: Definitive etiology remains equivocal as this could represent a true upper source or lower source with slow transit . EGD this a.m. Likely colonoscopy in near future May require evaluation of remaining GI tract (note history of Whipple) via UGI/SBFT followed by capsule endoscopy (3) Colitis: Status: Acute Assessment and plan: Continue management as per primary service (4) Gastric adenoma: Problem details: Status post endoscopic resection in September 2020. Repeat EGD in May 2021 revealed no evidence of persistent adenomatous growth. Status: Acute (5) Angiodysplasia of colon: Status: Acute Assessment and plan: Likely repeat colonoscopy in near future once recovered from colitis...may benefit from repeat argon plasma coagulation
--- NOTE | 2022-07-21 07:29 | P.PN_ITS ---
[facility] Disclaimer: The information contained in this section may have been updated after the patient was seen, as this information can be updated by other users. Medical History (Updated 07/21/22 @ 06:51 by Alcides Sagastume MD) Chronic kidney disease, stage 3b Congestive heart failure Diabetes mellitus, type 2 Gastric adenoma History of GI bleed Pneumonia RBBB with left anterior fascicular block Urinary tract infection Surgical History (Updated 07/21/22 @ 06:50 by Alcides Sagastume MD) H/O esophagogastroduodenoscopy H/O mastectomy H/O Whipple procedure H/O: hysterectomy Family History Other Family history of diabetes mellitus type II Family history of hyperlipidemia Family history of hypertension Family history of myocardial infarction Social History (Updated 07/19/22 @ 17:52 by Charissa Mosher RN) Smoking Status: Never smoker second hand exposure: No alcohol intake: never substance use type: denies use current occupational status: disabled Travel in the last 8 weeks: Inside the [place] household members: none housing: apartment current occupational exposures/hazards: No caffeine: Yes [facility] Anesthesia Checklist Patient Identification Patient Identification: Arm Band Structural Data Admitted From: Inpatient Planned Operative Procedure/s: EGD Consent for Planned Operative Procedure(s) Verified: Yes Verified Documents: Surgical Consent and History and Physical NPO Status Verified Time NPO: 00:00 Additional verifications Anesthesia Reactions: No Airway Assessment C-Spine Mobility Assessed: Yes TMJ Mobility Assessed: Yes Dentition: Good Dentition Neurological Assessment Level of Consciousness: Awake and Alert Anesthesia Plan Anesthesia Risk discussed: Yes Anesthesia Plan: Verified ASA Class: III Anesthesia Type: MAC
--- NOTE | 2022-07-21 07:45 | P.PCN_ITS ---
Procedure: Date: 07/21/22 Patient Date of :: 1935 Procedure Performed:: Esophagogastroduodenoscopy with biopsy Indications:: Melena Note: Patient does have a history of complex gastric adenoma just proximal to her anastomosis (status post Whipple). Her most recent esophagogastroduodenoscopy in May 2021 revealed no evidence of persistent adenoma; however, she did have lobulation in the region around the anastomosis. Biopsies were benign. She also has a history of colonic AVMs status post argon plasma coagulation in September 2020. She is currently being treated for colitis and constipation. Performing Provider:: Alcides Sagastume MD Referring Provider:: Hospitalist Service Sedation:: Monitored anesthesia care Procedure:: After informed consent was obtained the patient was taken to the endoscopy suite. Sedation ensued after the patient was transferred to the left lateral decubitus position. Pulse, blood pressure, and oxygen saturation were monitored throughout the procedure. The endoscope was advanced beyond the duodenal bulb. Retroflexion within the gastric lumen was accomplished. The gastroscope was carefully removed and the patient was transferred to recovery in stable conditi on. Please see findings and specimens below for detail. Findings:: No sign of active bleeding or recent hemorrhage Adjacent tiny ulcerations at anastomosis with no evidence of bleeding Specimens:: Biopsy at anastomosis (adjacent to tiny ulcerations) Recommendations:: Continue proton pump inhibition Follow-up pathology May require short-term repeat EGD if she shows evidence of recurrent upper gastrointestinal hemorrhage May benefit from colonoscopy near future (preferably as an outpatient after recovery from colitis) secondary to history of colonic AVMs requiring argon plasma coagulation Continue therapy as per primary service for colitis Complications:: No immediate Estimated blood obtained (mL): 1
--- NOTE | 2022-07-21 10:23 | SW/DCPLANNER ---
Addendum entered by Kaykay Gutierrez 07/21/22 12:41: Linnea koch/ [facility] stated that services will begin Sunday. Original Note: I spoke with this patient regarding plans once medically stable for discharge (expected to be tomorrow pending no setbacks). MD has recommended that patient discharge home with home health services. Patient is agreeable to home health services and prefers to use [facility]. I will fax patient information/order to [facility] today.
--- NOTE | 2022-07-21 11:22 | EXP.PN ---
Subjective *Date: 07/21/22 *Time: 11:22 Interval history: Date of service July 21, 2022 The patient reports no acute events overnight. She is accompanied by her daughter Dhara and son David this morning. She has undergone her EGD identifying an ulcer at her Whipple anastomosis with no active bleeding. She is tolerating her IV Zosyn and twice daily PPI therapy with no adverse events. Nursing staff report that she remains afebrile with stable vital signs and saturating appropriately on room air. We have reviewed and discussed her morning laboratory results. I have personally interpreted her labs as follows: Her morning CBC identifies a resolved leukocytosis with a white blood cell count of 6.2. Her hemoglobin is stable at 9.1 and her hematocrit is 27.2. Her platelet count is normal. Her electrolytes identify a normal sodium and potassium with a BUN of 18 and a creatinine down to 1.8 with 1.4 being her baseline. Her procalcitonin is negative. Family is requesting home health on discharge. Exam Data for Last 24 hours Vital signs and Labs for Last 24 Hours: Temp Pulse Resp BP Pulse Ox 98.0 F 71 20 130/73 95 07/21/22 08:05 07/21/22 10:20 07/21/22 10:20 07/21/22 10:20 07/21/22 10:20 Laboratory Results - last 24 hr 07/20/22 12:40: Hgb 9.9 L, Hct 29.3 L 07/20/22 20:55: Hgb 9.7 L, Hct 29.6 L 07/21/22 05:34: WBC 6.2, RBC 3.09 L, Hgb 9.1 L, Hct 27.2 L, MCV 87.9, MCH 29.5, MCHC 33.5, RDW 15.2, Plt Count 210, MPV 7.3 L, Neut % (Auto) 62.3, Lymph % (Auto) 29.0, [place] % (Auto) 6.8, Eos % (Auto) 1.4, Baso % (Auto) 0.4, Neut # (Auto) 3.9, Lymph # (Auto) 1.8, [place] # (Auto) 0.4, Eos # (Auto) 0.1, Baso # (Auto) 0.0 07/21/22 05:34: Sodium 138, Potassium 4.0, Chloride 112 H, Carbon Dioxide 26, Anion Gap 4.0 L, BUN 18 H D, Creatinine 1.80 H, Estimated Creat Clear 30, Estimated GFR 27 L, Est GFR ( Amer) 32 L, Glucose 100, Calcium 9.1 I & O for Last 24 hours: Intake & Output 07/18/22 07/19/22 07/20/22 07/21/22 23:59 23:59 23:59 23:59 Intake Total 2345 / 2345 788 / 788 Output Total 100 / 100 3425 / 3425 900 / 900 Balance -100 / -100 -1080 / -1080 -112 / -112 Weight 81.193 kg 81 kg 82.463 kg Constitutional Constitutional: no acute distress and cooperative *Routine HEENT Exam Head: Present normocephalic Eye: Present EOMI and PERRL ENT: Present mucous membranes moist *Routine Neck Exam Neck: Present supple and trachea midline; Absent lymphadenopathy *Routine Respiratory Exam Respiratory: Present CTA bilaterally, normal respiratory effort and symmetric chest movement *Routine Cardiovascular Exam Cardiovascular: Present RRR *Routine Abdominal Exam Abdominal: Present soft and normoactive bowel sounds; Absent tenderness (Epigastric), distended, rebound or guarding *Routine Extremities Exam Extremities: Present full ROM, pulses intact and normal capillary refill; Absent cyanosis, clubbing or edema *Routine Skin Exam Skin: Present warm; Absent rash *Routine Neurological Exam Neurological: Present alert, oriented X3, moving all extremities, normal tone, vision grossly intact, hearing grossly intact and normal speech Routine Psychiatric Exam Psychiatric: Present normal affect, normal thought process, cooperative, good insight and good judgment Assessment and Plan *Assessment and plan (1) Colitis: Status: Acute Category: Medical Code(s): K52.9 - Noninfective gastroenteritis and colitis, unspecified (2) Acute blood loss anemia: Status: Acute Category: Medical Code(s): D62 - Acute posthemorrhagic anemia (3) Diabetes: Status: Acute Category: Medical Code(s): E11.9 - Type 2 diabetes mellitus without complications (4) CAD (coronary artery disease): Status: Acute Category: Medical Code(s): I25.10 - Atherosclerotic heart disease of [place] coronary artery without angina pectoris (5) Hypertension: Status: Acute Category: Medical
[2022-07-21 13:17] LABS: Hematocrit 29.5 % (37.0-47.0); Hemoglobin 9.9 g/dL (12.2-16.2)
--- NOTE | 2022-07-21 18:40 | PC.NURSE ---
PT IS RESTING IN BED. ALERT AND ORIENTED X4. PT HAS AMBULATED TO THE BATHROOM WITH WALKER AND STANDBY ASSIST. PT TOLERATED FULL LIQUIDS AND WAS ADVANCED TO A DIABETIC DIET. REDNESS NOTED TO BUTTOCKS. MOISTURE BARRIER APPLIED AND PT HAS BEEN ENCOURAGED TO REPOSITION FROM SIDE TO SIDE. TRACE EDEMA NOTED TO BLE. WILL CONTINUE TO MONITOR .
[2022-07-21 19:59] LABS: POC Glucose,Bedside 222 (70-110)
[2022-07-21 19:59] LABS: POC Glucose,Bedside 144 (70-110)
[2022-07-21 19:59] LABS: POC Glucose,Bedside 188 (70-110)
[2022-07-21 19:59] LABS: POC Glucose,Bedside 209 (70-110)
[2022-07-21 19:59] LABS: POC Glucose,Bedside 125 (70-110)
[2022-07-21 19:59] LABS: POC Glucose,Bedside 110 (70-110)
[2022-07-21 19:59] LABS: POC Glucose,Bedside 108 (70-110)
--- NOTE | 2022-07-22 01:25 | PC.NURSE ---
PATIENT DENIES PAIN/DISCOMFORT. VITAL SIGNS STABLE. DAUGHTER AT BEDSIDE. DAUGHTER HAS QUESTIONS RE SLIDING SCALE INSULIN AND IF HER MOTHER WILL BE GOING HOME WITH A PRESCRIPTION FOR THIS AND THE PARAMETERS.
[2022-07-22 04:00] VITALS: BP 111/48; PULSE 75; RESP 18; TEMP 36.8; O2SAT 98; BMI 24.6
[2022-07-22 06:16] LABS: POC Glucose,Bedside 140 (70-110)
[2022-07-22 08:00] VITALS: BP 116/50; PULSE 68; RESP 16; TEMP 36.8; O2SAT 100
--- NOTE | 2022-07-22 08:11 | EXP.DC.SUM ---
General Admission date:: 07/19/22 Discharge date: 07/22/22 HPI HPI HPI: This is a 86-year-old female that presents to [facility] emergency department at the request of her general surgeon who she saw earlier today. She is accompanied by her daughter Dhara who assists with the history. Her past medical history is significant for kidney stones, constipation, diverticulosis, diabetes, chronic kidney disease stage IIIb, coronary artery disease and HFpEF. She describes abdominal pain for 3 to 4 days not improving with home care so she presented to see a local general surgeon who evaluated her and recommended ED evaluation. She describes constant dull ache to her abdomen. She also describes intermittent sharp pain to the left lower quadrant that radiates across her abdomen. She reports associated nausea and emesis. She denies diarrhea. She has not felt febrile or experienced chills. She denies dysuria or gross hematuria. She has not identified any melena, hematemesis or hematochezia. In the ED her CBC identifies a leukocytoses with stable hemoglobin and normal platelets. Her chemistry panel identifies stable creatinine with a normal potassium. CT scan of the abdomen identifies long segment of colonic wall thickening with surrounding inflammation consistent with colitis and pandiverticulosis with retained stool. She will be started on IV antibiotic. Hospital Course Hospital Course Hospital Course: The patient is an 86-year-old female who presents to the ED at the request of her general surgeon for abdominal pain.? Imaging identified colitis and labs identified leukocytoses.? She identified nausea and vomiting.? Admitted for colitis. Developed melena and blood loss anemia shortly after admission. Problems addressed as follows: Colitis Acute blood loss anemia Melena Gastric ulceration Colitis identified on presentation with CT of abdomen showing inflammation of colon. Initiated on Zosyn IV. Had gradual improvement in her white cell count and inflammatory markers. No nausea or vomiting. Transitioned to Augmentin to complete 7-day empiric course of antibiotics. Patient also developed anemia during admission with subsequent EGD performed. Identified small ulcer at previous Whipple anastomosis. Patient was started on pantoprazole and hemoglobins trended. Hemoglobin remained stable in the mid 9 range, did not require any transfusion. Plan to continue pantoprazole therapy at discharge. We will have close follow-up with surgery in 1 week for repeat labs and further evaluation/management. Patient's constipation has resolved with regular bowel regimen. De-escalate regimen for goal of 1-2 soft stools daily. Currently having 2-4 soft stools during admission daily. Diabetes Routine blood sugar monitoring. Resume basal insulin therapy of insulin glargine 10 units nightly. A1c well controlled at 6.4. Resume oral therapy with Januvia at discharge. Recommend daily glucose check in the morning and keep a log to present to her PCP at follow-up for further outpatient adjustment. Coronary artery disease Essential hypertension Chronic HFpEF Stable. Continued statin therapy, will aspirin therapy, diltiazem, ranolazine, and lisinopril. Reviewed echocardiogram from 06/26/2022. EF preserved at 55%. Resume diuretic at discharge Acute kidney injury Chronic kidney disease stage IIIb Routine electrolyte and creatinine evaluation. Creatinine stable at 1.6 on day of discharge. Baseline 1.4-1.6. Repeat labs in a week as an outpatient. Medically stable for discharge home. Plan to discharge with home health. Case management consulted to assist with home health referral. Daughter at bedside on discharge. Questions answered. Spent 40 minutes in discharge counseling and direct care with patient. Exam Data for Last 24 hours Vital signs and Labs for Last 24 Hours: Temp Pulse Resp BP Pulse Ox 98.2 F 75 18 111/48 L 98 07/22/22 04:00
[2022-07-22 09:11] VITALS: BP 114/60; PULSE 78; O2SAT 98
[2022-07-22 09:22] LABS: Basophils % 0.3 % (0.1-2.0); Eosinophils # 0.1 K/mm3 (0.0-0.4); Eosinophils % 1.2 % (0.1-12.0); Hematocrit 28.1 % (37.0-47.0); Hemoglobin 9.2 g/dL (12.2-16.2); Lymphocytes # 1.5 K/mm3 (0.7-4.5); Lymphocytes % 23.1 % (10-50); Mean Corpuscular HGB Conc 32.7 g/dL (31.8-35.4); Mean Corpuscular Hemoglobin 29.1 pg (27.0-31.2); Mean Corpuscular Volume 88.8 fl (81-99); Mean Platelet Volume 7.6 fl (7.4-10.4); Monocytes # 0.5 K/mm3 (0.1-1.0); Monocytes % 7.2 % (1.7-9.3); Neutrophils # 4.3 K/mm3 (1.8-7.8); Neutrophils % 68.3 % (37.0-80.0); Platelet Count 212 K/mm3 (142-424); Red Blood Count 3.16 M/mm3 (4.20-5.40); White Blood Count 6.3 K/mm3 (4.8-10.8)
[2022-07-22 09:28] LABS: Chloride 112 mmol/L (98-107); Sodium 138 mmol/L (136-145)
[2022-07-22 09:29] LABS: Potassium 4.2 mmoL/L (3.5-5.1)
[2022-07-22 09:32] LABS: Anion Gap 4.2 mEq/L (5-15); Blood Urea Nitrogen 14 mg/dl (7-17); Calcium 9.4 mg/dl (8.4-10.2); Carbon Dioxide 26 mmol/L (22.0-30.0); Creatinine Clearance Estimated 35 mL/min (50-200); Estimated Glomerular Filt Rate 31 ml/min (>60); GFR (African American) 37 ML/MIN (>60); Glucose 156 mg/dl (74-100)
--- NOTE | 2022-07-22 11:10 | P.PN_ITS ---
Subjective Patient reports: no new complaints Narrative: Patient reports she is tolerating diet and passing flatus. She denies abdominal pain. She denies emesis. Exam Data for Last 24 hours Vital signs and Labs for Last 24 Hours: Temp Pulse Resp BP Pulse Ox 98.3 F 78 16 114/60 98 07/22/22 08:00 07/22/22 09:11 07/22/22 08:00 07/22/22 09:11 07/22/22 09:11 Laboratory Results - last 24 hr 07/19/22 20:19: POC Glucose 144 H 07/20/22 06:23: POC Glucose 108 07/20/22 20:36: POC Glucose 125 H 07/21/22 05:33: POC Glucose 110 07/21/22 11:11: POC Glucose 188 H 07/21/22 13:00: Hgb 9.9 L, Hct 29.5 L 07/21/22 16:36: POC Glucose 222 H 07/21/22 19:52: POC Glucose 209 H 07/22/22 06:09: POC Glucose 140 H 07/22/22 09:00: WBC 6.3, RBC 3.16 L, Hgb 9.2 L, Hct 28.1 L, MCV 88.8, MCH 29.1, MCHC 32.7, RDW 15.0, Plt Count 212, MPV 7.6, Neut % (Auto) 68.3, Lymph % (Auto) 23.1, [place] % (Auto) 7.2, Eos % (Auto) 1.2, Baso % (Auto) 0.3, Neut # (Auto) 4.3, Lymph # (Auto) 1.5, [place] # (Auto) 0.5, Eos # (Auto) 0.1, Baso # (Auto) 0.0 07/22/22 09:00: Sodium 138, Potassium 4.2, Chloride 112 H, Carbon Dioxide 26, Anion Gap 4.2 L, BUN 14, Creatinine 1.60 H, Estimated Creat Clear 35, Estimated GFR 31 L, Est GFR ( Amer) 37 L, Glucose 156 H, Calcium 9.4 I & O for Last 24 hours: Intake & Output 07/19/22 07/20/22 07/21/22 07/22/22 23:59 23:59 23:59 23:59 Intake Total 2345 / 2345 1917 / 1917 340 / 340 Output Total 100 / 100 3425 / 3425 1400 / 1400 0 / 0 Balance -100 / -100 -1080 / -1080 518 / 518 340 / 340 Weight 179 lb 178 lb 9.191 oz 181 lb 12.8 oz 185 lb 11.2 oz Microbiology Reports for the Last 24 Hours: Microbiology 07/19/22 17:30 Blood Blood Culture - Preliminary NO GROWTH AFTER 48 HOURS 07/19/22 17:30 Blood Blood Culture - Preliminary NO GROWTH AFTER 48 HOURS Constitutional Constitutional: no acute distress *Routine Respiratory Exam Respiratory: Present CTA bilaterally and normal respiratory effort *Routine Cardiovascular Exam Cardiovascular: Present RRR *Routine Abdominal Exam Abdominal: Present soft and normoactive bowel sounds; Absent tenderness, distended or guarding Comments: bilateral subcostal chevron incision noted. Progress Note: A&P Assessment and plan (1) Colitis: Status: Acute (2) Acute blood loss anemia: Problem details: No emesis or otherwise bloody show. 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 Avoid ulcerogenics (NSAIDs, smoking secondhand smoke, steroids) if possible as this will exacerbate marginal ulcers. May benefit from oral PPI discharge. Status: Acute (3) Diabetes: Status: Acute (4) CAD (coronary artery disease): Status: Acute (5) Hypertension: Status: Acute (6) Chronic kidney disease, stage 3b: Status: Acute
--- NOTE | 2022-07-24 14:27 | CARE MANAGER ---
Contacted patient related to hospital discharge. patient states that the home health nurse is there and she did pick up driver her antibiotic. She denies any questions or concerns at this time. JETT Mills
== END 2022-07-22 11:05 | disposition home health service (06) ==
LOC: ER 16:30 → 2ND 16:58
PROVIDERS: Surgery; Admitting Provider Family Medicine; Emergency Provider Emergency Medicine; PCP Family Medicine; Visit Provider Family Medicine
PROC: 0DJ08ZZ Inspection of Upper Intestinal Tract, Via Natural or Artificial Opening Endoscopic (ICD-10-PCS; CPT 43235; principal; 2022-07-21 07:00)
DX: K52.9 Noninfective gastroenteritis and colitis, unspecified (principal); E11.22 Type 2 diabetes mellitus with diabetic chronic kidney disease; I25.10 Atherosclerotic heart disease of native coronary artery without angina pectoris; N18.32 Chronic kidney disease, stage 3b; K55.20 Angiodysplasia of colon without hemorrhage; D13.1 Benign neoplasm of stomach; I13.0 Hypertensive heart and chronic kidney disease with heart failure and stage 1 through stage 4 chronic kidney disease, or unspecified chronic kidney disease; Z79.4 Long term (current) use of insulin; Z79.899 Other long term (current) drug therapy; D64.9 Anemia, unspecified; I50.9 Heart failure, unspecified
CPT/HCPCS: 43239; G0378; 36415; 74176; 80048; 80053; 81001; 82962; 83605; 83690; 84145; 85007; 85014; 85018; 85025; 86850; 87040; 88305; 99285; C9803; J2405; J2543; U0003; U0005

== ENCOUNTER 2022-07-26 21:58 | Emergency (ER) | payer MEDICARE, BC, SELFPAY ==
--- NOTE | 2022-07-26 21:58 | ECG_ITS ---
APPROVED REPORT Exam: Resting ECG HR:103 bpm ECG Measurements Heart Rate 103 AXES AL 155 P 58 QRSd 149 QRS -67 QT 384 T 82 QTc 444 Conclusion SINUS TACHYCARDIA RIGHT BUNDLE BRANCH BLOCK LAFB LEFT VENTRICULAR HYPERTROPHY AND ST-T CHANGE [VOLTAGE CRITERIA PLUS ST/T ABNORMALITY] ABNORMAL ECG UNCONFIRMED REPORT Electronically signed by : Gucci Benavidez MD 07/27/2022 19:34:30
[2022-07-26 22:01] VITALS: BP 109/59; PULSE 94; RESP 16; TEMP 36.8; O2SAT 99; BMI 24.0
--- NOTE | 2022-07-26 22:12 | XR_ITS ---
PROCEDURE INFORMATION: Exam: XR Chest Exam date and time: 07/26/2022 11:09 PM Age: 86 years old Clinical indication: Pain; Chest pressure TECHNIQUE: Imaging protocol: Radiologic exam of the chest. Views: 1 view. COMPARISON: CR XR CHEST PORTABLE 07/16/2022 7:53 PM FINDINGS: Lungs: Stigmata of old granulomatous disease. Pleural spaces: Unremarkable. No pleural effusion. No pneumothorax. Heart/Mediastinum: Unremarkable. No cardiomegaly. Vasculature: Vascular calcifications. Bones/joints: Unremarkable. IMPRESSION: No acute findings.
[2022-07-26 22:19] LABS: Basophils # 0.1 K/mm3 (0-0.2); Basophils % 0.6 % (0.1-2.0); Eosinophils # 0.2 K/mm3 (0.0-0.4); Eosinophils % 2.1 % (0.1-12.0); Hematocrit 32.5 % (37.0-47.0); Hemoglobin 10.8 g/dL (12.2-16.2); Lymphocytes # 1.2 K/mm3 (0.7-4.5); Lymphocytes % 13.6 % (10-50); Mean Corpuscular HGB Conc 33.1 g/dL (31.8-35.4); Mean Corpuscular Hemoglobin 29.7 pg (27.0-31.2); Mean Corpuscular Volume 89.6 fl (81-99); Mean Platelet Volume 7.7 fl (7.4-10.4); Monocytes # 0.4 K/mm3 (0.1-1.0); Monocytes % 4.1 % (1.7-9.3); Neutrophils # 6.8 K/mm3 (1.8-7.8); Neutrophils % 79.5 % (37.0-80.0); Platelet Count 271 K/mm3 (142-424); Red Blood Count 3.63 M/mm3 (4.20-5.40); Red Cell Distribution Width 15.4 % (11.5-17.5); White Blood Count 8.6 K/mm3 (4.8-10.8)
--- NOTE | 2022-07-26 22:21 | CT_ITS ---
PROCEDURE INFORMATION: Exam: CT Abdomen And Pelvis Without Contrast Exam date and time: 07/26/2022 11:02 PM Age: 86 years old Clinical indication: Abdominal pain; Additional info: Abdominal pain epigastric TECHNIQUE: Imaging protocol: Computed tomography of the abdomen and pelvis without contrast. Radiation optimization: All CT scans at this facility use at least one of these dose optimization techniques: automated exposure control; mA and/or kV adjustment per patient size (includes targeted exams where dose is matched to clinical indication); or iterative reconstruction. REPORTING DATA: Count of CT and Cardiac NM exams in prior 12 months: This patient has received 6 known CTs and 0 known cardiac nuclear medicine studies in the 12 months prior to the current study. COMPARISON: CT ABDOMEN PELVIS WO CON 07/19/2022 2:54 PM FINDINGS: Lungs: Mild scarring and atelectasis in the lower lungs. Coronary arteries: Coronary artery calcifications. Liver: Normal. No mass. Gallbladder and bile ducts: Gallbladder is absent. Pneumobilia, which is likely related to prior biliary procedures. This is similar to prior study. Pancreas: Postsurgical appearance of the pancreas. Spleen: Normal. No splenomegaly. Adrenal glands: Mild nonspecific left adrenal thickening, likely benign. Kidneys and ureters: Low attenuation renal lesions measuring up to 2 cm in diameter are incompletely characterized, but are likely cysts. No followup imaging is warranted. Nonobstructing right renal calculus. Stomach and bowel: Postsurgical changes of the proximal small bowel and stomach. Postsurgical changes of the cecum. Severe colonic diverticulosis without diverticulitis. Mild nonspecific bowel wall thickening of the stomach. Appendix: No evidence of appendicitis. Intraperitoneal space: Unremarkable. No free air. No significant fluid collection. Vasculature: The arteries demonstrate moderate atherosclerotic disease. Lymph nodes: Unremarkable. No enlarged lymph nodes. Urinary bladder: Unremarkable as visualized. Reproductive: Status post hysterectomy. Bones/joints: The lumbar spine demonstrates moderate degenerative changes at multiple levels. Soft tissues: Unremarkable. Other findings: Stigmata of old granulomatous disease. IMPRESSION: 1. Mild nonspecific bowel wall thickening of the stomach. Please exclude gastritis. 2. Nonobstructing right renal calculus. COMMENTS: Consistent with the [place]'s Incidental Findings Committee white paper (J Am Stacy Radiol 2018): Any incidental renal lesion less than 1 cm or classified as too small to characterize, or any incidental cystic renal lesion characterized as simple-appearing, is likely benign. No follow-up imaging is recommended for these lesions per consensus recommendations based on imaging criteria.
--- NOTE | 2022-07-26 22:22 | HMH.EDGENADL ---
Discharge Plan Disposition Patient Disposition: Home, Self-Care Condition: Good Chief Complaint: Chest Pain Prescriptions Prescriptions: No Action nitroglycerin 0.4 mg tablet, sublingual 0.4 mg SUBLINGUAL DIRECTED PRN (Reason: Chest Pain) Qty: 30 2RF Rx Instructions: 0.4 mg every 5 minutes up to 3 doses, if no relief seek emergency treatment aspirin [Adult Low Dose Aspirin] 81 mg tablet,delayed release (DR/EC) 81 mg PO DAILY ferrous sulfate 325 mg (65 mg iron) tablet 325 mg PO DAILY lisinopril 10 mg tablet 10 mg PO DAILY potassium chloride 10 mEq capsule, extended release 10 meq PO DAILY diltiazem HCl 240 mg capsule,extended release 24hr 240 mg PO DAILY pantoprazole 40 mg tablet,delayed release (DR/EC) 40 mg PO DAILY ranolazine 1,000 mg tablet extended release 12 hr 1,000 mg PO BID atenolol 50 mg tablet 25 mg PO DAILY furosemide 20 mg tablet 20 mg PO DAILY 30 Days Qty: 30 0RF sennosides-docusate sodium [Stool Softener-Stimulant Laxat] 8.6-50 mg tablet 1 tab PO DAILY hydrocortisone [Preparation H Hydrocortisone] 1 % cream 1 applic topical TIDP PRN (Reason: skin irritation) ezetimibe 10 MG tablet 10 mg PO DAILY acetaminophen 650 MG tablet extended release 650 mg PO TIDP PRN (Reason: PAIN) psyllium husk 660 GM powder 425 gm PO DAILY insulin glargine [Lantus U-100 Insulin] 100 unit/mL solution 10 unit SQ HS Januvia 25 mg tablet 25 mg PO DAILY atorvastatin 20 mg tablet 20 mg PO DAILY amoxicillin-pot clavulanate 875-125 mg tablet 1 tab PO BID 4 Days Qty: 8 0RF polyethylene glycol 3350 119 GM powder 17 gm PO DAILY PRN (Reason: constipation) 30 Days Qty: 0 0RF Referrals Follow up/Referrals: Rosalio Rainey MD [Primary Care Provider] - See instructions Activity Restrictions/Add. Instructions Additional Instructions/Restrictions: Return for worsening pain vomiting or any other concerns within the next few days. Follow-up with gastroenterology as recommended Clinical Impressions Clinical Impression: Gastritis Discharge ED Provider: Rome Velazquez General Adult HPI General Chief complaint: Chest Pain Stated complaint: chest pain Time Seen by Provider: 07/26/22 22:00 Mode of Arrival: EMS Limitations: No Limitations Description of Symptoms (Recalled from ER Triage Doc. by RN): Pt advises she started to have pressure in the center of chest around 2129 this date. Pt denies pain any where else and denies any other symptoms at the time of presentation, advises she did have some SOA earlier but it has since resolved History of Present Illness HPI narrative: 86-year-old female presents with abdominal and chest pain since 9:30 PM. She did have some shortness of breath earlier but it resolved. She lives alone. The pain is mainly in the epigastric region. No nausea vomiting diarrhea fever. No radiation of the pain. She had similar issues and had a upper GI study done at 1 point however it is better now. Related Data Home Medications Medication Instructions Recorded Confirmed aspirin 81 mg tablet,delayed 81 mg PO DAILY heart health 07/30/17 07/19/22 release (Adult Low Dose Aspirin) ferrous sulfate 325 mg (65 mg 325 mg PO DAILY iron supplement 07/30/17 07/19/22 iron) tablet ezetimibe 10 mg tablet 10 mg PO DAILY Cholesterol 09/16/20 07/19/22 acetaminophen 650 mg 650 mg PO TIDP PRN PAIN 05/09/21 07/19/22 tablet,extended release psyllium husk 3.4 gram/5.4 gram 425 gm PO DAILY CONSTIPATION 05/09/21 07/19/22 oral powder lisinopril 10 mg tablet 10 mg PO DAILY Hypertension 06/14/22 07/19/22 diltiazem HCl 240 mg 240 mg PO DAILY heart rate 07/10/22 07/19/22 capsule,extended release 24 hr pantoprazole 40 mg tablet,delayed 40 mg PO DAILY acid reflux 07/10/22 07/19/22 release potassium chloride 10 mEq 10 meq PO DAILY potassium 07/10/22 07/19/22 capsule,extended release replacment
[2022-07-26 22:25] LABS: Anion Gap 6.4 mEq/L (5-15); Blood Urea Nitrogen 22 mg/dl (7-17); Calcium 10.3 mg/dl (8.4-10.2); Carbon Dioxide 26 mmol/L (22.0-30.0); Chloride 104 mmol/L (98-107); Creatinine Clearance Estimated 26 mL/min (50-200); Estimated Glomerular Filt Rate 22 ml/min (>60); GFR (African American) 27 ML/MIN (>60); Glucose 114 mg/dl (74-100); Potassium 4.4 mmoL/L (3.5-5.1); Sodium 132 mmol/L (136-145)
--- NOTE | 2022-07-26 22:31 | PC.NURSE ---
Patient ambulated with assist x1
[2022-07-26 22:49] LABS: Troponin I < 0.01 ng/ml (0.00-0.034)
[2022-07-26 22:50] LABS: Lipase 76 U/L (23-300)
[2022-07-26 23:13] VITALS: BP 127/67; PULSE 80; RESP 14; O2SAT 99
--- NOTE | 2022-07-26 23:13 | PC.NURSE ---
pt medicated per MAR and updated on POC. Pt had no new needs at this time
--- NOTE | 2022-07-26 23:27 | PC.NURSE ---
rechecked pt's pain post administration of GI cocktail, she reports it is a little better and is 4/10 on [employer]. notified.
--- NOTE | 2022-07-26 23:28 | PC.NURSE ---
Pt's son at bedside
[2022-07-26 23:30] VITALS: BP 123/63; PULSE 81; RESP 14; O2SAT 100
[2022-07-27] VITALS: BP 131/56; PULSE 74; RESP 16; O2SAT 98
[2022-07-27 00:30] VITALS: BP 136/56; PULSE 76; RESP 19; O2SAT 92
--- NOTE | 2022-07-27 00:37 | PC.NURSE ---
Rounded on pt.; pt. does not need anything at this time.
[2022-07-27 00:49] VITALS: BP 141/66; PULSE 74; RESP 16; O2SAT 96
[2022-07-27 01:00] VITALS: BP 141/68; PULSE 80; RESP 16; O2SAT 98
[2022-07-27 01:30] VITALS: BP 136/66; PULSE 68; RESP 16; O2SAT 97
[2022-07-27 01:38] LABS: Troponin I < 0.01 ng/ml (0.00-0.034)
[2022-07-27 02:01] VITALS: BP 132/54; PULSE 84; RESP 16; TEMP 36.9; O2SAT 98
== END 2022-07-27 02:03 | disposition home or self-care (01) ==
PROVIDERS: Emergency Provider Emergency Medicine; PCP Family Medicine
DX: K29.70 Gastritis, unspecified, without bleeding (principal); R07.89 Other chest pain; I50.9 Heart failure, unspecified; N18.32 Chronic kidney disease, stage 3b; E11.22 Type 2 diabetes mellitus with diabetic chronic kidney disease; Z87.19 Personal history of other diseases of the digestive system; Z86.79 Personal history of other diseases of the circulatory system; Z90.10 Acquired absence of unspecified breast and nipple; Z90.710 Acquired absence of both cervix and uterus; Z83.3 Family history of diabetes mellitus; Z82.49 Family history of ischemic heart disease and other diseases of the circulatory system; Z83.42 Family history of familial hypercholesterolemia
CPT/HCPCS: 71045; 74176; 80048; 83690; 84484; 85025; 93005; 96374; 99285

== ENCOUNTER 2022-08-03 03:02 | Emergency (ER) | payer MEDICARE, BC, SELFPAY ==
[2022-08-03] VITALS (8 sets, daily range): BP systolic 130–159; BP diastolic 59–75; PULSE 66–70; RESP 18; TEMP 36.6–36.8; O2SAT 97–100; BMI 22.6; BMI 22.9
--- NOTE | 2022-08-03 03:08 | ECG_ITS ---
APPROVED REPORT Exam: Resting ECG HR:68 bpm ECG Measurements Heart Rate 68 AXES KS 184 P 54 QRSd 185 QRS -57 QT 475 T 75 QTc 493 Conclusion SINUS RHYTHM RIGHT BUNDLE BRANCH BLOCK [120+ ms QRS DURATION, UPRIGHT V1, 40+ ms S IN I/aVL/V4/V5/V6] LEFT ANTERIOR FASCICULAR BLOCK [QRS AXIS <= -45, QR IN I, RS IN II] LEFT VENTRICULAR HYPERTROPHY AND ST-T CHANGE [VOLTAGE CRITERIA PLUS ST/T ABNORMALITY] POSSIBLE SEPTAL MYOCARDIAL INFARCTION , OF INDETERMINATE AGE [30 ms Q WAVE IN V1/V2] ABNORMAL ECG UNCONFIRMED REPORT Electronically signed by : Gucci Benavidez MD 08/03/2022 17:05:53
--- NOTE | 2022-08-03 03:14 | XR_ITS ---
PROCEDURE INFORMATION: Exam: XR Chest Exam date and time: 08/03/2022 3:35 AM Age: 86 years old Clinical indication: Other: Gen weakness; Additional info: Weak TECHNIQUE: Imaging protocol: Radiologic exam of the chest. Views: 1 view. COMPARISON: CR XR CHEST PORTABLE 07/26/2022 11:09 PM FINDINGS: Lungs: No acute infiltrate or pulmonary edema. Pleural spaces: Unremarkable. No pleural effusion. No pneumothorax. Heart/Mediastinum: Cardiomediastinal silhouette is stable. Small calcified granuloma projecting over the left hilar region. Diaphragm: Chronic elevation of the right hemidiaphragm. Bones/joints: No acute osseous abnormality. Severe degenerative changes in the left shoulder. IMPRESSION: No acute findings.
[2022-08-03 04:05] LABS: Chloride 99 mmol/L (98-107); Potassium 4.8 mmoL/L (3.5-5.1); Sodium 132 mmol/L (136-145)
[2022-08-03 04:08] LABS: Alanine Aminotransferase 19 U/L (12-78); Albumin Level 4.2 g/dl (3.5-5.0); Albumin/Globulin Ratio 1.6 (1.1-1.8); Alkaline Phosphatase 106 U/L (38-126); Anion Gap 12.8 mEq/L (5-15); Aspartate Amino Transferase 26 U/L (14-36); Bilirubin,Total 0.7 mg/dl (0.2-1.3); Blood Urea Nitrogen 22 mg/dl (7-17); Calcium 10.3 mg/dl (8.4-10.2); Carbon Dioxide 25 mmol/L (22.0-30.0); Creatinine Clearance Estimated 24 mL/min (50-200); Estimated Glomerular Filt Rate 21 ml/min (>60); GFR (African American) 26 ML/MIN (>60); Globulin 2.6 g/dL (1.3-3.2); Glucose 220 mg/dl (74-100); Lactic Acid 1.7 mmol/L (0.7-2.1); Total Protein,Serum 6.8 g/dl (6.3-8.2)
[2022-08-03 04:09] LABS: Magnesium 1.8 mg/dl (1.6-2.3)
[2022-08-03 04:19] LABS: Basophils % 0.4 % (0.1-2.0); Eosinophils # 0.1 K/mm3 (0.0-0.4); Eosinophils % 1.4 % (0.1-12.0); Hematocrit 32.3 % (37.0-47.0); Lymphocytes # 0.9 K/mm3 (0.7-4.5); Lymphocytes % 9.3 % (10-50); Mean Corpuscular Volume 88.1 fl (81-99); Mean Platelet Volume 7.7 fl (7.4-10.4); Monocytes # 0.3 K/mm3 (0.1-1.0); Neutrophils # 8.3 K/mm3 (1.8-7.8); Neutrophils % 85.9 % (37.0-80.0); Platelet Count 309 K/mm3 (142-424); Red Blood Count 3.67 M/mm3 (4.20-5.40); Red Cell Distribution Width 15.3 % (11.5-17.5); White Blood Count 9.6 K/mm3 (4.8-10.8)
[2022-08-03 04:26] LABS: C-Reactive Protein < 0.3 mg/L (0-4); Troponin I < 0.01 ng/ml (0.00-0.034)
[2022-08-03 04:27] LABS: MANUAL DIFFERENTIAL MANUAL DIFFERENTIAL (MANUAL DIFF)
[2022-08-03 04:35] LABS: Microscopic, Urine URINE MICROSCOPIC (MICROSCOPIC)
[2022-08-03 04:36] LABS: NT Pro Brain Natriuretic Pep. 288 pg/mL (0-450)
[2022-08-03 04:43] LABS: Appearance,Urine CLEAR (Clear); Bilirubin,Urine Negative (Negative); Blood, Urine TRACE-L (Negative); Color,Urine YELLOW (Yellow); Glucose,Urine (UA) Negative (Negative); Ketones,Urine Negative (Negative); Leukocyte Esterase,Urine Negative (Negative); Nitrate,Urine Negative (Negative); Protein,Urine Negative (Negative); Specific Gravity, Urine 1.015 (1.005-1.030); Urobilinogen,Urine 0.2 EU/dl (0.2)
[2022-08-03 05:01] LABS: Erythrocyte Sedimentation Rate 16 mm/hr (0-30)
[2022-08-03 05:20] LABS: Lymphocytes % 6 % (10-50); Monocytes % 2 % (2-9); Neutrophils % 92 % (42-76); Procalcitonin 0.131 ng/mL (0.0-2.0); Total Cells Counted 100
[2022-08-03 05:21] LABS: Platelet Estimate Normal; RBC Morphology Normal
[2022-08-03 05:27] LABS: Bacteria,Urine Trace /lpf
--- NOTE | 2022-08-03 06:29 | HMH.EDNVD ---
Discharge Plan Disposition Patient Disposition: Home, Self-Care Condition: Good Chief Complaint: Nausea/Vomiting/Diarrhea Prescriptions Prescriptions: No Action nitroglycerin 0.4 mg tablet, sublingual 0.4 mg SUBLINGUAL DIRECTED PRN (Reason: Chest Pain) Qty: 30 2RF Rx Instructions: 0.4 mg every 5 minutes up to 3 doses, if no relief seek emergency treatment aspirin [Adult Low Dose Aspirin] 81 mg tablet,delayed release (DR/EC) 81 mg PO DAILY ferrous sulfate 325 mg (65 mg iron) tablet 325 mg PO DAILY lisinopril 10 mg tablet 10 mg PO DAILY potassium chloride 10 mEq capsule, extended release 10 meq PO DAILY diltiazem HCl 240 mg capsule,extended release 24hr 240 mg PO DAILY pantoprazole 40 mg tablet,delayed release (DR/EC) 40 mg PO DAILY ranolazine 1,000 mg tablet extended release 12 hr 1,000 mg PO BID atenolol 50 mg tablet 25 mg PO DAILY furosemide 20 mg tablet 20 mg PO DAILY 30 Days Qty: 30 0RF sennosides-docusate sodium [Stool Softener-Stimulant Laxat] 8.6-50 mg tablet 1 tab PO DAILY hydrocortisone [Preparation H Hydrocortisone] 1 % cream 1 applic topical TIDP PRN (Reason: skin irritation) ezetimibe 10 MG tablet 10 mg PO DAILY acetaminophen 650 MG tablet extended release 650 mg PO TIDP PRN (Reason: PAIN) psyllium husk 660 GM powder 425 gm PO DAILY insulin glargine [Lantus U-100 Insulin] 100 unit/mL solution 10 unit SQ HS Januvia 25 mg tablet 25 mg PO DAILY atorvastatin 20 mg tablet 20 mg PO DAILY amoxicillin-pot clavulanate 875-125 mg tablet 1 tab PO BID 4 Days Qty: 8 0RF polyethylene glycol 3350 119 GM powder 17 gm PO DAILY PRN (Reason: constipation) 30 Days Qty: 0 0RF Referrals Follow up/Referrals: Rosalio Rainey MD [Primary Care Provider] - See instructions Clinical Impressions Clinical Impression: Acute urinary retention, CKD (chronic kidney disease), Constipation Instructions Patient Instructions: DI for Constipation Discharge ED Provider: Clinton (ED)Alex Nausea/Vomiting/Diarrhea HPI General Chief complaint: Nausea/Vomiting/Diarrhea Stated complaint: Weakness/Vomiting Time Seen by Provider: 08/03/22 06:00 Mode of Arrival: EMS Source of Information: Patient and Medical Record Limitations: No Limitations Description of Symptoms (Recalled from ER Triage Doc. by RN): Pt arrives to er via ems. C/O nausea following swalling her nystatin tonight. Also states that she has been constipated for 4 days. EMS stated that she was complaining of weakness. When questioned patient states that she does in fact feel weak and has since last night. Pt advises that she feels more weak in her left side than her right. History of Present Illness HPI Narrative: pt with c/o of constipation for a few days - also has dec urination - feels weak but otherwise at baseline MD complaint: nausea Onset (ago): day(s) Associated Abdominal Pain: No Severity: moderate Associated symptoms: other (constipation) Related Data Home Medications Medication Instructions Recorded Confirmed aspirin 81 mg tablet,delayed 81 mg PO DAILY heart health 07/30/17 07/19/22 release (Adult Low Dose Aspirin) ferrous sulfate 325 mg (65 mg 325 mg PO DAILY iron supplement 07/30/17 07/19/22 iron) tablet ezetimibe 10 mg tablet 10 mg PO DAILY Cholesterol 09/16/20 07/19/22 acetaminophen 650 mg 650 mg PO TIDP PRN PAIN 05/09/21 07/19/22 tablet,extended release psyllium husk 3.4 gram/5.4 gram 425 gm PO DAILY CONSTIPATION 05/09/21 07/19/22 oral powder lisinopril 10 mg tablet 10 mg PO DAILY Hypertension 06/14/22 07/19/22 diltiazem HCl 240 mg 240 mg PO DAILY heart rate 07/10/22 07/19/22 capsule,extended release 24 hr pantoprazole 40 mg tablet,delayed 40 mg PO DAILY acid reflux 07/10/22 07/19/22 release potassium chloride 10 mEq 10 meq PO DAILY potassium 07/10/22 07/19/22 capsule,extended release replacment
--- NOTE | 2022-08-03 07:06 | PC.NURSE ---
called pt son he is on his way to take the pt home
--- NOTE | 2022-08-03 07:14 | PC.NURSE ---
Pt's son is back to room. Pt in a wheelchair per MD.
== END 2022-08-03 07:20 | disposition home or self-care (01) ==
PROVIDERS: Emergency Provider Emergency Medicine; PCP Family Medicine
DX: R53.1 Weakness (principal); R11.2 Nausea with vomiting, unspecified; R19.7 Diarrhea, unspecified; N18.9 Chronic kidney disease, unspecified; E11.9 Type 2 diabetes mellitus without complications
CPT/HCPCS: 51702; 71045; 80053; 81001; 83605; 83735; 83880; 84145; 84484; 85007; 85025; 85651; 86140; 93005; 96361; 96374; 96375; 99285; J2405

== ENCOUNTER 2022-08-07 12:41 | Observation (INO) | payer MEDICARE, BC, SELFPAY ==
[2022-08-07] VITALS (8 sets, daily range): BP systolic 134–147; BP diastolic 62–81; PULSE 68–96; RESP 17–20; TEMP 36.7–37; O2SAT 97–100; BMI 22.6
--- NOTE | 2022-08-07 12:55 | HMH.EDGENADL ---
Discharge Plan Disposition Patient Disposition: Admitted As Inpatient Prescriptions Prescriptions: No Action nitroglycerin 0.4 mg tablet, sublingual 0.4 mg SUBLINGUAL DIRECTED PRN (Reason: Chest Pain) Qty: 30 2RF Rx Instructions: 0.4 mg every 5 minutes up to 3 doses, if no relief seek emergency treatment aspirin [Adult Low Dose Aspirin] 81 mg tablet,delayed release (DR/EC) 81 mg PO DAILY ferrous sulfate 325 mg (65 mg iron) tablet 325 mg PO DAILY lisinopril 10 mg tablet 10 mg PO DAILY potassium chloride 10 mEq capsule, extended release 10 meq PO DAILY diltiazem HCl 240 mg capsule,extended release 24hr 240 mg PO DAILY pantoprazole 40 mg tablet,delayed release (DR/EC) 40 mg PO DAILY ranolazine 1,000 mg tablet extended release 12 hr 1,000 mg PO BID atenolol 50 mg tablet 25 mg PO DAILY furosemide 20 mg tablet 20 mg PO DAILY 30 Days Qty: 30 0RF sennosides-docusate sodium [Stool Softener-Stimulant Laxat] 8.6-50 mg tablet 1 tab PO DAILY hydrocortisone [Preparation H Hydrocortisone] 1 % cream 1 applic topical TIDP PRN (Reason: skin irritation) ezetimibe 10 MG tablet 10 mg PO DAILY acetaminophen 650 MG tablet extended release 650 mg PO TIDP PRN (Reason: PAIN) psyllium husk 660 GM powder 425 gm PO DAILY insulin glargine [Lantus U-100 Insulin] 100 unit/mL solution 10 unit SQ HS Januvia 25 mg tablet 25 mg PO DAILY atorvastatin 20 mg tablet 20 mg PO DAILY amoxicillin-pot clavulanate 875-125 mg tablet 1 tab PO BID 4 Days Qty: 8 0RF polyethylene glycol 3350 119 GM powder 17 gm PO DAILY PRN (Reason: constipation) 30 Days Qty: 0 0RF Referrals Follow up/Referrals: Rosalio Rainey MD [Primary Care Provider] - See instructions Clinical Impressions Clinical Impression: FREDO (acute kidney injury), Constipation Instructions Patient Instructions: DI for Acute Abdominal Pain Discharge ED Provider: Tom Avalos General Adult HPI General Chief complaint: Abdominal Pain Stated complaint: Stomach pain, no bowel movement since sunday Time Seen by Provider: 08/07/22 12:55 History of Present Illness HPI narrative: Patient is an 86-year-old female with a history of recent colitis and multiple admissions to the hospital chronic kidney disease presents with abdominal discomfort and decreased bowel movements over the past few weeks. Patient states that she had a bowel movement she feels that she would significantly improved. She has had a few episodes of nausea and vomiting no nausea at the moment. Denies any fevers or chills. Denies any cough chest pain or shortness of breath. Denies any changes in p.o. intake or new medications. History is limited and no family members are with the patient today currently. Related Data Home Medications Medication Instructions Recorded Confirmed aspirin 81 mg tablet,delayed 81 mg PO DAILY heart health 07/30/17 07/19/22 release (Adult Low Dose Aspirin) ferrous sulfate 325 mg (65 mg 325 mg PO DAILY iron supplement 07/30/17 07/19/22 iron) tablet ezetimibe 10 mg tablet 10 mg PO DAILY Cholesterol 09/16/20 07/19/22 acetaminophen 650 mg 650 mg PO TIDP PRN PAIN 05/09/21 07/19/22 tablet,extended release psyllium husk 3.4 gram/5.4 gram 425 gm PO DAILY CONSTIPATION 05/09/21 07/19/22 oral powder lisinopril 10 mg tablet 10 mg PO DAILY Hypertension 06/14/22 07/19/22 diltiazem HCl 240 mg 240 mg PO DAILY heart rate 07/10/22 07/19/22 capsule,extended release 24 hr pantoprazole 40 mg tablet,delayed 40 mg PO DAILY acid reflux 07/10/22 07/19/22 release potassium chloride 10 mEq 10 meq PO DAILY potassium 07/10/22 07/19/22 capsule,extended release replacment ranolazine 1,000 mg 1,000 mg PO BID chronic angina 07/10/22 07/19/22 tablet,extended release,12 hr atenolol 50 mg tablet 25 mg PO DAILY Hypertension 07/11/22 07/19/22 hydrocortisone 1 % topical cream 1 applic top
--- NOTE | 2022-08-07 13:01 | CT_ITS ---
FINAL REPORT CLINICAL HISTORY: diffuse abd pain- no bowel movement since sunday , she has chronic kidney disease COMPARISON: July 26, 2022 CT FINDINGS: Axial CT images of the abdomen and pelvis were obtained without intravenous contrast. Coronal reformatted images were also obtained.This study was performed with techniques to keep radiation doses as low as reasonably achievable (ALARA). Individualized dose reduction techniques using automated exposure control or adjustment of mA and/or kV according to the patient''s size were employed. Abdomen: There is mild atelectasis or scarring in the lung bases. There are several small nonobstructing renal stones and/or renal parenchymal calcifications. There are areas of scarring in both kidneys. There is mild right hydronephrosis. Postoperative changes are seen from cholecystectomy. Pneumobilia is noted. The spleen size is normal. There is mild adrenal gland enlargement, favor adenomas. Postoperative changes are seen in the ascending colon and in the region of the head of the pancreas. No inflammatory process is identified. Pelvis: Images of the pelvis reveal no evidence of ureteral dilation or ureteral stone. Postoperative changes are seen from hysterectomy. There are multiple diverticula in the colon. There is a moderate amount of retained stool. No localized inflammatory process is identified. IMPRESSION: Postoperative changes in the abdomen and pelvis. No acute inflammatory process identified. Mild right hydronephrosis without evidence of ureteral stone. Authenticated and ERN
[2022-08-07 13:34] LABS: Basophils % 0.4 % (0.1-2.0); Eosinophils # 0.1 K/mm3 (0.0-0.4); Eosinophils % 1.8 % (0.1-12.0); Hematocrit 31.3 % (37.0-47.0); Hemoglobin 10.5 g/dL (12.2-16.2); Lymphocytes # 1.3 K/mm3 (0.7-4.5); Lymphocytes % 16.1 % (10-50); Mean Corpuscular HGB Conc 33.6 g/dL (31.8-35.4); Mean Corpuscular Hemoglobin 29.7 pg (27.0-31.2); Mean Corpuscular Volume 88.2 fl (81-99); Mean Platelet Volume 7.5 fl (7.4-10.4); Monocytes # 0.5 K/mm3 (0.1-1.0); Monocytes % 6.2 % (1.7-9.3); Neutrophils # 6.1 K/mm3 (1.8-7.8); Neutrophils % 75.5 % (37.0-80.0); Platelet Count 359 K/mm3 (142-424); Red Blood Count 3.55 M/mm3 (4.20-5.40); Red Cell Distribution Width 15.1 % (11.5-17.5)
[2022-08-07 13:35] LABS: Chloride 97 mmol/L (98-107); Sodium 129 mmol/L (136-145)
[2022-08-07 13:37] LABS: Blood Urea Nitrogen 27 mg/dl (7-17); Creatinine Clearance Estimated 17 mL/min (50-200); Estimated Glomerular Filt Rate 14 ml/min (>60); GFR (African American) 17 ML/MIN (>60)
[2022-08-07 13:38] LABS: Alanine Aminotransferase 17 U/L (12-78); Albumin Level 3.6 g/dl (3.5-5.0); Albumin/Globulin Ratio 1.4 (1.1-1.8); Alkaline Phosphatase 92 U/L (38-126); Aspartate Amino Transferase 25 U/L (14-36); Bilirubin,Total 0.7 mg/dl (0.2-1.3); Calcium 9.6 mg/dl (8.4-10.2); Carbon Dioxide 27 mmol/L (22.0-30.0); Globulin 2.5 g/dL (1.3-3.2); Glucose 129 mg/dl (74-100); Lipase 97 U/L (23-300); Total Protein,Serum 6.1 g/dl (6.3-8.2)
[2022-08-07 13:44] LABS: Lactic Acid 1.1 mmol/L (0.7-2.1)
--- NOTE | 2022-08-07 13:47 | PC.NURSE ---
helped pt to readjust in bed at this time
--- NOTE | 2022-08-07 14:06 | HMH.ITSTN ---
GFR is 14 advised ER Doctor he said to modify to CT without contrast
--- NOTE | 2022-08-07 14:27 | PC.NURSE ---
Addendum entered by Luis Hudson RN 08/07/22 14:29: Cell phone Original Note: Roxi Pt's daughter called for update
--- NOTE | 2022-08-07 14:43 | PC.NURSE ---
contacted rad to check on status of Ct reading, rad staff states images are locked
[2022-08-07 15:07] LABS: Microscopic, Urine URINE MICROSCOPIC (MICROSCOPIC)
[2022-08-07 15:09] LABS: Appearance,Urine CLEAR (Clear); Bilirubin,Urine Negative (Negative); Blood, Urine Negative (Negative); Color,Urine YELLOW (Yellow); Glucose,Urine (UA) Negative (Negative); Ketones,Urine Negative (Negative); Leukocyte Esterase,Urine TRACE (Negative); Nitrate,Urine Negative (Negative); Protein,Urine Negative (Negative); Urobilinogen,Urine 0.2 EU/dl (0.2)
--- NOTE | 2022-08-07 15:22 | PC.NURSE ---
Called Radiology to request preliminary result, but none available
[2022-08-07 15:31] LABS: Bacteria,Urine Trace /lpf; WBC,Urine Occasional #/hpf (0-3)
--- NOTE | 2022-08-07 15:34 | PC.NURSE ---
Addendum entered by Jasmin Ferreira RN 08/07/22 15:35: updated pt primary rn and ER Original Note: 1528-per deuce in radiology there was an issue with pt ct scan getting read, states crk sent ct back to [facility] r/t the order originally said ct was with contrast but they had edited the order to say without contrast r/t pt gfr. States ct scan was sent back to crk for reading approx 15 minutes ago.
--- NOTE | 2022-08-07 15:38 | PC.NURSE ---
Pt's oldest daughter (Karla sp?) called for update
--- NOTE | 2022-08-07 16:36 | PC.NURSE ---
notified house principal of admission
[2022-08-07 16:53] LABS: Coronavirus 19, PCR Not Detected (NotDetected); Influenza A, PCR Not Detected (NotDetected); Influenza B, PCR Not Detected (NotDetected)
--- NOTE | 2022-08-07 16:57 | PC.NURSE ---
Following enema administration, pt able to pass moderate to large amount of stool in bedside commode
--- NOTE | 2022-08-07 17:34 | PC.NURSE ---
contacted hospitalist for admission order for pt.
--- NOTE | 2022-08-07 17:42 | PC.NURSE ---
report called to carolyne bustillo on second floor. reports she will come down to transport pt as soon as admit order is in
--- NOTE | 2022-08-07 17:44 | EXP.HP ---
History of Present Illness *Admission Date: 08/07/22 *Reason for visit:: Chief complaint: Feeling weak *History of present illness: This is a 86-year-old female who presents to [facility] emergency department for feeling weak. She describes hurting all over and feeling weak. She denies retrosternal chest pain, fever, chills, nausea, vomiting or diarrhea. She is concerned with constipation and her history of colitis. There has been no associated cough, dysphagia, melena or hematochezia. In the ED she is afebrile with stable heart rates blood pressures and saturating appropriately on room air. Her renal profile identifies a BUN of 27 and creatinine of 3.1. [facility] Medical History Chronic kidney disease, stage 3b Congestive heart failure Diabetes mellitus, type 2 Gastric adenoma History of GI bleed Pneumonia RBBB with left anterior fascicular block Urinary tract infection Surgical History H/O esophagogastroduodenoscopy H/O mastectomy H/O Whipple procedure H/O: hysterectomy Family History Other Family history of diabetes mellitus type II Family history of hyperlipidemia Family history of hypertension Family history of myocardial infarction Social History Smoking Status: Never smoker second hand exposure: No alcohol intake: never substance use type: denies use current occupational status: disabled Travel in the last 8 weeks: Inside the [facility] household members: none housing: apartment current occupational exposures/hazards: No caffeine: Yes Review of Systems Review of Systems Review of systems:: pertinent systems reviewed and negative unless documented below Constitutional Constitutional: Reports weakness *Cardiovascular Cardiovascular: Denies syncope *Neurologic Neurologic: Denies abnormal speech, Denies syncope, Denies tremor(s) and Reports weakness Meds Home Medications and Allergies Home Medications Medication Instructions Recorded Confirmed Type aspirin 81 mg tablet,delayed 81 mg PO DAILY heart health 07/30/17 07/19/22 History release (Adult Low Dose Aspirin) ferrous sulfate 325 mg (65 mg 325 mg PO DAILY iron supplement 07/30/17 07/19/22 History iron) tablet nitroglycerin 0.4 mg sublingual 0.4 mg sublingual DIRECTED PRN 01/21/19 07/19/22 Rx tablet Chest Pain ##30 ezetimibe 10 mg tablet 10 mg PO DAILY Cholesterol 09/16/20 07/19/22 History acetaminophen 650 mg 650 mg PO TIDP PRN PAIN 05/09/21 07/19/22 History tablet,extended release psyllium husk 3.4 gram/5.4 gram 425 gm PO DAILY CONSTIPATION 05/09/21 07/19/22 History oral powder lisinopril 10 mg tablet 10 mg PO DAILY Hypertension 06/14/22 07/19/22 History diltiazem HCl 240 mg 240 mg PO DAILY heart rate 07/10/22 07/19/22 History capsule,extended release 24 hr pantoprazole 40 mg tablet,delayed 40 mg PO DAILY acid reflux 07/10/22 07/19/22 History release potassium chloride 10 mEq 10 meq PO DAILY potassium 07/10/22 07/19/22 History capsule,extended release replacment ranolazine 1,000 mg 1,000 mg PO BID chronic angina 07/10/22 07/19/22 History tablet,extended release,12 hr atenolol 50 mg tablet 25 mg PO DAILY Hypertension 07/11/22 07/19/22 History furosemide 20 mg tablet 20 mg PO DAILY Fluid 30 days #30 07/12/22 07/19/22 Rx tabs hydrocortisone 1 % topical cream 1 applic topical TIDP PRN skin 07/13/22 07/19/22 History (Preparation H Hydrocortisone) irritation sennosides 8.6 mg-docusate sodium 1 tab PO DAILY constipation 07/13/22 07/19/22 History 50 mg tablet (Stool Softener-Stimulant Laxative) insulin glargine 100 unit/mL 10 unit SQ HS Diabetes 07/19/22 07/19/22 History subcutaneous solution (Lantus U-100 Insulin) sitagliptin phosphate 25 mg tablet 25 mg PO DAILY Diabete
[2022-08-07 18:10] LABS: POC Glucose,Bedside 106 (70-110)
--- NOTE | 2022-08-07 19:17 | PC.WOUNDNOTE ---
pressure ulcer coccyx
--- NOTE | 2022-08-07 19:18 | PC.WOUNDNOTE ---
pressure ulcer, coccyx
[2022-08-07 20:27] LABS: POC Glucose,Bedside 106 (70-110)
[2022-08-08] VITALS: BP 133/63; PULSE 80; RESP 18; TEMP 36.7
[2022-08-08 01:52] LABS: POC Glucose,Bedside 150 (70-110)
[2022-08-08 04:00] VITALS: BP 133/61; PULSE 85; RESP 18; TEMP 37.1; O2SAT 97; BMI 23.4
--- NOTE | 2022-08-08 05:07 | PC.NURSE ---
patient rested well through the night. stable on room air. receiving iv fluids. no complaints of pain. patient had one small formed bm.
[2022-08-08 06:03] LABS: POC Glucose,Bedside 178 (70-110)
[2022-08-08 06:40] LABS: Blood Urea Nitrogen 23 mg/dl (7-17); Calcium 9.2 mg/dl (8.4-10.2); Carbon Dioxide 26 mmol/L (22.0-30.0); Creatinine Clearance Estimated 23 mL/min (50-200); Estimated Glomerular Filt Rate 20 ml/min (>60); GFR (African American) 24 ML/MIN (>60); Glucose 160 mg/dl (74-100); Magnesium 1.7 mg/dl (1.6-2.3); Potassium 3.6 mmoL/L (3.5-5.1); Sodium 129 mmol/L (136-145)
[2022-08-08 06:42] LABS: Anion Gap 7.6 mEq/L (5-15); Chloride 99 mmol/L (98-107)
[2022-08-08 06:57] LABS: Procalcitonin 0.157 ng/mL (0.0-2.0)
--- NOTE | 2022-08-08 07:36 | HMH.PHAINT1 ---
Pharmacy Intervention Comments: Medication reconciliation completed using external fill history and list from previous discharge summary
[2022-08-08 07:45] VITALS: BP 107/66; PULSE 74; RESP 17; TEMP 36.8; O2SAT 100
--- NOTE | 2022-08-08 08:04 | EXP.ACUTE.PN ---
Subjective *Date: 08/08/22 *Time: 14:19 Interval history: Patient tolerating p.o. intake today. Remains afebrile. Hematolikely. Had a bowel movement overnight after her enema. Denies any nausea or vomiting this morning. Later improvement in her creatinine this morning on labs. Stable on room Medical Exam Vital signs and Labs for Last 24 Hours: Vital Signs Temp Pulse Pulse Resp BP BP Pulse Ox 08/08/22 07:45 98.2 F 74 17 107/66 L 100 08/08/22 04:00 98.8 F 85 18 133/61 97 08/08/22 00:00 98.1 F 80 18 133/63 08/07/22 20:00 98.1 F 96 H 18 147/71 H 98 08/07/22 17:58 98.6 F 78 17 137/73 08/07/22 16:00 68 18 136/70 100 08/07/22 15:30 68 18 134/62 100 08/07/22 15:00 72 18 141/68 H 100 08/07/22 14:30 74 20 139/69 100 08/07/22 14:00 74 18 147/68 H 98 08/07/22 12:57 98.4 F 72 18 147/81 H 100 Intake and Output 08/07/22 08/08/22 08/08/22 23:59 07:59 15:59 Intake Total 885 / 885 Output Total 0 / 0 200 / 200 Balance 0 / 525 685 / 685 Intake: Intake, Oral Amount 360 / 360 Intake, Total IV Amount 525 / 525 Sodium Bicarbonate 150 meq In 525 / 525 Dextrose 5 % in Water 1,000 ml @ 125 mls/hr IV .Q9H12M [facility] Rx# :[id number] Output: Output, Urine Amount 0 / 0 200 / 200 Other: Number of Voids 2 Number of Unmeasured Voids 1 1 Number of Bowel Movements 1 Weight 80.286 kg Patient Weight 08/08/22 23:59 Weight 80.286 kg Laboratory Results - last 24 hr 08/07/22 13:20: WBC 8.0, RBC 3.55 L, Hgb 10.5 L, Hct 31.3 L, MCV 88.2, MCH 29.7, MCHC 33.6, RDW 15.1, Plt Count 359, MPV 7.5, Neut % (Auto) 75.5, Lymph % (Auto) 16.1, Dickson % (Auto) 6.2, Eos % (Auto) 1.8, Baso % (Auto) 0.4, Neut # (Auto) 6.1, Lymph # (Auto) 1.3, Dickson # (Auto) 0.5, Eos # (Auto) 0.1, Baso # (Auto) 0.0 08/07/22 13:20: Sodium 129 L, Potassium 4.0, Chloride 97 L, Carbon Dioxide 27, Anion Gap 9.0, BUN 27 H, Creatinine 3.10 H, Estimated Creat Clear 17, Estimated GFR 14 L*, Est GFR ( Amer) 17 L*, Glucose 129 H, Calcium 9.6, Total Bilirubin 0.7, AST 25, ALT 17, Alkaline Phosphatase 92, Total Protein 6.1 L, Albumin 3.6, Globulin 2.5, Albumin/Globulin Ratio 1.4, Lipase 97 08/07/22 13:20: Lactate 1.1 08/07/22 15:02: Urine Color Yellow, Urine Appearance Clear, Urine pH 6.0, Ur Specific Mchenry 1.010, Urine Protein Negative, Urine Glucose (UA) Negative, Urine Ketones Negative, Urine Blood Negative, Urine Nitrate Negative, Urine Bilirubin Negative, Urine Urobilinogen 0.2, Ur Leukocyte Esterase Trace, Urine RBC None, Urine WBC Occasional, Ur Squamous Epith Cells None, Urine Bacteria Trace 08/07/22 16:37: SARS-CoV-2 (PCR) Not detected, Influenza A Untype (PCR) Not detected, Influenza Type B (PCR) Not detected 08/07/22 18:03: POC Glucose 106 08/07/22 20:19: POC Glucose 106 08/08/22 01:44: POC Glucose 150 H 08/08/22 05:49: POC Glucose 178 H 08/08/22 06:00: Sodium 129 L, Potassium 3.6, Chloride 99, Carbon Dioxide 26, Anion Gap 7.6, BUN 23 H, Creatinine 2.30 H D, Estimated Creat Clear 23, Estimated GFR 20 L, Est GFR ( Amer) 24 L D, Glucose 160 H D, Calcium 9.2, Magnesium 1.7, Procalcitonin 0.157 I & O for Labs for Last 24 Hours: Intake & Output 08/05/22 08/06/22 08/07/22 08/08/22 23:59 23:59 23:59 23:59 Intake Total 885 / 885 Output Total 0 / 0 200 / 200 Balance 0 / 525 685 / 685 Weight 78.018 kg 80.286 kg Constitutional: Present no acute distress, average body habitus and chronically ill appearing Head: Present atraumatic and normocephalic ENT: Present normal exam Neck: Present normal inspection Respiratory: Present normal respiratory effort; Absent accessory muscle use, rhonchi, wheezes or crackles Cardiac: Present Reg Rate and Rhythm GI: Present soft, tenderness (minimal, non-focal) and normal bowel sounds; Absent distention Extremities: Present normal inspection and edema (1+ BLE); Absent tenderness Skin: Present intac
[2022-08-08 11:07] VITALS: BP 112/45; PULSE 67; RESP 16; TEMP 36.7; O2SAT 98
--- NOTE | 2022-08-08 11:19 | SW/DCPLANNER ---
Addendum entered by Kaykay Gutierrez 08/10/22 11:44: Linnea koch/ Tere stated that services will be resumed. Addendum entered by Kaykay Gutierrez 08/10/22 11:28: I have faxed patient information/order to resume home health services to [facility]. Original Note: Patient is currently established with [facility]. I will resume home health services once medically stable for discharge. Discharge date is unknown at this time.
[2022-08-08 11:35] LABS: POC Glucose,Bedside 161 (70-110)
[2022-08-08 11:52] VITALS: BMI 23.3
--- NOTE | 2022-08-08 13:43 | HMH.PTEV ---
Physical Therapy Evaluation Rehab PT IP Evaluation Start: 08/08/22 10:51 Freq: ONCE Status: Active Protocol: Document 08/08/22 13:39 DIANELYS (Rec: 08/08/22 13:42 PHOGIANNA [id number]) Subjective/History History History 86 yowf adm to [facility] with FREDO, hx of CKD. She reports she lives alone, no steps to enter the home and uses a cane for ambulation at baseline. Pre- existing pressure injury to sacrum noted on admission. Subjective Subjective Pt reports feeling better overall since admission. Rehab PT IP Eval Objective Appearance Patient Behavior Appropriate Patient Orientation Person,Place,Time Difficulty following instructions none Speech Pattern Clear Ambulation Patient Able to Ambulate Yes Ambulation Observation IP General Gait Pattern Observation No Deviations/Normal Ambulation Distance (feet) 30 Ambulation Assistive Device Straight Cane Ambulation Ability Independent Balance Ability to Arise Able, uses arms to help Sitting Balance Steady, safe Standing Balance Steady, wide stance Dynamic Sitting Balance Ability Good Dynamic Standing Balance Ability Good Transfers Bed Transfer Ability Independent Chair Transfer Ability Independent Sit to Stand Bed Transfer Ability Independent Sit to Stand Chair Transfer Ability Independent ROM All Extremities PT ROM Status WFL MMT All Extremities PT MMT WFL Rehab PT IP prob,goals,plan Problems Date of Evaluation: 08/08/22 Discharge Plan PT Discharge Plan Pt presents at baseline for all mobility, no current inpatient therapy needs. Recommend home health therapy upon D/C. G -code Required No Eval Complexity Eval Charge Codes 47577 - Moderate Complexity PHYSICIAN CERTIFICATION: I certify the specified therapy services for Cherelle Carrasco are required, authorized, and reviewed every 30 days.
--- NOTE | 2022-08-08 13:43 | HMH.OTEV ---
OT Inpatient Evaluation Rehab OT IP Evaluation Start: 08/08/22 10:51 Freq: ONCE Status: Active Protocol: Document 08/08/22 13:34 ARSCOLOME (Rec: 08/08/22 13:43 [facility] [id number]) Rehab OT IP Assessment Subjective History Pt was seen resting in bed upon arrivial. Pt was oriented x3 person, place, and . Pt was agreeable to engage in therapy evaluation. Pt was admitted to [facility] on 08/07/22 due to feeling weak. Pt reports that she was independent in all ADL and IADL tasks. Pt reports that she lives home alone. Pt reports that she is not able to drive. Pt reports that she uses a cane for functional mobility, and also has a rolling walker when needed. Pt has a past medical history of the following: Chronic kidney disease, stage 3b Congestive heart failure Diabetes mellitus, type 2 Gastric adenoma History of GI bleed Pneumonia RBBB with left anterior fascicular block Urinary tract infection Pt was left resting in bed with call carlos and all other needs within reach. Subjective I just haven't had an appetite. Objective Patient Orientation Person,Place,Birthday Upper Extremity Gross ROM WNL Bed Mobility bed mobility-scooting,bed mobility - supine/sit Assist Level Independent Transfer Training Sit/Stand Transfer Assist Level Supervision/Stand by Chair Transfer Assistive Devices Straight Cane Overall Commode/Toilet Transfer Ability Standby Assistance Commode/Toilet Transfer Technique Sit to/from Ambulatory decrease in endurance No Rehab OT IP prob,goals,plan Problems Date of Evaluation: 08/08/22 Rehab Potential Rehab Potential Innapropriate for Skilled Therapy Discharge Plan OT Discharge Plan Pt appears to be at her bas
[2022-08-08 15:10] VITALS: BP 119/50; PULSE 68; RESP 16; TEMP 36.8; O2SAT 99
--- NOTE | 2022-08-08 16:23 | PC.NURSE ---
Pt alert and oriented. VSS. No complaints of nausea or pain. Up to BR with SBA and cane for voids. On room air. Encouraged oral intake. Will recheck a.m. labs to track kidney function
[2022-08-08 16:46] LABS: POC Glucose,Bedside 151 (70-110)
[2022-08-08 18:26] LABS: Chloride 98 mmol/L (98-107); Sodium 132 mmol/L (136-145)
[2022-08-08 18:27] LABS: Potassium 3.8 mmoL/L (3.5-5.1)
[2022-08-08 18:30] LABS: Anion Gap 6.8 mEq/L (5-15); Blood Urea Nitrogen 19 mg/dl (7-17); Carbon Dioxide 31 mmol/L (22.0-30.0); Creatinine Clearance Estimated 25 mL/min (50-200); Estimated Glomerular Filt Rate 22 ml/min (>60); GFR (African American) 27 ML/MIN (>60); Glucose 193 mg/dl (74-100)
[2022-08-08 19:52] VITALS: BP 115/50; PULSE 65; RESP 16; TEMP 37.1; O2SAT 98
[2022-08-08 20:02] LABS: POC Glucose,Bedside 171 (70-110)
[2022-08-09] VITALS: BP 131/52; PULSE 60; RESP 18; TEMP 36.9; O2SAT 98
[2022-08-09 04:00] VITALS: BP 111/51; PULSE 59; RESP 18; TEMP 37; O2SAT 100; BMI 22.6
--- NOTE | 2022-08-09 04:49 | PC.NURSE ---
pt a&o. stable on room air. complaint of stomach cramp but refusing any medicine. monitoring kidney function.
[2022-08-09 05:27] LABS: POC Glucose,Bedside 103 (70-110)
[2022-08-09 06:39] LABS: Basophils # 0.1 K/mm3 (0-0.2); Basophils % 0.8 % (0.1-2.0); Eosinophils # 0.1 K/mm3 (0.0-0.4); Eosinophils % 2.1 % (0.1-12.0); Hematocrit 28.9 % (37.0-47.0); Hemoglobin 9.8 g/dL (12.2-16.2); Lymphocytes # 1.9 K/mm3 (0.7-4.5); Mean Corpuscular HGB Conc 33.8 g/dL (31.8-35.4); Mean Corpuscular Volume 88.8 fl (81-99); Mean Platelet Volume 8.8 fl (7.4-10.4); Monocytes # 0.4 K/mm3 (0.1-1.0); Neutrophils # 3.4 K/mm3 (1.8-7.8); Neutrophils % 58.2 % (37.0-80.0); Platelet Count 286 K/mm3 (142-424); Red Blood Count 3.26 M/mm3 (4.20-5.40); Red Cell Distribution Width 15.4 % (11.5-17.5); White Blood Count 5.9 K/mm3 (4.8-10.8)
[2022-08-09 06:42] LABS: Alanine Aminotransferase 15 U/L (12-78); Albumin Level 2.9 g/dl (3.5-5.0); Albumin/Globulin Ratio 1.4 (1.1-1.8); Alkaline Phosphatase 62 U/L (38-126); Anion Gap 4.7 mEq/L (5-15); Aspartate Amino Transferase 24 U/L (14-36); Bilirubin,Total 0.6 mg/dl (0.2-1.3); Blood Urea Nitrogen 18 mg/dl (7-17); Carbon Dioxide 29 mmol/L (22.0-30.0); Chloride 102 mmol/L (98-107); Creatinine Clearance Estimated 27 mL/min (50-200); Estimated Glomerular Filt Rate 25 ml/min (>60); GFR (African American) 30 ML/MIN (>60); Globulin 2.1 g/dL (1.3-3.2); Glucose 100 mg/dl (74-100); Magnesium 1.7 mg/dl (1.6-2.3); Potassium 3.7 mmoL/L (3.5-5.1); Sodium 132 mmol/L (136-145)
--- NOTE | 2022-08-09 07:40 | EXP.DC.SUM ---
General Admission date:: 08/07/22 Discharge date: 08/10/22 HPI HPI HPI: This is a 86-year-old female who presents to [facility] emergency department for feeling weak. She describes hurting all over and feeling weak. She denies retrosternal chest pain, fever, chills, nausea, vomiting or diarrhea. She is concerned with constipation and her history of colitis. There has been no associated cough, dysphagia, melena or hematochezia. In the ED she is afebrile with stable heart rates blood pressures and saturating appropriately on room air. Her renal profile identifies a BUN of 27 and creatinine of 3.1. Hospital Course Hospital Course Hospital Course: The patient is an 86-year-old female who presents to the ED for generalized weakness.? Her labs are consistent with acute kidney injury. Image findings of constipation. Also complaining of longstanding nausea. Admitted for management of acute problems. Problems addressed as follows: Acute kidney injury Chronic kidney disease stage IIIb Baseline creatinine 1.4, creatinine 3.1 on admission. Improved to 2.1 by day of discharge. Tolerating p.o. intake. Would benefit from repeat labs on Sunday (in 5 days) to assess for continued improvement and stability of kidney function. Making adequate urine. Ambulating to bathroom with her cane. Encouraged adequate hydration when she goes home. We will also hold diuretics out of concern that these are drying her out, causing her FREDO, and complicating her constipation. Constipation Nausea Present for some time. On aggressive bowel regimen with MiraLAX daily, docusate senna twice daily, and fiber supplement. Responded well to enema during hospitalization with large bowel movement. Recommend continuing aggressive bowel regimen and adequate hydration. Due for follow-up with Dr. Sagastume next week, having colonoscopy at that time. Defer bowel prep to surgery department. EGD obtained at last admission.? Showed some irritation at anastomosis and stomach from previous adenoma resection.? Nausea longstanding.? Not responding to Zofran.? Some improvement with GI cocktail. Continue PPI. Diabetes Recent hemoglobin A1c identifies excellent control. Fingerstick glucose before meals and at bedtime. Sliding scale insulin therapy during admission. Diabetic diet Hypertension Routine blood pressure monitoring. Continue atenolol therapy. You had loaded inhibitor in setting of FREDO type. Blood well controlled within acceptable range without COSME inhibitor during hospitalization. Recommend not resuming after discharge. Stable for discharge home with family. Recommend close follow-up with PCP and surgery for further evaluation of her nausea and constipation. Exam Data for Last 24 hours Vital signs and Labs for Last 24 Hours: Temp Pulse Resp BP Pulse Ox 98.6 F 59 L 18 111/51 L 100 08/09/22 04:00 08/09/22 04:00 08/09/22 04:00 08/09/22 04:00 08/09/22 04:00 Laboratory Results - last 24 hr 08/08/22 11:27: POC Glucose 161 H 08/08/22 16:37: POC Glucose 151 H 08/08/22 18:10: Sodium 132 L, Potassium 3.8, Chloride 98, Carbon Dioxide 31 H, Anion Gap 6.8, BUN 19 H, Creatinine 2.10 H, Estimated Creat Clear 25, Estimated GFR 22 L, Est GFR ( Amer) 27 L, Glucose 193 H D, Calcium 9.0 08/08/22 19:55: POC Glucose 171 H 08/09/22 05:20: POC Glucose 103 08/09/22 05:54: WBC 5.9 D, RBC 3.26 L, Hgb 9.8 L, Hct 28.9 L, MCV 88.8, MCH 30.0, MCHC 33.8, RDW 15.4, Plt Count 286, MPV 8.8, Neut % (Auto) 58.2, Lymph % (Auto) 32.0, Hardee % (Auto) 7.0, Eos % (Auto) 2.1, Baso % (Auto) 0.8, Neut # (Auto) 3.4, Lymph # (Auto) 1.9, Hardee # (Auto) 0.4, Eos # (Auto) 0.1, Baso # (Auto) 0.1 08/09/22 05:54: Sodium 132 L, Potassium 3.7, Chloride 102, Carbon Dioxide 29, Anion Gap 4.7 L, BUN 18 H, Creatinine 1.90 H, Estimated Creat Clear 27, Estimated GFR 25 L, Est GFR ( Amer) 30 L, Glucose 100 D, Calcium 9.0, Magnesium 1.7, Total Bilirubin 0.6, AST 24, ALT 15, Alkaline Phosphatase 62,
[2022-08-09 08:00] VITALS: BP 125/69; PULSE 68; RESP 20; TEMP 36.8; O2SAT 97
[2022-08-09 11:24] LABS: POC Glucose,Bedside 183 (70-110)
[2022-08-09 11:52] VITALS: BP 136/76; PULSE 66; RESP 20; TEMP 37.2; O2SAT 100
--- NOTE | 2022-08-09 15:43 | EXP.ACUTE.PN ---
Subjective *Date: 08/09/22 *Time: 15:47 Interval history: Kidney function better this morning. Remains afebrile. Still complaining of nausea. Not responding to Zofran. No zaire emesis. Tolerating only about 25% of her trays. Repeat enema this morning with no significant response. Able to ambulate to bathroom with minimal assistance. Stable on room air. Medical Exam Vital signs and Labs for Last 24 Hours: Vital Signs Temp Pulse Resp BP Pulse Ox 08/09/22 11:52 98.9 F 66 20 136/76 100 08/09/22 08:00 98.2 F 68 20 125/69 97 08/09/22 04:00 98.6 F 59 L 18 111/51 L 100 08/09/22 00:00 98.5 F 60 18 131/52 L 98 08/08/22 19:52 98.7 F 65 16 115/50 L 98 Intake and Output 08/08/22 08/09/22 08/09/22 23:59 07:59 15:59 Intake Total 240 / 1465 100 / 580 480 / 580 Output Total 0 / 200 0 / 0 0 / 0 Balance 240 / 1265 100 / 580 480 / 580 Intake: Intake, Oral Amount 240 / 940 100 / 580 480 / 580 Output: Output, Urine Amount 0 / 200 0 / 0 0 / 0 Other: Number of Voids 1 Number of Unmeasured Voids 1 1 1 Weight 77.309 kg Patient Weight 08/09/22 23:59 Weight 77.309 kg Laboratory Results - last 24 hr 08/08/22 16:37: POC Glucose 151 H 08/08/22 18:10: Sodium 132 L, Potassium 3.8, Chloride 98, Carbon Dioxide 31 H, Anion Gap 6.8, BUN 19 H, Creatinine 2.10 H, Estimated Creat Clear 25, Estimated GFR 22 L, Est GFR ( Amer) 27 L, Glucose 193 H D, Calcium 9.0 08/08/22 19:55: POC Glucose 171 H 08/09/22 05:20: POC Glucose 103 08/09/22 05:54: WBC 5.9 D, RBC 3.26 L, Hgb 9.8 L, Hct 28.9 L, MCV 88.8, MCH 30.0, MCHC 33.8, RDW 15.4, Plt Count 286, MPV 8.8, Neut % (Auto) 58.2, Lymph % (Auto) 32.0, Lares % (Auto) 7.0, Eos % (Auto) 2.1, Baso % (Auto) 0.8, Neut # (Auto) 3.4, Lymph # (Auto) 1.9, Lares # (Auto) 0.4, Eos # (Auto) 0.1, Baso # (Auto) 0.1 08/09/22 05:54: Sodium 132 L, Potassium 3.7, Chloride 102, Carbon Dioxide 29, Anion Gap 4.7 L, BUN 18 H, Creatinine 1.90 H, Estimated Creat Clear 27, Estimated GFR 25 L, Est GFR ( Amer) 30 L, Glucose 100 D, Calcium 9.0, Magnesium 1.7, Total Bilirubin 0.6, AST 24, ALT 15, Alkaline Phosphatase 62, Total Protein 5.0 L, Albumin 2.9 L, Globulin 2.1, Albumin/Globulin Ratio 1.4 08/09/22 11:09: POC Glucose 183 H I & O for Labs for Last 24 Hours: Intake & Output 08/06/22 08/07/22 08/08/22 08/09/22 23:59 23:59 23:59 23:59 Intake Total 1365 / 1465 580 / 580 Output Total 0 / 0 200 / 200 0 / 0 Balance 0 / 525 1165 / 1265 580 / 580 Weight 78.018 kg 80 kg 77.309 kg Constitutional: Present no acute distress, average body habitus and chronically ill appearing Head: Present atraumatic and normocephalic ENT: Present normal exam Neck: Present normal inspection Respiratory: Present normal respiratory effort; Absent accessory muscle use, rhonchi, wheezes or crackles Cardiac: Present Reg Rate and Rhythm GI: Present soft, tenderness (minimal, non-focal) and normal bowel sounds; Absent distention Extremities: Present normal inspection and edema (1+ BLE); Absent tenderness Skin: Present intact; Absent erythema Neuro: Present Grossly Intact, alert, awake, oriented x 3 and moves all extremities Assessment and Plan *Assessment and plan (1) FREDO (acute kidney injury): Status: Acute Category: Medical Code(s): N17.9 - Acute kidney failure, unspecified (2) Nausea: Status: Acute Category: Medical Code(s): R11.0 - Nausea (3) Chronic kidney disease, stage 3b: Status: Acute Category: Medical Code(s): N18.32 - Chronic kidney disease, stage 3b (4) Constipation: Status: Acute Category: Medical Code(s): K59.00 - Constipation, unspecified (5) Diabetes: Status: Acute Category: Medical Code(s): E11.9 - Type 2 diabetes mellitus without complications (6) Hypertension: Status: Acute Category: Medical Code(s): I10 - Essential (primary) hypertension Plan
[2022-08-09 16:00] VITALS: BP 117/55; PULSE 69; RESP 20; TEMP 36.9; O2SAT 99
--- NOTE | 2022-08-09 16:00 | PC.NURSE ---
courtesy tech altagracia: pt is sitting up in bed with suresh light and pt belongs on table within reach per request.
[2022-08-09 17:46] LABS: POC Glucose,Bedside 200 (70-110)
[2022-08-09 20:00] VITALS: BP 103/46; PULSE 69; RESP 16; TEMP 36.7; O2SAT 99
[2022-08-09 21:05] LABS: POC Glucose,Bedside 226 (70-110)
--- NOTE | 2022-08-10 00:41 | PC.NURSE ---
COURTESY ROUND -PATIENT RESTING COMFORTABLY IN BED WITH CALL LIGHT WITHIN REACH . TRASH EMPTIED
[2022-08-10 04:00] VITALS: BP 125/50; PULSE 53; RESP 18; TEMP 36.9; O2SAT 100; BMI 23.8
--- NOTE | 2022-08-10 04:28 | PC.NURSE ---
COURTESY ROUND- PATIENT SLEEPING COMFORTABLY . TRASH AND LINENS EMPTIED . ICE WATER REFILLED
[2022-08-10 06:17] LABS: POC Glucose,Bedside 73 (70-110)
--- NOTE | 2022-08-10 06:27 | PC.NURSE ---
NO ACUTE CHANGES. PT HAS RESTED INTERMITTENTLY THIS SHIFT. PT C/O ABD PAIN X1 THIS SHIFT AND TREATED WITH PRN TYLENOL WITH ADEQUATE RELIEF. ABULATING TO THE BATHROOM INDEPENDENTLY WITH A CANE. VSS. NO C/O NAUSEA OR VOMITING.
[2022-08-10 06:38] LABS: Alanine Aminotransferase 12 U/L (12-78); Albumin Level 2.9 g/dl (3.5-5.0); Albumin/Globulin Ratio 1.5 (1.1-1.8); Alkaline Phosphatase 63 U/L (38-126); Aspartate Amino Transferase 19 U/L (14-36); Bilirubin,Total 0.5 mg/dl (0.2-1.3); Blood Urea Nitrogen 18 mg/dl (7-17); Calcium 9.1 mg/dl (8.4-10.2); Carbon Dioxide 29 mmol/L (22.0-30.0); Chloride 104 mmol/L (98-107); Creatinine Clearance Estimated 26 mL/min (50-200); Estimated Glomerular Filt Rate 22 ml/min (>60); GFR (African American) 27 ML/MIN (>60); Glucose 70 mg/dl (74-100); Potassium 3.8 mmoL/L (3.5-5.1); Total Protein,Serum 4.9 g/dl (6.3-8.2)
[2022-08-10 07:38] VITALS: BP 126/59; PULSE 58; RESP 18; TEMP 36.8; O2SAT 100
[2022-08-10 08:00] VITALS: PULSE 58; O2SAT 100
[2022-08-10 08:53] LABS: Anion Gap 3.8 mEq/L (5-15); Sodium 133 mmol/L (136-145)
[2022-08-10 11:16] LABS: POC Glucose,Bedside 154 (70-110)
--- NOTE | 2022-08-10 12:58 | HMH.PHAINT1 ---
Pharmacy Intervention Comments: Discussed discharge medications with patient. Patient verbalized understanding and had no questions at this time.
--- NOTE | 2022-08-15 14:36 | CARE MANAGER ---
Spoke with patient's son. Patient has appt. with Dr. Rainey's office tomorrow and Dr. Sagastume on the th. They are aware. Deny any questions or concerns. JETT Mills
== END 2022-08-10 12:54 | disposition home health service (06) ==
LOC: ER 16:07 → 2ND 17:12
PROVIDERS: Internal Medicine Adolescent Medicine; Admitting Provider Family Medicine; Emergency Provider Student in an Organized Health Care Education/Training Program; PCP Family Medicine; Visit Provider Family Medicine
DX: N17.9 Acute kidney failure, unspecified (principal); N18.32 Chronic kidney disease, stage 3b; K59.00 Constipation, unspecified; E11.9 Type 2 diabetes mellitus without complications; I12.9 Hypertensive chronic kidney disease with stage 1 through stage 4 chronic kidney disease, or unspecified chronic kidney disease; R11.0 Nausea; Z79.899 Other long term (current) drug therapy; Z20.822 Contact with and (suspected) exposure to COVID-19; Z79.4 Long term (current) use of insulin
CPT/HCPCS: G0378; 36415; 74176; 80048; 80053; 81001; 82962; 83605; 83690; 83735; 84145; 85025; 97162; 97165; 99285; C9803; J2405; U0003; U0005

== ENCOUNTER → 2022-08-14 13:43 | Outpatient (CLI) | payer MEDICARE, BC, SELFPAY ==
[2022-08-14 15:09] LABS: Chloride 103 mmol/L (98-107)
[2022-08-14 15:10] LABS: Potassium 4.5 mmoL/L (3.5-5.1); Sodium 135 mmol/L (136-145)
[2022-08-14 15:12] LABS: Alanine Aminotransferase 22 U/L (12-78); Alkaline Phosphatase 76 U/L (38-126); Anion Gap 10.5 mEq/L (5-15); Aspartate Amino Transferase 31 U/L (14-36); Bilirubin,Total 0.5 mg/dl (0.2-1.3); Blood Urea Nitrogen 17 mg/dl (7-17); Carbon Dioxide 26 mmol/L (22.0-30.0); Estimated Glomerular Filt Rate 25 ml/min (>60); GFR (African American) 30 ML/MIN (>60)
[2022-08-14 15:13] LABS: Albumin Level 3.7 g/dl (3.5-5.0); Albumin/Globulin Ratio 1.7 (1.1-1.8); Calcium 10.3 mg/dl (8.4-10.2); Globulin 2.2 g/dL (1.3-3.2); Glucose 107 mg/dl (74-100); Total Protein,Serum 5.9 g/dl (6.3-8.2)
== END ==
PROVIDERS: PCP Family Medicine; Visit Provider Internal Medicine Adolescent Medicine
DX: N17.9 Acute kidney failure, unspecified (principal); N18.32 Chronic kidney disease, stage 3b
CPT/HCPCS: 80053

== ENCOUNTER → 2022-11-02 09:21 | Outpatient (CLI) | payer MEDICARE, BC, SELFPAY ==
--- NOTE | 2022-11-02 09:26 | NM_ITS ---
FINAL REPORT CLINICAL HISTORY: ELEVATED LEVELS 10:05 am 21.0 mci tc sestambi injected into lt ant FINDINGS: 21.0 mCi Technetium 99-M Sestamibi was administered. Planar imaging was performed early and two-hour delayed of the neck and upper thorax. Early imaging shows physiologic uptake within the upper neck involving the salivary glands and lower neck involving the thyroid gland. On delayed imaging there is no abnormal retained activity in the lower neck or mediastinum to localize parathyroid adenoma. IMPRESSION: No scintigraphic evidence of parathyroid adenoma. Reviewed, Interpreted and Dictated by Barrie Bustos MD Transcribed by Freida Clark Authenticated and [facility]
== END ==
PROVIDERS: PCP Family Medicine; Visit Provider Nurse Practitioner Family
DX: R79.89 Other specified abnormal findings of blood chemistry (principal)
CPT/HCPCS: 78070; A9500

== ENCOUNTER 2023-02-04 17:34 | Emergency (ER) | payer MEDICARE, BC, SELFPAY ==
[2023-02-04 17:36] VITALS: BP 124/64; PULSE 76; RESP 16; TEMP 36.9; O2SAT 100; BMI 22.6
[2023-02-04 17:49] VITALS: BP 124/64; PULSE 81; O2SAT 100
[2023-02-04 18:19] LABS: Basophils % 0.1 % (0.1-2.0); Eosinophils # 0.3 K/mm3 (0.0-0.4); Eosinophils % 1.8 % (0.1-12.0); Hemoglobin 9.8 g/dL (12.2-16.2); Lymphocytes # 1.1 K/mm3 (0.7-4.5); Lymphocytes % 7.6 % (10-50); Mean Corpuscular HGB Conc 31.7 g/dL (31.8-35.4); Mean Corpuscular Hemoglobin 26.6 pg (27.0-31.2); Mean Corpuscular Volume 83.8 fl (81-99); Mean Platelet Volume 7.6 fl (7.4-10.4); Monocytes # 0.6 K/mm3 (0.1-1.0); Monocytes % 3.9 % (1.7-9.3); Neutrophils # 12.7 K/mm3 (1.8-7.8); Neutrophils % 86.6 % (37.0-80.0); Platelet Count 391 K/mm3 (142-424); White Blood Count 14.7 K/mm3 (4.8-10.8)
[2023-02-04 18:22] LABS: Chloride 98 mmol/L (98-107); MANUAL DIFFERENTIAL MANUAL DIFFERENTIAL (MANUAL DIFF); Potassium 3.6 mmoL/L (3.5-5.1); Sodium 137 mmol/L (136-145)
[2023-02-04 18:24] LABS: Alanine Aminotransferase 24 U/L (12-78); Aspartate Amino Transferase 29 U/L (14-36); Blood Urea Nitrogen 30 mg/dl (7-17); Creatinine Clearance Estimated 25 mL/min (50-200); Estimated Glomerular Filt Rate 24 ml/min (>60); GFR (African American) 29 ML/MIN (>60)
[2023-02-04 18:25] LABS: Albumin Level 3.7 g/dl (3.5-5.0); Albumin/Globulin Ratio 1.2 (1.1-1.8); Alkaline Phosphatase 186 U/L (38-126); Anion Gap 11.6 mEq/L (5-15); Bilirubin,Total 0.7 mg/dl (0.2-1.3); Calcium 11.2 mg/dl (8.4-10.2); Carbon Dioxide 31 mmol/L (22.0-30.0); Globulin 3.2 g/dL (1.3-3.2); Glucose 211 mg/dl (74-100); Total Protein,Serum 6.9 g/dl (6.3-8.2)
--- NOTE | 2023-02-04 18:38 | CT_ITS ---
PROCEDURE INFORMATION: Exam: CT Abdomen And Pelvis Without Contrast Exam date and time: 02/04/2023 6:49 PM Age: 87 years old Clinical indication: Abdominal pain; Additional info: Llq abd pain; Ckd TECHNIQUE: Imaging protocol: Computed tomography of the abdomen and pelvis without contrast. Radiation optimization: All CT scans at this facility use at least one of these dose optimization techniques: automated exposure control; mA and/or kV adjustment per patient size (includes targeted exams where dose is matched to clinical indication); or iterative reconstruction. REPORTING DATA: Count of CT and Cardiac NM exams in prior 12 months: This patient has received 8 known CTs and 0 known cardiac nuclear medicine studies in the 12 months prior to the current study. COMPARISON: CT ABDOMEN PELVIS WO CON 08/07/2022 2:12 PM FINDINGS: Lungs: Mild atelectasis. Liver: No mass. Gallbladder and bile ducts: Postsurgical changes of cholecystectomy. Similar degree of moderate pneumobilia. Pancreas: Postsurgical changes in the region of the pancreatic head possibly related to Whipple procedure. Spleen: Normal. No splenomegaly. Adrenal glands: Stable nodular thickening of the bilateral adrenal glands. Kidneys and ureters: Small nonobstructing nephrolith within the right kidney inferior pole. Bilateral renal cortical scarring. Unchanged mild right hydronephrosis. Stomach and bowel: Postsurgical changes of the ascending colon. Moderate wall thickening from the mid transverse to proximal descending colon with associated pericolonic inflammatory fat stranding. Severe colonic diverticular disease. Large colonic stool burden. Normal caliber. Appendix: No evidence of appendicitis. Intraperitoneal space: Unremarkable. No free air. No significant fluid collection. Vasculature: Unremarkable. No abdominal aortic aneurysm. Lymph nodes: Unremarkable. No enlarged lymph nodes. Urinary bladder: Unremarkable as visualized. Reproductive: Unremarkable as visualized. Bones/joints: Unremarkable. No acute fracture. Soft tissues: Unremarkable. IMPRESSION: 1. Moderate wall thickening and pericolonic fat stranding from the mid transverse to proximal descending colon which may related to an infectious or inflammatory colitis. Background severe colonic diverticulosis. 2. Chronic ancillary findings as above.
--- NOTE | 2023-02-04 18:38 | HMH.EDGENADL ---
Discharge Plan Disposition Patient Disposition: Home, Self-Care Prescriptions Prescriptions: New amoxicillin-pot clavulanate 875-125 mg tablet 1 tab PO BID 10 Days Qty: 20 0RF No Action nitroglycerin 0.4 mg tablet, sublingual 0.4 mg SUBLINGUAL DIRECTED PRN (Reason: Chest Pain) Qty: 30 2RF Rx Instructions: 0.4 mg every 5 minutes up to 3 doses, if no relief seek emergency treatment potassium chloride 20 mEq tablet,ER particles/crystals 20 meq PO aspirin [Adult Low Dose Aspirin] 81 mg tablet,delayed release (DR/EC) 81 mg PO DAILY ferrous sulfate 325 mg (65 mg iron) tablet 325 mg PO DAILY atenolol 50 mg tablet 25 mg PO DAILY Qty: 90 1RF diltiazem HCl 240 mg capsule,extended release 24hr See Rx Instructions .ROUTE .COMPLEX Qty: 90 1RF Dose Instruction: TAKE 1 CAPSULE BY MOUTH ONCE DAILY Rx Instructions: TAKE 1 CAPSULE BY MOUTH ONCE DAILY pantoprazole 40 mg tablet,delayed release (DR/EC) 40 mg PO DAILY ranolazine 1,000 mg tablet extended release 12 hr 1,000 mg PO BID sennosides-docusate sodium [Stool Softener-Stimulant Laxat] 8.6-50 mg tablet 1 tab PO DAILY metformin 500 mg tablet 500 mg PO BID ezetimibe 10 MG tablet 10 mg PO DAILY acetaminophen 650 MG tablet extended release 650 mg PO TIDP PRN (Reason: PAIN) psyllium husk 660 GM powder 425 gm PO DAILY insulin glargine [Lantus U-100 Insulin] 100 unit/mL solution 10 unit SQ HS Januvia 25 mg tablet 25 mg PO DAILY atorvastatin 20 mg tablet 20 mg PO DAILY polyethylene glycol 3350 119 GM powder 17 gm PO DAILY PRN (Reason: constipation) 30 Days Qty: 0 0RF Referrals Follow up/Referrals: Rosalio Rainey MD [Primary Care Provider] - See instructions Alcides Sagastume MD [Staff Physician] - See instructions Activity Restrictions/Add. Instructions Additional Instructions/Restrictions: Follow-up with Dr. Coley to ensure resolution of your symptoms return to the emergency department with any worsening complaints. We will likely need a colonoscopy once her symptoms improved and resolved. Your symptoms are consistent with an inflammatory condition in the setting of diverticulosis which is most likely diverticulitis versus colitis which could be inflammatory or infectious. Clinical Impressions Clinical Impression: Abdominal pain, LLQ, Diverticulitis Instructions Patient Instructions: DI for Acute Abdominal Pain Discharge ED Provider: Kena Sunshine Adult HPI General Chief complaint: Abdominal Pain Stated complaint: ABD PAIN Time Seen by Provider: 02/04/23 18:35 Mode of Arrival: Wheelchair Source of Information: Patient Limitations: No Limitations Description of Symptoms (Recalled from ER Triage Doc. by RN): Presents to ED with c/o LLQ abd pain since this morning and reports no BM in 2 days and has not been able to pass much gas. Denies N/V/D/fever. Denies taking any meds [employer]. Patient denies any recent abd surgeries History of Present Illness HPI narrative: 87-year-old female here with left lower quadrant abdominal pain and decreased bowel movements but she complains of significant tenderness over the last 24 hours. Denies any change in her constipation any change in diarrhea any vaginal bleeding vaginal discharge urinary symptoms which would include hematuria dysuria frequency and urgency. Denies any fevers or chills or nausea and vomiting. Related Data Home Medications Medication Instructions Recorded Confirmed aspirin 81 mg tablet,delayed 81 mg PO DAILY heart health 07/30/17 08/22/22 release (Adult Low Dose Aspirin) ferrous sulfate 325 mg (65 mg 325 mg PO DAILY iron supplement 07/30/17 08/22/22 iron) tablet ezetimibe 10 mg tablet 10 mg PO DAILY Cholesterol 09/16/20 08/22/22 acetaminophen 650 mg 650 mg PO TIDP PRN PAIN 05/09/21 08/22/22 tablet,extended release psyllium husk 3.4 gram/5.4 gram 425 gm PO DAILY constipation
[2023-02-04 18:49] LABS: Eosinophils % 1 % (0-3); Lymphocytes % 16 % (10-50); Monocytes % 1 % (2-9); Neutrophils % 82 % (42-76); Total Cells Counted 100
[2023-02-04 18:50] LABS: Platelet Estimate Normal; Poikilocytosis 1+
[2023-02-04 19:00] VITALS: BP 104/55; PULSE 72; RESP 16; O2SAT 100
[2023-02-04 19:30] VITALS: BP 121/59; PULSE 73; RESP 16; O2SAT 99
--- NOTE | 2023-02-04 20:02 | PC.NURSE ---
in room talking with patient at this time.
[2023-02-04 20:16] VITALS: BP 121/57; PULSE 72; RESP 16; TEMP 36.9; O2SAT 99
== END 2023-02-04 20:19 | disposition home or self-care (01) ==
PROVIDERS: Emergency Provider Student in an Organized Health Care Education/Training Program; PCP Family Medicine
DX: K57.32 Diverticulitis of large intestine without perforation or abscess without bleeding (principal); R10.32 Left lower quadrant pain; I13.0 Hypertensive heart and chronic kidney disease with heart failure and stage 1 through stage 4 chronic kidney disease, or unspecified chronic kidney disease; I50.9 Heart failure, unspecified; N18.32 Chronic kidney disease, stage 3b; Z85.3 Personal history of malignant neoplasm of breast; E11.22 Type 2 diabetes mellitus with diabetic chronic kidney disease
CPT/HCPCS: 74176; 80053; 85007; 85025; 96374; 96375; 99285; J2405

== ENCOUNTER 2023-05-06 16:51 | Observation (INO) | payer MEDICARE, BC, SELFPAY ==
[2023-05-06] VITALS (9 sets, daily range): BP systolic 102–174; BP diastolic 40–96; PULSE 59–70; RESP 13–18; TEMP 36.4–36.7; O2SAT 93–100; BMI 19.6
[2023-05-06 17:07] LABS: Microscopic, Urine URINE MICROSCOPIC (MICROSCOPIC)
[2023-05-06 17:12] LABS: Appearance,Urine CLEAR (Clear); Bilirubin,Urine Negative (Negative); Blood, Urine Negative (Negative); Color,Urine YELLOW (Yellow); Glucose,Urine (UA) 2+ (Negative); Ketones,Urine Negative (Negative); Leukocyte Esterase,Urine Negative (Negative); Nitrate,Urine Negative (Negative); Protein,Urine TRACE (Negative); Urobilinogen,Urine 0.2 EU/dl (0.2)
--- NOTE | 2023-05-06 17:44 | CT_ITS ---
PROCEDURE INFORMATION: Exam: CT Abdomen And Pelvis With Contrast Exam date and time: 05/06/2023 6:14 PM Age: 87 years old Clinical indication: Abdominal pain; Additional info: Lower abd pain and ttp TECHNIQUE: Imaging protocol: Computed tomography of the abdomen and pelvis with contrast. Radiation optimization: All CT scans at this facility use at least one of these dose optimization techniques: automated exposure control; mA and/or kV adjustment per patient size (includes targeted exams where dose is matched to clinical indication); or iterative reconstruction. Contrast material: ISOVUE; Contrast volume: 75 ml; Contrast route: IV; REPORTING DATA: Count of CT and Cardiac NM exams in prior 12 months: This patient has received 9 known CTs and 0 known cardiac nuclear medicine studies in the 12 months prior to the current study. COMPARISON: CT ABDOMEN PELVIS WO CON 02/04/2023 6:49 PM FINDINGS: Liver: Normal. No mass. Gallbladder and bile ducts: Cholecystectomy with postoperative intrahepatic biliary dilatation. Pancreas: Pancreas unremarkable Spleen: The spleen is unremarkable. Adrenal glands: Mild nodularity of both adrenal glands again demonstrated. Kidneys and ureters: Bilateral renal cortical scarring. Persistent mild right hydronephrosis Persistent nonobstructing calculus lower pole right kidney Stomach and bowel: Large colonic stool burden in the rectosigmoid colon. Dilatation to 8.3 cm with impacted stool. Clinically correlate regarding developing stercoral colitis. Postoperative changes in the region of the ascending colon. Extensive diverticulosis. Appendix: No evidence of appendicitis. Intraperitoneal space: Unremarkable. No free air. No significant fluid collection. Vasculature: Scattered regions of atherosclerotic vascular calcification within the abdominal aorta and common iliac arteries. Lymph nodes: Unremarkable. No enlarged lymph nodes. Urinary bladder: Unremarkable as visualized. Reproductive: Unremarkable as visualized. Bones/joints: Unremarkable. No acute fracture. Soft tissues: Anasarca IMPRESSION: 1. Large colonic stool burden in the rectosigmoid colon. Dilatation to 8.3 cm with impacted stool. Clinically correlate regarding developing stercoral colitis. 2. Extensive diverticulosis.
--- NOTE | 2023-05-06 17:46 | HMH.EDGENADL ---
Discharge Plan Disposition Patient Disposition: Admitted Prescriptions Prescriptions: No Action nitroglycerin 0.4 mg tablet, sublingual 0.4 mg SUBLINGUAL DIRECTED PRN (Reason: Chest Pain) Qty: 30 2RF Rx Instructions: 0.4 mg every 5 minutes up to 3 doses, if no relief seek emergency treatment potassium chloride 20 mEq tablet,ER particles/crystals 20 meq PO aspirin [Adult Low Dose Aspirin] 81 mg tablet,delayed release (DR/EC) 81 mg PO DAILY ferrous sulfate 325 mg (65 mg iron) tablet 325 mg PO DAILY atenolol 50 mg tablet 25 mg PO DAILY Qty: 90 1RF diltiazem HCl 240 mg capsule,extended release 24hr See Rx Instructions .ROUTE .COMPLEX Qty: 90 1RF Dose Instruction: TAKE 1 CAPSULE BY MOUTH ONCE DAILY Rx Instructions: TAKE 1 CAPSULE BY MOUTH ONCE DAILY pantoprazole 40 mg tablet,delayed release (DR/EC) 40 mg PO DAILY ranolazine 1,000 mg tablet extended release 12 hr 1,000 mg PO BID sennosides-docusate sodium [Stool Softener-Stimulant Laxat] 8.6-50 mg tablet 1 tab PO DAILY metformin 500 mg tablet 500 mg PO BID ezetimibe 10 MG tablet 10 mg PO DAILY acetaminophen 650 MG tablet extended release 650 mg PO TIDP PRN (Reason: PAIN) psyllium husk 660 GM powder 425 gm PO DAILY insulin glargine [Lantus U-100 Insulin] 100 unit/mL solution 10 unit SQ HS Januvia 25 mg tablet 25 mg PO DAILY atorvastatin 20 mg tablet 20 mg PO DAILY polyethylene glycol 3350 119 GM powder 17 gm PO DAILY PRN (Reason: constipation) 30 Days Qty: 0 0RF amoxicillin-pot clavulanate 875-125 mg tablet 1 tab PO BID 10 Days Qty: 20 0RF Referrals Follow up/Referrals: Provider,Referral, MD [Primary Care Provider] - See instructions Clinical Impressions Clinical Impression: Fall, Abdominal pain, lower, Generalized weakness, Fecal impaction, Leukocytosis, Unable to care for self Discharge ED Provider: Tom Avalos General Adult HPI General Chief complaint: Fall Stated complaint: Falll Time Seen by Provider: 05/06/23 17:40 Mode of Arrival: EMS Source of Information: Patient and EMS Limitations: No Limitations Description of Symptoms (Recalled from ER Triage Doc. by RN): PT REPORTS FALL AT HOME APROX 24 HOURS AGO. STATES SHE THINKS SHE GOT DIZZY AND FELL. STATES LOC FOR ABOUT 15 MINUTES. PT C/O LOW BACK AND BUTTOCK PAIN. PT A&O X 4. BRUISING NOTED TO CHIN History of Present Illness HPI narrative: Is a 87-year-old female brought in by EMS after falling and being unable to get up. She is unsure as to how long she was down. States she did not injure herself she had some chronic lower back pain which was not exacerbated. She has had worsening abdominal pain over the last several days and also some dysuria abdominal pain is located in the lower aspect of her abdomen. She has a known history of diverticulitis. Denies any changes in bowel movements nausea vomiting fevers or any other concerns. States that she is currently living at home by herself but her son is on his way to be with her. Related Data Home Medications Medication Instructions Recorded Confirmed aspirin 81 mg tablet,delayed 81 mg PO DAILY heart health 07/30/17 02/14/23 release (Adult Low Dose Aspirin) ferrous sulfate 325 mg (65 mg 325 mg PO DAILY iron supplement 07/30/17 02/14/23 iron) tablet ezetimibe 10 mg tablet 10 mg PO DAILY Cholesterol 09/16/20 02/14/23 acetaminophen 650 mg 650 mg PO TIDP PRN PAIN 05/09/21 02/14/23 tablet,extended release psyllium husk 3.4 gram/5.4 gram 425 gm PO DAILY constipation 05/09/21 02/14/23 oral powder pantoprazole 40 mg tablet,delayed 40 mg PO DAILY acid reflux 07/10/22 02/14/23 release ranolazine 1,000 mg 1,000 mg PO BID Chest pain 07/10/22 02/14/23 tablet,extended release,12 hr sennosides 8.6 mg-docusate sodium 1 tab PO DAILY constipation 07/13/22 02/14/23 50 mg tablet (Stool Softener-Stimulant Laxative) insu
[2023-05-06 17:52] LABS: Bacteria,Urine Trace /lpf
[2023-05-06 17:53] LABS: Basophils % 0.1 % (0.1-2.0); Chloride 98 mmol/L (98-107); Eosinophils % 0.1 % (0.1-12.0); Hematocrit 33.3 % (37.0-47.0); Hemoglobin 10.4 g/dL (12.2-16.2); Lymphocytes # 0.9 K/mm3 (0.7-4.5); Lymphocytes % 4.5 % (10-50); MANUAL DIFFERENTIAL MANUAL DIFFERENTIAL (MANUAL DIFF); Mean Corpuscular HGB Conc 31.3 g/dL (31.8-35.4); Mean Corpuscular Volume 79.8 fl (81-99); Mean Platelet Volume 8.2 fl (7.4-10.4); Monocytes # 0.5 K/mm3 (0.1-1.0); Monocytes % 2.3 % (1.7-9.3); Neutrophils # 18.5 K/mm3 (1.8-7.8); Neutrophils % 92.9 % (37.0-80.0); Platelet Count 450 K/mm3 (142-424); Red Blood Count 4.17 M/mm3 (4.20-5.40); Red Cell Distribution Width 19.7 % (11.5-17.5)
[2023-05-06 17:54] LABS: Potassium 4.5 mmoL/L (3.5-5.1); Sodium 136 mmol/L (136-145)
[2023-05-06 17:56] LABS: Alanine Aminotransferase 118 U/L (12-78); Alkaline Phosphatase 758 U/L (38-126); Anion Gap 10.5 mEq/L (5-15); Aspartate Amino Transferase 62 U/L (14-36); Bilirubin,Total 0.9 mg/dl (0.2-1.3); Blood Urea Nitrogen 42 mg/dl (7-17); Carbon Dioxide 32 mmol/L (22.0-30.0); Creatine Kinase 81 U/L (30-135); Creatinine Clearance Estimated 31 mL/min (50-200); Estimated Glomerular Filt Rate 36 ml/min (>60); GFR (African American) 43 ML/MIN (>60)
[2023-05-06 17:57] LABS: Albumin Level 3.6 g/dl (3.5-5.0); Calcium 10.3 mg/dl (8.4-10.2); Globulin 3.5 g/dL (1.3-3.2); Glucose 376 mg/dl (74-100); Magnesium 3.3 mg/dl (1.6-2.3); Total Protein,Serum 7.1 g/dl (6.3-8.2)
--- NOTE | 2023-05-06 18:09 | PC.NURSE ---
pt to ct
--- NOTE | 2023-05-06 18:22 | PC.NURSE ---
PT RETURNED FROM CT
[2023-05-06 18:53] LABS: Lipase 53 U/L (23-300)
[2023-05-06 19:17] LABS: Lymphocytes % 9 % (10-50); Neutrophils % 91 % (42-76); Total Cells Counted 100
[2023-05-06 19:18] LABS: Platelet Estimate Normal; Poikilocytosis 1+
--- NOTE | 2023-05-06 19:45 | PC.NURSE ---
paged dr trevino
--- NOTE | 2023-05-06 19:59 | PC.NURSE ---
Administered approximately 1000 ml warm soap suds enema to patient while left lateral. Patient tolerated well. Large amount of stool noted to rectum at insertion. Patient holding fluid at this time.
--- NOTE | 2023-05-06 20:16 | PC.NURSE ---
Assisted patient to bedside commode. Patient had scant bowel movement. Provider notified.
--- NOTE | 2023-05-06 20:28 | PC.NURSE ---
Patient to be admitted. Notified [facility] administrator of need for bed assignment for generalized weakness and fall.
--- NOTE | 2023-05-06 20:47 | EXP.HP ---
History of Present Illness *Admission Date: 05/06/23 *History of present illness: This is a 87-year-old female with extensive medical history including but not limited to HTN, IDDM, CAD, CKD, HLD, CHF, Diverticulosis, chronic constipation that was brought in by EMS after falling at home and being unable to get up. Patient denied LOC, however she is unsure how long she was down. Stated she hit her chin. inconsistent with history. She also c/o having worsening abdominal pain over the last several days and also some dysuria abdominal pain is located in the lower aspect of her abdomen. Denies any changes in bowel movements nausea vomiting fevers or any other concerns. States that she is currently living at home by herself. Admitted for further management and treatment. [facility] Disclaimer: The information contained in this section may have been updated after the patient was seen, as this information can be updated by other users. Medical History Breast cancer Chronic kidney disease, stage 3b Congestive heart failure Diabetes mellitus, type 2 Gastric adenoma Status post endoscopic resection in September 2020. Repeat EGD in May 2021 revealed no evidence of persistent adenomatous growth. History of GI bleed Pneumonia RBBB with left anterior fascicular block Urinary tract infection Surgical History H/O esophagogastroduodenoscopy H/O mastectomy H/O Whipple procedure H/O: hysterectomy Family History Other Cancer of kidney Family history of diabetes mellitus type II Family history of hyperlipidemia Family history of hypertension Family history of myocardial infarction Liver cancer Social History (Updated 05/06/23 @ 21:43 by Jenny Grimes RN) Smoking Status: Never smoker second hand exposure: No alcohol intake: never substance use type: denies use current occupational status: disabled Travel in the last 8 weeks: Inside the [place] household members: none housing: apartment lives independently: Yes marital status: current occupational exposures/hazards: No caffeine: Yes Review of Systems Review of Systems Review of systems:: pertinent systems reviewed and negative unless documented below Meds Home Medications and Allergies Home Medications Medication Instructions Recorded Confirmed Type aspirin 81 mg tablet,delayed 81 mg PO DAILY [facility] 07/30/17 05/07/23 History release (Adult Low Dose Aspirin) ezetimibe 10 mg tablet 10 mg PO DAILY Cholesterol 09/16/20 05/07/23 History insulin glargine 100 unit/mL 12 unit SQ HS Diabetes 07/19/22 05/07/23 History subcutaneous solution (Lantus U-100 Insulin) sitagliptin phosphate 25 mg tablet 25 mg PO DAILY Diabetes 07/19/22 05/07/23 History (Januvia) atorvastatin 20 mg tablet 20 mg PO DAILY Cholesterol 07/20/22 05/07/23 History atenolol 50 mg tablet 25 mg PO DAILY High blood pressure 10/27/22 05/07/23 Rx #90 tabs diltiazem HCl 240 mg 240 mg PO DAILY 05/07/23 05/07/23 History capsule,extended release 24 hr furosemide 40 mg tablet 60 mg PO DAILY 05/07/23 05/07/23 History multivitamin 1 tab PO DAILY 05/07/23 05/07/23 History New Prescriptions to Start Prescriptions: Allergies Allergy/AdvReac Type Severity Reaction Status Date / Time butorphanol [From STADOL] Allergy Mild I-HIVES Verified 02/14/23 08:56 codeine [CODEINE] Allergy Mild I-HIVES Verified 02/14/23 08:56 morphine [MORPHINE] Allergy Mild I-HIVES Verified 02/14/23 08:56 promethazine [From PHENERGAN] Allergy Mild I-HIVES Verified 02/14/23 08:56 Exam Data for Last 24 hours Vital signs and Labs for Last 24 Hours: Temp Pulse Resp BP Pulse Ox O2 Del Method 97.5 F L 59 L 16 130/96 H 99 Room Air 05/06/23 16:56 05/06/23 18:30 05/06/23 18:30 05/06/23 1
--- NOTE | 2023-05-06 20:55 | PC.NURSE ---
Nurse to nurse report to Zahraa FRAUSTO
--- NOTE | 2023-05-06 21:14 | PC.NURSE ---
pt arrived to the floor via wheelchair @21:11
[2023-05-07] VITALS (7 sets, daily range): BP systolic 118–155; BP diastolic 50–76; PULSE 55–90; RESP 17; TEMP 36.6–37.3; O2SAT 72–97
--- NOTE | 2023-05-07 01:27 | CT_ITS ---
PROCEDURE INFORMATION: Exam: CT Head Without Contrast Exam date and time: 05/07/2023 1:43 AM Age: 87 years old Clinical indication: Pain; Additional info: Fall TECHNIQUE: Imaging protocol: Computed tomography of the head without contrast. Radiation optimization: All CT scans at this facility use at least one of these dose optimization techniques: automated exposure control; mA and/or kV adjustment per patient size (includes targeted exams where dose is matched to clinical indication); or iterative reconstruction. REPORTING DATA: Count of CT and Cardiac NM exams in prior 12 months: This patient has received 10 known CTs and 0 known cardiac nuclear medicine studies in the 12 months prior to the current study. COMPARISON: 1. CT HEAD/BRAIN WO CON 07/16/2022 7:49 PM 2. MR HEAD/BRAIN WO CON 07/13/2022 11:[address] HEAD/BRAIN WO CON 07/13/2022 1:02 AM FINDINGS: Brain: The brain parenchyma appears normal for an elderly patient, with no evidence of acute ischemia, hemorrhage, or masses. The thomas-white matter differentiation is preserved. Mild periventricular white matter hypodensities are consistent with chronic small vessel ischemic changes, which are often seen in elderly patients and are not indicative of acute pathology. Cerebral ventricles: Ventricles and sulci are consistent with patient age, showing mild age-related atrophy but no significant enlargement. Paranasal sinuses: The orbits and paranasal sinuses are free of marked disease. No opacifications are observed in the visible sinus cavities. Mastoid air cells: Visualized mastoid air cells are well aerated. Bones/joints: The cranial bones are intact with no signs of fractures or lytic lesions. Soft tissues: Unremarkable. IMPRESSION: In this patient, the head CT reveals no evidence of acute intracranial pathology. The observed structures including the brain parenchyma, vascular structures, cranial bones, and soft tissues appear within normal limits, except for age-related atrophic and chronic ischemic changes which are not unexpected for this age group.
--- NOTE | 2023-05-07 01:39 | PC.NURSE ---
Pt off floor to CT with Radiology and Charge
[2023-05-07 04:42] LABS: POC Glucose,Bedside 359 (70-110)
--- NOTE | 2023-05-07 05:45 | PC.NURSE ---
turned q2h t/o shift to relieve pressure on coccyx wound - dsg applied. patient has had [place] [facility] ([place] walker and 2x assist).
[2023-05-07 06:01] LABS: POC Glucose,Bedside 163 (70-110)
[2023-05-07 06:58] LABS: Basophils % 0.1 % (0.1-2.0); Eosinophils % 0.1 % (0.1-12.0); Lymphocytes # 1.2 K/mm3 (0.7-4.5); Lymphocytes % 9.5 % (10-50); Mean Corpuscular HGB Conc 31.2 g/dL (31.8-35.4); Mean Corpuscular Hemoglobin 24.5 pg (27.0-31.2); Mean Corpuscular Volume 78.5 fl (81-99); Mean Platelet Volume 8.5 fl (7.4-10.4); Monocytes # 0.4 K/mm3 (0.1-1.0); Monocytes % 2.8 % (1.7-9.3); Neutrophils # 11.3 K/mm3 (1.8-7.8); Neutrophils % 87.5 % (37.0-80.0); Platelet Count 407 K/mm3 (142-424); Red Cell Distribution Width 19.8 % (11.5-17.5)
[2023-05-07 07:02] LABS: Chloride 101 mmol/L (98-107); Potassium 4.1 mmoL/L (3.5-5.1); Sodium 137 mmol/L (136-145)
[2023-05-07 07:05] LABS: Alanine Aminotransferase 86 U/L (12-78); Albumin Level 3.1 g/dl (3.5-5.0); Albumin/Globulin Ratio 0.9 (1.1-1.8); Alkaline Phosphatase 599 U/L (38-126); Anion Gap 5.1 mEq/L (5-15); Aspartate Amino Transferase 51 U/L (14-36); Bilirubin,Total 0.8 mg/dl (0.2-1.3); Blood Urea Nitrogen 35 mg/dl (7-17); Carbon Dioxide 35 mmol/L (22.0-30.0); Creatinine Clearance Estimated 30 mL/min (50-200); Estimated Glomerular Filt Rate 33 ml/min (>60); GFR (African American) 40 ML/MIN (>60); Globulin 3.3 g/dL (1.3-3.2); Total Protein,Serum 6.4 g/dl (6.3-8.2)
[2023-05-07 07:06] LABS: Calcium 9.9 mg/dl (8.4-10.2); Glucose 165 mg/dl (74-100)
[2023-05-07 07:14] LABS: Hematocrit 29.8 % (37.0-47.0); Hemoglobin 9.3 g/dL (12.2-16.2)
[2023-05-07 07:15] LABS: MANUAL DIFFERENTIAL MANUAL DIFFERENTIAL (MANUAL DIFF)
--- NOTE | 2023-05-07 07:50 | HMH.PHAINT1 ---
Pharmacy Intervention Comments: Med reconciliation completed using external fill history and patient interview. Ms Carrasco has a list of her medications in her purse
[2023-05-07 09:11] LABS: Eosinophils % 1 % (0-3); Hypochromasia 1+; Lymphocytes % 11 % (10-50); Microcytosis 2+; Monocytes % 2 % (2-9); Neutrophils % 86 % (42-76); Total Cells Counted 100
[2023-05-07 09:12] LABS: Anisocytosis 3+; Platelet Estimate Slight Increase
[2023-05-07 09:13] LABS: Burr Cells 1+; Helmet Cells 1+; Poikilocytosis 3+
--- NOTE | 2023-05-07 10:31 | SW/DCPLANNER ---
Addendum entered by Kaykay Gutierrez 05/08/23 14:06: Per Linnea w/ [facility] she called and discussed home health services w/ patient's daughter (Roxi). Roxi stated to Linnea that they are not interested in home health services at this time due to the plan of her taking patient home w/ her to [facility] at the end of this week. Addendum entered by Kaykay Gutierrez 05/08/23 10:16: Patient and daughter Roxi are agreeable to home health services and prefer to use [facility] due to using this agency in the past. Patient has also requested a bedside commode that will be ordered at time of discharge: patient prefers to use [facility]. I will set up home health services at time of discharge. Patient may discharge later today. Addendum entered by Sena Jimenez RN 05/07/23 13:43: Patient's daughter, Roxi, called and states she is coming in from [place] to take care of her mother and her mother will not be going to the skilled nursing. Spoke with the patient who states she will be going home and her daughters will be taking care of her. The only DME equipment they are requesting is a hospital bed. Informed Wilma to disregard the referral. JETT Mills Original Note: I spoke w/ patient this AM regarding plans once medically stable for discharge. PT/OT evaluated patient and recommended SNF level of care at time of discharge. Patient stated that she resides at home alone is agreeable to placement. Patient prefers [facility] at time of discharge. Patient information will be faxed to Benita koch/ [facility] this AM. Discharge date is unknown at this time. Per patient's request I will call and update patient's son (David).
--- NOTE | 2023-05-07 10:38 | HMH.PTEV ---
Physical Therapy Evaluation Rehab PT IP Evaluation Start: 05/06/23 23:08 Freq: ONCE Status: Active Protocol: Document 05/07/23 10:28 SEAN (Rec: 05/07/23 10:37 SENA [id number]) Subjective/History History History Pt is an 87 y/o female brought to [facility] ED via EMS on 05/06/23 after falling at home and being unable to get up. Per history & physical note, Patient denied LOC, however she is unsure how long she was down. Stated she hit her chin. inconsistent with history. She also c/o having worsening abdominal pain over the last several days and also some dysuria abdominal pain is located in the lower aspect of her abdomen. Denies any changes in bowel movements nausea vomiting fevers or any other concerns. States that she is currently living at home by herself. Admitted for further management and treatment. Pt had head CT without significant findings. Medical History: Breast cancer Chronic kidney disease, stage 3b Congestive heart failure Diabetes mellitus, type 2 Gastric adenoma Status post endoscopic resection in September 2020. Repeat EGD in May 2021 revealed no evidence of persistent adenomatous growth. History of GI bleed Pneumonia RBBB with left anterior fascicular block Urinary tract infection Subjective Subjective Pt reports she lives at home alone in an apartment with 2 steps to enter. Pt reports she uses a SPC at baseline for ambulation. Pt reports 3 falls recently, denies serious injuries from the falls. Pt
--- NOTE | 2023-05-07 11:02 | HMH.OTEV ---
OT Inpatient Evaluation Rehab OT IP Evaluation Start: 05/06/23 23:08 Freq: ONCE Status: Active Protocol: Document 05/07/23 10:48 DOUG (Rec: 05/07/23 11:01 DOUG [id number]) Rehab OT IP Assessment Subjective History This is a 87-year-old female with extensive medical history including but not limited to HTN, IDDM, CAD, CKD, HLD, CHF, Diverticulosis, chronic constipation that was brought in by EMS after falling at home and being unable to get up. Patient denied LOC, however she is unsure how long she was down. Stated she hit her chin. inconsistent with history. She also c/o having worsening abdominal pain over the last several days and also some dysuria abdominal pain is located in the lower aspect of her abdomen. Denies any changes in bowel movements nausea vomiting fevers or any other concerns. States that she is currently living at home by herself. Admitted for further management and treatment. Patient lives alone in 1 story home with 1-2 SADIQ. Uses RW to ambulate. Independent with ADLs prior to hospitalization. Son assist with IADLs on the weekend. Subjective I can get up. Instructed patient on safety awareness to complete transfers, bed mobility, tolileting and fx'l mobility. Patient requried Mod A for all transfers. Patient reported hx of falling at home. Objective Patient Orientation Person,Place,Name,Age,Birthday ,Year Right Upper Extremity Gross ROM WFL Left Upper Extremity Gross ROM WFL Bed Mobility bed mobility - supine/sit Assist Level Minimal x 2 (25% assist) Transfer Training Sit/Stand/Pivot Transfer Assist Level Minimal x 2 (25% assist) Chair Transfer Abilit
[2023-05-07 13:09] LABS: POC Glucose,Bedside 235 (70-110)
[2023-05-07 17:30] LABS: POC Glucose,Bedside 214 (70-110)
--- NOTE | 2023-05-07 17:38 | EXP.ACUTE.PN ---
Subjective *Date: 05/07/23 *Time: 17:38 Interval history: Patient comfortable this morning. Minimal abdominal pain. Reviewed imaging, significant stool burden. Only smears this morning, no significant stool output. Afebrile and on room air. Medical Exam Vital signs and Labs for Last 24 Hours: Vital Signs Temp Pulse Pulse Pulse Pulse Pulse Resp 05/07/23 16:00 90 05/07/23 17:00 05/07/23 12:00 70 05/07/23 15:48 98.1 F 57 L 17 05/07/23 15:00 05/07/23 13:00 05/07/23 11:00 05/07/23 09:00 05/07/23 08:00 05/07/23 08:00 65 05/07/23 08:00 97.8 F 67 17 05/07/23 04:00 97.9 F 62 17 05/07/23 06:21 05/07/23 05:00 05/07/23 04:00 60 05/07/23 03:00 05/06/23 23:07 60 65 68 05/07/23 00:00 70 05/07/23 01:00 05/07/23 00:00 99.1 F 60 17 05/06/23 21:50 05/06/23 23:00 05/06/23 21:30 98.0 F 70 17 05/06/23 21:11 98.0 F 63 18 05/06/23 21:00 05/06/23 20:45 63 18 05/06/23 19:00 61 15 05/06/23 18:30 59 L 16 05/06/23 18:00 65 13 BP BP BP BP BP Pulse Ox O2 Del Method 05/07/23 16:00 05/07/23 17:00 Room Air 05/07/23 12:00 05/07/23 15:48 122/54 L 97 Room Air 05/07/23 15:00 Room Air 05/07/23 13:00 Room Air 05/07/23 11:00 Room Air 05/07/23 09:00 Room Air 05/07/23 08:00 Room Air 05/07/23 08:00 05/07/23 08:00 155/76 H 93 L Room Air 05/07/23 04:00 122/50 L 92 L Room Air 05/07/23 06:21 Room Air 05/07/23 05:00 Room Air 05/07/23 04:00 05/07/23 03:00 Room Air 05/06/23 23:07 125/60 137/72 134/62 05/07/23 00:00 05/07/23 01:00 Room Air 05/07/23 00:00 125/60 72 L Room Air 05/06/23 21:50 Room Air 05/06/23 23:00 Room Air 05/06/23 21:30 174/87 H 93 L Room Air 05/06/23 21:11 130/88 Room Air 05/06/23 21:00 Room Air 05/06/23 20:45 130/88 96 05/06/23 19:00 145/82 H 100 05/06/23 18:30 130/96 H 99 05/06/23 18:00 114/88 100 Intake and Output 05/07/23 05/07/23 05/07/23 07:59 15:59 23:59 Intake Total 340 / 1290 710 / 1290 240 / 1290 Output Total 0 / 0 0 / 0 Balance 340 / 1290 710 / 1290 240 / 1290 Intake: Intake, Oral Amount 240 / 1190 710 / 1190 240 / 1190 Intake, Total IV Amount 100 / 100 Piperacillin/Tazo 4.5 gm In 0.9 100 / 100 % Sodium Chloride 100 ml @ 200 mls/hr IV Q8H [facility] Rx#: [id number] Output: Output, Urine Amount 0 / 0 0 / 0 Other: Number of Unmeasured Voids 1 1 Number of Bowel Movements 1 Weight 68.53 kg Patient Weight 05/07/23 23:59 Weight 68.53 kg Laboratory Results - last 24 hr 05/06/23 17:01: Urine RBC 5-10, Urine WBC None, Ur Squamous Epith Cells 3-5, Urine Bacteria Trace 05/06/23 17:15: WBC 20.0 H, RBC 4.17 L, Hgb 10.4 L, Hct 33.3 L, MCV 79.8 L, MCH 25.0 L, MCHC 31.3 L, RDW 19.7 H, Plt Count 450 H, MPV 8.2, Neut % (Auto) 92.9 H, Lymph % (Auto) 4.5 L, Bureau % (Auto) 2.3, Eos % (Auto) 0.1, Baso % (Auto) 0.1, Neut # (Auto) 18.5 H, Lymph # (Auto) 0.9, Bureau # (Auto) 0.5, Eos # (Auto) 0.0, Baso # (Auto) 0.0, Total Counted 100, Neutrophils % (Manual) 91 H, Lymphocytes % (Manual) 9 L, Platelet Estimate Normal, Poikilocytosis 1+, Sodium 136, Potassium 4.5, Chloride 98, Carbon Dioxide 32 H, Anion Gap 10.5, BUN 42 H, Creatinine 1.40 H, Estimated Creat Clear 31, Estimated GFR 36 L, Est GFR ( Amer) 43 L, Glucose 376 H, Calcium 10.3 H, Phosphorus 3.0, Magnesium 3.3 H, Total Bilirubin 0.9, AST 62 H, ALT 118 H, Alkaline Phosphatase 758 H, Total Creatine Kinase 81, Total Protein 7.1, Albumin 3.6, Globulin 3.5 H, Albumin/Globulin Ratio 1.0 L, Lipase 53 05/06/23 21:44: POC Glucose 359 H* 05/07/23 05:51: POC Glucose 163 H 05/07/23 06:40: WBC 13.0 H D, RBC 3.8
--- NOTE | 2023-05-07 18:12 | PC.NURSE ---
pt ambulates sb to x1 assist to br. no bm this shift.flat affect when speaking wiht pt, this nurse asked if anything is bothering the pt or how the hospital stay is going. pt replied yasmin im always quiet, you all have been very nice to me here . pt accidentally pulled out iv in lt hand. cb within reach, pt has no questions a this time.
[2023-05-07 20:41] LABS: POC Glucose,Bedside 198 (70-110)
--- NOTE | 2023-05-07 23:06 | CA_ITS ---
APPROVED REPORT EXAM: Comprehensive 2D, Doppler, and color-flow Echocardiogram Supervisor Press Room: Ranjana Gastelum RDCS Ht: 6 ft 1 in Wt: 149lbs BSA: 1.90 BP: 130/96 mmHg Indications: CAD,DIZZINESS,FALL,DM,HTN,HLP TDS OFF AXIS IMAGES IN APICAL VIEWS M-Mode Dimensions RVDd 2.11 cm (0.9-2.6) LA Diam 2.59 cm (1.9-4.0) LVDd 5.57 cm (3.5-5.7) LVDs 3.55 cm (3.5-5.7) IVSd 0.87 cm (0.6-1.1) PWd 0.87 cm (0.6-1.1) EF (Teich) 65.30% FS 36.30% EDV (Teich) 151.80 mL ESV (Teich) 52.60 mL LV Diastology E Decel Time 190 (160-240 msec) E/A Ratio 0.7 Mitral Valve MV E Max Thomas. 41.0 (40-130 cm/s) MV A Velocity 61.0 (40-130 cm/s) E/A Ratio 0.66 MV PHT 56.0 ms Left Ventricle The left ventricle is normal size. The left ventricular systolic function is normal. The left ventricular ejection fraction is within the normal range. There is normal left ventricular wall thickness. There is normal LV segmental wall motion. LVEF is 55%. Right Ventricle The right ventricle is mildly dilated. The right ventricular systolic function is normal. Atria The left atrium size is normal. The right atrium size is normal. The the interatrial l septum is not well-visualized. Aortic Valve The aortic valve is mildly thickened. The aortic valve opens well. There is no aortic valvular stenosis. Mild aortic regurgitation. Mitral Valve The mitral valve leaflets are mildly thickened. No evidence of mitral valve stenosis. Mild mitral regurgitation. Tricuspid Valve The tricuspid valve leaflets are thin and pliable. Trace tricuspid regurgitation. RVSP is normal. Pulmonic Valve The pulmonary valve is normal in structure. Trace pulmonic regurgitation. Great Vessels The aortic root is normal in size. The ascending aorta is normal in size. IVC is normal in size and collapses >50% with inspiration. Pericardium There is no pericardial effusion. Other Information Study Quality: Technically Difficult Conclusion This is a technically difficult study due to poor acoustic windows. Normal biventricular systolic function. Mild RV dilation. Mild MR, mild AI. Electronically signed by : Lavern Avila MD 05/08/2023 13:11:54
[2023-05-08] VITALS: PULSE 61
[2023-05-08 04:00] VITALS: BP 124/69; PULSE 63; PULSE 69; RESP 16; TEMP 36.6; O2SAT 96
[2023-05-08 05:52] LABS: Basophils % 0.1 % (0.1-2.0); Eosinophils % 0.2 % (0.1-12.0); Hematocrit 29.1 % (37.0-47.0); Hemoglobin 9.3 g/dL (12.2-16.2); Lymphocytes # 1.4 K/mm3 (0.7-4.5); Lymphocytes % 9.4 % (10-50); Mean Corpuscular Hemoglobin 24.9 pg (27.0-31.2); Mean Corpuscular Volume 77.6 fl (81-99); Mean Platelet Volume 9.1 fl (7.4-10.4); Monocytes # 0.5 K/mm3 (0.1-1.0); Neutrophils % 87.2 % (37.0-80.0); Platelet Count 418 K/mm3 (142-424); Red Blood Count 3.74 M/mm3 (4.20-5.40); White Blood Count 14.9 K/mm3 (4.8-10.8)
[2023-05-08 05:54] LABS: MANUAL DIFFERENTIAL MANUAL DIFFERENTIAL (MANUAL DIFF)
[2023-05-08 05:59] LABS: Chloride 102 mmol/L (98-107)
[2023-05-08 06:00] LABS: Potassium 4.3 mmoL/L (3.5-5.1); Sodium 138 mmol/L (136-145)
[2023-05-08 06:02] LABS: Alanine Aminotransferase 116 U/L (12-78); Aspartate Amino Transferase 139 U/L (14-36); Blood Urea Nitrogen 28 mg/dl (7-17); Creatinine Clearance Estimated 26 mL/min (50-200); Estimated Glomerular Filt Rate 29 ml/min (>60); GFR (African American) 35 ML/MIN (>60)
[2023-05-08 06:03] LABS: Albumin Level 3.2 g/dl (3.5-5.0); Alkaline Phosphatase 728 U/L (38-126); Anion Gap 6.3 mEq/L (5-15); Bilirubin,Total 0.8 mg/dl (0.2-1.3); Calcium 9.9 mg/dl (8.4-10.2); Carbon Dioxide 34 mmol/L (22.0-30.0); Globulin 3.3 g/dL (1.3-3.2); Glucose 109 mg/dl (74-100); Total Protein,Serum 6.5 g/dl (6.3-8.2)
[2023-05-08 06:05] LABS: Lymphocytes % 9 % (10-50); Monocytes % 5 % (2-9); Neutrophils % 86 % (42-76); Total Cells Counted 100
[2023-05-08 06:06] LABS: Anisocytosis 3+; Microcytosis 2+; Platelet Estimate Slight Increase; Poikilocytosis 2+
[2023-05-08 06:07] LABS: Burr Cells 1+; Helmet Cells 1+; Hypochromasia 1+; Ovalocytes 1+
--- NOTE | 2023-05-08 06:49 | PC.NURSE ---
pt has been up to [facility] several times t/o the night with small hard stool, with impaction at the rectum. PRN enema administered.
[2023-05-08 07:29] LABS: POC Glucose,Bedside 99 (70-110)
[2023-05-08 07:37] VITALS: BP 137/72; PULSE 78; RESP 17; TEMP 36.7; O2SAT 96
--- NOTE | 2023-05-08 07:54 | US_ITS ---
FINAL REPORT CLINICAL HISTORY: elevated Alk Phos. Eval RUQ COMPARISON: CT abdomen and pelvis 05/06/2023 FINDINGS: Sonographic images of the right upper quadrant were obtained. The pancreas is partially obscured. Multiple echogenic foci are present in the liver, likely pneumobilia seen on the patient's prior CT. The gallbladder has been surgically resected. The common duct is not well seen on this examination secondary to shadowing from pneumobilia. Limited images of the right kidney are unremarkable. IMPRESSION: Pneumobilia is present, as seen on the prior CT of 05/06/2023. The gallbladder has been surgically resected and the common bile duct is not well seen on this examination. Reviewed, Interpreted and Dictated by Toby Bennett III, MD Transcribed by Maggi Owusu Authenticated and [facility]
[2023-05-08 08:00] VITALS: PULSE 70
--- NOTE | 2023-05-08 09:49 | EXP.DC.SUM ---
General Admission date:: 05/06/23 Discharge date: 05/08/23 HPI HPI HPI: This is a 87-year-old female with extensive medical history including but not limited to HTN, IDDM, CAD, CKD, HLD, CHF, Diverticulosis, chronic constipation that was brought in by EMS after falling at home and being unable to get up. Patient denied LOC, however she is unsure how long she was down. Stated she hit her chin. inconsistent with history. She also c/o having worsening abdominal pain over the last several days and also some dysuria abdominal pain is located in the lower aspect of her abdomen. Denies any changes in bowel movements nausea vomiting fevers or any other concerns. States that she is currently living at home by herself. Admitted for further management and treatment. Hospital Course Hospital Course Hospital Course: 87-year-old female with extensive medical history including but not limited to HTN, IDDM, CAD, CKD, HLD, CHF, Diverticulosis, chronic constipation that was brought in by EMS after falling at home and being unable to get up. Patient denied LOC, Reported hit her chin. physical exam negative for acute trauma or fracture, small bruise noticed. ER work up performed a CT of abdomen, showing moderated stool burden, with impaction. Extensive diverticulosis. Elevated WBC also present, concerning for acute colitis. Patient had bowel movements after aggressive bowel regimen. Treated with empiric antibiotics during admission. Overall doing better with improvement in pain, tolerating p.o. intake, having bowel movements. Stable for discharge home. Problems addressed as follows: - Abdominal pain secondary to chronic constipation , diverticulosis with colitis and fecal impaction: Patient treated with extensive bowel regimen including multiple enemas and scheduled MiraLAX. Had numerous bowel movements that were large and achieved significant relief in her discomfort. Will continue bowel regimen at discharge. Initiated on Zosyn during admission because of colitis. Transitioned to Augmentin to complete 5-day course of antibiotics for stercoral colitis. White cell count improving, 14 on day of discharge. Liver function tests with bilirubin 0.8, AST 51, ALT 86, alk phos 599. This is an improvement from yesterday. Ultrasound obtained. No zaire obstructions noted. No indication for intervention at this time. Patient had falls at home with minimal injury. PT and OT evaluated. Recommend placement. Discussed case with family, who prefer to take patient home with them and do therapy at home. Case management assisting with placement recommendations. - Chronic conditions including CAD, hypertension, diabetes, hyperlipidemia: Continue aspirin 81 mg daily, atenolol 25 mg daily, Lipitor 20 mg daily, diltiazem 240 mg daily, Zetia 10 mg daily, and insulin glargine 10 units nightly for chronic conditions. Stable for discharge home with home health. Exam Data for Last 24 hours Vital signs and Labs for Last 24 Hours: Temp Pulse Resp BP Pulse Ox O2 Del Method 98.0 F 78 17 137/72 96 Room Air 05/08/23 07:37 05/08/23 07:37 05/08/23 07:37 05/08/23 07:37 05/08/23 07:37 05/08/23 09:00 Laboratory Results - last 24 hr 05/07/23 11:47: POC Glucose 235 H 05/07/23 17:14: POC Glucose 214 H 05/07/23 20:07: POC Glucose 198 H 05/08/23 05:10: POC Glucose 99 05/08/23 05:37: WBC 14.9 H, RBC 3.74 L, Hgb 9.3 L, Hct 29.1 L, MCV 77.6 L, MCH 24.9 L, MCHC 32.0, RDW 20.0 H, Plt Count 418, MPV 9.1, Neut % (Auto) 87.2 H, Lymph % (Auto) 9.4 L, O'Brien % (Auto) 3.0, Eos % (Auto) 0.2, Baso % (Auto) 0.1, Neut # (Auto) 13.0 H, Lymph # (Auto) 1.4, O'Brien # (Auto) 0.5, Eos # (Auto) 0.0, Baso # (Auto) 0.0, Total Counted 100, Neutrophils % (Manual) 86 H, Lymphocytes % (Manual) 9 L, Monocytes % (Manual) 5, Platelet Estimate Slight increase, Hypochromasia 1+, Poikilocytosis 2+, Anisocytosis 3+, Microcytosis 2+, Ovalocytes 1+, Helmet Cells 1+, Rene Cells 1+, Sodium 138, Potassium 4.3, Chloride
[2023-05-08 11:37] LABS: POC Glucose,Bedside 198 (70-110)
[2023-05-08 16:00] VITALS: BP 120/66; PULSE 68; RESP 18; TEMP 36.7; O2SAT 100
--- NOTE | 2023-05-08 17:28 | PC.NURSE ---
pt had x2 extra large bm prior to dc
--- NOTE | 2023-05-09 11:10 | CARE MANAGER ---
Spoke with patient's son. He states as far as he knows the patient is doing well. She is with her daughter now. Denies questions or concerns. Left message on patient's home number as well. JETT Mills
== END 2023-05-08 16:59 | disposition home health service (06) ==
LOC: ER 20:23 → 2ND 20:48
PROVIDERS: Internal Medicine Adolescent Medicine; Nurse Practitioner Family; Admitting Provider Internal Medicine; Emergency Provider Student in an Organized Health Care Education/Training Program; Visit Provider Internal Medicine
DX: R10.30 Lower abdominal pain, unspecified (principal); K52.9 Noninfective gastroenteritis and colitis, unspecified; K56.41 Fecal impaction; K57.90 Diverticulosis of intestine, part unspecified, without perforation or abscess without bleeding; W19.XXXA Unspecified fall, initial encounter; E11.22 Type 2 diabetes mellitus with diabetic chronic kidney disease; N18.32 Chronic kidney disease, stage 3b; I25.10 Atherosclerotic heart disease of native coronary artery without angina pectoris; I12.9 Hypertensive chronic kidney disease with stage 1 through stage 4 chronic kidney disease, or unspecified chronic kidney disease; E78.2 Mixed hyperlipidemia; R53.1 Weakness; Z78.9 Other specified health status; Z79.899 Other long term (current) drug therapy; Z79.4 Long term (current) use of insulin
CPT/HCPCS: 36415; 70450; 74177; 76705; 80053; 81001; 82550; 82962; 83690; 83735; 84100; 85007; 85025; 87070; 87205; 93306; 97162; 97165; 97530; 99285; G0378; J2543; Q9967